=== PATIENT | male | born 1955 | race Hispanic/Latino ===

== ENCOUNTER 2019-10-28 16:53 | Inpatient (IN) | payer OTHER ==
[2019-10-28 17:56] LABS: Absolute Lymphocytes (CBC) 1.2 K/uL (0.7-4.9); Basophils % 0.4 % (0-1.3); Hematocrit 44.6 % (39.6-49.0); Lymphocytes % 11.6 % (15.3-44.8); MPV 8.6 fL (7.6-11.3); RBC Red Blood Cell Count 4.94 M/uL (4.33-5.43)
[2019-10-28 18:26] LABS: Bilirubin Total 0.6 mg/dL (0.2-1.0); Potassium 3.8 mmol/L (3.5-5.1); Protein, Total 7.6 g/dL (6.4-8.2); Thyroid Stimulating Hormone 0.785 uIU/mL (0.360-3.740)
[2019-10-28] MEDS: HYDROCODONE/APAP 5/325 MG TAB PO PRN (18:47)
[2019-10-28] MEDS: PIPER/TAZO/NS 3.375gm 3.375 GM/100 ML BAG IVPB SCH (18:47)
[2019-10-28] MEDS ORDERED: POTASSIUM CL SA 10 MEQ TAB PO ONE (19:00)
[2019-10-28] MEDS ORDERED: INFLUENZA VACCINE (for 3y+) 0.5 ML DOSE IMVAC ONE (21:00)
[2019-10-28] MEDS ORDERED: PREGABALIN PO SCH (21:00)
[2019-10-28] MEDS ORDERED: ONDANSETRON 4 MG/2 ML VIAL IV PRN (21:13)
[2019-10-28] MEDS ORDERED: ENOXAPARIN 40 MG/0.4 ML SQ ONE (21:13)
[2019-10-28] MEDS: carBAMazepine 200 MG TAB PO SCH (22:46)
[2019-10-28] MEDS: MORPHINE 2 MG/ML SYR IV PRN (22:46)
[2019-10-28] MEDS: PREGABALIN 150 MG CAP PO SCH (22:46)
[2019-10-28] MEDS: carvediloL 25 MG TAB PO SCH (22:46)
[2019-10-29] MEDS: PIPER/TAZO/NS 3.375gm 3.375 GM/100 ML BAG IVPB SCH ×3 (02:49→16:21)
[2019-10-29] MEDS: HYDROCODONE/APAP 5/325 MG TAB PO PRN ×2 (02:51→20:04)
--- NOTE | 2019-10-29 05:51 | HP ---
Date of Admission: 10/28/2019 Chief Complaint: Redness and pain in left leg. History Of Present Illness: A 64-year-old pleasant male patient who was doing fine until today all o f a sudden he started to have rapidly worsening redness of left leg with significant pain. Denies an y fever, chills, injury. He says over period of 4 hours, his symptom has gotten significantly worse since it started and when I saw him, he had significant area of redness involving the lower 2/3rd of left leg and all this development has happened in last 4 hours as he says. He has significant pain. After he was evaluated, he was admitted to the hospital as the patient reported that he never had th is much pain with his prior episodes of cellulitis, which he unfortunately gets it on a recurrent bas is. Considering his symptoms, decision was made to admit him to the hospital. Allergies: NO KNOWN ALLERGIES. Medications: List reviewed. Review of Systems: Musculoskeletal: As mentioned above. Dermatology: As mentioned above. All other systems reviewed and negative. Past Medical History: Significant for hypertension, recurrent cellulitis of leg, chronic leg edema, trigeminal neuralgia, chronic back pain. 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 Social History: Negative for smoking or alcohol use. Family History: Not pertinent. Physical Examination: Vital Signs: Temperature 97.3, pulse 60, respiratory rate 16, blood pressure 161/83, oxygen saturati on 96%, height 5 feet 5 inches, weight 299 pounds. General: Awake, alert, oriented, not in distress. HEENT: Head atraumatic, normocephalic. Conjunctivae nonerythematous. Sclerae white. Mouth, no thr ush or edema noted. Ears/Nose, no mass, lesion, discharge noted. Neck: Supple. No JVD, lymph nodes, bruit, thyromegaly noted. Lungs: Bilateral good equal air entry. Clear to auscultation. No rhonchi. No rales. Heart: Normal heart sounds, no murmur or gallop. Abdomen: Soft, bowel sounds normal. No guarding, rigidity, tenderness, mass, hepatosplenomegaly, dis tention, or bruit noted. 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 His left lower extremity shows significant area of redness and tenderness invol ving lower 2/3rd of left leg. No open wound. Bilateral leg edema present. Skin: No rash, ulcer, cellulitis. Lymphatics: No lymph node enlargement in neck, supraclavicular, infraclavicular region. Neuro: No focal neurological deficit. Chest: Unremarkable. External Genitalia: Deferred. Rectal: Deferred. Laboratory Data: White count 10.6, hemoglobin 15.2, platelets 161. Sodium 139, potassium 3.8 chlori de 101, bicarb 32, BUN 14, creatinine 1.18, glucose 148. Liver function tests unremarkable. Troponi n less than 0.05. Lactic acid level 1. TSH 0.781. Impression: 1.Cellulitis, left leg. 2.Hypertension. 3.Trigeminal neuralgia. 4.Chronic back pain. 5.Leg edema. Plan: Admit the patient to hospital for further evaluation and management of this problem. Patient is appropriate for inpatient and is expected to spend 2 midnights in hospital. We will go ahead and continue home medications. DVT prophylaxis will be given per order. Start the patient on IV antibio tics Zosyn. Blood culture was done, we will follow up on results. I will see him tomorrow for followup. Details and plan of treatment disc ussed with the patient. DOMENICA/MODL Voice ID: [id number]
[2019-10-29] MEDS: PREGABALIN 150 MG CAP PO SCH ×2 (08:21→20:04)
[2019-10-29] MEDS: carvediloL 25 MG TAB PO SCH ×2 (08:22→20:04)
[2019-10-29] MEDS: carBAMazepine 200 MG TAB PO SCH ×2 (08:22→20:03)
[2019-10-29] MEDS: DULOXETINE 30 MG CAP PO SCH (08:24)
[2019-10-29] MEDS ORDERED: LOSARTAN/HCTZ 50-12.5 PO SCH (09:00)
[2019-10-29] MEDS ORDERED: HOME MED 1 EA UNK (Duloxetine Hcl [Duloxetine Hcl] 60 MG) PO SCH (09:00)
[2019-10-29] MEDS ORDERED: HOME MED 1 EA UNK (Losartan/Hydrochlorothiazide [Losartan-Hctz 100-25 Mg Tab] 1 EACH) PO SCH (09:00)
[2019-10-29] MEDS: NA CHLORIDE 0.9% 1,000 ML IV SCH ×2 (10:54→20:03)
[2019-10-29] MEDS: ENOXAPARIN 40 MG/0.4 ML SQ SCH (16:21)
[2019-10-29] MEDS: MORPHINE 2 MG/ML SYR IV PRN (22:00)
--- NOTE | 2019-10-29 23:48 | PN ---
Date of Progress Note: 10/29/2019 Subjective: Patient was seen this morning for followup. No new complaints or problems reported by patient. His left leg pain is better this morning. Redness is slightly better compared to yesterday. He did not respond to oral pain medication which was hydrocodone and required IV pain medication which was morphine and that actually has helped him very well. No other new complaints or problems reported overnight. Objective: Vital Signs: Reviewed. HEENT: Unremarkable. Lungs: Clear to auscultation. Heart: Sounds normal. Abdomen: Soft. Bowel sounds normal. No guarding, rigidity, tenderness, or distention. Extremities: Left leg edema is slightly better today. Left leg redness is somewhat better today compared to yesterday. Laboratory Data: Reviewed. Impression: 1. Cellulitis, left leg. 2. Rule out sepsis. 3. Acute kidney injury. 4. Hypertension. Plan: Patient's creatinine has gone up today compared to yesterday and we will go ahead and start him on IVF at 75 mL/hour. Continue current antibiotic, Zosyn. He has started to respond well to antibiotic and will see him tomorrow. Ambulation was encouraged. Continue DVT prophylaxis with Lovenox and continue home medications per order. I will see him tomorrow. Depending on his blood work and his condition, we will decide if he can be discharged to go home either tomorrow or sometime over the weekend. Plan of treatment discussed with him. DOMENICA/MODL Voice ID: [id number] Report ID: [id number] SANDIE
[2019-10-30] MEDS: PIPER/TAZO/NS 3.375gm 3.375 GM/100 ML BAG IVPB SCH ×3 (01:35→17:21)
[2019-10-30 04:50] LABS: Absolute Lymphocytes (CBC) 1.6 K/uL (0.7-4.9); Basophils % 0.5 % (0-1.3); Hematocrit 39.2 % (39.6-49.0); Lymphocytes % 28.2 % (15.3-44.8); MPV 8.8 fL (7.6-11.3); RBC Red Blood Cell Count 4.32 M/uL (4.33-5.43)
[2019-10-30] MEDS: NA CHLORIDE 0.9% 1,000 ML IV SCH ×3 (05:00→15:00)
[2019-10-30 06:25] LABS: Magnesium 2.3 mg/dL (1.8-2.4); Potassium 4.1 mmol/L (3.5-5.1)
[2019-10-30] MEDS: DULOXETINE 30 MG CAP PO SCH (09:27)
[2019-10-30] MEDS: carBAMazepine 200 MG TAB PO SCH ×2 (09:29→21:40)
[2019-10-30] MEDS: carvediloL 25 MG TAB PO SCH ×2 (09:29→21:40)
[2019-10-30] MEDS: HYDROCODONE/APAP 5/325 MG TAB PO PRN ×2 (09:32→13:41)
[2019-10-30] MEDS: PREGABALIN 150 MG CAP PO SCH ×2 (09:36→21:41)
--- NOTE | 2019-10-30 14:10 | PN ---
Date of Progress Note: 10/30/2019 Subjective: Patient was seen this morning for followup, lying in bed, not in distress. Denies any n ausea, vomiting. No diarrhea. His pain from the left anterior leg and posterior leg has improved si gnificantly except the only pain now he has is mid and upper left calf. Redness from left leg has im proved. He does have more leg swelling as noted today than yesterday. Objective: Vital Signs: Reviewed. HEENT: Unremarkable. Lungs: Clear to auscultation. Heart: Sounds normal. Abdomen: Soft. Bowel sounds normal. No guarding, rigidity, tenderness, or distention. Extremities: Bilateral leg edema present. Left leg edema more than right leg edema. Redness from l eft leg is approximately 50% better compared to yesterday. Laboratory Data: White count 5.7, hemoglobin 13.7, platelets 141. Sodium 138, potassium 4.1, chlori de 103, bicarb 33, BUN 16, creatinine 1.36, glucose 262. Impression: 1.Cellulitis, left leg. 2.Acute kidney injury. 3.Hypertension. 4.Hyperglycemia. Plan: We will go ahead and continue IV fluid hydration. Continue current antibiotics Zosyn. We flip l go ahead and get a venous Doppler of the lower extremity to rule out DVT. His systolic blood press ure has been between 100 to 110 most of the time and I will discontinue his losartan/HCTZ and hold carvedilol if systolic blood pressure less than 120. I will see him tomor row for followup. DOMENICA/MODL Voice ID: [id number] Report ID: [id number]
--- NOTE | 2019-10-30 15:29 | RAD REPORT ---
EXAM DESCRIPTION: US - Extrem Venous W Compress Darrell - 10/30/2019 3:23 pm CLINICAL HISTORY: leg pain Bilateral leg edema and swelling. COMPARISON: EXT VENOUS W COMPRESSION DARRELL dated 11/11/2014 TECHNIQUE: Real-time sonographic interrogation of the left and right lower extremity deep venous sys tems was performed. FINDINGS: Normal compressibility, flow augmentation, phasic flow and spontaneous flow is identified in both the left and right lower extremity deep venous systems. IMPRESSION: No sonographic evidence of left or right lower extremity deep venous thrombosis.
[2019-10-30] MEDS: ENOXAPARIN 40 MG/0.4 ML SQ SCH (17:21)
[2019-10-30] MEDS: MORPHINE 2 MG/ML SYR IV PRN (23:16)
[2019-10-31] MEDS: HYDROCODONE/APAP 5/325 MG TAB PO PRN ×2 (00:45→19:14)
[2019-10-31] MEDS: PIPER/TAZO/NS 3.375gm 3.375 GM/100 ML BAG IVPB SCH ×3 (00:46→16:43)
[2019-10-31 06:40] LABS: Absolute Lymphocytes (CBC) 1.5 K/uL (0.7-4.9); Basophils % 0.6 % (0-1.3); Hematocrit 38.8 % (39.6-49.0); Lymphocytes % 32.6 % (15.3-44.8); MPV 8.9 fL (7.6-11.3)
[2019-10-31 07:11] LABS: Magnesium 2.3 mg/dL (1.8-2.4); Potassium 4.1 mmol/L (3.5-5.1)
[2019-10-31] MEDS: carBAMazepine 200 MG TAB PO SCH ×2 (08:14→21:18)
[2019-10-31] MEDS: carvediloL 25 MG TAB PO SCH ×2 (08:14→21:17)
[2019-10-31] MEDS: PREGABALIN 150 MG CAP PO SCH ×2 (08:15→21:00)
[2019-10-31] MEDS: DULOXETINE 30 MG CAP PO SCH (08:15)
[2019-10-31] MEDS: NA CHLORIDE 0.9% 1,000 ML IV SCH ×2 (10:00→16:45)
[2019-10-31] MEDS: DOXYCYCLINE 100 MG CAP PO SCH ×2 (10:24→21:17)
--- NOTE | 2019-10-31 14:32 | PN ---
Date of Progress Note: 10/31/2019 Subjective: Patient was seen this morning for followup. His left leg pain is better. No new compla ints or problems reported. No constipation. No diarrhea. Objective: Vital Signs: Reviewed. HEENT: Unremarkable. Lungs: Clear to auscultation. Heart: Sounds normal. Abdomen: Soft. Bowel sounds normal. No guarding, rigidity, tenderness, or distention. Extremities: Bilateral leg edema present. Left leg edema is little better today than yesterday. Sw elling and redness from left leg are better than yesterday. Laboratory Data: White count 4.6, hemoglobin 13.3, platelets 150. Sodium 141, potassium 4.1, chlori de 104, bicarb 35, BUN 10, creatinine 1.05, glucose 164, magnesium 2.3. Impression: 1.Cellulitis, left leg. 2.Acute kidney injury. 3.Hypertension. Plan: We will go ahead and continue IV fluid, but reduce rate to 50 mL/hour. Continue current IV an tibiotics Zosyn and we will add oral antibiotic, doxycycline. I will see him tomorrow for followup a nd possible discharge to go home tomorrow with doxycycline and Augmentin. Details were discussed wit h the patient. His hemoglobin A1c this morning is 7.7, and we will start him on oral hypoglycemic medication upon discharge for diabetes con mela. DOMENICA/MODL Voice ID: [id number] Report ID: [id number]
[2019-10-31] MEDS: ENOXAPARIN 40 MG/0.4 ML SQ SCH (16:43)
[2019-11-01] MEDS: MORPHINE 2 MG/ML SYR IV PRN (00:13)
[2019-11-01] MEDS: PIPER/TAZO/NS 3.375gm 3.375 GM/100 ML BAG IVPB SCH ×2 (00:13→08:18)
[2019-11-01] MEDS: NA CHLORIDE 0.9% 1,000 ML IV SCH (05:34)
[2019-11-01] MEDS: DULOXETINE 30 MG CAP PO SCH (08:20)
[2019-11-01] MEDS: carvediloL 25 MG TAB PO SCH ×2 (08:20→20:39)
[2019-11-01] MEDS: DOXYCYCLINE 100 MG CAP PO SCH (08:20)
[2019-11-01] MEDS: carBAMazepine 200 MG TAB PO SCH ×2 (08:20→20:39)
[2019-11-01] MEDS: PREGABALIN 150 MG CAP PO SCH ×2 (08:26→20:39)
[2019-11-01] MEDS: LOSARTAN/HCTZ 50-12.5 PO SCH (09:36)
[2019-11-01] MEDS: HYDROCODONE/APAP 5/325 MG TAB PO PRN ×2 (09:40→20:43)
[2019-11-01] MEDS ORDERED: Levofloxacin 750mg IV 750 MG/150 ML BAG IV SCH (10:00)
[2019-11-01] MEDS ORDERED: VANCOMYCIN 2 GM in NA CHLORIDE 0.9% 500 ML IV SCH (11:00)
[2019-11-01] MEDS ORDERED: DIPHENHYDRAMINE 25 MG TAB/CAP PO ONE (12:38)
[2019-11-01] MEDS: VANCOMYCIN 2 GM in NA CHLORIDE 0.9% 500 ML IV SCH (12:49)
--- NOTE | 2019-11-01 15:39 | PN ---
Date of Progress Note: 11/01/2019 Subjective: Patient was seen this morning for followup. He was sitting in chair with his leg elevat ed and he has kept his leg elevated almost all the time. Ambulates in the room well without any diff iculties. No constipation, nausea, vomiting, diarrhea. Objective: Vital Signs: Reviewed. HEENT: Unremarkable. Lungs: Clear to auscultation. Heart: Sounds normal. Abdomen: Soft. Bowel sounds normal. No guarding, rigidity, tenderness, or distention. Extremities: Bilateral leg edema remains unchanged from yesterday, but area of cellulitis from left lower extremity looks worse today than last couple of days. Impression: 1.Cellulitis, left leg. 2.Hypertension. 3.Acute kidney injury, resolved. Plan: The patient's cellulitis has gotten worse. On exam today compared to last couple of days, he was improving with Zosyn alone and we added doxycycline yesterday, but today his leg looks worse than yesterday. His pain is better, but the area of cellulitis looks worse. So, what we will do is disc ontinue Zosyn and doxycycline and start him on vancomycin and Levaquin per order. Details were discu ssed with the patient. We will repeat blood work tomorrow. DOMENICA/MODL Voice ID: [id number] Report ID: [id number]
[2019-11-01] MEDS: ENOXAPARIN 40 MG/0.4 ML SQ SCH (16:35)
[2019-11-01] MEDS: MORPHINE 4 MG/ML SYR IV PRN (22:18)
[2019-11-02] MEDS: MORPHINE 4 MG/ML SYR IV PRN ×2 (02:55→22:19)
[2019-11-02] MEDS: NA CHLORIDE 0.9% 1,000 ML IV SCH ×3 (02:55→22:00)
[2019-11-02] MEDS: VANCOMYCIN 2 GM in NA CHLORIDE 0.9% 500 ML IV SCH ×2 (04:05→23:37)
[2019-11-02] MEDS: HYDROCODONE/APAP 5/325 MG TAB PO PRN ×2 (04:06→09:50)
[2019-11-02 06:03] LABS: Absolute Lymphocytes (CBC) 1.8 K/uL (0.7-4.9); Basophils % 0.7 % (0-1.3); Hematocrit 39.7 % (39.6-49.0); MPV 8.6 fL (7.6-11.3); RBC Red Blood Cell Count 4.38 M/uL (4.33-5.43)
[2019-11-02 06:13] LABS: Magnesium 2.1 mg/dL (1.8-2.4); Potassium 4.1 mmol/L (3.5-5.1)
[2019-11-02] MEDS: levoFLOXacin 500 MG TAB PO SCH (08:03)
[2019-11-02] MEDS: PREGABALIN 150 MG CAP PO SCH ×2 (08:04→21:00)
[2019-11-02] MEDS: DULOXETINE 30 MG CAP PO SCH (08:04)
[2019-11-02] MEDS: carBAMazepine 200 MG TAB PO SCH ×2 (08:04→21:13)
[2019-11-02] MEDS: LOSARTAN/HCTZ 50-12.5 PO SCH (08:04)
[2019-11-02] MEDS: carvediloL 25 MG TAB PO SCH ×2 (08:05→21:14)
[2019-11-02] MEDS: ENOXAPARIN 40 MG/0.4 ML SQ SCH (16:58)
--- NOTE | 2019-11-02 23:43 | PN ---
Date of Progress Note: 11/02/2019 Subjective: Patient was seen this morning for followup. Continues to have pain in his left calf are a unchanged from yesterday. No shortness of breath. No diarrhea. Objective: Vital Signs: Reviewed. HEENT: Unremarkable. Lungs: Clear to auscultation. Heart: Sounds normal. Abdomen: Soft. Bowel sounds normal. No guarding, rigidity, tenderness, distention. Extremities: Leg edema and redness of left leg remains unchanged. Laboratory Data: White count 4.9, hemoglobin 13.7, platelets 170. Sodium 138, potassium 4.1, chlori de 101, bicarb 34, BUN 11, creatinine 1.10, glucose 148, magnesium 2.1. Impression: 1.Cellulitis, left leg. 2.Hypertension. Plan: We will continue current medication, which is vancomycin. Yesterday, patient had problem with IV Levaquin while he was getting Levaquin infusion around the IV site, had some redness and itching and that got resolved once the IV Levaquin was discontinued. He did not have any other symptoms. Th is is considered not necessarily allergic reaction, but it is side effect from IV antibiotic that we see from time to time, and we did order oral Levaquin today and he has tolerated that without any tawanna e effect. Continue IV vancomycin. We will see him tomorrow for followup. Continue current DVT prophylaxis and antihypertensive medication s. DOMENICA/MODL Voice ID: [id number] Report ID: [id number]
[2019-11-03] MEDS: HYDROCODONE/APAP 5/325 MG TAB PO PRN ×3 (03:09→16:25)
[2019-11-03] MEDS: carBAMazepine 200 MG TAB PO SCH ×2 (08:27→20:39)
[2019-11-03] MEDS: DULOXETINE 30 MG CAP PO SCH (08:27)
[2019-11-03] MEDS: LOSARTAN/HCTZ 50-12.5 PO SCH (08:27)
[2019-11-03] MEDS: levoFLOXacin 500 MG TAB PO SCH (08:27)
[2019-11-03] MEDS: PREGABALIN 150 MG CAP PO SCH ×2 (08:28→20:41)
[2019-11-03] MEDS: carvediloL 25 MG TAB PO SCH ×2 (08:29→20:39)
[2019-11-03] MEDS ORDERED: FUROSEMIDE 20 MG/ 2ML VIAL IV ONE (09:51)
[2019-11-03] MEDS: NA CHLORIDE 0.9% 1,000 ML IV SCH (16:19)
[2019-11-03] MEDS: VANCOMYCIN 2 GM in NA CHLORIDE 0.9% 500 ML IV SCH (16:20)
[2019-11-03] MEDS: ENOXAPARIN 40 MG/0.4 ML SQ SCH (16:20)
[2019-11-03 17:10] VITALS: BMI 49.9
--- NOTE | 2019-11-03 21:41 | PN ---
Date of Progress Note: 11/03/2019 Subjective: Patient was seen this morning for followup. No new complaints or problems reported by h im except complaining of leg swelling and foot swelling. Pain from left calf is better. Objective: Vital Signs: Reviewed. HEENT: Unremarkable. Lungs: Clear to auscultation. Heart: Heart sounds normal. Abdomen: Soft, bowel sounds normal. No guarding, rigidity, tenderness, or distention. Extremities: Bilateral leg edema unchanged, but has edema of foot. The redness from left leg is bet ter today than yesterday. Impression: 1.Cellulitis, left leg. 2.Leg edema. 3.Hypertension. Plan: We will continue current antihypertensive medication. Continue current antibiotic. Patient d id tolerate Levaquin by mouth without any side effect and we will continue that along with IV vancomy kacie. We will give 1 dose of IV Lasix today. I will see him tomorrow and we will decide if we can po ssibly discharge him tomorrow, but it appears very likely that possible discharge will happen on sd and not tomorrow, but details were discussed with the patient. DOMENICA/MODL Voice ID: [id number] Report ID: [id number]
[2019-11-03] MEDS: MORPHINE 2 MG/ML SYR IV PRN (23:53)
[2019-11-04] MEDS: HYDROCODONE/APAP 5/325 MG TAB PO PRN ×2 (04:24→15:55)
[2019-11-04] MEDS ORDERED: FUROSEMIDE 20 MG/ 2ML VIAL IV ONE (07:35)
[2019-11-04] MEDS: DULOXETINE 30 MG CAP PO SCH (08:06)
[2019-11-04] MEDS: carBAMazepine 200 MG TAB PO SCH ×2 (08:06→21:57)
[2019-11-04] MEDS: LOSARTAN/HCTZ 50-12.5 PO SCH (08:06)
[2019-11-04] MEDS: levoFLOXacin 500 MG TAB PO SCH (08:06)
[2019-11-04] MEDS: PREGABALIN 150 MG CAP PO SCH ×2 (08:07→21:00)
[2019-11-04] MEDS: carvediloL 25 MG TAB PO SCH ×2 (08:08→21:57)
[2019-11-04 08:18] VITALS: O2SAT 93
[2019-11-04] MEDS: VANCOMYCIN 2 GM in NA CHLORIDE 0.9% 500 ML IV SCH (10:00)
[2019-11-04] MEDS: NA CHLORIDE 0.9% 1,000 ML IV SCH (15:49)
[2019-11-04] MEDS: ENOXAPARIN 40 MG/0.4 ML SQ SCH (16:00)
[2019-11-05] MEDS: MORPHINE 2 MG/ML SYR IV PRN (00:13)
--- NOTE | 2019-11-05 01:34 | PN ---
Date of Progress Note: 11/04/2019 Subjective: The patient was seen this for followup. No new complaints or problems reported by julien nt. Compared to yesterday, leg swelling is better. Objective: Vital Signs: Reviewed. HEENT: Unremarkable. Lungs: Clear to auscultation. Heart: Sounds normal. Abdomen: Soft. Bowel sounds normal. No guarding, rigidity, tenderness, or distention. Extremities: Leg edema present, but better than yesterday. Cellulitis changes of left leg, it is be tter today than yesterday. Impression: 1.Cellulitis on the left leg. 2.Hypertension. 3.Diabetes mellitus with hyperglycemia. Plan: Continue current medications. Continue current antibiotics, which is oral Levaquin and IV van comycin. Patient has tolerated oral Levaquin by mouth without any side effect. Continue IV vancomyc in. We will give 1 dose of IV Lasix today. We will see him tomorrow for followup, possible discharg e to go home either tomorrow or day after tomorrow. DOMENICA/MODL Voice ID: [id number] Report ID: [id number]
[2019-11-05 05:12] VITALS: TEMP 97
[2019-11-05] MEDS: VANCOMYCIN 2 GM in NA CHLORIDE 0.9% 500 ML IV SCH (05:40)
[2019-11-05] MEDS: DULOXETINE 30 MG CAP PO SCH (07:49)
[2019-11-05] MEDS: LOSARTAN/HCTZ 50-12.5 PO SCH (07:49)
[2019-11-05] MEDS: carBAMazepine 200 MG TAB PO SCH (07:49)
[2019-11-05] MEDS: levoFLOXacin 500 MG TAB PO SCH (07:50)
[2019-11-05] MEDS: carvediloL 25 MG TAB PO SCH (07:50)
[2019-11-05] MEDS: PREGABALIN 150 MG CAP PO SCH (07:51)
[2019-11-05] MEDS: NA CHLORIDE 0.9% 1,000 ML IV SCH (07:51)
[2019-11-05 07:52] VITALS: BP 145/69
[2019-11-05] MEDS: HYDROCODONE/APAP 5/325 MG TAB PO PRN (07:59)
[2019-11-05] MEDS ORDERED: INFLUENZA VACCINE (for 3y+) 0.5 ML DOSE IMVAC ONE (09:00)
--- NOTE | 2019-11-06 02:08 | DS ---
Date of Discharge: 11/05/2019 Disposition: Discharged to go home. Physical Examination: HEENT: Unremarkable. Lungs: Clear to auscultation. Heart: Heart sounds normal. Abdomen: Soft, bowel sounds normal. No guarding, rigidity, tenderness, or distention. Extremities: Bilateral leg edema present, better than before. Area of cellulitis from left leg is significantly better than before. Now skin over most of the lower leg instead of pink and warm it is mostly brown color with very minimum warmness, but significantly better than before. Laboratory Data: Upon admission, white count 10.6, hemoglobin 15.2, platelets 161. Last CBC on 11/02/2019, white count 4.9, hemoglobin 13.7, platelets 178. Last chemistry on 11/02/2019, sodium 138, potassium 4.1, chloride 101, bicarb 34 , BUN 11, creatinine 1.1, glucose 148, magnesium 2.1. Hospital Course: A 64-year-old pleasant male patient, admitted to the hospital with cellulitis of left leg. Please see dictated H and P for more information. After patient was evaluated in the office, he was admitted to the hospital and he was started on IV Zosyn. Initially with IV Zosyn, his cellulitis started to show improvement, but subsequently after the first couple of days or so after first 2-3 days of improvement, we did not see any improvement, in fact at some point cellulitis started to get worse, so we discontinued IV Zosyn and before we discontinued IV Zosyn, we added oral doxycycline. His cellulitis got worse, so we stopped both of this antibiotics and started him on IV vancomycin and IV Levaquin. As he was getting first dose of IV Levaquin, he had a local reaction around the IV site with some rash and itching, but no systemic reaction and IV Levaquin was discontinued. He did not have any side effect from vancomycin. Next day on, we started him on oral Levaquin and he did not have any side effect from oral Levaquin, so he continued to receive IV vancomycin and oral Levaquin and that actually has resulted in significant improvement to the level where we are able to now discharge him to go home with oral antibiotics. He did have significant leg swelling, required 2 days of IV Lasix, and he was given DVT prophylaxis using Lovenox and overall condition has improved now. His hemoglobin A1c was 7.7, so on an outpatient basis we will go ahead and start him on some oral hypoglycemic medications. Discharge Diagnoses: 1. Cellulitis, left leg. 2. Type 2 diabetes mellitus with hyperglycemia. 3. Hypertension. 4. Trigeminal neuralgia. 5. Chronic back pain. 6. Leg edema. 7. Acute kidney injury. Discharge Medications And Instructions: 1. Continue prior home medication. 2. Take antibiotic which is Levaquin 500 mg daily for 10 days and Augmentin 875 mg twice a day for 10 days. 3. Follow up at my office next week on Saturday or Saturday. DOMENICA/MODL Voice ID: [id number] Report ID: [id number] SANDIE
--- NOTE | 2019-11-06 03:23 | DS ---
Date of Discharge: 11/05/2019 DOMENICA/MODL Voice ID: [id number] Report ID: [id number]
== END 2019-11-05 09:15 | disposition home or self-care (01) | DRG 603 ==
LOC: 4TH 16:56
PROVIDERS: ADMIT Internal Medicine; ATTEND Internal Medicine
DX: L03.116 Cellulitis of left lower limb (principal); N17.9 Acute kidney failure, unspecified; E11.65 Type 2 diabetes mellitus with hyperglycemia; I10 Essential (primary) hypertension; G50.0 Trigeminal neuralgia; M54.9 Dorsalgia, unspecified
CPT/HCPCS: 36415; 80048; 80053; 80202; 83036; 83605; 83735; 84145; 84443; 85025; 87040; 90471; 93970; J1650; J1940; J2270; J2405; J2543; J7030; J7040; Q2035

== ENCOUNTER 2019-12-24 23:05 | Inpatient (IN) | payer OTHER ==
--- NOTE | 2019-12-24 23:45 | EDPHYS ---
Physician Documentation [facility] Name: Vipul Holden Age: 64 yrs Sex: Male : 1955 Arrival Date: 12/24/2019 Time: 23:05 Bed 14 Private MD: POLLY Physician Alexis Giang HPI: 12/23 23:33 This 64 yrs old Male presents to ER via Wheelchair with complaints of Fever, noa Diarrhea, Chills. 23:33 The patient reports fever, that was measured at 103 degrees Fahrenheit. Onset: The noa symptoms/episode began/occurred just prior to arrival. Modifying factors: there are no obvious modifying factors. Historical: - Allergies: 12/24 00:57 No Known Allergies; ao - Home Meds: 00:57 carvedilol 25 mg Oral tab 1 tab [Active]; Cymbalta 60 mg Oral cpDR 1 cap once daily ao [Active]; Lyrica 450mg Oral 1 cap 2 times per day [Active]; Tegretol 400mg Oral tab 1 tab every 12 hours [Active]; losartan-hydrochlorothiazide 100-25 mg Oral tab 1 tab once daily [Active]; - PMHx: 12/23 23:14 trigeminal neuralgia; ll1 12/24 00:57 Hypertension; ao - PSHx: 12/23 23:14 arm amputation; Knee surgery; ll1 - Immunization history:: Flu vaccine is up to date. - Social history:: Patient uses alcohol, occasionally. Patient/guardian denies using street drugs, tobacco products, Smoking status: unknown. ROS: 23:34 Eyes: Negative for injury, pain, redness, and discharge, ENT: Negative for injury, noa pain, and discharge, Neck: Negative for injury, pain, and swelling, Abdomen/GI: Negative for abdominal pain, nausea, vomiting, diarrhea, and constipation, Back: Negative for injury and pain, : Negative for injury, bleeding, discharge, and swelling, Neuro: Negative for headache, weakness, numbness, tingling, and seizure, Psych: Negative for depression, anxiety, suicide ideation, homicidal ideation, and hallucinations, Allergy/Immunology: Negative for hives, rash, and allergies, Endocrine: Negative for neck swelling, polydipsia, polyuria, polyphagia, and marked weight changes, Hematologic/Lymphatic: Negative for swollen nodes, abnormal bleeding, and unusual bruising. 23:34 Constitutional: Positive for body aches, chills, fever, malaise. 23:34 Cardiovascular: Positive for palpitations. 23:34 Respiratory: Positive for respirations 22. 23:34 Abdomen/GI: Positive for abdominal distension. 23:34 MS/extremity: Positive for pain, swelling, tenderness, of the left leg. Exam: 23:34 Head/Face: Normocephalic, atraumatic. Eyes: Pupils equal round and reactive to light, noa extra-ocular motions intact. Lids and lashes normal. Conjunctiva and sclera are non-icteric and not injected. Cornea within normal limits. Periorbital areas with no swelling, redness, or edema. ENT: Nares patent. No nasal discharge, no septal abnormalities noted. Tympanic membranes are normal and external auditory canals are clear. Oropharynx with no redness, swelling, or masses, exudates, or evidence of obstruction, uvula midline. Mucous membranes moist. Neck: Trachea midline, no thyromegaly or masses palpated, and no cervical lymphadenopathy. Supple, full range of motion without nuchal rigidity, or vertebral point tenderness. No Meningismus. Chest/axilla: Normal chest wall appearance and motion. Nontender with no deformity. No lesions are appreciated. Cardiovascular: Regular rate and rhythm with a normal S1 and S2. No gallops, murmurs, or rubs. Normal PMI, no JVD. No pulse deficits. Respiratory: Lungs have equal breath sounds bilaterally, clear to auscultation and percussion. No rales, rhonchi or wheezes noted. No increased work of breathing, no retractions or nasal flaring. Back: No spinal tenderness. No costovertebral tenderness. Full range of motion. Male : Normal genitalia with no discharge or lesions. MS/ Extremity: Pulses equal, no cyanosis. Neurovascular intact. Full, normal range of motion. Neuro: Awake and alert, GCS 15, oriented to person, place, time, and situation. Cranial nerves II-XII grossly intact. Motor strength 5/5 in all extremities. Sensory grossly intact. Cerebellar exam normal. Normal gait. Psych: Awake, alert, with orientation to person, place and time. Behavior, mood, and affect are within normal limits. 23:34 Cardiovascular: Rate: tachycardic, Rhythm: regular, Heart sounds: normal, murmur, Edema: 1+ edema to level of left midcalf and right midcalf, JVD: is not appreciated. 23:34 Abdomen/GI: Inspection: distension, Bowel sounds: normal, Palpation: nontender, Liver: no appreciated palpable abnormalities, Hernia: not appreciated. 23:34 Musculoskeletal/extremity: ROM: full active range of motion, full passive range of noa motion, Circulation is intact in all extremities. Sensation intact. Compartment Syndrome exam of affected extremity: is normal. DVT Exam: pain, swelling, tenderness, that is mild, of the left leg, of the lateral aspect of left calf, left lateral ankle, medial aspect of left calf, left medial ankle, left mcgraw and anterior aspect of left ankle. Vital Signs: 23:12 BP 102 / 54; Pulse 131; Resp 22; Temp 103.1; Pulse Ox 96% on R/A; Pain 9/10; ll1 12/24 00:15 Weight 136.08 kg; ao 00:53 BP 115 / 60; Pulse 133; Resp 20; Temp 102.2(O); Pulse Ox 98% on R/A; ao 02:00 BP 105 / 62; Pulse 115; Resp 22; Pulse Ox 98% on 2 lpm NC; ao MDM: 12/23 23:11 Patient medically screened. [facility] 23:34 Data reviewed: vital signs, nurses notes, lab test result(s), EKG, radiologic studies, [facility] plain films, ultrasound. 12/23 23:32 Order name: Basic Metabolic Panel [facility] 12/23 23:32 Order name: CBC with Diff [facility] 12/23 23:32 Order name: LFT's; Complete Time: 00:52 [facility] 12/23 23:32 Order name: Magnesium; Complete Time: 00:52 [facility] 12/23 23:32 Order name: NT PRO-BNP; Complete Time: 00:52 [facility] 12/23 23:32 Order name: PT-INR; Complete Time: 00:52 [facility] 12/23 23:32 Order name: Troponin (emerg Dept Use Only); Complete Time: 00:52 [facility] 12/23 23:32 Order name: Amylase, Serum; Complete Time: 00:52 [facility] 12/23 23:32 Order name: Blood Culture Adult (2) [facility] 12/23 23:32 Order name: Ckmb; Complete Time: 00:52 [facility] 12/23 23:32 Order name: CPK; Complete Time: 00:52 [facility] 12/23 23:32 Order name: Lactate; Complete Time: 00:52 [facility] 12/23 23:32 Order name: Lipase; Complete Time: 00:52 [facility] 12/23 23:32 Order name: Procalcitonin; Complete Time: 01:26 [facility] 12/23 23:32 Order name: XRAY Chest (1 view) [facility] 12/23 23:32 Order name: Ptt, Activated; Complete Time: 00:52 [facility] 12/23 23:32 Order name: Urine Microscopic Only [facility] 12/23 23:33 Order name: Basic Metabolic Panel; Complete Time: 00:52 [facility] 12/23 23:33 Order name: CBC with Automated Diff [facility] 12/23 23:33 Order name: Stool Culture [facility] 12/23 23:33 Order name: Fecal Leukocyte Stain [facility] 12/23 23:39 Order name: US Extremity Venous W Compression Darrell [facility] 12/24 01:21 Order name: Manual Differential [facility] 12/24 01:57 Order name: Glucose, Ancillary Testing [facility] 12/23 23:32 Order name: EKG; Complete Time: 23:34 [facility] 12/23 23:32 Order name: Cardiac monitoring; Complete Time: 00:16 [facility] 12/23 23:32 Order name: EKG - Nurse/Tech; Complete Time: 00:25 [facility] 12/23 23:32 Order name: IV Saline Lock; Complete Time: 00:16 [facility] 12/23 23:32 Order name: Labs collected and sent; Complete Time: 00:16 [facility] 12/23 23:32 Order name: O2 Per Protocol; Complete Time: 00:16 [facility] 12/23 23:32 Order name: O2 Sat Monitoring; Complete Time: 00:16 [facility] 12/23 23:32 Order name: Accucheck; Complete Time: 00:16 [facility] 12/23 23:32 Order name: IV Saline Lock - Large Bore; Complete Time: 00:02 [facility] Administered Medications: 23:40 Drug: NS 0.9% (30 ml/kg) 30 ml/kg Route: IV; Rate: bolus; Site: right antecubital; ao 12/24 03:18 Follow up: IV Status: Infusion continued upon admission ao 12/23 23:50 Drug: Tylenol 1000 mg Route: PO; ao 12/24 03:19 Follow up: Response: Temperature is decreased ao 12/23 23:50 Drug: Zosyn 3.375 grams Route: IVPB; Infused Over: 60 mins; Site: right subclavian; ao 12/24 00:00 Follow up: IV Status: Completed infusion; IV Intake: 100ml ao 00:50 Drug: vancoMYCIN 2 grams Route: IVPB; Rate: calculated rate; Site: right antecubital; ao 03:19 Follow up: IV Status: Infusion continued upon admission ao 01:26 Drug: fentaNYL (PF) 50 mcg Route: IVP; Site: right antecubital; ao 03:21 Follow up: Response: No adverse reaction; Pain is decreased ao 01:26 Drug: Zofran (Ondansetron) 4 mg Route: IVP; Site: right antecubital; ao 03:21 Follow up: Response: No adverse reaction ao 01:27 Drug: Pepcid 20 mg Route: IVP; Site: right antecubital; ao 03:21 Follow up: Response: No adverse reaction ao 01:28 Drug: Potassium Effervescent Tablet 25 mEq Route: PO; ao 03:20 Follow up: Response: No adverse reaction ao 01:28 Drug: Aspirin 162 mg Route: PO; ao 03:20 Follow up: Response: No adverse reaction ao 01:28 Drug: Lovenox 100 mg Route: Sub-Q; Site: abdomen; ao 03:20 Follow up: Response: No adverse reaction ao 02:43 Drug: Magnesium Sulfate 2 grams Route: IVPB; Infused Over: 2 hrs; Site: right ao antecubital; 03:20 Follow up: IV Status: Infusion continued upon admission ao Disposition: 12/24/19 23:45 Hospitalization ordered by Brendon Jimenez for Inpatient Admission. Preliminary diagnosis are Cellulitis and acute lymphangitis of other parts of limb, Fever, unspecified, Vomiting, Diarrhea, unspecified, Weakness, Hypokalemia, Hypomagnesemia, Bandemia. - Bed requested for Telemetry/MedSurg (Inpatient). - Status is Inpatient Admission. ao - Condition is Fair. - Problem is new. - Symptoms have improved. Signatures: Dispatcher [employer] EDAlexis Pritchett MD MD cha Garcia, Cindy RN Yonatan Espino RN RN ao Lewis, Lynsay, RN RN ll1 Corrections: (The following items were deleted from the chart) 12/23 23:56 23:45 Hospitalization Ordered by A Tony GREGG for Inpatient Admission. Preliminary cg diagnosis is Cellulitis and acute lymphangitis of other parts of limb; Fever, unspecified; Vomiting; Diarrhea, unspecified; Weakness. Bed requested for Telemetry/MedSurg (Inpatient). Status is Inpatient Admission. Condition is Fair. Problem is new. Symptoms have improved. noa 12/24 00:56 04 23:56 12/24/2019 23:45 Hospitalization Ordered by A Tony GREGG for Inpatient noa Admission. Preliminary diagnosis is Cellulitis and acute lymphangitis of other parts of limb; Fever, unspecified; Vomiting; Diarrhea, unspecified; Weakness. Bed requested for Telemetry/MedSurg (Inpatient). Status is Inpatient Admission. Condition is Fair. Problem is new. Symptoms have improved. cg 12/24 00:57 12/23 23:14 PMHx: Hypertension; ll1 ao 12/24 01:26 00:56 12/24/2019 23:45 Hospitalization Ordered by A Tony GREGG for Inpatient Admission. noa Preliminary diagnosis is Cellulitis and acute lymphangitis of other parts of limb; Fever, unspecified; Vomiting; Diarrhea, unspecified; Weakness; Hypokalemia; Hypomagnesemia. Bed requested for Telemetry/MedSurg (Inpatient). Status is Inpatient Admission. Condition is Fair. Problem is new. Symptoms have improved. noa 02:45 01:26 12/24/2019 23:45 Hospitalization Ordered by A Tony GREGG for Inpatient Admission. ao Preliminary diagnosis is Cellulitis and acute lymphangitis of other parts of limb; Fever, unspecified; Vomiting; Diarrhea, unspecified; Weakness; Hypokalemia; Hypomagnesemia; Bandemia. Bed requested for Telemetry/MedSurg (Inpatient). Status is Inpatient Admission. Condition is Fair. Problem is new. Symptoms have improved. noa
--- NOTE | 2019-12-24 23:45 | ER ---
Nurse's Notes [facility] Name: Vipul Holden Age: 64 yrs Sex: Male : 1955 Arrival Date: 12/24/2019 Time: 23:05 Bed 14 Private MD: Diagnosis: Cellulitis and acute lymphangitis of other parts of limb;Fever, unspecified;Vomiting;Diarrhea, unspecified;Weakness;Hypokalemia;Hypomagnesemia;Bandemia Presentation: 12/23 23:12 Chief complaint: Patient states: N/V/D with fever, SPARROW, chills for 1 day. Denies cough. ll1 No travel. Coronavirus screen: Surgical mask placed on patient. Patient moved to private room, placed in contact and droplet isolation with eye protection until further assessment. Patient denies a cough. Patient denies shortness of breath or difficulty breathing. Patient reports a measured and/or subjective temperature greater than 100.4F. Patient denies travel on a cruise ship or to a country the [facility] currently lists as an affected area. Patient denies contact with known and/or suspected case of COVID-19. Ebola Screen: Patient denies travel to an Ebola-affected area in the 21 days before illness onset. Initial Sepsis Screen: Does the patient meet any 2 criteria? Temp <36.0*C (96.8*F)) or > 38.3*C (100.9*F). HR > 90 bpm. Yes Does the patient have a suspected source of infection? If YES to both, name of provider notified: Alexis Giang MD. Risk Assessment: Do you want to hurt yourself or someone else? Patient reports no desire to harm self or others. 23:12 Method Of Arrival: Wheelchair ll1 23:12 Acuity: SOHA 2 ll1 12/24 00:56 Onset of symptoms is unknown. ao Historical: - Allergies: 00:57 No Known Allergies; ao - Home Meds: 00:57 carvedilol 25 mg Oral tab 1 tab [Active]; Cymbalta 60 mg Oral cpDR 1 cap once daily ao [Active]; Lyrica 450mg Oral 1 cap 2 times per day [Active]; Tegretol 400mg Oral tab 1 tab every 12 hours [Active]; losartan-hydrochlorothiazide 100-25 mg Oral tab 1 tab once daily [Active]; - PMHx: 12/23 23:14 trigeminal neuralgia; ll1 12/24 00:57 Hypertension; ao - PSHx: 12/23 23:14 arm amputation; Knee surgery; ll1 - Immunization history:: Flu vaccine is up to date. - Social history:: Patient uses alcohol, occasionally. Patient/guardian denies using street drugs, tobacco products, Smoking status: unknown. Screenin:15 Abuse screen: Denies threats or abuse. Nutritional screening: No deficits noted. ll1 Tuberculosis screening: No symptoms or risk factors identified. Fall Risk IV access (20 points). Gait- Weak (10 pts.). Total Pisano Fall Scale indicates Low Risk Score (25-44 pts). Fall prevention measures have been instituted. Side Rails Up X 2 Placed close to Nursing Station Frequent Obs/Assesments occuring As available Patient and Family Educated on Fall Prevention Program and strategies. Assessment: 23:00 General: Appears in no apparent distress. uncomfortable, obese, unkempt, Behavior is ao cooperative. Pain: Complains of pain in back Pain currently is 8 out of 10 on a pain scale. Neuro: Level of Consciousness is awake, alert, obeys commands, Oriented to person, place, time, situation, Appropriate for age Moves all extremities. Full function Speech is normal, Facial symmetry appears normal. Cardiovascular: Heart tones S1 S2. Respiratory: Airway is patent Respiratory effort is even, unlabored, Respiratory pattern is regular, symmetrical. GI: Abdomen is round obese. : Reports burning with urination, pain. EENT: No signs and/or symptoms were reported regarding the EENT system. Derm: Skin is diaphoretic, Skin temperature is hot. Musculoskeletal: No signs and/or symptoms reported regarding the musculoskeletal system. 12/24 00:00 Reassessment: Patient appears in no apparent distress at this time. Patient and/or ao family updated on plan of care and expected duration. Pain level reassessed. 00:53 Reassessment: Patient appears in no apparent distress at this time. Patient and/or ao family updated on plan of care and expected duration. Pain level reassessed. Patient to be admitted. Pt agree with POC. 01:25 Reassessment: call for critical lab received, Ms. Grant said pt has 11 bands on jv1 differential. Dr. Giang notified right away at 01:23. 02:00 Reassessment: Patient appears in no apparent distress at this time. Patient and/or ao family updated on plan of care and expected duration. Pain level reassessed. Patient to be admitted. Waiting on all ER order to be completed. Patient room assignment done. 02:44 Reassessment: Report given to primary nurse. Patient to be taking to his room. ao Vital Signs: 12/23 23:12 BP 102 / 54; Pulse 131; Resp 22; Temp 103.1; Pulse Ox 96% on R/A; Pain 9/10; ll1 12/24 00:15 Weight 136.08 kg; ao 00:53 BP 115 / 60; Pulse 133; Resp 20; Temp 102.2(O); Pulse Ox 98% on R/A; ao 02:00 BP 105 / 62; Pulse 115; Resp 22; Pulse Ox 98% on 2 lpm NC; ao ED Course: 12/23 23:05 Patient arrived in ED. cl3 23:10 Alexis Giang MD is Attending Physician. noa 23:14 Triage completed. ll1 23:15 Arm band placed on Patient placed in an exam room, on a stretcher, Patient sepsis alert ll1 called overhead. 23:43 Brendon Jimenez MD is Hospitalizing Provider. noa 12/24 00:00 Yonatan Simon, RN is Primary Nurse. ao 00:56 Patient has correct armband on for positive identification. campus monitor on. Pulse ao ox on. NIBP on. 02:43 No provider procedures requiring assistance completed. Patient admitted, IV remains in ao place. Administered Medications: 12/23 23:40 Drug: NS 0.9% (30 ml/kg) 30 ml/kg Route: IV; Rate: bolus; Site: right antecubital; ao 12/24 03:18 Follow up: IV Status: Infusion continued upon admission ao 12/23 23:50 Drug: Tylenol 1000 mg Route: PO; ao 12/24 03:19 Follow up: Response: Temperature is decreased ao 12/23 23:50 Drug: Zosyn 3.375 grams Route: IVPB; Infused Over: 60 mins; Site: right subclavian; ao 12/24 00:00 Follow up: IV Status: Completed infusion; IV Intake: 100ml ao 00:50 Drug: vancoMYCIN 2 grams Route: IVPB; Rate: calculated rate; Site: right antecubital; ao 03:19 Follow up: IV Status: Infusion continued upon admission ao 01:26 Drug: fentaNYL (PF) 50 mcg Route: IVP; Site: right antecubital; ao 03:21 Follow up: Response: No adverse reaction; Pain is decreased ao 01:26 Drug: Zofran (Ondansetron) 4 mg Route: IVP; Site: right antecubital; ao 03:21 Follow up: Response: No adverse reaction ao 01:27 Drug: Pepcid 20 mg Route: IVP; Site: right antecubital; ao 03:21 Follow up: Response: No adverse reaction ao 01:28 Drug: Potassium Effervescent Tablet 25 mEq Route: PO; ao 03:20 Follow up: Response: No adverse reaction ao 01:28 Drug: Aspirin 162 mg Route: PO; ao 03:20 Follow up: Response: No adverse reaction ao 01:28 Drug: Lovenox 100 mg Route: Sub-Q; Site: abdomen; ao 03:20 Follow up: Response: No adverse reaction ao 02:43 Drug: Magnesium Sulfate 2 grams Route: IVPB; Infused Over: 2 hrs; Site: right ao antecubital; 03:20 Follow up: IV Status: Infusion continued upon admission ao Intake: 00:00 IV: 100ml; Total: 100ml. ao Outcome: 12/23 23:45 Decision to Hospitalize by Provider. [facility] 12/24 02:44 Admitted to Med/surg ao Condition: stable Instructed on the need for admit. 02:45 Patient left the ED. ao Signatures: Alexis Giang MD MD cha Ortiz, Alex RN RN Eva Santamaria RN RN Ankush Alcala cl3 Bassam Dick RN RN ll1 Corrections: (The following items were deleted from the chart) 00:57 12/23 23:14 PMHx: Hypertension; ll1 ao
[2019-12-24] MEDS ORDERED: NA CHLORIDE 0.9% 1,000 ML ONE (23:53)
[2019-12-24] MEDS ORDERED: ACETAMINOPHEN 500 MG TAB ONE (23:54)
[2019-12-24] MEDS ORDERED: VANCOMYCIN 1 GM/VIAL ONE (23:54)
[2019-12-24] MEDS ORDERED: PIPER/TAZO/NS 3.375gm 3.375 GM/100 ML BAG ONE (23:54)
[2019-12-25] MEDS ORDERED: NA CHLORIDE 0.9% 500 ML ONE (00:14)
[2019-12-25 00:23] LABS: Absolute Lymphocytes (CBC) 0.6 K/uL (0.7-4.9); Basophils % 0.3 % (0-1.3); Hematocrit 45.4 % (39.6-49.0); Lymphocytes % 7.3 % (15.3-44.8); MPV 8.3 fL (7.6-11.3); RBC Red Blood Cell Count 5.04 M/uL (4.33-5.43)
[2019-12-25 00:37] LABS: Protime INR 1.04
[2019-12-25 00:44] LABS: ALT/SGPT 32 U/L (12-78); AST/SGOT 20 U/L (15-37); Albumin 3.6 g/dL (3.4-5.0); Alkaline Phosphatase 79 U/L (45-117); Amylase Level 53 U/L (25-115); BUN Blood Urea Nitrogen 20 mg/dL (7-18); Bicarbonate 33 mmol/L (21-32); Bilirubin Direct 0.2 mg/dL (0-0.2); Bilirubin Total 0.6 mg/dL (0.2-1.0); CKMB Creatine Kinase MB < 1.0 ng/mL (0.3-3.6); Creatine Phosphokinase 110 U/L (39-308); Glucose Level 143 mg/dL (74-106); Lipase 104 U/L (73-393); Magnesium 1.6 mg/dL (1.8-2.4); NT PRO-BNP 64 pg/mL (<125); Potassium 3.3 mmol/L (3.5-5.1); Sodium Level 139 mmol/L (136-145); Troponin (Emerg Dept Use Only) 0.09 ng/mL (0.0-0.045)
[2019-12-25] MEDS ORDERED: FENTANYL CITR 100 MCG/2 ML ONE (01:09)
[2019-12-25] MEDS ORDERED: FAMOTIDINE 20 MG/2 ML VIAL IV ONE (01:10)
[2019-12-25] MEDS ORDERED: POTASSIUM 25 MEQ EFFERV TAB ONE (01:10)
[2019-12-25] MEDS ORDERED: ONDANSETRON 4 MG/2 ML VIAL ONE (01:10)
[2019-12-25] MEDS ORDERED: ENOXAPARIN 100 MG/ML SYR SQ ONE (01:10)
[2019-12-25] MEDS ORDERED: ASPIRIN 81 MG CHEWABLE TABLET ONE (01:10)
[2019-12-25] MEDS ORDERED: NA CHLORIDE 0.9% 1,000 ML ONE (01:11)
[2019-12-25] MEDS ORDERED: Magnesium Sulfate 2gm IVPB 2 G/50 ML BAG IV ONE (01:11)
[2019-12-25 01:27] LABS: Platelet Estimate ADEQ
[2019-12-25 01:28] LABS: Blood Morphology Comment NOT SEEN (NOT SEEN)
[2019-12-25] MEDS: PIPER/TAZO/NS 3.375gm 3.375 GM/100 ML BAG IVPB SCH ×2 (02:29→05:02)
[2019-12-25] MEDS ORDERED: VANCOMYCIN/NS 1 gm 1 GM/250 ML BAG IVPB SCH (02:29)
[2019-12-25] MEDS ORDERED: ONDANSETRON 4 MG/2 ML VIAL IV PRN (02:29)
[2019-12-25] MEDS: NA CHLORIDE 0.9% 1,000 ML IV SCH ×3 (02:29→15:34)
[2019-12-25 05:48] LABS: Magnesium 2.2 mg/dL (1.8-2.4); Potassium 3.8 mmol/L (3.5-5.1)
[2019-12-25 06:04] LABS: Absolute Lymphocytes (CBC) 0.6 K/uL (0.7-4.9); Basophils % 0.3 % (0-1.3); Hematocrit 40.7 % (39.6-49.0); Lymphocytes % 6.5 % (15.3-44.8); MPV 8.4 fL (7.6-11.3); RBC Red Blood Cell Count 4.55 M/uL (4.33-5.43)
[2019-12-25 07:57] LABS: Blood Morphology Comment NOT SEEN (NOT SEEN); Platelet Estimate ADEQ; Platelets, Giant F
--- NOTE | 2019-12-25 08:50 | RAD REPORT ---
EXAM DESCRIPTION: US - Extrem Venous W Compress Darrell - 12/25/2019 3:24 am CLINICAL HISTORY: Pain and swelling. COMPARISON: None. TECHNIQUE: High resolution grayscale sonographic evaluation of the right and left lower extremity venous system performed with color flow and duplex. Compression maneuvers utilized. FINDINGS: There is compressibility and flow within the right and left common femoral vein, proximal, mid, and distal superficial femoral vein, and popliteal vein. Augmentation evident within the right and left popliteal, mid femoral, and common femoral vein. There is an enlarged left groin lymph node, 7.0 x 2.4 x 4.4 cm with a large preserved fatty hilum con sistent with a reactive node. IMPRESSION: 1. No evidence of deep venous thrombosis within the right or left lower extremity. 2. Reactive left groin lymphadenopathy. Electronically signed by: Lauren Cole DO 12/25/2019 2:51 AM CDT Due to temporary technical issues with the PACS/Fluency reporting system, reports are being signed by the in house radiologist as a courtesy to ensure prompt reporting. The interpreting radiologist is f ully responsible for the content of the report.
[2019-12-25] MEDS ORDERED: NA CHLORIDE 0.9% 500 ML IV ONE ×2 (09:00→10:59)
[2019-12-25] MEDS ORDERED: POTASSIUM 25 MEQ EFFERV TAB PO SCH (09:00)
--- NOTE | 2019-12-25 09:07 | RAD REPORT ---
EXAM DESCRIPTION: Paresh Single View12/25/2019 12:54 am CLINICAL HISTORY: Shortness of breath COMPARISON: 2015 FINDINGS: The lungs appear clear of acute infiltrate. The heart is normal size IMPRESSION: No acute abnormalities displayed
--- NOTE | 2019-12-25 09:08 | RAD REPORT ---
EXAM DESCRIPTION: Paresh Single View12/25/2019 5:37 am CLINICAL HISTORY: Shortness of breath COMPARISON: December 24, 2019 FINDINGS: Left base has become hazy. The remainder of the ungs appear clear of acute infiltrate. The heart is normal size IMPRESSION: Left base has become hazy probably secondary to overlying soft tissue. Infiltrate can al so have this appearance. PA and lateral chest series recommended
[2019-12-25] MEDS: FAMOTIDINE 20 MG/2 ML VIAL IV SCH ×2 (09:57→20:35)
[2019-12-25] MEDS: HEPARIN 5000 UNIT/ML 1 ML VIAL SQ SCH ×2 (09:57→20:35)
[2019-12-25] MEDS ORDERED: Meropenem 500 MG VIAL IV SCH (10:00)
[2019-12-25] MEDS: PREGABALIN 150 MG CAP PO SCH ×2 (10:03→20:34)
[2019-12-25] MEDS: DULOXETINE 30 MG CAP PO SCH (10:04)
[2019-12-25] MEDS: Meropenem 500 MG in NA CHLORIDE 0.9% 100 ML IV SCH ×2 (10:04→20:34)
[2019-12-25] MEDS: carBAMazepine 200 MG TAB PO SCH ×2 (10:06→20:35)
--- NOTE | 2019-12-25 10:29 | HP ---
Date of Admission: 12/25/2019 Chief Complaint: Fever, chills, redness of left leg, and pain in left leg. History Of Present Illness: This is a 64-year-old very pleasant male patient who has history of recurrent cellulitis of his leg, was in the hospital with left leg cellulitis about 2 months ago. He was doing fine in his normal usual state of health until all of a sudden yesterday evening he started to have fever , chills, redness of left leg associated with pain in left leg. He came into the emergency room, was diagnosed as having cellulitis of left leg and was admitted to the hospital. He was started on IV Zosyn and IV vancomycin. During his last hospital stay, initially he was on IV Zosyn and subsequently doxycycline was added and because of lack of adequate response, those 2 antibiotics were discontinued and he was given IV vancomycin and IV Levaquin. With IV Levaquin, while he was getting infusion, he had some rash and itching around the infusion site, so IV Levaquin was changed to oral Levaquin and he tolerated that very well without any side effect and he was treated then for rest of the hospital course with oral Levaquin and IV vancomycin. He responded well, problem resolved up until yesterday when he came in, he had this problem of recurrent cellulitis of left leg and now requiring hospital admission again. When I saw him, he was sitting at bedside, trying to eat his breakfast and he had a hard time controlling his hand movement and informed me that he had hard time feeding himself. He was answering questions appropriately, but was a little slow to answer, did not have any focal deficit, but obviously he did not look himself. Immediately, I asked the nursing staff to check his vital signs and got him to lie down in the bed. His systolic blood pressure was 85 and IV fluid bolus was ordered. I have advised the patient not to get out of bed and nurse was advised to put fall precautions in place. Allergies: NO KNOWN ALLERGIES. Medications: List reviewed. Review of Systems: OPENER VERIFIER P[employer]ER CUSTOMS: As mentioned above. Musculoskeletal: As mentioned above. Dermatology: As mentioned above. All other systems reviewed and negative. Past Medical History: Significant for hypertension, recurrent cellulitis of leg , chronic leg edema, trigeminal neuralgia, chronic back pain. 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 Family History: Not pertinent. Social History: Negative for smoking, alcohol use. Physical Examination: Vital Signs: Last temperature early this morning was 99.6, pulse 100, respiratory rate 20, blood pressure at that time was 100/50 with oxygen saturation 92. When he first came into emergency room, temperature was 103.1, pulse was 131, respiratory rate 22, blood pressure was 102/54 with oxygen saturation 96%. General: Patient appears a little weaker than his usual self, slow to respond, but answers questions appropriately. HEENT: Head atraumatic, normocephalic. Conjunctivae nonerythematous. Sclerae white. Mouth, no thrush or edema noted. Ears/Nose, no mass, lesion, discharge noted. Neck: Supple. No JVD, lymph nodes, bruit, thyromegaly noted. Lungs: Bilateral good equal air entry. Clear to auscultation. No rhonchi. No rales. Heart: Normal heart sounds, no murmur or gallop. Abdomen: Soft, bowel sounds normal. No guarding, rigidity, tenderness, mass, hepatosplenomegaly, distention, or bruit noted. Extremities: Left upper extremity shows status post amputation, lower extremity shows intense redness of skin involving lower 2/3rd of left leg. No open wound. Skin is warm to touch. Extremity exam shows trace to grade 1 leg edema.. Skin: No rash, ulcer, cellulitis. Lymphatics: No lymph node enlargement in neck, supraclavicular, infraclavicular region. Neuro: No focal neurological deficit. Chest: Unremarkable. External Genitalia: Deferred. Rectal: Deferred. Laboratory Data: Initial white count when he came into ER around midnight was 8.3, hemoglobin 15.1, platelets 151, 11% bands. Repeat white count 9.3, hemoglobin 13.9, platelets 136, 9% bands. Initial sodium 139, potassium 3.3, chloride 101, bicarb 33, BUN 20, creatinine 1.75, glucose 143, magnesium 1.6. Liver function tests unremarkable. Procalcitonin 2.82. Lactic acid level 2.9. Repeat blood work this morning: Sodium 141, potassium 3.8, chloride 105, bicarb 29, BUN 25, creatinine 2.36, glucose 159. Impression: 1. Cellulitis, left leg. 2. Acute kidney injury. 3. Hypertension. 4. Chronic leg edema. 5. Trigeminal neuralgia. 6. Chronic back pain. Plan: Admit the patient to hospital for further evaluation and management of this problem. Patient is appropriate for inpatient admission and is expected to spend two midnights in hospital. We will continue vancomycin. Pharmacy consult is in place for management of vancomycin dosing. Discontinue IV Zosyn, start the patient on meropenem. Nurse was advised to give 500 mL wide-open IV fluid bolus. Recheck blood pressure at end of the bolus and to notify me with the result. His systolic blood pressure was 85 when I saw him this morning with oxygen saturation around 95%. He was not tachycardic and not in any respiratory distress. Med check and fall precautions were advised. Home medications will be continued per order and heparin was ordered for DVT prophylaxis. I will see him tomorrow for followup. We will follow up on blood culture results. DOMENICA/MARCELINA Voice ID: [id number] SANDIE
[2019-12-25] MEDS ORDERED: NA CHLORIDE 0.9% 500 ML IV SCH (11:00)
[2019-12-25] MEDS ORDERED: ASPIRIN EC 81 MG TAB PO ONE (11:32)
--- NOTE | 2019-12-25 11:32 | RAD REPORT ---
EXAM DESCRIPTION: CT - Head Brain Wo Cont - 12/25/2019 11:23 am CLINICAL HISTORY: Alteration of awareness/confusion COMPARISON: None TECHNIQUE: Computed axial tomography of the head was obtained. IV contrast was not requested. All CT scans are performed using dose optimization technique as appropriate and may include automated exposure control or mA/KV adjustment according to patient size. FINDINGS: An intracranial bleed is not seen . The ventricles are normal in caliber. No extra-axial fluid collection is noted. Cerebellar tonsillar ectopia is present. Fluid within the sinuses/ mastoids is not seen. IMPRESSION: No acute intracranial abnormality is seen. If patient's symptoms persist MRI of the bra in would be recommended.
[2019-12-25] MEDS ORDERED: PIPER/TAZO/NS 2.25gm 2.25 GM/50 ML BAG IVPB SCH (12:00)
[2019-12-25 12:13] LABS: Urine Amorphous Sediment 2+ /HPF (NONE SEEN); Urine Bacteria >50 /HPF (NONE SEEN); Urine Culture Reflex Order REFLEXED; Urine RBC NONE SEEN /HPF (NONE SEEN)
--- NOTE | 2019-12-25 14:08 | CON ---
Reason For Consultation: Possible stroke. History Of Present Illness: Mr. Holden is a 64-year-old patient who is admitted with left leg cell ulitis and sepsis on IV antibiotics. He was noted to have difficulty coordinating his hand movement this morning when Dr. Jimenez visited him and had some slurred speech. The patient's blood pressure was found to have a systolic of 85, and he was treated with saline bolus along with having a CT scan of the head stat, which was negative for acute ischemic or hemorrhagic change. The patient's blood pres sure is about 101-102 systolic. He is more responsive, has more coordinated use of the right upper e xtremity. He had no focal changes during the episodes including face, his right arm being weak, or h is toe flex being weak. He has a left [id number] amputation. Past Medical History: Recurrent cellulitis of the leg, edema, trigeminal neuralgia, chronic back rodo n. 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 Allergies: NO KNOWN DRUG ALLERGIES. Family History: Noncontributory. Social History: No alcohol, tobacco, or IV drug use. Review of Systems: The patient does have fevers, chills, swelling, redness and some pain in the left leg. He has no pro blems with swallowing, bladder function. No psychiatric issues or other positives on a 10-point syst ems review. Physical Examination: Vital Signs: Blood pressure ranged from 85 to 105 over 60 to 65, pulse is 83 to 88, respiratory rate 14 to 18, temperature 98, oxygen saturation 97% on 2 L nasal cannula. General: Mr. Holden is resting in bed. He actually was asleep and had to be awakened. Once awake , he follows instructions, although he does appear to be somewhat sleepy. He is extremely obese and has a slightly protuberant abdomen. Extremities: He has a left eeehk-eid-[id number] amputation and marked redness, swelling in the left lower extremity to almost 3/4 away up the left leg that includes some cyanosis changes as well. His right leg appears normal. His right upper extremity appears normal. Lungs: Clear. Abdomen: Soft, but again distended. Neurological: He is sleepy but easily aroused and is oriented to person, place, and situation. He f ollows simple commands without difficulty to move the arms and legs, although pain does limit him mov ing the left leg. His cranial nerve examination revealed no focal deficits, except he has some nysta gmus as the eyes moves back and forth. He has some mild incoordination in the arms. In terms of mot or examination, he is strong in both upper and lower extremities including the left arm stump. He wellington s sensation, stocking-glove loss, reflexes absent and unable to do his gait because of the pain and c ellulitis. Laboratory Studies: White blood cell count 9.3, band neutrophils 11. His procalcitonin is elevated at 2.82 and lactic acid elevated at 3, calcium low at 8.1, magnesium normal at 2.2, creatinine elevat ed at 2.36, glucose ranged from 145 to 197, and urinalysis shows greater than 50 bacteria, 2+ amorpho us sediments. Head CT scan shows no acute ischemic or hemorrhagic change. Extremity doppler study s hows no evidence of deep vein thrombosis in the right or lower extremity. There is reactive left ermias in lymphadenopathy seen. His chest x-ray shows no acute abnormalities. Lungs appear well inflated. There was a repeat chest x-ray done earlier today that shows the left base has become hazy, probably secondary to overlying soft tissue, although infiltrate disappeared and recommend a PA and lateral s eries. Assessment: Mr. Holden is a 64-year-old patient with marked hypotension resulting in vertebrobasil ar insufficiency and causing symptoms of incoordination in his right upper extremity, some slurred sp eech. He actually did have some difficulty with guttural sounds, especially instead of the labial an d lingual sounds. He does move the left stump well and both legs, although limited by pain in the le ft leg from his cellulitis with sepsis. Plan: 1.He may have a brain MRI to definitively rule out the presence of stroke, which appears unlikely at this point. 2.Aspirin 81 mg daily. 3.Lipitor 20 mg daily, once cleared by Speech. Continue Tegretol 400 mg twice daily for trigeminal neuralgia. May continue Lyrica for generalized or neuropathic pain and he is on vancomycin 2 g every 36 hours managed by the pharmacy service and the Lyrica is 450 mg twice a day. In addition, he is o n antibiotics, meropenem 500 mg every 12 hours and has DVT prophylaxis with heparin 5000 units subcut aneously daily. 4.Once the patient is able to get the MRI, will be re-evaluated and it is unlikely he has had a stro ke. JAIMIE Voice ID: [id number] Report ID: [id number]
--- NOTE | 2019-12-25 14:37 | EKG ---
Test Date: 2019-12-25 Test Time: 09:54:31 Nursing Support Worker: CLAY MEASUREMENT RESULTS: Intervals: Rate: 85 MN: 186 QRSD: 104 QT: 372 QTc: 442 Lowell: P: 46 MN: 186 QRS: 40 T: 53 INTERPRETIVE STATEMENTS: Normal sinus rhythm Incomplete right bundle branch block Nonspecific T wave abnormality Abnormal ECG Compared to ECG 12/25/2019 00:20:20 T-wave abnormality now present Sinus tachycardia no longer present Atrial premature complex(es) no longer present Aberrant conduction of supraventricular beat(s) no longer present Electronically Signed On 12-25-19 14:36:39 CDT by Denny Alfaro
--- NOTE | 2019-12-25 14:37 | EKG ---
Test Date: 2019-12-25 Test Time: 00:20:20 Paint Spray Inspector: DEE MEASUREMENT RESULTS: Intervals: Rate: 112 VA: 142 QRSD: 94 QT: 354 QTc: 483 Allison: P: 27 VA: 142 QRS: 57 T: 47 INTERPRETIVE STATEMENTS: Sinus tachycardia with premature atrial complexes with aberrant conduction Possible Left atrial enlargement Incomplete right bundle branch block Borderline ECG Compared to ECG 07/03/2016 05:41:54 Atrial premature complex(es) now present Aberrant conduction of supraventricular beat(s) now present Sinus rhythm no longer present Myocardial infarct finding no longer present Electronically Signed On 12-25-19 14:36:45 CDT by Denny Alfaro
--- NOTE | 2019-12-25 15:00 | RAD REPORT ---
EXAM DESCRIPTION: MRI - Brain Wo Cont - 12/25/2019 2:44 pm CLINICAL HISTORY: new onset weakness, stroke-like symptoms, decreased level of consciousness COMPARISON: MRI BRAIN W WO CONTRAST dated 08/05/2013; Head Brain Wo Cont dated 12/25/2019 TECHNIQUE: Sagittal T1-weighted images were obtained along with axial PD, heavily T2-weighted and T2 -FLAIR images. Axial DWI and ADC mapping sequences were also obtained along with coronal heavily T2-w eighted images. Exam suffers from motion degradation. Multiple sequences had to be repeated. Exam is considered diagn ostic. FINDINGS: No intracranial hemorrhage, mass or acute infarction. There is no edema or shift of midlin e structures. No cortical edema or sulcal effacement. Austin-matter/white matter junction is preserved. Signal voids are seen as a normal finding in the major intracranial vessels. Patient has little if any atrophy or chronic ischemic change. Ventricles are normal. No globe or orbi michelle content abnormality. Right mastoid air cells are clear. Small amount of fluid is evident in the left side mastoid air cell s. Right-side mastoid air cells are under developed. IMPRESSION: No infarction changes are present. No mass, hemorrhage or acute intracranial finding.
[2019-12-25] MEDS: ACETAMINOPHEN 325 MG TABLET PO PRN ×2 (16:14→23:34)
[2019-12-25] MEDS: ATORVASTATIN 20 MG TAB PO SCH (20:34)
[2019-12-26] MEDS: NA CHLORIDE 0.9% 1,000 ML IV SCH ×2 (02:11→18:43)
[2019-12-26] MEDS ORDERED: VANCOMYCIN 2 GM in NA CHLORIDE 0.9% 500 ML IV SCH ×2 (04:00→06:00)
[2019-12-26] MEDS ORDERED: VANCOMYCIN 1 GM/VIAL ONE (04:21)
[2019-12-26] MEDS ORDERED: NA CHLORIDE 0.9% 500 ML ONE (05:09)
[2019-12-26 07:15] LABS: Magnesium 1.9 mg/dL (1.8-2.4)
[2019-12-26 07:50] LABS: Absolute Lymphocytes (CBC) 1.1 K/uL (0.7-4.9); Basophils % 0.4 % (0-1.3); Hematocrit 39.2 % (39.6-49.0); Lymphocytes % 7.5 % (15.3-44.8); MPV 8.6 fL (7.6-11.3); RBC Red Blood Cell Count 4.35 M/uL (4.33-5.43)
[2019-12-26 08:28] LABS: Blood Morphology Comment NOT SEEN (NOT SEEN); Platelet Estimate DECR
[2019-12-26] MEDS: ASPIRIN EC 81 MG TAB PO SCH (08:42)
[2019-12-26] MEDS: carBAMazepine 200 MG TAB PO SCH ×2 (08:43→20:02)
[2019-12-26] MEDS: DULOXETINE 30 MG CAP PO SCH (08:43)
[2019-12-26] MEDS: FAMOTIDINE 20 MG/2 ML VIAL IV SCH ×2 (08:43→20:08)
[2019-12-26] MEDS: PREGABALIN 150 MG CAP PO SCH ×2 (08:43→20:07)
[2019-12-26] MEDS: Meropenem 500 MG in NA CHLORIDE 0.9% 100 ML IV SCH ×2 (08:44→20:02)
[2019-12-26] MEDS: HEPARIN 5000 UNIT/ML 1 ML VIAL SQ SCH ×2 (08:44→20:07)
[2019-12-26] MEDS: MORPHINE 2 MG/ML SYR IV PRN (08:46)
[2019-12-26] MEDS ORDERED: carvediloL 6.25 MG TAB PO SCH (09:00)
--- NOTE | 2019-12-26 11:54 | PN ---
Date of Progress Note: 12/26/2019 Subjective: Patient was seen this morning for followup. No new complaints or problems reported by prince theodore. Lying in bed, not in any distress. Overall feels better than yesterday. He still feels wea k which is like a generalized weakness, but compared to yesterday feels better. Objective: Vital Signs: Reviewed. HEENT: Unremarkable. Lungs: Clear to auscultation. Heart: Sounds normal. Abdomen: Soft. Bowel sounds normal. No guarding, rigidity, tenderness, distention. Extremities: Left leg exam remains unchanged. Intense redness of skin between knee and foot. No op en wound with some mild soft tissue swelling, unchanged from yesterday. Laboratory Data: Today, white count has gone up to 15, hemoglobin 13.2, platelets 98, 18% bands. Hi s sodium 139, potassium 4, chloride 104, bicarb 29, BUN 26, creatinine 1.72, glucose 133, magnesium 1 .9. Impression: 1.Sepsis. 2.Cellulitis, left leg. 3.Acute kidney injury. 4.Hypertension. Plan: Patient's blood pressure has improved, this morning it is 134/70. PICC line is in place. We will reduce IV fluid rate to 50 mL/hour. Physical Therapy was consulted to assist patient with ambul ation and nurse was advised to assist patient to get out of bed to sit in the chair. Continue curren t antibiotics. We will repeat blood work tomorrow and carvedilol was started this morning at the lower dose. DOMENICA/MODL Voice ID: [id number] Report ID: [id number]
[2019-12-26] MEDS: ATORVASTATIN 20 MG TAB PO SCH (20:03)
[2019-12-26] MEDS ORDERED: carvediloL 12.5 MG TAB PO SCH (21:00)
[2019-12-27] MEDS: NA CHLORIDE 0.9% 1,000 ML IV SCH (05:00)
[2019-12-27] MEDS: VANCOMYCIN 2 GM in NA CHLORIDE 0.9% 500 ML IV SCH (05:29)
[2019-12-27 08:01] LABS: Magnesium 2.1 mg/dL (1.8-2.4); Potassium 4.2 mmol/L (3.5-5.1)
[2019-12-27] MEDS ORDERED: HOME MED 1 EA UNK (Losartan/Hydrochlorothiazide [Losartan-Hctz 100-25 Mg Tab] 1 EACH) PO SCH (09:00)
[2019-12-27 09:03] LABS: Absolute Lymphocytes (CBC) 1.1 K/uL (0.7-4.9); Basophils % 0.5 % (0-1.3); Hematocrit 37.4 % (39.6-49.0); Lymphocytes % 5.4 % (15.3-44.8); MPV 9.8 fL (7.6-11.3); RBC Red Blood Cell Count 4.22 M/uL (4.33-5.43)
[2019-12-27] MEDS: FAMOTIDINE 20 MG/2 ML VIAL IV SCH ×2 (09:11→21:05)
[2019-12-27] MEDS: HEPARIN 5000 UNIT/ML 1 ML VIAL SQ SCH ×2 (09:11→21:05)
[2019-12-27] MEDS: ASPIRIN EC 81 MG TAB PO SCH (09:11)
[2019-12-27] MEDS: carBAMazepine 200 MG TAB PO SCH ×2 (09:11→21:05)
[2019-12-27] MEDS: PREGABALIN 150 MG CAP PO SCH ×2 (09:11→21:05)
[2019-12-27] MEDS: DULOXETINE 30 MG CAP PO SCH (09:12)
[2019-12-27] MEDS: levoFLOXacin 500 MG TAB PO SCH (09:37)
[2019-12-27] MEDS: carvediloL 25 MG TAB PO SCH ×2 (09:37→21:04)
[2019-12-27] MEDS ORDERED: FUROSEMIDE 20 MG/ 2ML VIAL IV ONE (10:25)
--- NOTE | 2019-12-27 12:00 | PN ---
Date of Progress Note: 12/27/2019 Subjective: Patient was seen this morning for followup. Denies any specific complaints, except pain in his left leg. Objective: Vital Signs: Reviewed. HEENT: Unremarkable. Lungs: Clear to auscultation. Heart: Sounds normal. Abdomen: Soft. Bowel sounds normal. No guarding, rigidity, tenderness, or distention. Extremities: Left leg redness and edema remains unchanged from yesterday. Laboratory Data: White count 19.7, hemoglobin 12.7, platelets 108. Sodium 139, potassium 4.2, chlor courtney 106, bicarb 28, BUN 21, creatinine 1.16, glucose 144, magnesium 2.1. His procalcitonin level 3.3 2. His blood culture grew Streptococcus; and according to culture and sensitivity results, it is sen sitive to penicillin, Levaquin, and vancomycin. Impression: 1.Sepsis, organism Streptococcus. 2.Acute kidney failure, resolved. 3.Hypertension. 4.Thrombocytopenia, improving. Plan: Patient's platelet count is low, but it is better today than yesterday. We will continue hepa rin for DVT prophylaxis per order. We will continue IV vancomycin. Levaquin was ordered, but I have discontinued Levaquin; and instead of that, we will start him on IV penicillin G 2.5 million units e very 4 hours. Continue IV vancomycin. We will repeat blood work tomorrow, and also 1 dose of IV [place] ix was given because of the patient's significant left leg swelling problem. Patient's blood pressur e reviewed and we will resume his antihypertensive medication as he normally takes at home, which is losartan/hydrochlorothiazide and c arvedilol at 25 mg twice a day dose. DOMENICA/MODL Voice ID: [id number] Report ID: [id number]
[2019-12-27] MEDS ORDERED: PENICILLIN 2.5 MU in NA CHLORIDE 0.9% 100 ML IV SCH (13:00)
[2019-12-27] MEDS: PENICILLIN MU IV SCH ×3 (13:30→21:05)
[2019-12-27] MEDS: NA CHLORIDE IV SCH ×3 (13:30→21:05)
[2019-12-27] MEDS: ATORVASTATIN 20 MG TAB PO SCH (21:05)
[2019-12-28] MEDS: NA CHLORIDE IV SCH ×6 (00:11→22:03)
[2019-12-28] MEDS: PENICILLIN MU IV SCH ×6 (00:11→22:03)
[2019-12-28 05:39] LABS: Absolute Lymphocytes (CBC) 1.2 K/uL (0.7-4.9); Basophils % 0.4 % (0-1.3); Hematocrit 34.9 % (39.6-49.0); Lymphocytes % 8.7 % (15.3-44.8); MPV 9.7 fL (7.6-11.3); RBC Red Blood Cell Count 3.92 M/uL (4.33-5.43)
[2019-12-28] MEDS: VANCOMYCIN 2 GM in NA CHLORIDE 0.9% 500 ML IV SCH (05:45)
[2019-12-28 07:22] LABS: Magnesium 2.3 mg/dL (1.8-2.4); Potassium 4.2 mmol/L (3.5-5.1)
[2019-12-28] MEDS: carBAMazepine 200 MG TAB PO SCH ×2 (09:17→22:01)
[2019-12-28] MEDS: PREGABALIN 150 MG CAP PO SCH ×2 (09:17→22:03)
[2019-12-28] MEDS: levoFLOXacin 500 MG TAB PO SCH (09:18)
[2019-12-28] MEDS: FAMOTIDINE 20 MG/2 ML VIAL IV SCH ×2 (09:18→22:03)
[2019-12-28] MEDS: DULOXETINE 30 MG CAP PO SCH (09:18)
[2019-12-28] MEDS: carvediloL 25 MG TAB PO SCH ×2 (09:18→22:01)
[2019-12-28] MEDS: hydroCHLOROthiazide 25 MG TAB PO SCH (09:18)
[2019-12-28] MEDS: ASPIRIN EC 81 MG TAB PO SCH (09:18)
[2019-12-28] MEDS: HEPARIN 5000 UNIT/ML 1 ML VIAL SQ SCH ×2 (09:19→22:01)
[2019-12-28] MEDS: LOSARTAN POTASSIUM 50 MG TABLET PO SCH (09:19)
--- NOTE | 2019-12-28 20:26 | PN ---
Date of Progress Note: 12/28/2019 Subjective: Patient was seen this morning for followup. He was lying in bed. Overall, he feels bet ter than yesterday as he reported. No new complaints or problems reported. Objective: Vital Signs: Reviewed. HEENT: Unremarkable. Lungs: Clear to auscultation. Heart: Sounds normal. Abdomen: Soft. Bowel sounds normal. No guarding, rigidity, tenderness, or distention. Extremities: Left leg edema present, unchanged and redness of left leg is slightly better today than yesterday. Laboratory Data: White count 13.5, hemoglobin 11.8, platelets 121. Impression: 1.Septicemia, organism streptococcus. 2.Cellulitis, left leg. 3.Acute kidney injury, improved. 4.Hypertension. Plan: We will go ahead and continue penicillin and vancomycin. We will also get echo with Doppler t david to rule out vegetation. Continue antihypertensive medications and I will see him tomorrow for f zandra. DOMENICA/MODL Voice ID: [id number] Report ID: [id number]
[2019-12-28] MEDS: ATORVASTATIN 20 MG TAB PO SCH (22:01)
[2019-12-28] MEDS: MORPHINE 2 MG/ML SYR IV PRN (22:17)
[2019-12-29] MEDS: PENICILLIN MU IV SCH ×6 (00:43→22:01)
[2019-12-29] MEDS: NA CHLORIDE IV SCH ×6 (00:43→22:01)
[2019-12-29] MEDS: VANCOMYCIN 2 GM in NA CHLORIDE 0.9% 500 ML IV SCH (06:00)
[2019-12-29] MEDS: FAMOTIDINE 20 MG/2 ML VIAL IV SCH ×2 (08:30→21:00)
[2019-12-29] MEDS: HEPARIN 5000 UNIT/ML 1 ML VIAL SQ SCH ×2 (08:30→22:00)
[2019-12-29] MEDS: hydroCHLOROthiazide 25 MG TAB PO SCH (08:31)
[2019-12-29] MEDS: carvediloL 25 MG TAB PO SCH ×2 (08:31→21:59)
[2019-12-29] MEDS: levoFLOXacin 500 MG TAB PO SCH (08:32)
[2019-12-29] MEDS: LOSARTAN POTASSIUM 50 MG TABLET PO SCH (08:32)
[2019-12-29] MEDS: carBAMazepine 200 MG TAB PO SCH ×2 (08:32→21:59)
[2019-12-29] MEDS: DULOXETINE 30 MG CAP PO SCH (08:32)
[2019-12-29] MEDS: PREGABALIN 150 MG CAP PO SCH ×2 (08:32→21:59)
[2019-12-29] MEDS: ASPIRIN EC 81 MG TAB PO SCH (08:32)
[2019-12-29] MEDS ORDERED: NA CHLORIDE 0.9% 50 ML ONE (08:40)
[2019-12-29] MEDS: ACETAMINOPHEN 325 MG TABLET PO PRN ×2 (08:58→21:57)
--- NOTE | 2019-12-29 09:10 | ECHO ---
HEIGHT: 5 ft 6 in WEIGHT: 298 lb 0 oz DATE OF STUDY: 12/28/[address]: Adelfo Jimenez MD 2-DIMENSIONAL: YES M.MODE: YES DOPPLER: YES COLOR FLOW: YES TDS: PORTABLE: DEFINITY: BUBBLE STUDY: DIAGNOSIS: SEPSIS, RULE OUT VEGETATION CARDIAC HISTORY: CATHERIZATION: NO SURGERY: NO PROSTHETIC VALVE: NO PACEMAKER: NO MEASUREMENTS (cm) DIASTOLIC (NORMALS) SYSTOLIC (NORMALS) IVSd 1.0 (0.6-1.2) LA Diam 3.8 (1.9-4.0) LVEF 55% LVIDd 5.5 (3.5-5.7) LVIDs 3.9 (2.0-3.5) %FS 29% LVPWd 1.2 (0.6-1.2) Ao Diam 3.3 (2.0-3.7) 2 DIMENSIONAL ASSESSMENT: RIGHT ATRIUM: NORMAL LEFT ATRIUM: NORMAL RIGHT VENTRICLE: NORMAL LEFT VENTRICLE: NORMAL TRICUSPID VALVE: NORMAL MITRAL VALVE: NORMAL PULMONIC VALVE: NORMAL AORTIC VALVE: SCLEROSIS PERICARDIAL EFFUSION: NONE AORTIC ROOT: NORMAL LEFT VENTRICULAR WALL MOTION: NORMAL DOPPLER/COLOR FLOW: NORMAL COMMENTS: AORTIC SCLEROSIS - NO STENOSIS. NORMAL LEFT VENTRICULAR SIZE AND FUNCTION. NO WALL MOTION ABNORMALITY. NO VEGETATION. TECHNOLOGIST: MESERET ALFARO
[2019-12-29 17:29] LABS: Absolute Lymphocytes (CBC) 1.3 K/uL (0.7-4.9); Basophils % 0.6 % (0-1.3); Hematocrit 35.5 % (39.6-49.0); Lymphocytes % 10.6 % (15.3-44.8); MPV 9.8 fL (7.6-11.3); RBC Red Blood Cell Count 3.91 M/uL (4.33-5.43)
[2019-12-29 17:31] LABS: Magnesium 2.3 mg/dL (1.8-2.4); Potassium 4.5 mmol/L (3.5-5.1)
--- NOTE | 2019-12-29 20:03 | PN ---
Date of Progress Note: 12/29/2019 Subjective: Patient was seen this morning for followup. No new complaints or problems reported by prince theodore. He was sitting in chair, feeling much better this morning when I saw him. Objective: Vital Signs: Reviewed. HEENT: Unremarkable. Lungs: Clear to auscultation. Heart: Sounds normal. Abdomen: Soft. Bowel sounds normal. No guarding, rigidity, tenderness, or distention. Extremities: Left leg edema, better today than yesterday. Skin discoloration between knee and foot. It was red so far. Starting today, I see mostly it is brownish in color. Warm to touch. Overall leg is looking much better than before. Impression: 1.Sepsis, organism Streptococcus. 2.Hypertension. Plan: We will continue current medications and antibiotics per order. Repeat blood work tomorrow. This afternoon, nurse contacted and informed me that patient had vague complaints of not feeling good . No other specific complaints. Vital signs were stable. Oxygenation was normal. So, we have orde red some stat blood work. We will follow up on it. DOMENICA/MODL Voice ID: [id number] Report ID: [id number]
[2019-12-29] MEDS: ATORVASTATIN 20 MG TAB PO SCH (22:00)
[2019-12-29 22:20] LABS: Blood Morphology Comment NOT SEEN (NOT SEEN); Platelet Estimate DECR
[2019-12-30] MEDS: NA CHLORIDE IV SCH ×6 (00:34→21:33)
[2019-12-30] MEDS: PENICILLIN MU IV SCH ×6 (00:34→21:33)
[2019-12-30 06:02] LABS: Magnesium 2.3 mg/dL (1.8-2.4); Potassium 4.2 mmol/L (3.5-5.1)
[2019-12-30 06:05] LABS: Absolute Lymphocytes (CBC) 1.7 K/uL (0.7-4.9); Basophils % 0.5 % (0-1.3); Hematocrit 36.7 % (39.6-49.0); Lymphocytes % 25.7 % (15.3-44.8); MPV 9.6 fL (7.6-11.3); RBC Red Blood Cell Count 4.11 M/uL (4.33-5.43)
[2019-12-30] MEDS: VANCOMYCIN 2 GM in NA CHLORIDE 0.9% 500 ML IV SCH (06:19)
[2019-12-30] MEDS: ACETAMINOPHEN 325 MG TABLET PO PRN ×2 (06:24→21:35)
[2019-12-30] MEDS: NA CHLORIDE 0.9% 1,000 ML IV SCH (09:31)
[2019-12-30] MEDS: ASPIRIN EC 81 MG TAB PO SCH (09:33)
[2019-12-30] MEDS: carBAMazepine 200 MG TAB PO SCH ×2 (09:33→21:32)
[2019-12-30] MEDS: ACYCLOVIR 400 MG TABLET PO SCH ×2 (09:33→21:32)
[2019-12-30] MEDS: carvediloL 25 MG TAB PO SCH ×2 (09:33→21:33)
[2019-12-30] MEDS: DULOXETINE 30 MG CAP PO SCH (09:33)
[2019-12-30] MEDS: levoFLOXacin 500 MG TAB PO SCH (09:33)
[2019-12-30] MEDS: LOSARTAN POTASSIUM 50 MG TABLET PO SCH (09:33)
[2019-12-30] MEDS: hydroCHLOROthiazide 25 MG TAB PO SCH (09:34)
[2019-12-30] MEDS: PREGABALIN 150 MG CAP PO SCH ×2 (09:34→21:32)
[2019-12-30] MEDS: HEPARIN 5000 UNIT/ML 1 ML VIAL SQ SCH ×2 (09:35→21:33)
[2019-12-30] MEDS: FAMOTIDINE 20 MG/2 ML VIAL IV SCH ×2 (09:35→21:33)
[2019-12-30] MEDS: ATORVASTATIN 20 MG TAB PO SCH (21:33)
--- NOTE | 2019-12-31 00:18 | PN ---
Date of Progress Note: 12/30/2019 Subjective: Patient was seen twice today, first this morning and later on this evening. This mornin g, when I saw him, he informed me he was not feeling good. He was not feeling as good as yesterday a nd had a little bit slight headache. He has some multiple areas of fever blisters on his lips and fe els really tired. Yesterday, he spent lot of time sitting in the chair with legs in dependent positi on, so today he was noted to have worsening of leg swelling as well as redness of the left leg, was w orsened overnight. No nausea, vomiting. Objective: Vital Signs: Reviewed, remains afebrile. HEENT: Unremarkable. Lips: Multiple fever blisters over upper and lower lips. Lungs: Clear to auscultation. Heart: Sounds normal. Abdomen: Soft. Bowel sounds normal. No guarding, rigidity, tenderness, or di stention. Extremities: Left leg swelling present, worse compared to yesterday. The redness from left lower le g between knee and foot is worse today than yesterday. Laboratory Data: White count 6.7, hemoglobin 12.6, platelets 181. Sodium 145, potassium 4.2, chlori de 102, bicarb 37, BUN 22, creatinine 1.34 glucose 117, procalcitonin 0.76. Impression: 1.Sepsis, organism Streptococcus. 2.Left leg cellulitis. 3.Fever blisters. 4.Hypertension. Plan: We will go ahead and continue current medication. Continue IV vancomycin, IV penicillin. Lev aquin was discontinued. We will go ahead and current antihypertensive medication. IV fluid will be started at 50 mL/hour. Patient was started on acyclovir. This evening when I went back to see him, he was feeling much better compared to this morning. I did give him instruction this morning to spen d about 80% of the time in the bed with his legs up, only about 20% time and on mealtime in the chair , and this evening when I went back to see him, overall, his condition was better. I will see him tomorrow for followup. DOMENICA/MODL Voice ID: [id number] Report ID: [id number]
[2019-12-31] MEDS: PENICILLIN MU IV SCH ×6 (00:40→21:22)
[2019-12-31] MEDS: NA CHLORIDE IV SCH ×6 (00:40→21:22)
[2019-12-31] MEDS: NA CHLORIDE 0.9% 1,000 ML IV SCH ×2 (04:12→16:54)
[2019-12-31] MEDS: VANCOMYCIN 2 GM in NA CHLORIDE 0.9% 500 ML IV SCH (05:22)
[2019-12-31 05:30] LABS: Absolute Lymphocytes (CBC) 1.7 K/uL (0.7-4.9); Basophils % 0.7 % (0-1.3); Hematocrit 40.4 % (39.6-49.0); Lymphocytes % 25.7 % (15.3-44.8); MPV 8.2 fL (7.6-11.3); RBC Red Blood Cell Count 4.45 M/uL (4.33-5.43)
[2019-12-31 05:57] LABS: Magnesium 2.3 mg/dL (1.8-2.4); Potassium 4.1 mmol/L (3.5-5.1)
[2019-12-31] MEDS: HEPARIN 5000 UNIT/ML 1 ML VIAL SQ SCH ×2 (09:11→21:17)
[2019-12-31] MEDS: FAMOTIDINE 20 MG/2 ML VIAL IV SCH ×2 (09:11→21:17)
[2019-12-31] MEDS: DULOXETINE 30 MG CAP PO SCH (09:11)
[2019-12-31] MEDS: carBAMazepine 200 MG TAB PO SCH ×2 (09:12→21:15)
[2019-12-31] MEDS: PREGABALIN 150 MG CAP PO SCH ×2 (09:13→21:15)
[2019-12-31] MEDS: acetaZOLAMIDE 250 MG TAB PO SCH (09:13)
[2019-12-31] MEDS: ASPIRIN EC 81 MG TAB PO SCH (09:13)
[2019-12-31] MEDS: ACYCLOVIR 400 MG TABLET PO SCH ×2 (09:13→21:16)
[2019-12-31] MEDS: hydroCHLOROthiazide 25 MG TAB PO SCH (09:13)
[2019-12-31] MEDS: LOSARTAN POTASSIUM 50 MG TABLET PO SCH (09:14)
[2019-12-31] MEDS: carvediloL 25 MG TAB PO SCH ×2 (09:14→21:16)
[2019-12-31] MEDS: ATORVASTATIN 20 MG TAB PO SCH (21:16)
--- NOTE | 2019-12-31 21:17 | PN ---
Date of Progress Note: 12/31/2019 Subjective: Patient was seen this morning for followup. No new complaints or problems reported by prince theodore. He was feeling much better this morning than even yesterday. Objective: Vital Signs: Reviewed. HEENT: Unremarkable. Lungs: Clear to auscultation. Heart: Sounds normal. Abdomen: Soft. Bowel sounds normal. No guarding, rigidity, tenderness, or distention. Extremities: Left leg edema remains unchanged. Left leg skin, which was significantly red yesterday , it appears a little more or less intense and little brownish in color now compared to yesterday. Laboratory Data: White count 6.5, hemoglobin 13.5, platelets 187. Sodium 144, potassium 4.1, chlori de 101, bicarb 39, BUN 20, creatinine 1.30, glucose 112. Impression: 1.Sepsis, organism streptococcus. 2.Cellulitis, left leg. 3.Hypertension. 4.Leg edema. Plan: We will go ahead and continue current antibiotics. Continue acyclovir for fever blister, whic h appears much better today than yesterday involving his upper and lower lips. He has significant le g edema. We will start him on acetazolamide in view of elevated bicarb level. I will see him tomorrow for followup. Continue current DVT prophylaxis. DOMENICA/MODL Voice ID: [id number] Report ID: [id number]
[2019-12-31] MEDS: ACETAMINOPHEN 325 MG TABLET PO PRN (21:28)
[2020-01-01] MEDS: NA CHLORIDE 0.9% 1,000 ML IV SCH ×2 (01:00→18:22)
[2020-01-01] MEDS: PENICILLIN MU IV SCH ×6 (01:03→20:50)
[2020-01-01] MEDS: NA CHLORIDE IV SCH ×6 (01:03→20:50)
[2020-01-01] MEDS: VANCOMYCIN 2 GM in NA CHLORIDE 0.9% 500 ML IV SCH (07:29)
[2020-01-01] MEDS: carBAMazepine 200 MG TAB PO SCH ×2 (09:31→20:50)
[2020-01-01] MEDS: DULOXETINE 30 MG CAP PO SCH (09:31)
[2020-01-01] MEDS: LOSARTAN POTASSIUM 50 MG TABLET PO SCH (09:31)
[2020-01-01] MEDS: carvediloL 25 MG TAB PO SCH ×2 (09:32→20:51)
[2020-01-01] MEDS: ASPIRIN EC 81 MG TAB PO SCH (09:32)
[2020-01-01] MEDS: PREGABALIN 150 MG CAP PO SCH ×2 (09:32→20:50)
[2020-01-01] MEDS: hydroCHLOROthiazide 25 MG TAB PO SCH (09:32)
[2020-01-01] MEDS: HEPARIN 5000 UNIT/ML 1 ML VIAL SQ SCH ×2 (09:32→20:51)
[2020-01-01] MEDS: acetaZOLAMIDE 250 MG TAB PO SCH (09:36)
[2020-01-01] MEDS: ACYCLOVIR 400 MG TABLET PO SCH ×2 (09:36→20:50)
[2020-01-01] MEDS: FAMOTIDINE 20 MG/2 ML VIAL IV SCH ×2 (09:36→20:51)
--- NOTE | 2020-01-01 11:24 | PN ---
Date of Progress Note: 01/01/2020 Subjective: Patient was seen this morning for followup. No new complaints or problems reported by t he patient. Overall, he is feeling better. He continues to have headache, which is bilateral fronta l headache as he describes. Upon further questioning, he admits that the headache that he has is his chronic headache for long, long time and nothing new about him to have this headache. It is little worse since he has been in hospital. No nausea. No vomiting. Has a good appetite. No constipation , diarrhea. Left leg swelling is better. Left leg redness is better. Objective: Vital Signs: Reviewed. Remains afebrile. HEENT: Unremarkable. Lungs: Clear to auscultation. Heart: Sounds normal. Abdomen: Soft. Bowel sounds normal. No guarding, rigidity, tenderness, or distention. Extremities: Left leg edema present, but less today than yesterday. Redness of left leg is better t david than yesterday. I see some brownish discoloration of the lower leg along with some redness. So , overall that is better. Impression: 1.Sepsis, organism Streptococcus. 2.Left leg cellulitis. 3.Hypertension. 4.Chronic headache. Plan: We will continue current medications. Continue antibiotics. Maintenance IV fluid. Repeat bl ood work tomorrow morning. Continue acetazolamide. Blood pressure was a little elevated on the last vital signs. We will monitor that if necessary. Adjust antihypertensive medication. DOMENICA/MODL Voice ID: [id number] Report ID: [id number]
[2020-01-01] MEDS: ACETAMINOPHEN 325 MG TABLET PO PRN (18:26)
[2020-01-01] MEDS: ATORVASTATIN 20 MG TAB PO SCH (20:51)
[2020-01-02] MEDS: NA CHLORIDE IV SCH ×6 (00:03→20:44)
[2020-01-02] MEDS: PENICILLIN MU IV SCH ×6 (00:03→20:44)
[2020-01-02] MEDS: VANCOMYCIN 2 GM in NA CHLORIDE 0.9% 500 ML IV SCH (05:53)
[2020-01-02 07:21] LABS: Absolute Lymphocytes (CBC) 1.4 K/uL (0.7-4.9); Basophils % 0.8 % (0-1.3); Hematocrit 36.3 % (39.6-49.0); Lymphocytes % 22.1 % (15.3-44.8); MPV 8.1 fL (7.6-11.3); RBC Red Blood Cell Count 4.02 M/uL (4.33-5.43)
[2020-01-02 07:54] LABS: Magnesium 2.1 mg/dL (1.8-2.4); Potassium 3.7 mmol/L (3.5-5.1)
[2020-01-02] MEDS: carBAMazepine 200 MG TAB PO SCH ×2 (09:52→20:41)
[2020-01-02] MEDS: acetaZOLAMIDE 250 MG TAB PO SCH (09:52)
[2020-01-02] MEDS: ACYCLOVIR 400 MG TABLET PO SCH ×2 (09:52→20:41)
[2020-01-02] MEDS: LOSARTAN POTASSIUM 50 MG TABLET PO SCH (09:52)
[2020-01-02] MEDS: hydroCHLOROthiazide 25 MG TAB PO SCH (09:52)
[2020-01-02] MEDS: DULOXETINE 30 MG CAP PO SCH (09:52)
[2020-01-02] MEDS: carvediloL 25 MG TAB PO SCH ×2 (09:52→20:41)
[2020-01-02] MEDS: HEPARIN 5000 UNIT/ML 1 ML VIAL SQ SCH ×2 (09:53→20:43)
[2020-01-02] MEDS: FAMOTIDINE 20 MG/2 ML VIAL IV SCH ×2 (09:53→20:43)
[2020-01-02] MEDS: ASPIRIN EC 81 MG TAB PO SCH (09:54)
[2020-01-02] MEDS: PREGABALIN 150 MG CAP PO SCH ×2 (09:57→20:41)
--- NOTE | 2020-01-02 11:13 | PN ---
Date of Progress Note: 01/02/2020 Subjective: Patient was seen this morning for followup. He was sitting in the chair, feeling better . Leg swelling and redness of left leg are better today than yesterday. Vital signs reviewed. Teo es any other complaints. Last bowel movement was day before yesterday. Objective: HEENT: Unremarkable. Lungs: Clear to auscultation. Heart: Sounds normal. Abdomen: Soft. Bowel sounds normal. No guarding, rigidity, tenderness, or distention. Extremities: Left leg edema and redness is better today than yesterday. Still has significant area of redness with some brownish discoloration, but overall it is better today than yesterday. Laboratory Data: White count 6.5, hemoglobin 12.2, platelets 202. Sodium 143, potassium 3.7, chlori de 110, bicarb 29, BUN 17, creatinine 1.06, glucose 97, magnesium 2.1. Impression: 1.Sepsis, organism Streptococcus. 2.Left leg cellulitis. 3.Hypertension. 4.Leg edema. Plan: We will continue current medications. Continue IV penicillin and vancomycin. Renal function is normal. We will discontinue IV fluid today. Continue acetazolamide 250 mg p.o. daily and DVT pro phylaxis per order. Patient will be kept in the hospital over the weekend. Depending on his condition, we will decide whether he is ready to go home on Saturday or not. DOMENICA/MODL Voice ID: [id number] Report ID: [id number]
[2020-01-02 12:46] VITALS: BMI 46.9
[2020-01-02] MEDS: ATORVASTATIN 20 MG TAB PO SCH (20:41)
[2020-01-03] MEDS: NA CHLORIDE IV SCH ×6 (00:11→21:12)
[2020-01-03] MEDS: PENICILLIN MU IV SCH ×6 (00:11→21:12)
[2020-01-03] MEDS: ACETAMINOPHEN 325 MG TABLET PO PRN (00:23)
[2020-01-03] MEDS: VANCOMYCIN 2 GM in NA CHLORIDE 0.9% 500 ML IV SCH (07:04)
[2020-01-03] MEDS: carvediloL 25 MG TAB PO SCH ×2 (09:00→21:08)
[2020-01-03] MEDS: DULOXETINE 30 MG CAP PO SCH (09:10)
[2020-01-03] MEDS: ASPIRIN EC 81 MG TAB PO SCH (09:11)
[2020-01-03] MEDS: acetaZOLAMIDE 250 MG TAB PO SCH (09:11)
[2020-01-03] MEDS: carBAMazepine 200 MG TAB PO SCH ×2 (09:11→21:08)
[2020-01-03] MEDS: LOSARTAN POTASSIUM 50 MG TABLET PO SCH (09:11)
[2020-01-03] MEDS: PREGABALIN 150 MG CAP PO SCH ×2 (09:12→21:08)
[2020-01-03] MEDS: ACYCLOVIR 400 MG TABLET PO SCH ×2 (09:12→21:08)
[2020-01-03] MEDS: FAMOTIDINE 20 MG/2 ML VIAL IV SCH ×2 (09:12→21:10)
[2020-01-03] MEDS: HEPARIN 5000 UNIT/ML 1 ML VIAL SQ SCH ×2 (09:12→21:11)
[2020-01-03] MEDS: hydroCHLOROthiazide 25 MG TAB PO SCH (09:13)
--- NOTE | 2020-01-03 11:31 | PN ---
Date of Progress Note: 01/03/2020 Subjective: The patient was seen this morning for followup. No new complaints or problems reported by patient. Sitting in chair. Denied any complaints. His leg swelling and redness are better. Objective: Vital signs: Reviewed. No constipation or diarrhea. HEENT: Unremarkable. Lungs: Clear to auscultation. Heart: Sounds normal. Abdomen: Soft. Bowel sounds normal. No guarding, rigidity, tenderness, or distention. Extremities: Left leg edema is better today than last few days and redness from left leg is much bet ter. Most of the skin discoloration is brownish in color between knee and foot and there is very brooke nt pink discoloration with warmness to thigh skin, which has remained unchanged and some posterior le g skin is also warm and that has remained unchanged since yesterday, but overall better than before. Impression: 1.Septicemia, organism Streptococcus. 2.Cellulitis, left leg. 3.Left leg edema. 4.Hypertension. Plan: We will go ahead and continue current antibiotics. Leg elevation was advised. We will repeat blood work tomorrow. Possible discharge to go home either tomorrow or day after tomorrow depending on his condition with oral antibiotics. DOMENICA/MODL Voice ID: [id number] Report ID: [id number]
[2020-01-03] MEDS: ATORVASTATIN 20 MG TAB PO SCH (21:09)
[2020-01-03 21:11] VITALS: O2SAT 93
[2020-01-04] MEDS: NA CHLORIDE IV SCH ×3 (00:37→08:52)
[2020-01-04] MEDS: PENICILLIN MU IV SCH ×3 (00:37→08:52)
[2020-01-04] MEDS: VANCOMYCIN 1.75 GM in NA CHLORIDE 0.9% 500 ML IV SCH ×2 (06:00→06:45)
[2020-01-04 06:32] LABS: Magnesium 2.3 mg/dL (1.8-2.4)
[2020-01-04 06:34] LABS: Absolute Lymphocytes (CBC) 1.6 K/uL (0.7-4.9); Basophils % 0.5 % (0-1.3); Hematocrit 39.7 % (39.6-49.0); Lymphocytes % 22.3 % (15.3-44.8); MPV 8.4 fL (7.6-11.3); RBC Red Blood Cell Count 4.47 M/uL (4.33-5.43)
[2020-01-04] MEDS: LOSARTAN POTASSIUM 50 MG TABLET PO SCH (08:43)
[2020-01-04] MEDS: carvediloL 25 MG TAB PO SCH (08:44)
[2020-01-04] MEDS: DULOXETINE 30 MG CAP PO SCH (08:44)
[2020-01-04] MEDS: carBAMazepine 200 MG TAB PO SCH (08:45)
[2020-01-04] MEDS: ASPIRIN EC 81 MG TAB PO SCH (08:45)
[2020-01-04] MEDS: ACYCLOVIR 400 MG TABLET PO SCH (08:45)
[2020-01-04] MEDS: hydroCHLOROthiazide 25 MG TAB PO SCH (08:45)
[2020-01-04] MEDS: PREGABALIN 150 MG CAP PO SCH (08:46)
[2020-01-04] MEDS: HEPARIN 5000 UNIT/ML 1 ML VIAL SQ SCH (08:46)
[2020-01-04] MEDS: FAMOTIDINE 20 MG/2 ML VIAL IV SCH (08:46)
[2020-01-04 08:53] VITALS: BP 156/63
[2020-01-04 09:57] VITALS: TEMP 97.7
[2020-01-05] MEDS ORDERED: VANCOMYCIN 2 GM in NA CHLORIDE 0.9% 500 ML IV SCH (06:00)
--- NOTE | 2020-01-05 22:42 | DS ---
Date of Discharge: 01/04/2020 Disposition: Discharged to go home. Physical Examination: HEENT: Unremarkable. Lungs: Clear to auscultation. Heart: Sounds normal. Abdomen: Soft. Bowel sounds normal. No guarding, rigidity, tenderness, or distention. Extremities: No leg edema. Laboratory Data: Labs done during this hospitalization: Patient's procalcitonin when he first came in was 2.82. Highest procalcitonin 3.21 and the last procalcitonin today on day of discharge is 0.13 . Last chemistry today, sodium 140, potassium 4, chloride 106, bicarb 27, BUN 20, creatinine 1.46, g lucose 138. On 01/02/2020, creatinine was 1.06. His last CBC today on day of discharge, white count 7.2, hemoglobin 13.4, platelets 219. His lowest platelet count was on 12/29/[address] it was [address] Af ter that it started coming back up and remained normal. His initial CBC had shown 11% bands and crea tinine was 1.75 when he first came in. Final Diagnoses: 1.Sepsis, organism Streptococcus. 2.Cellulitis, left leg. 3.Acute kidney failure. 4.Volume depletion. 5.Thrombocytopenia. 6.Anemia. 7.Hypertension. 8.Chronic back pain. 9.Trigeminal neuralgia. Hospital Course: 64-year-old pleasant male patient, who came into emergency room with complaints of fever, chills, redness of left leg and pain in his left leg. Please see dictated H and P for more in formation. Patient was admitted to hospital. IV fluid was given. IV antibiotics were started. Blo od culture was done. Initially, he was given empiric antibiotic, which was vancomycin and Zosyn. Enrique bsequently, his Zosyn was changed to meropenem. Once his blood culture results came back, we discont inued meropenem and gave him IV penicillin along with IV vancomycin. He was on Levaquin, which was d iscontinued once we started him on penicillin and vancomycin combination therapy. Streptococcus was sensitive to Levaquin, penicillin, and vancomycin. His acute kidney injury problem improved. Volume depletion problem improved. He had lot of pain in his left leg; and with IV fluid and IV antibiotic s over period of time, his condition has improved. Once his blood pressure started coming up, his an tihypertensive medications were restarted. DVT prophylaxis was given using heparin. Overall, once prince theodore's condition improved, we decided to discharge him to go home today with following discharge me dications and instructions. His echocardiogram was performed, which showed normal ejection fraction, no evidence of vegetation. Discharge Medications And Instructions: 1.Continue all prior home medication. 2.Penicillin 500 mg p.o. 4 times a day. 3.Follow up in my office next week. DOMENICA/MARCELINA Voice ID: [id number] Report ID: [id number]
== END 2020-01-04 11:54 | disposition home or self-care (01) | DRG 872 ==
LOC: ER 23:05 → 2ND 23:46
PROVIDERS: ADMIT Internal Medicine; ATTEND Internal Medicine
DX: A40.9 Streptococcal sepsis, unspecified (principal); L03.116 Cellulitis of left lower limb; N17.9 Acute kidney failure, unspecified; E86.9 Volume depletion, unspecified; D69.6 Thrombocytopenia, unspecified; D64.9 Anemia, unspecified; I10 Essential (primary) hypertension; G89.29 Other chronic pain; G50.0 Trigeminal neuralgia; Z89.202 Acquired absence of left upper limb, unspecified level; Z79.899 Other long term (current) drug therapy
CPT/HCPCS: 36415; 70450; 70551; 71045; 80048; 80076; 80202; 81015; 82150; 82550; 82553; 82947; 83605; 83690; 83735; 83880; 84145; 84484; 85025; 85610; 85730; 87040; 87045; 87046; 87077; 87086; 87088; 87186; 87205; 89055; 93005; 93306; 93970; 96372; 97110; 97112; 97116; 97161; 97530; 99285; J1644; J1650; J1940; J2270; J2405; J2543; J3010; J3475; J7030; J7040

== ENCOUNTER 2020-03-15 16:41 | Inpatient (IN) | payer OTHER ==
[2020-03-15] MEDS ORDERED: ONDANSETRON 4 MG/2 ML VIAL ONE (17:34)
[2020-03-15] MEDS ORDERED: NA CHLORIDE 0.9% 0 ML ONE (17:35)
[2020-03-15] MEDS ORDERED: ACETAMINOPHEN 500 MG TAB ONE (17:35)
[2020-03-15 17:48] LABS: Absolute Lymphocytes (CBC) 1.1 K/uL (0.7-4.9); Basophils % 0.2 % (0-1.3); Lymphocytes % 12.6 % (15.3-44.8); RBC Red Blood Cell Count 4.81 M/uL (4.33-5.43)
[2020-03-15 18:11] LABS: Potassium 3.9 mmol/L (3.5-5.1)
[2020-03-15] MEDS ORDERED: NA CHLORIDE 0.9% 500 ML ONE (18:23)
[2020-03-15] MEDS ORDERED: PROMETHAZINE INJ 25 MG/ML AMP ONE (18:23)
[2020-03-15] MEDS ORDERED: VANCOMYCIN/NS 1 gm 1 GM/250 ML BAG IVPB ONE (19:00)
[2020-03-15] MEDS ORDERED: Levofloxacin500mg IV 500 MG/100 ML BAG IV ONE (19:00)
--- NOTE | 2020-03-15 20:49 | RAD REPORT ---
EXAM DESCRIPTION: Paresh Single View03/15/2020 6:08 pm CLINICAL HISTORY: Cough COMPARISON: December 2019 FINDINGS: The lungs appear clear of acute infiltrate. The heart is normal size IMPRESSION: No acute abnormalities displayed
[2020-03-15] MEDS ORDERED: ONDANSETRON 4 MG/2 ML VIAL IV PRN (21:28)
[2020-03-15] MEDS: D5.45NS W/KCL 20MEQ 1,000 ML IV SCH (22:09)
[2020-03-15] MEDS ORDERED: NA CHLORIDE 0.9% 1,000 ML IV ONE (22:36)
[2020-03-15] MEDS ORDERED: ENOXAPARIN 40 MG/0.4 ML SQ ONE (22:39)
--- OUTSIDE RECORDS SUMMARY | 2020-03-15 22:42 | XMS REPORT | Continuity of Care Document ---
:1955 Author Organization [facility] Care Team Providers Name Role Phone [facility] Unavailable Un available Problems Problem Status Onset Classification Date Comments Sourc e Date Reported LEFT TRIGEMINAL Active 03/23/20 [place] G50.0 16 [facility] Discharge 03/03/20 03/06/2016 [place] Diagnosis: 16 [place] Chronic pain Discharge 03/03/20 03/06/2016 [place] Diagnosis: 16 [place] Trigeminal neuralgia LEFT SIDE FACIAL Active 03/03/20 [place] PAIN 16 [place] LEFT TRIGEMINAL Active 09/01/20 [place] NEURALGIA G50.0 15 [facility] TRIGEMINAL NERVE Active 02/19/[address] TRIGEMINAL Active 02/09/20 Condition 03/08/2015 [facility] NEURALGIA 15 Neuro Discharge 01/19/20 01/21/2015 [place] Diagnosis: 15 [place] Trigeminal neuralgia pain FACIAL PAIN Active 01/19/20 [place] 15 [place] Backache Resolved Problem 04/07/2016 [facility] (finding) Medical [place], [place] Hypertensive Active Problem 04/07/2016 [place] as disorder, Medical systemic Center, arterial [place] (disorder) Morbid obesity Active Problem 04/07/2016 [facility] (disorder) Medical [place] Obesity Active Problem 04/07/2016 [facility] (disorder) Medical [place] Obstructive Active Problem 04/07/2016 [facility] sleep apnea Medical syndrome Center, (disorder) [place] Marcel [facility] Pain (finding) Active Problem 04/07/2016 [facility], [place] Trigeminal Resolved Problem 04/07/2016 [facility] neuralgia Medical (disorder) Center, [place] Final: 02/27/[address] [facility] TRIGEMINAL Active [facility] TRIGEMINAL Active [facility] Medications Medication Details Route Status Patient Ordering Order Source Instructions Provider Date Sodium Chloride 0.154 1,000 mL, Inactive 04/04/ [place] MEQ/ML Injectable Rate: 50 2016 Medic al Solution ml/hr, Infuse Center over: 20 hr, Route: IV, Dosing Weight 125 kg, Total Volume: 1,000, Priority: Routine, Start date: 04/04/16 10:33:00 CDT, Duration: 30 day, Stop date: 05/04/16 10:32:00 CDT Acetaminophen Notes: Do not Inactive [place] exceed 4 2016 Medical gm/day. Center (Same as: Tylenol) Acetaminophen 325 MG Notes: (Same Inactive 04/04 [place] / Hydrocodone as: Emblem 2016 Medical Bitartrate 5 MG Oral 325/5) Do Center Tablet not exceed 4gm/day of acetaminophen . Bupivacaine 30 mL, Route: [place]active [place] Hydrochloride 2.5 MISC, Dosing 2016 edical MG/ML / Epinephrine Weight 125, [place] 0.005 MG/ML kg, ONCALL, Injectable Solution Start date: 04/04/16 6:00:00 CDT, Duration: 30 day, Stop date: 05/04/16 5:59:00 CDT Bacitracin 0.5 UNT/MG 1 appl, Inactive [facility] / Polymyxin B 10 Route: TOP, 2016 Med ical UNT/MG Topical ONCALL, Drug Cent er Ointment [Polysporin] form: OINT, Priority: Routine, Start date: 04/04/16 6:00:00 CDT, Duration: 1 doses or times Fentanyl 50 microgram, Inactive [place] Route: IVP, 2016 [facility] Center Dosing Weight 125, kg, Priority: Routine, Start date: 04/04/16 6:00:00 CDT, Duration: 1 doses or times Ondansetron Notes: (Same Inactive [place] as as: Yesica) 2016 Medical [place] MEDICATION WASTE Product Size: 4 mg Product Wasted: ___ mg Promethazine Notes: Do not Inactive [place] give IV push. 2016 Medical (Same as: [place] Phenergan) Fentanyl 25 microgram, Inactive [place] Route: IVP, 2016 Medical Q2H, Dosing Center Weight 125, kg, PRN Pain Score 6-10, Priority: Routine, Start date: 04/04/16 5:56:00 CDT, Duration: 1 doses or times, Stop date: Limited # of times Sodium Chloride 0.154 1,000 mL, Inactive [facility] MEQ/ML Injectable Rate: 50 2016 Medic al Solution ml/hr, Infuse Center over: 20 hr, Route: IV, Dosing Weight 125 kg, Total Volume: 1,000, Priority: Routine, Start date: 04/04/16 5:56:00 CDT, Duration: 30 day, Stop date: 05/04/16 5:55:00 CDT Dexamethasone Notes: Inactive [place] Concentration 2016 Medical : 4mg/ml Center Famotidine Notes: (Same [place] as: Pepcid) 2016 Medical Can be dilute Center in 5-10cc NS IVP: Slow IV push over at least 2 minutes. Dilaudid 2 mg, Route: Inactive [place] IM, ONCE, 2016 [place] Dosing Weight 126.682, kg, Start date: 03/03/16 11:28:00 CDT, Stop date: 03/03/16 11:28:00 CDT Sodium Chloride 0.154 1,000 mL, Inactive [facility] MEQ/ML Injectable Rate: 50 2015 Medic al Solution ml/hr, Infuse Center over: 20 hr, Route: IV, Dosing Weight 129.091 kg, Total Volume: 1,000, Priority: Routine, Start date: 09/28/15 10:53:00, Duration: 30 day, Stop date: 10/28/15 10:52:00 Acetaminophen 325 MG 2 tab, Route: Inactive [place] / Hydrocodone PO, Drug 2016 Medical Bitartrate 5 MG Oral Form: TAB, Center Tablet Dosing Weight 129.091, kg, Q4H, PRN Pain Score 7-10, Start date: 09/28/15 10:53:00, Duration: 30 day, Stop date: 10/28/15 10:52:00 Acetaminophen 325 mg, Inactive [place] Route: PO, 2016 Medical Drug form: Center TAB, Q4H, Dosing Weight 129.091, kg, PRN Pain Score 1-3, Start date: 09/28/15 10:53:00, Duration: 30 day, Stop date: 10/28/15 10:52:00 Fentanyl 50 microgram, Inactive [place] Route: IVP, 2016 Medical ONCALL, Center Dosing Weight 129.091, kg, Priority: Routine, Start date: 09/28/15 7:00:00, Duration: 1 doses or times Bacitracin 0.5 UNT/MG Notes: (Same Inactive [place] / Polymyxin B 10 As: 2016 Medical UNT/MG Topical Polysporin) Cente r Ointment [Polysporin] Bupivacaine Notes: Inactive [place] Hydrochloride 2.5 (bupivacaine- 2016 Medical MG/ML / Epinephrine epi Cent er 0.005 MG/ML 0.25%-1:200,0 Injectable Solution 00 30 ml VL) Not for use in continuous infusion. (Same As: [place] w/Epi) Fentanyl Notes: (Same Inactive [place] as: 2016 [facility] Sublimaze) Center Preservative free. Famotidine Notes: (Same [place] as: Pepcid) [address] [place] [address] Can be dilute Center in 5-10cc NS IVP: Slow IV push over at least 2 minutes. Promethazine Notes: Do not Inactive [place] give IV push. 2016 Medical (Same as: Center Phenergan) Ondansetron Notes: (Same Inactive [place] as as: Zofran) 2016 Medical Center MEDICATION WASTE Product Size: 4 mg Product Wasted: ___ mg Dexamethasone Notes: Inactive [place] as MEDICATION 2016 Medical WASTE Center Product Size: 10 mg Product Wasted: ___ mg Sodium Chloride 0.154 1,000 mL, Inactive [place] MEQ/ML Injectable Rate: 50 2016 Medic al Solution ml/hr, Infuse Center over: 20 hr, Route: IV, Dosing Weight 129.091 kg, Total Volume: 1,000, Priority: Routine, Start date: 09/28/15 6:14:00, Duration: 30 day, Stop date: 10/28/15 6:13:00 Ketorolac 4 days. Inactive [place] Tromethamine 10 MG Give with 2014 Med ical Oral Tablet food. (Same Center as:Toradol) heparin Notes: Inactive [place] porcine [address] [place] [address] heparin [place] Ketorolac 10 mg = 1 Active 02/25[facility] [place] Tromethamine 10 MG tab, PO, Q6H, 2014 Medical Oral Tablet X 5 day, # 20 Center tab, 0 Refill(s) Promethazine 12.5 mg = 1 [facility] Hydro[facility] 12.5 MG tab, PO, Q4H, 2014 Medical Oral Tablet PRN Nausea & Center [Phenergan] Vomiting, # 60 tab, 0 Refill(s) magnesium citrate 17.45 gm = Active [facility] 8.85% oral liquid 300 mL, PO, 2014 Me dical ONCE, PRN For Center severe constipation, # 300 mL, 0 Refill(s) Ondansetron 4 MG Oral 4 mg = 1 tab, Active [facility] Tablet [Zofran] PO, Q8H, PRN 2014 Med ical as needed for Center nausea/vomiti ng, # 30 tab, 0 Refill(s) Docusate Sodium 100 100 mg = 1 Active [facility] [place] MG Oral Capsule cap, PO, BID, 2014 Fl dical [Colace] PRN Center Constipation, # 100 cap, 0 Refill(s) ketOROLAC 30 mg/mL 4 days. Inactive [facility] injectable solution 2014 [facility] Cozaar Notes: (Same No Longer [facility] as: Cozaar) Active 2014 [facility] hydrochlorothiazide Notes: (Same No Longer 02/24 [facility] 25 mg oral tablet as: Active 2014 Medica l Hydrodiuril) Center With food. Hydrochlorothiazide 1 tab, Route: No Longer [facility] 25 MG / Losartan PO, Drug Active 2014 Medica l Potassium 100 MG Oral Form: TAB, [place] Tablet Dosing Weight 124.545, kg, Daily, Start date: 02/24/15 9:00:00, Duration: 30 day, Stop date: 03/25/15 9:00:00 Flexeril Notes: (Same No Longer [facility] As: Flexeril) Active 2014 [facility] Dilaudid Notes: Same No Longer [facility] as: Dilaudid Active [address] [place] [address] Phenergan Notes: Do not No Longer [place] as give IV push. Active 2014 Medical (Same as: Center Phenergan) Lyrica Notes: (Same No Longer [facility] [place] as: Lyrica) Active 2014 Medical Center Docusate Notes: (Same No Longer [place] as: Colace) Active 2014 Medical (Do Not Center Crush) Saline Flush 0.9% Notes: (Same No Longer [place] as: BD Active 2014 Medical Posiflush) Center sennosides, [facility] Notes: (Same No Longer H [place] as: Senokot) Active 2014 Medical Center Oxycontin Notes: Do not No Longer [place] as crush or Active 2014 Medical chew. (Same Center as: OxyContin) Cefazolin Notes: (Same No Longer [place] As: Ancef, Active 2014 [facility] Kefzol) Center Cefazolin FOR IV SET ONLY MEDICATION WASTE Product Size: 1000 mg Product Wasted: ___ mg Dextrose 50% Syringe 6.25 gm, 12.5 No Longer [place] mL, Route: Active 2014 Medical IVP, Drug Center Form: INJ, Dosing Weight 124.545, kg, PRN, PRN Abnormal Lab Result, Start date: 02/23/15 18:00:00, Duration: 30 day, Stop date: 03/25/15 17:59:00 Regular Insulin, 60 units) No Longer H [place] Human 100 UNT/ML Stable for 28 Active 2014 edical Injectable Solution days at room Center temperature Expires in days from _Date Saline Flush 0.9% Notes: (Same No Longer [place] as: BD Active 2014 Medical Posiflush) Center Ondansetron Notes: (Same [place] Long[place] as: Zofran) Active 2014 Medical Center MEDICATION WASTE Product Size: 4 mg Product Wasted: _0__ mg Acetaminophen Notes: Do not No Longer [place] exceed 4 Active 2014 Medical gm/day. Center (Same as: Tylenol) Acetaminophen 325 MG Notes: Do not No Longer [place] / Hydrocodone exceed Active 2014 Medical Bitartrate 10 MG Oral 4gm/day of Center Tablet acetaminophen . (Same as: Emblem 325/10) Morphine Notes: (Same No Longer [place] as:MORPhine Active 2014 Medical Sulfate) [place] Sodium Chloride 0.154 1,000 mL, No Longer [facility] MEQ/ML Injectable Rate: 75 Active 2014 Medic al Solution ml/hr, Infuse Center over: 13.3 hr, Route: IV, Dosing Weight 124.545 kg, Total Volume: 1,000, Start date: 02/23/15 18:00:00, Duration: 30 day, Stop date: 03/25/15 17:59:00 Lyrica Notes: (Same Inactive [place] as: Lyrica) [address] [place] [address] carvedilol Notes: Give No Longer [place] with food. Active 2014 Medical (Same As: Center Coreg) Ondansetron Notes: (Same Inactive [place] as: Zofran) 2015 Medical Center MEDICATION WASTE Product Size: 4 mg Product Wasted: ___ mg Metoprolol Notes: (Same [place]active [place] as: 2015 Medical Lopressor) [place] Push over 2 minutes Hydromorphone Notes: Same [place] as: Dilaudid [address] [place] [address] Meperidine Notes: (Same [place]active [place] as: Demerol) 2015 [facility] "Use Center Precaution in Elderly, Seizure disorders, and Renal impairment&qu ot; Flumazenil Notes: (Same [place]active [place] as: 2014 [facility] Romazicon) [place] Naloxone Notes: (Same Inactive [place] as: Narcan) [address] [place] [address] Labetalol 10 mg, 2 mL, Inactive [place] Route: IVP, 2015 Medical Drug form: Center INJ, Q5Min, Dosing Weight 124.545, kg, PRN Elevated BP, Start date: 02/23/15 16:26:00, Duration: 5 doses or times, Stop date: 02/24/15 0:00:00 ceFAZolin Notes: Same No Longer [place] as: Ancef Active [address] [place] [address] tramadol 50 mg = 1 No Longer [place] hydrochloride 50 MG tab, PO, Q6H, Active 2014 Medical Oral Tablet PRN Pain, # Center 40 tab, 0 Refill(s) Hydrochlorothiazide 1 tab, PO, Active 02/21/ M H [place] 25 MG / Losartan Daily, # 30 2015 Med ical Potassium 100 MG Oral tab, 0 Ce nter Tablet Refill(s) 12 HR Oxycodone 40 mg = 1 Active [place] as Hydrochloride 40 MG tab, PO, 2014 Med ical Extended Release Q12H, 0 Center Tablet [Oxycontin] Refill(s) carvedilol 25 mg oral 25 mg = 1 Active [place] tablet tab, PO, BID, 2014 Medical # 180 tab, 0 Center Refill(s) pregabalin 300 MG 300 mg = 1 Active [facility] Oral Capsule [Lyrica] cap, PO, BID, 2014 Medical # 90 cap, 0 Center Refill(s) OXYCONTIN 40 MG T12A Active [facility] loly 2014 Neuro LYRICA 300 MG CAPS [facility] CARVEDILOL 25 MG TABS Active Fl jayleen 2014 Neuro HYZAAR 100-25 MG TABS Active Fl jayleen 2014 Neuro OXYCONTIN 40 MG T12A Active [facility] loly 2014 Neuro CARVEDILOL 25 MG TABS Active Fl jayleen 2014 Neuro HYZAAR 100-25 MG TABS Active Fl jayleen 2014 Neuro Valium 5 mg, Route: Inactive 01/18[facility] [place] IM, Drug 2014 [place] form: INJ, ONCE, Dosing Weight 120.085, kg, Priority: STAT, Start date: 01/18/15 11:05:00, Stop date: 01/18/15 11:05:00 Dilaudid 2 mg, Route: Inactive [place] IM, ONCE, 2014 [place] Dosing Weight 120.085, kg, Start date: 01/18/15 11:05:00, Stop date: 01/18/15 11:05:00 Allergies, Adverse Reactions, Alerts No Known Medication Allergies Immunizations No Data Provided for This Section Results Order Name Results Value Reference Date Interpretation Comments Marla rce Range CHEM PANEL Creatinine 1.13 0.50 - 07 [facility] Lvl 1.40 /2015 Medical Center CHEM PANEL eGFR 70 07/ Result Comment: The Medical eGFR is Center calculated using the CKD-EPI formula. In most young, healthy individuals the eGFR will be >90 mL/min/1.73m2. The eGFR declines with age. An eGFR of 60-89 may be normal in some populations, particularly the elderly, for whom the CKD-EPI formula has not been extensively validated. Use of the eGFR is not recommended in the following populations:<b r/>
Indivi duals with unstable creatinine concentrations , including patients and those with serious co-morbid conditions.

Patient s with extremes in muscle mass or diet.

The data above are obtained from the National Kidney Disease Education Program (NKDEP) which additionally recommends that when the eGFR is used in patients with extremes of body mass index for purposes of drug dosing, the eGFR should be multiplied by the estimated BMI. CHEM PANEL BUN 23 7 - 04/04 [facility] CHEM PANEL Creatinine 1.15 0.50 - 09/[address] [facility] 1.40 [facility] CHEM PANEL BUN 16 7 - 22 09/28 [facility] CHEM PANEL eGFR 69 09/28 Result Comment: The Medical eGFR is Center calculated using the CKD-EPI formula. In most young, healthy individuals the eGFR will be >90 mL/min/1.73m2. The eGFR declines with age. An eGFR of 60-89 may be normal in some populations, particularly the elderly, for whom the CKD-EPI formula has not been extensively validated. Use of the eGFR is not recommended in the following populations:<b r/>
Indivi duals with unstable creatinine concentrations , including patients and those with serious co-morbid conditions.

Patient s with extremes in muscle mass or diet.

The data above are obtained from the National Kidney Disease Education Program (NKDEP) which additionally recommends that when the eGFR is used in patients with extremes of body mass index for purposes of drug dosing, the eGFR should be multiplied by the estimated BMI. CHEM PANEL Magnesium 2.0 1.8 - 2.4 02/[address] [facility] CHEM PANEL Phosphorus 3.9 2.5 - 4.5 02/24 [facility] CHEM PANEL eGFR 73 02/24 <sup>1</sup>Re MH sult Comment: Medical The eGFR is Center calculated using the CKD-EPI formula. In most young, healthy individuals the eGFR will be >90 mL/min/1.73m2. The eGFR declines with age. An eGFR of 60-89 may be normal in some populations, particularly the elderly, for whom the CKD-EPI formula has not been extensively validated. Use of the eGFR is not recommended in the following populations:&l t;br/>
Ind ividuals with unstable creatinine concentrations , including patients and those with serious co-morbid conditions.

Patient s with extremes in muscle mass or diet.

The data above are obtained from the National Kidney Disease Education Program (NKDEP) which additionally recommends that when the eGFR is used in patients with extremes of body mass index for purposes of drug dosing, the eGFR should be multiplied by the estimated BMI. CHEM PANEL Calcium Lvl 8.5 8.5 - 10.5 02/24 [facility] CHEM PANEL Glucose Lvl 111 70 - 99 02/24 <sup>3</sup>In terpretive Medical Data: Adult Center reference range values reflect the clinical guidelines<br/ >of the [place] [employer]. CHEM PANEL Creatinine 1.1 0.5 - 1.4 02/24 [facility] CHEM PANEL Sodium Lvl 142 135 - 145 02/24 [facility] CHEM PANEL BUN 17 7 - 22 02/24 [facility] CHEM PANEL Chloride Lvl 108 95 - 109 02/24 [facility] CHEM PANEL CO2 27 24 - 32 02/24 [facility] CHEM PANEL Potassium 4.1 3.5 - 5.1 02/24 [facility] CHEM PANEL AGAP 11.1 10.0 - 02/24 20.0 [facility] HEMATOLOGY RBC 4.46 4.70 - 02/24 6.10 [facility] HEMATOLOGY WBC 8.0 3.7 - 10.4 02/24 [facility] HEMATOLOGY Platelet 135 133 - 450 02/24 [facility] HEMATOLOGY Hgb 13.3 14.0 - 02/24 18.0 [facility] HEMATOLOGY MCV 87.5 80.0 - 02/24 [place] 94.0 /2014 [facility] HEMATOLOGY MCHC 34.2 32.0 - 02/24 [place] 36.0 /2014 [facility] HEMATOLOGY MCH 29.9 27.0 - 02/24 [place] 31.0 /2014 [facility] HEMATOLOGY RDW 13.4 11.5 - 02/24 [place] 14.5 /2014 [facility] HEMATOLOGY MPV 8.3 7.4 - 10.4 02/24 [facility] HEMATOLOGY Hct 39.0 42.0 - 02/24 [place] 54.0 /2014 [facility] HEMATOLOGY Eosinophils 0.7 0.0 - 4.0 02/24 a s /2014 [facility] HEMATOLOGY Basophils 0.4 0.0 - 1.0 02/24 [facility] HEMATOLOGY Segs-Bands # 5.8 1.5 - 8.1 02/24 [place] /2014 [facility] HEMATOLOGY Lymphocytes 1.5 1.0 - 5.5 02/24 [place] # /2014 [facility] HEMATOLOGY Monocytes 7.9 2.0 - 12.0 02/24 [facility] HEMATOLOGY Monocytes # 0.6 0.0 - 0.8 02/24 [place] /2014 [facility] HEMATOLOGY Eosinophils 0.1 0.0 - 0.5 02/24 [place] # /2014 [facility] HEMATOLOGY Segs 72.5 45.0 - 02/24 [place] 75.0 /2014 [facility] HEMATOLOGY Lymphocytes 18.5 20.0 - 02/24 [place] 40.0 [facility] PARATHYROID Ca Norm WB 1.09 1.05 - 02/24 [place] PROFILE 1.25 [facility] PARATHYROID Ca Ion WB 1.12 1.05 - 02/24 [place] PROFILE 1. [facility] BLOOD BANK Antibody Negative 02/23 [facility] RESULTS Scrn (02/23/15 12:34 PM) /2014 [facility] BLOOD BANK ABO/Rh B POS 02/23 [place] RESULTS /2014 [facility] ELECTROLYTES AGAP 9.3 10.0 - 02/21 [place] 20.0 [facility] ELECTROLYTES eGFR 73 02/21 <sup>2</sup>Re [place] /2014 sult Comment: Medical The eGFR is Center calculated using the CKD-EPI formula. In most young, healthy individuals the eGFR will be >90 mL/min/1.73m2. The eGFR declines with age. An eGFR of 60-89 may be normal in some populations, particularly the elderly, for whom the CKD-EPI formula has not been extensively validated. Use of the eGFR is not recommended in the following populations:&l t;br/>
Ind ividuals with unstable creatinine concentrations , including patients and those with serious co-morbid conditions.

Patient s with extremes in muscle mass or diet.

The data above are obtained from the National Kidney Disease Education Program (NKDEP) which additionally recommends that when the eGFR is used in patients with extremes of body mass index for purposes of drug dosing, the eGFR should be multiplied by the estimated BMI. ELECTROLYTES Calcium Lvl 9.4 8.5 - 10.5 02/21 [place] [facility] ELECTROLYTES Chloride Lvl 104 95 - 109 02/21 [place] [facility] ELECTROLYTES Creatinine 1.1 0.5 - 1.4 02/21 [facility] as l [facility] ELECTROLYTES Sodium Lvl 142 135 - 145 02/21 [facility] ELECTROLYTES CO2 33 24 - 32 02/21 [facility]2014 [facility] ELECTROLYTES Potassium 4.3 3.5 - 5.1 02/21 [facility] s l [facility] ELECTROLYTES Glucose Lvl 112 70 - 99 02/21 <sup>4</sup>In terpretive Medical Data: Adult Center reference range values reflect the clinical guidelines<br/ >of the [place] [employer]. ELECTROLYTES BUN 15 7 - 22 02/21 [facility] HEMATOLOGY Eosinophils 0.1 0.0 - 0.5 02/21 [facility] # /2014 [facility] HEMATOLOGY Monocytes # 0.6 0.0 - 0.8 02/21 [facility] s /2014 [facility] HEMATOLOGY Lymphocytes 2.0 1.0 - 5.5 02/21 [facility] # /2014 [facility] HEMATOLOGY Segs-Bands # 2.3 1.5 - 8.1 02/21 [facility] HEMATOLOGY Segs 45.4 45.0 - 02/21 [place] 75.0 /2014 [facility] HEMATOLOGY Monocytes 11.5 2.0 - 12.0 02/21 [facility]2014 [facility] HEMATOLOGY Basophils 0.7 0.0 - 1.0 02/21 /2014 [facility] HEMATOLOGY Eosinophils 2.6 0.0 - 4.0 02/21 [place] /2014 [facility] HEMATOLOGY Lymphocytes 39.8 20.0 - 02/21 [place] 40.0 /2014 [facility] HEMATOLOGY MCHC 33.8 32.0 - 02/21 [place] 36.0 /2014 [facility] HEMATOLOGY MCH 29.8 27.0 - 02/21 [place] 31.0 /2014 [facility] HEMATOLOGY RDW 13.5 11.5 - 02/21 14.5 /2014 [facility] HEMATOLOGY MPV 8.5 7.4 - 10.4 02/21 /2014 [facility] HEMATOLOGY Platelet 154 133 - 450 02/21 /2014 [facility] HEMATOLOGY Hgb 14.9 14.0 - 02/21 18.0 /2014 [facility] HEMATOLOGY RBC 5.01 4.70 - 02/21 [place] 6.10 /2014 [facility] HEMATOLOGY WBC 5.1 3.7 - 10.4 02/21 [facility] HEMATOLOGY Hct 44.1 42.0 - 02/21 [place] 54.0 /2014 [facility] HEMATOLOGY MCV 88.1 80.0 - 02/21 [place] 94.0 /2014 [facility] HEMATOLOGY PT 13.2 12.0 - 02/21 14.7 /2014 [facility] HEMATOLOGY PTT 37.1 22.9 - 02/21 <sup>6</sup>In [facility] as 35.8 terpretive Medical Data: Heparin Center Therapeutic Range: 57 - 92 Seconds HEMATOLOGY INR 1.00 0.85 - 02/21 <sup>5</sup>In [facility] as 1.17 terpretive Medical Data: Center RECOMMENDED RANGES FOR PROTIME INR:
2.0-3.0 for most medical and surgical thromboembolic states.
2.5-3.5 for artificial heart valves and recurrent embolism.

INR SHOULD BE USED ONLY FOR PATIENTS ON STABLE ANTICOAGULANT THERAPY. Pathology Reports No Data Provided for This Section Diagnostic Reports Report Value Date Source Brain w contrast MRI EXAM: MRI BRAIN WITH CONTRAS T, trigeminal neuralgia Gamma knife protocol 04/04/2016 [facility] Medical DATE: 04/04/2016 Center INDICATION: 60 years old Mal e patient with history of left-sided trigeminal neuralgia status post microvascular decompression on 02/23/2015 and Gamma knife radiosurgery on 09/28/2015. Pain returned in approximately January 2016.. COMPARISON: Magnetic resonance imaging gamma kni fe protocol dated 09/28/2015 TECHNIQUE: Axial T1 and T2 s equences through the brainstem according to trigeminal neuralgia Gamma knife protocol. IV contrast: 20cc MultiHance FINDINGS: The proximal cisternal segme nt of the left trigeminal nerve is not well seen on postcontrast images suggestive of enhancement. The caval segment of the left trigeminal nerve is grossly unremarkable. T2 susceptibility is seen ju st lateral to the cisternal segment of the left trigeminal nerve, unchanged possibly representing a NVD pledget.. No signal abnormality or hem orrhage is seen within the visualized brain or brainstem parenchyma. Visualized basal cisterns are unremarkable. Normal intracranial vascular flow voids are seen . Bilateral mastoid air cell effusions are present . IMPRESSION: 1. Partial enhancement of th e proximal cisternal segment of the left trigeminal nerve, likely postoperative. 2. Stable postoperative changes of prior neurova scular decompression. Brain w contrast MRI EXAM: MRI BRAIN WITH CONTRAST. 09/28/[address] [facility] DATE: 09/28/2015 INDICATION: Left trigeminal neuralgia, gamma kni fe TECHNIQUE: Axial 3-D T2 and axial 3-D T1 SPGR imaging through portions of the brain were acquired. 20 cc Multihance was administered for postcontrast imaging. COMPARISON: None available FINDINGS: Limited sequences were acquired for treatment planning. There is a relative fullness of the posterior fossa with diminished caliber of the basal cisterns, and a sagging appearance of the brain . Cerebellar tonsils are de scended through the foramen magnum, incompletely imaged. No abnormality identified in Meckel's caves or the cavernous sinuses. No abnormal enhancement is identified. Bilateral mastoid effusions. IMPRESSION: Stealth protocol for treatment planning. Findings suggestive of possible intracranial hyp otension. Consultation Notes No Data Provided for This Section Discharge Summaries No Data Provided for This Section History and Physicals No Data Provided for This Section Vital Signs Vital Sign Value Date Comments Source Respitory Rate 30 04/04/2016 [facility] Systolic (mm Hg) 122 04/04/2016 [facility] Diastolic (mm Hg) 67 04/04/2016 [facility] Respitory Rate 14 04/04/2016 [facility] Systolic (mm Hg) 131 04/04/2016 [facility] Diastolic (mm Hg) 69 04/04/2016 [facility] Systolic (mm Hg) 130 04/04/2016 [facility] d[facility] Center Diastolic (mm Hg) 71 04/04/2016 [facility] Respitory Rate 18 04/04/2016 [facility] BMI Calculated 45.86 04/04/2016 [facility] Weight 125 04/04/2016 [facility] Height 165.1 cm 04/04/2016 [facility] Temperature Oral (F) 98.4 F 03/03/2016 [place] Systolic (mm Hg) 129 03/03/2016 [place] Diastolic (mm Hg) 74 03/03/2016 [place] Respitory Rate 16 03/03/2016 [place] Heart Rate 56 03/03/2016 [place] Weight 126.682 03/03/2016 [place] Temperature Oral (F) 98.0 F 03/03/2016 [place] Respitory Rate 16 03/03/2016 [place] Systolic (mm Hg) 155 03/03/2016 [place] Diastolic (mm Hg) 88 03/03/2016 [place] Heart Rate 47 03/03/2016 [place] Systolic (mm Hg) 136 09/28/2015 [facility] dical Center Diastolic (mm Hg) 68 09/28/2015 [facility] Center Systolic (mm Hg) 110 09/28/2015 [facility] Center Diastolic (mm Hg) 55 09/28/2015 [facility] Systolic (mm Hg) 135 09/28/2015 [facility] Diastolic (mm Hg) 78 09/28/2015 [facility] Respitory Rate 35 09/28/2015 [facility] Respitory Rate 42 09/28/2015 [facility] Height 165.1 cm 09/28/2015 [facility] Weight 129.091 09/28/2015 [facility] BMI Calculated 47.36 09/28/2015 [facility] BMI Calculated 46.86 09/28/2015 [facility] Weight 127.727 09/28/2015 [facility] Height 165.1 cm 09/28/2015 [facility] Weight 275.8 03/08/2015 [facility] Height 65 03/08/2015 [facility] Temperature Oral (F) 97.6 F 03/08/2015 [facility] Heart Rate 56 03/08/2015 [facility] Systolic (mm Hg) 136 03/08/2015 [facility] Diastolic (mm Hg) 78 03/08/2015 [facility] Temperature Oral (F) 98.1 F 02/25/2015 [facility] Center Respitory Rate 18 02/25/2015 [facility] Systolic (mm Hg) 152 02/25/2015 [facility] d[facility] Center Diastolic (mm Hg) 80 02/25/2015 [facility] Heart Rate 53 02/25/2015 [facility] Temperature Oral (F) 98.6 F 02/25/2015 [facility] Systolic (mm Hg) 128 02/25/2015 [facility] d[facility] Center Diastolic (mm Hg) 70 02/25/2015 [facility] Heart Rate 59 02/25/2015 [facility] Heart Rate 62 02/25/2015 [facility] Temperature Oral (F) 98.2 F 02/25/2015 [facility] Systolic (mm Hg) 151 02/25/2015 [facility] d[facility] Center Diastolic (mm Hg) 74 02/25/2015 [facility] Respitory Rate 18 02/25/2015 [facility] Respitory Rate 20 02/25/2015 [facility] Weight 124.545 02/23/2015 [facility] BMI Calculated 48.64 02/23/2015 [facility] Center Height 160.02 cm 02/23/2015 [facility] Weight 275 02/22/2015 [facility] Height 63 02/22/2015 [facility] Temperature Oral (F) 98.5 F 02/22/2015 [facility] Heart Rate 53 02/22/2015 [facility] Systolic (mm Hg) 154 02/22/2015 [facility] Diastolic (mm Hg) 80 02/22/2015 [facility] Height 160.02 cm 02/21/2015 [facility] BMI Calculated 48.62 02/21/2015 [facility] Weight 124.5 02/21/2015 [facility] Weight 275.8 02/08/2015 [facility] Height 65 02/08/2015 [facility] Temperature Oral (F) 98.4 F 02/08/2015 [facility] Heart Rate 55 02/08/2015 [facility] Systolic (mm Hg) 106 02/08/2015 [facility] Diastolic (mm Hg) 64 02/08/2015 [facility] Ne uro BMI Calculated 44.05 01/18/2015 [place] Height 165.1 cm 01/18/2015 [place] Weight 120.085 01/18/2015 [place] Systolic (mm Hg) 193 01/18/2015 [place] Diastolic (mm Hg) 101 01/18/2015 [place] Heart Rate 50 01/18/2015 [place] Respitory Rate 20 01/18/2015 [place] Temperature Oral (F) 97.6 F 01/18/2015 [place] Encounters Location Location Encounter Encounter Reason Attending ADM AL Stat us Source Details Type Number For Provider Date Date Visit [facility] [id number] Jonathan Payne 01/18 01/18 [place] [facility] /2014 [facility] [id number] Everton Jimenez 02/08 02/08 [facility]50 [facility] /2014 [facility] [id number] Everton Jimenez 02/22 02/22 [facility] Visit 5040 MD /2014 Neuro e [facility] Inpatient [id number] Everton Jimenez 02/23 02/24 [facility] /2014 [facility] [id number] Everton Jimenez 03/08 03/08 [facility] Visit 2830 MD /2014 Neuro e [facility] [id number] KEMAR 06/13 [facility] Al n MOLINA Outpatient [id number] [place]ERT[place] JIMENEZ 08/16 Activ e [facility] /2014 [place] Out[facility] [id number] [place] JIMENEZ 08/30 Activ e [facility] /2014 [facility] Bedded [id number] Everton Jimenez 09/28 09/28 [facility] Outpatient /2015 [facility] Outpatient [id number] KEMAR 12/25 Active [facility] Al n LISETH [facility] [id number] Tom 03/03 03/03 [facility] Emergency [facility] /2015 [facility] [place] [facility] Outpatient [id number] EVERTON DARLENE 03/20 Activ e [facility] Bedded [id number] Everton Jimenez 04/04 04/04 [facility] Outpatient /2015 [facility] Outpatient [id number] KEMAR 07/11 Active [facility] Al n ERJI Outpatient [id number] SANDRA DARLENE 08/01 Act scot [facility] Shiv Procedures Procedure Code Date Perfomer Comments Source Craniotomy and [id number] 02/23/2015 [facility] decompression of [facility] brain Center, [place] Amputation of arm [id number] [facility] through humerus [facility] [place] Arthroscopic [id number] [facility] surgical procedure Medica l on knee x 4 Center, [place] Knee arthroplasty [id number] [facility] [place] Lumbar and [id number] [facility] lumbosacral fusion Medica l by anterior Center, technique [place] Lumbar discectomy x [id number] [address], [place] Stereotactic [id number] [facility] radiosurgery [facility] [place] Assessment and Plan No Data Provided for This Section Plan of Care No Data Provided for This Section Social History Social History Date Source Social History TypeResponse 03/20/2016 [facility] ical [place] Alcohol Never Smoking Status Never smoker; Previous treatment: None; Ready to change: No; Concerns about tobacco use in household: No; Exposure to Tobacco Smoke None; Cigarette Smoking Last 365 Days No; Reg Smoking Cessation Counseling No Social History TypeResponse 12/26/2015 [facility] Alcohol Never Smoking Status Never smoker; Previous treatment: None; Ready to change: No; Concerns about tobacco use in household: No; Exposure to Tobacco Smoke None; Cigarette Smoking Last 365 Days No; Reg Smoking Cessation Counseling No Family History No Data Provided for This Section Advance Directives No Data Provided for This Section Functional Status No Data Provided for This Section
--- NOTE | 2020-03-16 01:23 | HP ---
Date of Admission: 03/15/2020 Chief Complaint: Groin pain, fever, chills. History Of Present Illness: This is a 64-year-old pleasant male patient who has history of recurrent cellulitis of leg, called my office today with complaints of left groin pain, fever and chills. We are asked the patient initially to video conferencing, but he was not able to do that and he was subsequently advised to come to the emergency room. His nephew brought him to the ER and after he was brought into emergency room, he was noted to be delirious, confused, hemodynamically stable and he was admitted to the hospital with cellulitis of left lower extremity, rule out sepsis. I saw him in emergency room. His nephew was with him at bedside. The patient is able to recognize me and he is able to answer some of the details. Allergies: NO KNOWN ALLERGIES. Medications: List reviewed. 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 Musculoskeletal: As mentioned above. Dermatology: As mentioned above. Constitutional: As mentioned above. All other systems reviewed and negative. Past Medical History: Significant for trigeminal neuralgia; hypertension; type 2 diabetes mellitus; hyperlipidemia, which is mixed; gastroesophageal reflux disease; chronic kidney disease, stage 3; erectile dysfunction; and lymphedema of legs and recurrent cellulitis of leg. Past Surgical History: Significant for back surgery, knee surgery, amputation of left forearm. Family History: Mother had coronary artery disease, diabetes, hypertension, and kidney problems. Social History: Prior history of smoking not at present time. Use of alcohol: Negative. Physical Examination: Vital Signs: Height 5 feet 9 inches, weight 285 pounds. Temperature 103.1F, pulse 93, blood pressure 136/63, respiratory rate 14, oxygen saturation 92%. General: The patient is lying in bed, not in distress, appears weaker than normal, somewhat confused, answer some of the questions appropriately. Not in any respiratory distress. He was noted to be little bit diaphoretic with sweats over forehead. HEENT: Head atraumatic, normocephalic. Conjunctivae nonerythematous. Sclerae white. Mouth, no thrush or edema noted. Ears/Nose, no mass, lesion, discharge noted. Neck: Supple. No JVD, lymph nodes, bruit, thyromegaly noted. Lungs: Bilateral good equal air entry. Clear to auscultation. No rhonchi. No rales. Heart: Normal heart sounds, no murmur or gallop. Abdomen: Soft, bowel sounds normal. No guarding, rigidity, tenderness, mass, hepatosplenomegaly, distention, or bruit noted. Extremities: Extensive redness of left lower extremity. No open wound. Left upper extremity shows status post partial amputation of left forearm. Skin: No rash, ulcer, cellulitis. Lymphatics: No lymph node enlargement in neck, supraclavicular, infraclavicular region. Neuro: No focal neurological deficit. Chest: Unremarkable. External Genitalia: Deferred. Rectal: Deferred. Laboratory Data: WBC 8.7, hemoglobin 14.6, platelets 173, sodium 139, potassium 3.9, chloride 101, bicarb 32, glucose 141, BUN 17, creatinine 1.49. Impression: 1. Cellulitis, left leg. 2. Rule out sepsis. 3. Lymphedema, legs. 4. Hypertension. 5. Mixed hyperlipidemia. 6. Diverticulosis. 7. Trigeminal neuralgia. 8. Gastroesophageal reflux disease. 9. Type 2 diabetes mellitus. Plan: Admit patient to hospital for further evaluation and management of this problem. Patient is appropriate for inpatient and is expected to spend 2 midnights in hospital. He will be kept in ICU. IV fluid and IV antibiotics will be given. IV antibiotics ordered was Levaquin and vancomycin. Follow up on culture results. Depending on culture results, we will decide about culture specific antibiotics. Repeat blood work tomorrow. DVT prophylaxis will be given per order. Details and plan of treatment discussed with the patient and the patient's family member that is patient nephew at bedside. Patient has history of recurrent cellulitis from time to time, but last one that he had in December of this year and this time probably is the worst episode that I have seen for him. I have advised him to follow up with [facility] in [place] to see if he will benefit from the leg massage per lymphedema, as well as Farro wrap type of therapy on leg. The patient's nephew was advised to call [place] [facility] to schedule appointment in about 3-4 weeks or so. I will see him tomorrow for followup. Patient had COVID-19 test, results pending. DOMENICA/MODL Voice ID: [id number] [facility]
[2020-03-16] MEDS ORDERED: VANCOMYCIN/NS 1 gm 1 GM/250 ML BAG IVPB STA (01:38)
[2020-03-16] MEDS ORDERED: VANCOMYCIN 1 GM/VIAL ONE (02:27)
[2020-03-16] MEDS ORDERED: NA CHLORIDE 0.9% 0 ML ONE (02:28)
[2020-03-16] MEDS ORDERED: NA CHLORIDE 0.9% 250 ML ONE (02:50)
[2020-03-16 05:11] LABS: Absolute Lymphocytes (CBC) 1.6 K/uL (0.7-4.9); Basophils % 0.2 % (0-1.3); Hematocrit 42.2 % (39.6-49.0); Lymphocytes % 9.6 % (15.3-44.8); MPV 8.4 fL (7.6-11.3); RBC Red Blood Cell Count 4.67 M/uL (4.33-5.43)
[2020-03-16 05:22] LABS: Potassium 4.5 mmol/L (3.5-5.1)
[2020-03-16 06:33] LABS: Blood Morphology Comment NOT SEEN (NOT SEEN); Platelet Estimate ADEQ
[2020-03-16] MEDS: ACETAMINOPHEN 500 MG TAB PO PRN ×3 (07:33→21:13)
[2020-03-16] MEDS: D5.45NS W/KCL 20MEQ 1,000 ML IV SCH (07:33)
[2020-03-16] MEDS ORDERED: D50W 25 GM/50 ML SYRINGE/VIAL IV PRN (08:57)
[2020-03-16] MEDS ORDERED: GLUCAGON 1 MG/VIAL IM PRN (08:57)
[2020-03-16] MEDS: NA CHLORIDE 0.9% 1,000 ML IV SCH (09:42)
[2020-03-16] MEDS: DULOXETINE 30 MG CAP PO SCH (09:42)
[2020-03-16] MEDS: carBAMazepine 200 MG TAB PO SCH ×2 (09:59→21:13)
[2020-03-16] MEDS: PREGABALIN 150 MG CAP PO SCH ×2 (10:00→21:12)
[2020-03-16] MEDS: VANCOMYCIN 2 GM in NA CHLORIDE 0.9% 500 ML IV SCH (10:10)
--- NOTE | 2020-03-16 10:22 | ER ---
Nurse's Notes [facility] Name: Vipul Holden Age: 64 yrs Sex: Male : 1955 Arrival Date: 03/15/2020 Time: 16:46 Bed 7 Private MD: Diagnosis: Cellulitis of left lower limb;Lymphangitis;Delirium due to known physiological condition;Sepsis, unspecified organism Presentation: 03/15 16:59 Chief complaint: Patient states: Chills started at 0725-2547. Reports cough just ca1 started today. Denies SOB. Reports abdominal pain, more on the L groin area. Denies urinary symptoms. Reports nausea. Coronavirus screen: Surgical mask placed on patient. Patient moved to private room, placed in contact and droplet isolation with eye protection until further assessment. Patient reports a cough. Patient denies shortness of breath or difficulty breathing. Patient reports a measured and/or subjective temperature greater than 100.4F. Patient denies travel on a cruise ship or to a country the [facility] currently lists as an affected area. Patient denies contact with known and/or suspected case of COVID-19. Ebola Screen: Patient negative for fever greater than or equal to 101.5 degrees Fahrenheit, and additional compatible Ebola Virus Disease symptoms Patient denies exposure to infectious person. Patient denies travel to an Ebola-affected area in the 21 days before illness onset. No symptoms or risks identified at this time. Initial Sepsis Screen: Does the patient meet any 2 criteria? Temp <36.0*C (96.8*F)) or > 38.3*C (100.9*F). HR > 90 bpm. Yes Does the patient have a suspected source of infection? Yes: Productive cough/pneumonia. Risk Assessment: Do you want to hurt yourself or someone else? Patient reports no desire to harm self or others. Onset of symptoms was March 15, 2020. 16:59 Method Of Arrival: Wheelchair ca1 16:59 Acuity: SOHA 2 ca1 Historical: - Allergies: 17:04 No Known Allergies; ca1 - Home Meds: 17:04 carvedilol 25 mg Oral tab 1 tab [Active]; Cymbalta 60 mg Oral cpDR 1 cap once daily ca1 [Active]; losartan-hydrochlorothiazide 100-25 mg Oral tab 1 tab once daily [Active]; Lyrica 450mg Oral 1 cap 2 times per day [Active]; Tegretol 400mg Oral tab 1 tab every 12 hours [Active]; - PMHx: 17:04 Hypertension; trigeminal neuralgia; ca1 - PSHx: 17:04 arm amputation; Knee surgery; ca1 - Immunization history:: Adult Immunizations up to date. - Social history:: Smoking status: Patient denies any tobacco usage or history of. - Family history:: not pertinent. - Hospitalizations: : No recent hospitalization is reported. Screenin:48 Abuse screen: Denies threats or abuse. Denies injuries from another. Nutritional hb screening: No deficits noted. Tuberculosis screening: No symptoms or risk factors identified. Fall Risk None identified. Assessment: 17:44 General: Appears in no apparent distress. uncomfortable, Behavior is calm, cooperative, jl7 appropriate for age. Pain: Complains of pain in all over Quality of pain is described as aching. Neuro: Level of Consciousness is awake, alert, obeys commands, Oriented to person, place, time, situation. Cardiovascular: Patient's skin is warm and dry. Respiratory: Airway is patent Respiratory effort is even, unlabored, Respiratory pattern is regular, symmetrical. GI: Abdomen is non-distended. Derm: Skin is pink, warm \T\ dry. 18:25 Reassessment: Nausea unchanged, ERD notified, VO for 12.5 mg Phenergan IVP and 500 mL jl7 NS bolus. 18:40 Reassessment: Dr. Santo at bedside discussing results and POC. jl7 19:14 Reassessment: Placed pulse ox on left ear, pt's O2 sat 94% without oxygen. Pt restless, jl7 drowsy, oriented x 3, confused. Pt attempting to get out of bed, family member at bedside able to keep pt in the bed at this time. 20:43 Reassessment: Dr. Jimenez came and assessed the patient. mg2 Vital Signs: 16:59 BP 154 / 92; Pulse 122; Resp 20 S; Temp 103.1(O); Pulse Ox 92% on R/A; Weight 129.27 kg ca1 (R); Height 5 ft. 5 in. (165.10 cm) (R); 18:15 Pulse 133; Resp 25; Pulse Ox 88% on R/A; jl7 18:47 Pulse 127; Resp 23 S; Temp 102.7(O); Pulse Ox 92% on 3 lpm NC; jl7 21:07 BP 142 / 92; Pulse 125; Resp 23; Temp 96.9(TE); Pulse Ox 92% on 5 lpm NC; mg2 16:59 Body Mass Index 47.43 (129.27 kg, 165.10 cm) ca1 ED Course: 16:46 Patient arrived in ED. fj1 17:03 Triage completed. ca1 17:04 Arm band placed on right wrist. ca1 17:12 Jamey Goins, GAETANO is Primary Nurse. jl7 17:15 Aquiles Santo MD is Attending Physician. rn 17:32 Inserted saline lock: 20 gauge in right antecubital area, using aseptic technique. hb Blood collected. 17:32 Initial lab(s) drawn, by ED staff, sent to lab. Flu and/or RSV swab sent to lab. Strep jl7 swab sent to lab. COVID-swab sent to lab. 17:48 Patient has correct armband on for positive identification. Bed in low position. Call hb light in reach. Side rails up X 1. 17:50 Pulse ox on. jl7 18:57 Brendon Jimenez MD is Hospitalizing Provider. rn 21:42 No provider procedures requiring assistance completed. Patient admitted, IV remains in mg2 place. Administered Medications: 17:43 Drug: Tylenol 1000 mg Route: PO; jl7 17:44 Drug: Zofran (Ondansetron) 4 mg Route: IVP; Site: right antecubital; jl7 19:50 Drug: LevaQUIN 500 mg Volume: 100 ml; Route: IVPB; Infused Over: 60 mins; Site: right mg2 antecubital; 20:05 Drug: vancoMYCIN 1 grams Route: IVPB; Infused Over: 2 hrs; Site: right forearm; mg2 Outcome: 18:57 Decision to Hospitalize by Provider. rn 21:08 Admitted to ICU accompanied by nurse, accompanied by tech, via stretcher, room 8, with mg2 oxygen, on monitor, with chart, Report called to GAETANO Schreiber 21:08 Condition: stable 21:08 Instructed on the need for admit, Demonstrated understanding of instructions. 21:43 Patient left the ED. mg2 Signatures: Aquiles Santo MD MD rn Baxter, Heather, RN RN Jamey Goins RN RN jl7 Luca Tirado, RN RN mg2 Jayleen Castillo RN RN ca1 Rod Cheatham 1 Corrections: (The following items were deleted from the chart) 21:27 16:59 Initial Sepsis Screen: Does the patient meet any 2 criteria? Temp <36.0*C ca1 (96.8*F)) or > 38.3*C (100.9*F). HR > 90 bpm. ca1 21:42 21:07 BP 142 / 92; Pulse 125bpm; Resp 23bpm; Pulse Ox 92% 5 lpm Nasal Cannula; Temp mg2 102.7F; mg2
--- NOTE | 2020-03-16 10:22 | EDPHYS ---
Physician Documentation [facility] Name: Vipul Holden Age: 64 yrs Sex: Male : 1955 Arrival Date: 03/15/2020 Time: 16:46 Bed 7 Private MD: ED Physician Aquiles Santo HPI: 03/15 18:35 This 64 yrs old Male presents to ER via Wheelchair with complaints of CHILLS rn AND BODY ACHES. 18:35 The patient reports fever, not measured (subjective). Onset: The symptoms/episode rn began/occurred today. Modifying factors: there are no obvious modifying factors. Severity of symptoms: At their worst the symptoms were moderate in the emergency department the symptoms are unchanged. It is unknown whether or not the patient has had similar symptoms in the past. The patient has not recently seen a physician. Reports fever, chills, fatigue, sob, began earlier today. No known sick contacts. No chest pain/abd pain/vomiting/diarrhea. . Historical: - Allergies: 17:04 No Known Allergies; ca1 - Home Meds: 17:04 carvedilol 25 mg Oral tab 1 tab [Active]; Cymbalta 60 mg Oral cpDR 1 cap once daily ca1 [Active]; losartan-hydrochlorothiazide 100-25 mg Oral tab 1 tab once daily [Active]; Lyrica 450mg Oral 1 cap 2 times per day [Active]; Tegretol 400mg Oral tab 1 tab every 12 hours [Active]; - PMHx: 17:04 Hypertension; trigeminal neuralgia; ca1 - PSHx: 17:04 arm amputation; Knee surgery; ca1 - Immunization history:: Adult Immunizations up to date. - Social history:: Smoking status: Patient denies any tobacco usage or history of. - Family history:: not pertinent. - Hospitalizations: : No recent hospitalization is reported. ROS: 18:52 Constitutional: + fever and chills Eyes: Negative for injury, pain, redness, and rn gyn, Cardiovascular: Negative for chest pain, palpitations, and edema, Respiratory: + sob and cough Abdomen/GI: Negative for abdominal pain, diarrhea, and constipation, MS/Extremity: + LLE swelling and redness Skin: + redness LLE Neuro: Negative for headache, weakness, numbness, tingling, and seizure. Exam: 18:52 Constitutional: This is a well developed, well nourished patient who is awake, alert, rn tachypneic Head/Face: Normocephalic, atraumatic. ENT: dry MM, no stridor Cardiovascular: tachycardic, regular Respiratory: + tachypnea with diminished breath sounds bilateral bases Abdomen/GI: soft, non-tender, no masses Skin: Warm, dry, +LLE swelling and warmth, no fluctuance MS/ Extremity: Pulses equal, no cyanosis. + mildly tender left inguinal LAD Neuro: Awake and alert, GCS 15, oriented to person, place, time, and situation. Vital Signs: 16:59 BP 154 / 92; Pulse 122; Resp 20 S; Temp 103.1(O); Pulse Ox 92% on R/A; Weight 129.27 kg ca1 (R); Height 5 ft. 5 in. (165.10 cm) (R); 18:15 Pulse 133; Resp 25; Pulse Ox 88% on R/A; jl7 18:47 Pulse 127; Resp 23 S; Temp 102.7(O); Pulse Ox 92% on 3 lpm NC; jl7 21:07 BP 142 / 92; Pulse 125; Resp 23; Temp 96.9(TE); Pulse Ox 92% on 5 lpm NC; mg2 16:59 Body Mass Index 47.43 (129.27 kg, 165.10 cm) ca1 MDM: 17:16 Patient medically screened. rn 18:52 Differential diagnosis: viral Infection, bacterial infection, cellulitis, sepsis, rn lymphangitis, pneumonia, COVID. Data reviewed: vital signs, nurses notes, lab test result(s), radiologic studies, plain films, and as a result, I will admit patient. Counseling: I had a detailed discussion with the patient and/or guardian regarding: the historical points, exam findings, and any diagnostic results supporting the discharge/admit diagnosis, lab results, radiology results, the need for further work-up and treatment in the hospital. Admission orders: after a detailed discussion of the patient's condition and case, the admit orders are written by me. ED course: Consulted with Dr. Jimenez for admission, pt more delirious with time, abx ordered to treat cellulitis/lymphangitis. Neg flu/strep, COVID sent, CXR without infiltrate. Family states this is identical presentation to last time had leg infection. . 03/15 17:23 Order name: COVID-19 rn 03/15 17:23 Order name: Flu rn 03/15 17:23 Order name: Strep rn 03/15 17:23 Order name: BNP rn 03/15 17:23 Order name: Procalcitonin rn 03/15 17:23 Order name: Lactate rn 03/15 17:23 Order name: CXR XRAY rn 03/15 17:23 Order name: CBC with Diff rn 03/15 17:23 Order name: Basic Metabolic Panel rn 03/15 19:09 Order name: Blood Culture Adult (2) rn 03/15 17:23 Order name: IV Start; Complete Time: 17:44 rn 03/15 17:23 Order name: Droplet/Contact Precautions; Complete Time: 17:24 rn 03/15 17:23 Order name: Labs collected and sent; Complete Time: 17:44 rn 03/15 17:23 Order name: O2 Per Protocol; Complete Time: 17:24 rn 03/15 21:42 Order name: EKG - Nurse/Tech; Complete Time: 21:42 mg2 Administered Medications: 17:43 Drug: Tylenol 1000 mg Route: PO; jl7 17:44 Drug: Zofran (Ondansetron) 4 mg Route: IVP; Site: right antecubital; jl7 19:50 Drug: LevaQUIN 500 mg Volume: 100 ml; Route: IVPB; Infused Over: 60 mins; Site: right mg2 antecubital; 20:05 Drug: vancoMYCIN 1 grams Route: IVPB; Infused Over: 2 hrs; Site: right forearm; mg2 Disposition: 03/15/20 18:57 Hospitalization ordered by Brendon Jimenez for Inpatient Admission. Preliminary diagnosis are Cellulitis of left lower limb, Lymphangitis, Delirium due to known physiological condition, Sepsis, unspecified organism. - Bed requested for Intensive Care Unit. - Status is Inpatient Admission. mg2 - Condition is Fair. - Problem is new. - Symptoms have worsened. Critical care time excluding procedures: 18:52 Critical care time: Bedside Care: 25 minutes, Consultation: 5 minutes. Total time: 30 rn minutes Signatures: Dispatcher [employer] EDMS Aquiles Santo MD MD rn Lasagna, Tonya RN RN tl1 Jamey Goins RN RN jl7 Luca Tirado RN RN mg2 Jayleen Castillo RN RN ca1 Corrections: (The following items were deleted from the chart) 19:57 18:57 Hospitalization Ordered by A Tony GREGG for Inpatient Admission. Preliminary tl1 diagnosis is Cellulitis of left lower limb; Lymphangitis; Delirium due to known physiological condition; Sepsis, unspecified organism. Bed requested for Intensive Care Unit. Status is Inpatient Admission. Condition is Fair. Problem is new. Symptoms have worsened. rn 21:43 19:57 03/15/2020 18:57 Hospitalization Ordered by A Tony GREGG for Inpatient Admission. mg2 Preliminary diagnosis is Cellulitis of left lower limb; Lymphangitis; Delirium due to known physiological condition; Sepsis, unspecified organism. Bed requested for Intensive Care Unit. Status is Inpatient Admission. Condition is Fair. Problem is new. Symptoms have worsened. tl1
[2020-03-16] MEDS: INSULIN -REGULAR HUMAN 50 UNIT/0.5 ML ML SQ SCH ×3 (11:30→20:47)
--- NOTE | 2020-03-16 12:24 | EKG ---
Test Date: 2020-03-15 Test Time: 21:22:33 Ticket Sorter: MEASUREMENT RESULTS: Intervals: Rate: 123 [place]: 140 QRSD: 90 QT: 330 QTc: 472 [place]: P: 53 [place]: 140 QRS: 71 T: 74 INTERPRETIVE STATEMENTS: Sinus tachycardia Nonspecific ST and T wave abnormality Abnormal ECG Compared to ECG 12/25/2019 09:54:31 ST (T wave) deviation now present Sinus rhythm no longer present Incomplete right bundle-branch block no longer present T-wave abnormality no longer present Electronically Signed On 03-16-20 12:22:20 CDT by Denny Alfaro
[2020-03-16] MEDS: Levofloxacin500mg IV 500 MG/100 ML BAG IV SCH (17:05)
[2020-03-16] MEDS: ENOXAPARIN 30 MG/0.3 ML SQ SCH (17:05)
[2020-03-16] MEDS ORDERED: VANCOMYCIN 2 GM in NA CHLORIDE 0.9% 500 ML IV SCH (19:00)
[2020-03-16] MEDS: ATORVASTATIN 20 MG TAB PO SCH (21:13)
--- NOTE | 2020-03-17 00:27 | PN ---
Date of Progress Note: 03/16/2020 Subjective: Patient was seen this morning for followup. No new complaints or problems reported by prince theodore, lying in bed, not in distress. In ICU, his COVID test came back negative, so he does not nee d any isolation. He is feeling much better than yesterday. Awake, alert, no more confusion. Hemody namically, he is stable. Last night, after he arrived to ICU his blood pressure was low, systolic bl ood pressure was around 88 to 90 range. 1 L of IV fluid was given as bolus and that actually has hel ped. His systolic blood pressure has remained around between 100 to 110 overnight. Objective: Vital Signs: Reviewed. HEENT: Unremarkable. Lungs: Clear to auscultation. No rhonchi or rales. Heart: Sounds normal. Abdomen: Soft. Bowel sounds normal. No guarding, rigidity, tenderness, distention. Extremities: Left leg has extensive area of redness between knee and foot. No open wound. Laboratory Data: White count 16.3, hemoglobin 14.1, platelets 145. Sodium 142, potassium 4.5, chlor courtney 106, bicarb 28, BUN 20, creatinine 1.67, glucose 133. Blood culture growing gram-positive cocci in chains and in clusters. Impression: 1.Sepsis. 2.Cellulitis, left leg. 3.Acute kidney injury. 4.Diabetes mellitus. 5.Hypertension. 6.Lymphedema, legs. Plan: Patient is doing better. He is clinically stable. We will transfer him out of ICU to regular room. Continue IV fluid, IV antibiotic, which is Levaquin and vancomycin per order. DVT prophylaxi s will be given using Lovenox per order. I will see him tomorrow for followup. We will repeat blood work tomorrow. Follow up on culture results and then decide about final choice of antibiotics. I d id talk to him about lymphedema therapy and he informed me that [facility] has [facility] and was given FarrowWraps. He has it at home, but he is not using it. I advised him to star t using it once his cellulitis problem completely gets resolved. DOMENICA/MODL Voice ID: [id number] Report ID: [id number]
[2020-03-17] MEDS: NA CHLORIDE 0.9% 1,000 ML IV SCH ×3 (00:48→13:27)
[2020-03-17] MEDS: ACETAMINOPHEN 500 MG TAB PO PRN ×4 (03:28→23:59)
[2020-03-17] MEDS: INSULIN -REGULAR HUMAN 50 UNIT/0.5 ML ML SQ SCH ×4 (07:19→21:00)
[2020-03-17] MEDS: PREGABALIN 150 MG CAP PO SCH ×2 (09:05→21:24)
[2020-03-17] MEDS: DULOXETINE 30 MG CAP PO SCH (09:05)
[2020-03-17] MEDS: carBAMazepine 200 MG TAB PO SCH ×2 (09:06→21:23)
[2020-03-17] MEDS: Levofloxacin500mg IV 500 MG/100 ML BAG IV SCH (17:08)
[2020-03-17] MEDS: ENOXAPARIN 30 MG/0.3 ML SQ SCH (17:09)
[2020-03-17] MEDS: FLUTICASONE 50MCG NASAL SPRAY NAS SCH (17:10)
[2020-03-17] MEDS: ATORVASTATIN 20 MG TAB PO SCH (21:23)
[2020-03-17] MEDS: VANCOMYCIN 2 GM in NA CHLORIDE 0.9% 500 ML IV SCH (22:27)
[2020-03-18] MEDS: NA CHLORIDE 0.9% 1,000 ML IV SCH ×2 (02:48→11:00)
[2020-03-18] MEDS: INSULIN -REGULAR HUMAN 50 UNIT/0.5 ML ML SQ SCH ×4 (07:30→21:00)
[2020-03-18] MEDS: DULOXETINE 30 MG CAP PO SCH (09:23)
[2020-03-18] MEDS: PREGABALIN 150 MG CAP PO SCH ×2 (09:23→20:40)
[2020-03-18] MEDS: carBAMazepine 200 MG TAB PO SCH ×2 (09:24→20:40)
[2020-03-18] MEDS: FLUTICASONE 50MCG NASAL SPRAY NAS SCH (09:24)
[2020-03-18 12:34] LABS: Absolute Lymphocytes (CBC) 1.3 K/uL (0.7-4.9); Basophils % 0.7 % (0-1.3); Hematocrit 39.1 % (39.6-49.0); Lymphocytes % 16.1 % (15.3-44.8); MPV 8.7 fL (7.6-11.3)
[2020-03-18 12:46] LABS: Magnesium 2.1 mg/dL (1.8-2.4); Potassium 3.5 mmol/L (3.5-5.1)
[2020-03-18] MEDS: ACETAMINOPHEN 500 MG TAB PO PRN (13:46)
[2020-03-18] MEDS: GUAIFENESIN/DM 5 ML UCUP PO PRN (14:58)
[2020-03-18] MEDS: ACYCLOVIR 400 MG TABLET PO SCH ×2 (14:58→20:40)
[2020-03-18] MEDS: ENOXAPARIN 40 MG/0.4 ML SQ SCH (16:16)
[2020-03-18] MEDS: Levofloxacin500mg IV 500 MG/100 ML BAG IV SCH (17:37)
--- NOTE | 2020-03-18 18:31 | PN ---
Date of Progress Note: 03/18/2020 Subjective: Patient was seen this morning for followup. He was sitting in chair out of ICU in regul ar room. Denies any shortness of breath or any other complaints except just does not feel good, feel s a little tired, but no other specific complaints. Objective: Vital Signs: Reviewed, remains afebrile. HEENT: Unremarkable. Lungs: Clear to auscultation. No rales. No wheezing. Heart: Sounds normal. Abdomen: Soft. Bowel sounds normal. No guarding, rigidity, tenderness, or distention. Extremities: Right leg trace edema. Left leg, grade 1 to grade 2 pedal edema and leg edema is littl e more today than yesterday. His area of skin between left knee and left foot was intensely red yest erday and day before yesterday, but today the distribution of redness remains unchanged, but it is le ss intense today and some brownish discoloration now. There is no evidence of any blisters on the sk in. Left upper anterior and medial thigh redness remains unchanged from yesterday. Laboratory Data: Creatinine yesterday was 1.1. Today, CBC and chemistry results pending. Blood cul ture result shows streptococcus. Impression: 1.Sepsis, organism streptococcus. 2.Cellulitis, left leg. 3.Hypertension. 4.Acute kidney injury. Plan: The patient's organism that he is growing in blood this time is streptococcus and this is the same organism that he had in blood culture about 2 months ago, which is December of this year when he wa s in the hospital with similar problem of left leg cellulitis and sepsis. I have discussed this with him. I have advised him that he should have an evaluation by Infectious Disease especially on an el ective outpatient basis and he informed me that he will talk to his daughter and his daughter will tr y to schedule appointment with a such specialists in [facility] and obviously he will let me kno w if he needs any assistance. Meanwhile, we will continue current antibiotics. We will keep him in the hospital over the weekend. Leg elevation was advised and we will continue DVT prophylaxis with L ovenox per order. Discontinue IV fluid as there is no need for ongoing IV fluid hydration now. We w ill see him tomorrow for followup. DOMENICA/MODL Voice ID: [id number] Report ID: [id number]
--- NOTE | 2020-03-18 18:55 | PN ---
Date of Progress Note: 03/17/2020 Subjective: Patient was seen for followup in the morning. He was in ICU. No new complaints or prob lems reported by him. Objective: Vital Signs: Reviewed. Hemodynamically, he is stable. Remains afebrile. HEENT: Unremarkable. Lungs: Clear to auscultation. Heart: Sounds normal. Abdomen: Soft. Bowel sounds normal. No guarding, rigidity, tenderness, or distention. Extremities: Left leg edema present. Left upper anterior and medial thigh have redness of skin, whi ch is new compared to yesterday and intense redness between left knee and left foot remains unchanged . No evidence of any blisters. Labs reviewed. Impression: 1.Sepsis. 2.Cellulitis, left leg. 3.Hypertension. 4.Acute kidney injury. Plan: We will continue current antibiotics. Follow up on culture results. Depending on final resul ts on the blood culture, we will decide about choice of antibiotics if it needs to be changed or not. Patient remains in ICU as there were no beds available on the floor. Continue other current medica l management. Continue IV fluid and we will repeat blood work tomorrow. I will see him tomorrow for followup. Continue DVT prophylaxis bryson Treviño. DOMENICA/MODL Voice ID: [id number] Report ID: [id number]
[2020-03-18] MEDS: ATORVASTATIN 20 MG TAB PO SCH (20:40)
[2020-03-18] MEDS: VANCOMYCIN 2 GM in NA CHLORIDE 0.9% 500 ML IV SCH (20:40)
[2020-03-19] MEDS: INSULIN -REGULAR HUMAN 50 UNIT/0.5 ML ML SQ SCH ×4 (07:30→19:55)
[2020-03-19] MEDS: PREGABALIN 150 MG CAP PO SCH ×2 (09:37→19:54)
[2020-03-19] MEDS: carBAMazepine 200 MG TAB PO SCH ×2 (09:37→19:54)
[2020-03-19] MEDS: DULOXETINE 30 MG CAP PO SCH (09:38)
[2020-03-19] MEDS: FLUTICASONE 50MCG NASAL SPRAY NAS SCH (09:38)
[2020-03-19] MEDS: ACYCLOVIR 400 MG TABLET PO SCH ×3 (09:38→19:54)
[2020-03-19] MEDS ORDERED: FUROSEMIDE 20 MG/ 2ML VIAL IV ONE (11:17)
[2020-03-19] MEDS ORDERED: POTASSIUM CL SA 10 MEQ TAB PO ONE (11:18)
--- NOTE | 2020-03-19 12:14 | RAD REPORT ---
EXAM DESCRIPTION: RAD - Chest Pa And Lat (2 Views) - 03/19/2020 12:08 pm CLINICAL HISTORY: cough, dyspnea Chest pain. COMPARISON: Chest Single View dated 03/15/2020; Chest Single View dated 12/25/2019; Chest Single View d ated 12/24/2019; Chest Single View dated 07/03/2016 FINDINGS: Interstitial lung markings are mildly prominent which can be seen in interstitial pneumoni tis/ bronchitis or mild interstitial pulmonary edema. The findings appears similar to slightly more p ronounced relative to comparative study. The heart is mildly enlarged in size. No displaced fractures .
[2020-03-19] MEDS: Levofloxacin500mg IV 500 MG/100 ML BAG IV SCH (17:49)
[2020-03-19] MEDS: ENOXAPARIN 40 MG/0.4 ML SQ SCH (17:50)
[2020-03-19] MEDS: GUAIFENESIN/DM 5 ML UCUP PO PRN (19:53)
[2020-03-19] MEDS: ATORVASTATIN 20 MG TAB PO SCH (19:54)
[2020-03-19] MEDS: ACETAMINOPHEN 500 MG TAB PO PRN (21:06)
[2020-03-19] MEDS: VANCOMYCIN 2 GM in NA CHLORIDE 0.9% 500 ML IV SCH (22:28)
[2020-03-20] MEDS: INSULIN -REGULAR HUMAN 50 UNIT/0.5 ML ML SQ SCH ×4 (07:30→20:24)
[2020-03-20 07:32] LABS: Absolute Lymphocytes (CBC) 1.5 K/uL (0.7-4.9); Basophils % 0.5 % (0-1.3); Hematocrit 37.2 % (39.6-49.0); Lymphocytes % 23.5 % (15.3-44.8); MPV 8.2 fL (7.6-11.3); RBC Red Blood Cell Count 4.19 M/uL (4.33-5.43)
[2020-03-20 07:46] LABS: Magnesium 2.2 mg/dL (1.8-2.4); Potassium 3.7 mmol/L (3.5-5.1)
[2020-03-20] MEDS: DULOXETINE 30 MG CAP PO SCH (09:00)
[2020-03-20] MEDS: carBAMazepine 200 MG TAB PO SCH ×2 (09:00→20:24)
[2020-03-20] MEDS ORDERED: FUROSEMIDE 20 MG/ 2ML VIAL IV SCH (09:00)
[2020-03-20] MEDS: PREGABALIN 150 MG CAP PO SCH ×2 (09:01→20:23)
[2020-03-20] MEDS: ACYCLOVIR 400 MG TABLET PO SCH ×3 (09:01→20:23)
[2020-03-20] MEDS: FLUTICASONE 50MCG NASAL SPRAY NAS SCH (09:02)
[2020-03-20] MEDS: GUAIFENESIN/DM 5 ML UCUP PO PRN ×2 (13:03→20:24)
[2020-03-20] MEDS: VANCOMYCIN 2 GM in NA CHLORIDE 0.9% 500 ML IV SCH (14:43)
[2020-03-20] MEDS: ENOXAPARIN 40 MG/0.4 ML SQ SCH (17:05)
[2020-03-20] MEDS: Levofloxacin500mg IV 500 MG/100 ML BAG IV SCH (17:05)
--- NOTE | 2020-03-20 17:46 | PN ---
Date of Progress Note: 03/20/2020 Subjective: Patient was seen this morning for followup. No new complaints or problems reported by prince theodore. Lying in bed, not in distress. Still has some cough and shortness of breath at night time. Cough is present off and on during daytime, but shortness of breath is mostly when he is lying in th e bed, so he is sleeping with his head elevated. Leg swelling is better. He is diuresing very well with the Lasix. He feels somewhat better compared to yesterday. Objective: Vital Signs: Reviewed. Remains afebrile. HEENT: Unremarkable. Lungs: Clear to auscultation. No rales. No rhonchi. Heart: Sounds normal. Abdomen: Soft. Bowel sounds normal. No guarding, rigidity, tenderness, or distention. Extremities: Leg edema present, but better than before. Skin: Examination of lower extremity shows brownish discoloration of left leg, between knee and foot . Most of the red discoloration that he had has turned into brown discoloration now and skin is mini kate warm to touch, overall significantly better than before. No open wound. No blisters. Laboratory Data: White count 6.3, hemoglobin 12.7, platelets 187. Sodium 139, potassium 3.7, chlori de 102, bicarb 32, BUN 14, creatinine 1.13, glucose 140. Hemoglobin A1c 5.8. Impression: 1.Sepsis, organism streptococcus. 2.Cellulitis, left leg, organism streptococcus. 3.Acute kidney injury, resolved. 4.Congestive heart failure, acute, diastolic. 5.Anemia, unspecified. 6.Hypertension. Plan: Patient is improving well with current antibiotics, which is Levaquin and vancomycin and we wi ll continue that. He is diuresing well with IV Lasix, which we will continue currently. Yesterday's chest x-ray results reviewed with the patient. We will go ahead and continue current Lovenox for DVT prophylaxis and I will see him tomorrow for followup. Details were discussed with patient. DOMENICA/MODL Voice ID: [id number] Report ID: [id number]
[2020-03-20] MEDS: ATORVASTATIN 20 MG TAB PO SCH (20:23)
[2020-03-20] MEDS: ACETAMINOPHEN 500 MG TAB PO PRN (23:52)
[2020-03-21 05:41] VITALS: BMI 42.5
[2020-03-21] MEDS: INSULIN -REGULAR HUMAN 50 UNIT/0.5 ML ML SQ SCH ×4 (07:30→20:29)
[2020-03-21] MEDS: ACYCLOVIR 400 MG TABLET PO SCH ×3 (08:29→20:26)
[2020-03-21] MEDS: GUAIFENESIN/DM 5 ML UCUP PO PRN ×2 (08:29→20:26)
[2020-03-21] MEDS: FUROSEMIDE 20 MG TABLET PO SCH ×2 (08:30→17:02)
[2020-03-21] MEDS: carBAMazepine 200 MG TAB PO SCH ×2 (08:30→20:25)
[2020-03-21] MEDS: DULOXETINE 30 MG CAP PO SCH (08:30)
[2020-03-21] MEDS: POTASSIUM CL SA 10 MEQ TAB PO SCH ×2 (08:30→20:25)
[2020-03-21] MEDS: PREGABALIN 150 MG CAP PO SCH ×2 (08:30→20:25)
[2020-03-21] MEDS: FLUTICASONE 50MCG NASAL SPRAY NAS SCH (08:31)
[2020-03-21] MEDS: VANCOMYCIN 2 GM in NA CHLORIDE 0.9% 500 ML IV SCH (08:34)
[2020-03-21] MEDS: ACETAMINOPHEN 500 MG TAB PO PRN (08:34)
--- NOTE | 2020-03-21 10:57 | RAD REPORT ---
EXAM DESCRIPTION: RAD - Chest Pa And Lat (2 Views) - 03/21/2020 10:46 am CLINICAL HISTORY: CHF Chest pain. COMPARISON: Chest Pa And Lat (2 Views) dated 03/19/2020; Chest Single View dated 03/15/2020; Chest Sin gle View dated 12/25/2019; Chest Single View dated 12/24/2019 FINDINGS: Mild improvement is seen in the bilateral interstitial lung pattern since comparative stud y. The heart is upper limit normal in size. No displaced fractures. IMPRESSION: Mild improvement in lung aeration since comparative study.
[2020-03-21] MEDS ORDERED: IBUPROFEN 400 MG TAB PO ONE (12:11)
[2020-03-21] MEDS ORDERED: AMLODIPINE 5 MG TAB PO ONE (12:11)
[2020-03-21] MEDS: Levofloxacin500mg IV 500 MG/100 ML BAG IV SCH (17:02)
[2020-03-21] MEDS: ENOXAPARIN 40 MG/0.4 ML SQ SCH (17:02)
[2020-03-21] MEDS: ATORVASTATIN 20 MG TAB PO SCH (20:26)
[2020-03-21] MEDS: cloNIDine HCL 0.1 MG TAB PO PRN (21:36)
[2020-03-21] MEDS: IBUPROFEN 400 MG TAB PO PRN (21:37)
[2020-03-22 03:38] LABS: Basophils % 0.7 % (0-1.3); Hematocrit 39.8 % (39.6-49.0); Lymphocytes % 37.2 % (15.3-44.8); MPV 8.1 fL (7.6-11.3); RBC Red Blood Cell Count 4.49 M/uL (4.33-5.43)
[2020-03-22 03:45] LABS: Albumin 3.1 g/dL (3.4-5.0); Bilirubin Total 0.3 mg/dL (0.2-1.0); Magnesium 2.3 mg/dL (1.8-2.4); Potassium 4.2 mmol/L (3.5-5.1)
[2020-03-22] MEDS: GUAIFENESIN/DM 5 ML UCUP PO PRN ×3 (04:02→20:55)
[2020-03-22] MEDS: VANCOMYCIN 2 GM in NA CHLORIDE 0.9% 500 ML IV SCH ×2 (04:09→20:47)
[2020-03-22 04:53] LABS: Blood Morphology Comment NOT SEEN (NOT SEEN); Platelet Estimate ADEQ
--- NOTE | 2020-03-22 06:51 | PN ---
Date of Progress Note: 03/21/2020 Subjective: Patient was seen this morning for followup. He still has shortness of breath when he li es down associated with coughing. When he is sitting or staying upright, he does not have such probl em. Objective: Vital Signs: Reviewed. HEENT: Unremarkable. Lungs: Clear to auscultation. Heart: Sounds normal. Abdomen: Soft. Bowel sounds normal. No guarding, rigidity, tenderness, or distention. Extremities: Leg edema present involving left lower extremity but much better than before. Skin: Skin between knee and left foot is brownish in color. The only area which is warm to touch is in the posterior leg region, overall significantly better. No open wound. No blister. Impression: 1.Sepsis, organism Streptococcus. 2.Cellulitis, left leg, organism Streptococcus. 3.Headache. 4.Acute diastolic congestive heart failure. 5.Hypertension. Plan: We will go ahead and get an echo with Doppler. Repeat chest x-ray. Continue Lasix. Continue current antibiotic. The patient is having a lot of headache problem. He is already on Flonase nasa l spray. We will continue that and Motrin was ordered for him. His blood pressure was also elevated during the course of day today. We will monitor that and appropriate antihypertensive medications ordered. DOMENICA/MODL Voice ID: [id number] Report ID: [id number]
[2020-03-22] MEDS: INSULIN -REGULAR HUMAN 50 UNIT/0.5 ML ML SQ SCH ×4 (07:30→21:00)
[2020-03-22] MEDS: FUROSEMIDE 20 MG TABLET PO SCH ×2 (08:28→17:02)
[2020-03-22] MEDS: PREGABALIN 150 MG CAP PO SCH ×2 (08:28→20:46)
[2020-03-22] MEDS: DULOXETINE 30 MG CAP PO SCH (08:28)
[2020-03-22] MEDS: carBAMazepine 200 MG TAB PO SCH ×2 (08:28→20:46)
[2020-03-22] MEDS: POTASSIUM CL SA 10 MEQ TAB PO SCH ×2 (08:28→20:45)
[2020-03-22] MEDS: FLUTICASONE 50MCG NASAL SPRAY NAS SCH (08:30)
[2020-03-22] MEDS: ACYCLOVIR 400 MG TABLET PO SCH ×3 (08:30→20:46)
--- NOTE | 2020-03-22 08:58 | ECHO ---
HEIGHT: 5 ft 9 in WEIGHT: 288 lb 6.4 oz DATE OF STUDY: 03/21/[address]: Adelfo Jimenez MD 2-DIMENSIONAL: YES M.MODE: YES DOPPLER: YES COLOR FLOW: YES TDS: NO PORTABLE: NO DEFINITY: NO BUBBLE STUDY: NO DIAGNOSIS: CONGESTIVE HEART FAILURE CARDIAC HISTORY: CATHERIZATION: NO SURGERY: NO PROSTHETIC VALVE: NO PACEMAKER: NO MEASUREMENTS (cm) DIASTOLIC (NORMALS) SYSTOLIC (NORMALS) IVSd 1.3 (0.6-1.2) LA Diam 3.7 (1.9-4.0) LVEF 75% LVIDd 5.8 (3.5-5.7) LVIDs 3.2 (2.0-3.5) %FS 45% LVPWd 1.3 (0.6-1.2) Ao Diam 3.2 (2.0-3.7) 2 DIMENSIONAL ASSESSMENT: RIGHT ATRIUM: NORMAL LEFT ATRIUM: NORMAL RIGHT VENTRICLE: NORMAL LEFT VENTRICLE: MILD LVH TRICUSPID VALVE: MILD TR MITRAL VALVE: MILD MR PULMONIC VALVE: NOT SEEN WELL AORTIC VALVE: MILD CALCIFICATION PERICARDIAL EFFUSION: NONE AORTIC ROOT: NORMAL LEFT VENTRICULAR WALL MOTION: NORMAL DOPPLER/COLOR FLOW: NORMAL COMMENTS: NORMAL LEFT VENTRICULAR EJECTION FRACTION 55-60% WITH NORMAL WALL MOTION. MILD TRICUSPID, MITRAL AND AORTIC REGURGITATION. AORTIC VALVE MILDLY CALCIFIED WITH NO AORTIC STENOSIS. TECHNOLOGIST: Ciarra ALFARO
[2020-03-22] MEDS: cloNIDine HCL 0.1 MG TAB PO PRN ×2 (11:23→17:03)
[2020-03-22] MEDS: IBUPROFEN 400 MG TAB PO PRN ×2 (11:23→18:23)
[2020-03-22] MEDS: Levofloxacin500mg IV 500 MG/100 ML BAG IV SCH (17:03)
[2020-03-22] MEDS: ENOXAPARIN 40 MG/0.4 ML SQ SCH (17:03)
[2020-03-22] MEDS: ATORVASTATIN 20 MG TAB PO SCH (20:45)
--- NOTE | 2020-03-23 00:51 | PN ---
Date of Progress Note: 03/22/2020 Subjective: Patient was seen this morning for followup. No new complaints problems reported by luis ent. Lying in bed not in distress. Headache responds well to use of Motrin. Patient reports that l ast night, cough and shortness of breath, he still had some while he was lying down, but it was flora r compared to previous 2-3 nights. Objective: Vital signs: Reviewed. HEENT: Unremarkable. Lungs: Clear to auscultation. No rhonchi or rales. Cardiac: Heart sounds normal. Abdomen: Soft, bowel sounds normal. No guarding, rigidity, tenderness, distention. Extremities: Trace leg edema. Skin between left knee and foot is brown in color. No redness, no wa rmness. Laboratory Data: White count 5.5, hemoglobin 13.5, platelets 249. Sodium 141, potassium 4.2, chlori de 102, bicarb 34, BUN 12, creatinine 1.15. Liver function tests unremarkable. Chest x-ray shows im provement and this was from yesterday. Echocardiogram shows normal ejection fraction. Impression: 1.Sepsis, organism streptococcus. 2.Cellulitis, left leg, organism streptococcus. 3.Headache. 4.Acute congestive heart failure. 5.Hypertension. Plan: We will continue current antibiotics. MRI was ordered, which will be done today. I will see him tomorrow for followup possible discharge to go home tomorrow. Details were discussed. DOMENICA/MODL Voice ID: [id number] Report ID: [id number]
[2020-03-23 04:30] VITALS: O2SAT 92
[2020-03-23] MEDS: INSULIN -REGULAR HUMAN 50 UNIT/0.5 ML ML SQ SCH ×2 (07:30→11:30)
[2020-03-23] MEDS: PREGABALIN 150 MG CAP PO SCH (08:50)
[2020-03-23] MEDS: FUROSEMIDE 20 MG TABLET PO SCH (08:51)
[2020-03-23] MEDS: DULOXETINE 30 MG CAP PO SCH (08:51)
[2020-03-23] MEDS: POTASSIUM CL SA 10 MEQ TAB PO SCH (08:51)
[2020-03-23] MEDS: carBAMazepine 200 MG TAB PO SCH (08:52)
[2020-03-23] MEDS: ACYCLOVIR 400 MG TABLET PO SCH (08:52)
[2020-03-23] MEDS: FLUTICASONE 50MCG NASAL SPRAY NAS SCH (08:52)
[2020-03-23] MEDS: IBUPROFEN 400 MG TAB PO PRN (08:57)
[2020-03-23] MEDS: GUAIFENESIN/DM 5 ML UCUP PO PRN (08:58)
--- NOTE | 2020-03-23 12:52 | RAD REPORT ---
EXAM DESCRIPTION: MRI - C Spine Wo Cont - 03/23/2020 12:38 pm CLINICAL HISTORY: headache, neck pain COMPARISON: MRICERVICAL SPINE W O CONTR dated 07/29/2014 TECHNIQUE: Sagittal T1-weighted, T2-weighted and T2-STIR sequences were obtained as well as T2 medic sequence. FINDINGS: Exam has motion degradation limitations. Patient had coughing episodes that were difficult to control. Cervical bodies are normal in height. There is straightening of the usual cervical lordosis which is probably artifact of positioning within the scanner. No subluxation abnormalities. No suspicious aleksandra ow edema or marrow replacing process. No paraspinal mass. Cerebellar tonsils and mid-line skull base show no suspicious finding. No significant finding at the C1 and C2 levels. 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 This is more pronounced in the upper cervical spine. C2-3 level: No significant findings. C3-4 level: No significant findings. C4-5 level: Very minimal disc bulge is seen in the midline. This does flatten the anterior contour th e cord due to the congenitally small canal. Midline canal diameter is 9-10 minutes. C5-6 level: Minimal disc bulge and endplate spurring changes are present. Anterior cord is minimally flattened. Midline canal is 9 mm. Minimal bony foraminal encroachment from hip per trophy near the or igin of each exit foramen. C6-7 level: Small midline protrusion of disc material is present probably a minimal herniation. This flattens the cord in the midline. Canal diameter in the midline is 9 mm. Mild left foraminal encroach ment present. C7-T1 level: No significant findings. No cord signal abnormality. No cord expansile change. IMPRESSION: C6-7 small 2 mm midline disc herniation flattening the cord. Canal is reduced to 9 mm. No cord signal abnormality. C6-7 mild left foraminal encroachment from disc bulge and bony hypertrophy. Patient has a congenitally small central canal. Minimal disc bulge at C5-6 causes stenosis to 9 mm.
--- NOTE | 2020-03-23 12:56 | RAD REPORT ---
EXAM DESCRIPTION: MRI - Brain Wo Cont - 03/23/2020 12:38 pm CLINICAL HISTORY: headache COMPARISON: Brain Wo Cont dated 12/25/2019Brain Wo Cont dated 12/25/2019; Head Brain Wo Cont dated 020 TECHNIQUE: Sagittal T1-weighted images were obtained along with axial PD, heavily T2-weighted and T2 -FLAIR images. Axial DWI and ADC mapping sequences were also obtained along with coronal heavily T2-w eighted images. FINDINGS: No intracranial hemorrhage, mass or acute infarction. There is no edema or shift of midlin e structures. No extra-axial fluid collections. [place]-matter/white matter junction is preserved. Signa l voids are seen as a normal finding in the major intracranial vessels. Ventricles are normal. No globe or orbital content abnormality seen. No sella or supra sella abnormality. There is no tonsil lar ectopia. Mastoid air cells and paranasal sinuses are clear. No significant change from the prior study. Exam has motion degradation limitations. Exam is still considered diagnostic in quality. IMPRESSION: Negative non-contrast MRI of the Brain for acute or significant finding. No significant change from December 2019
[2020-03-23 13:14] VITALS: BP 159/77
[2020-03-23 13:41] VITALS: TEMP 97.8
--- NOTE | 2020-03-23 23:52 | DS ---
Date of Discharge: 03/23/2020 Disposition: Discharged to go home. Physical Examination: HEENT: Unremarkable. Lungs: Clear to auscultation. Heart: Heart sounds normal. Abdomen: Soft, bowel sounds normal. No rigidity, tenderness, distention. Extremities: Trace leg edema. Skin: Shows brownish discoloration of skin between left knee and left foot. Laboratory Data: Upon admission on 03/15/2020, white count was 8.7, hemoglobin 14.6, platelets 173. Day after admission on 03/16/2020, white count 16.3, hemoglobin 14.1, platelets 145. Last white cou nt yesterday 5.5, hemoglobin 13.5, platelets 240. The last chemistry yesterday, sodium 141, potassiu m 4.2, chloride 102, bicarb 34, BUN 12, creatinine 1.15, glucose 130. Liver function tests unremarka ble. Upon admission, BUN 17, creatinine 1.49, and day after admission BUN 20, creatinine 1.67, and t hen creatinine came down to normal and remained normal. Blood culture grew Streptococcus dysgalactia e. COVID-19 test negative. Influenza A and B negative. During this hospitalization, echocardiogram reveal normal ejection fraction. Discharge Medications: 1.Continue all prior home medications. 2.Levaquin 500 mg p.o. daily for 2 weeks. 3.Furosemide 40 mg 1 tablet by mouth daily. Follow up at my office next week on Saturday. Hospital Course: 64-year-old very pleasant male patient, admitted to the hospital after he came into emergency room with left groin pain, fever, and chills. Please see dictated H and P for more inform ation. After patient was evaluated in the emergency room, he was admitted to the hospital with cellu litis of left lower extremity and concern about possibility of sepsis. Blood culture was done. He w as admitted to the hospital. Empiric IV antibiotic which was Levaquin and vancomycin was started. T he patient's blood culture came back positive for streptococcus and the patient responded very well t o IV antibiotic therapy. We did not have to change antibiotics considering his excellent response. Cellulitis changes from left leg has resolved and he started ambulating well. His pain from left ermias in area has resolved. Cellulitis changes of left upper thigh have resolved. His skin between left k nee and left foot was intensely red, warm to touch when he first came in and that has improved. Ther e was no more warmness of the skin and skin color is now brown. No open wound. His blood culture gr ew Streptococcus; and this is the same organism that we grew in the blood last time when he was in [facility], which was December of this year. Patient has history of headache, which is chronic, but wel l controlled during this hospitalization. His headache problem got out of control and required pain medication including Motrin. We ordered MRI of brain and MRI cervical spine. MRI brain came back un remarkable for any acute intracranial changes. MRI cervical spine showed some evidence of significan t spinal stenosis and degenerative changes. We will discuss this with the patient on outpatient basi s and refer him to neurosurgeon for further evaluation of this problem. Patient also has history of trigeminal neuralgia that problem has remained stable in a long time. He did develop some symptoms i ndicating acute congestive heart failure type of problem with the shortness of breath and coughing wh ile lying in bed. Chest x-ray did confirm that and he was given IV Lasix and that actually has resul nereida in improvement in his symptoms. I have informed the patient that I would like for him to visit I nfectious Disease specialist to see why this patient has recurrent sepsis and recurrent cellulitis wi this particular bacteria and he has asked his daughter who lives in [place] to go ahead and [facility] appointment for him, but if we need help with my office to schedule appointment, we will do so. Final Diagnoses: 1.Sepsis, organism streptococcus. 2.Cellulitis, left leg. 3.Acute kidney injury. 4.Lymphedema, legs. 5.Anemia, unspecified. 6.Hypertension. 7.Mixed hyperlipidemia. 8.Diverticulosis. 9.Trigeminal neuralgia. 10.Gastroesophageal reflux disease. 11.Type 2 diabetes mellitus. 12.Acute congestive heart failure diastolic. DOMENICA/MODL Voice ID: [id number] Report ID: [id number]
== END 2020-03-23 14:14 | disposition home or self-care (01) | DRG 871 ==
LOC: ER 16:41 → ERHOLD 18:45 → 3RD-ICU 21:08 → 2ND 03-18 07:40
PROVIDERS: ADMIT Internal Medicine; ATTEND Internal Medicine
DX: A40.9 Streptococcal sepsis, unspecified (principal); I50.31 Acute diastolic (congestive) heart failure; L03.116 Cellulitis of left lower limb; N17.9 Acute kidney failure, unspecified; I13.0 Hypertensive heart and chronic kidney disease with heart failure and stage 1 through stage 4 chronic kidney disease, or unspecified chronic kidney disease; G50.0 Trigeminal neuralgia; E11.22 Type 2 diabetes mellitus with diabetic chronic kidney disease; N18.3 Chronic kidney disease, stage 3 (moderate); E78.2 Mixed hyperlipidemia; K21.9 Gastro-esophageal reflux disease without esophagitis; I89.0 Lymphedema, not elsewhere classified; K57.90 Diverticulosis of intestine, part unspecified, without perforation or abscess without bleeding; D64.9 Anemia, unspecified; Z20.828 Contact with and (suspected) exposure to other viral communicable diseases
CPT/HCPCS: 36415; 70551; 71045; 71046; 72141; 80048; 80053; 80202; 82565; 82947; 83036; 83605; 83735; 83880; 84145; 85025; 87040; 87070; 87081; 87205; 87804; 93005; 93306; 96374; 96375; 99285; J1650; J1940; J2405; J2550; J3370; J7030; J7040; U0002

== ENCOUNTER 2022-05-12 20:19 | Inpatient (IN) | payer OTHER ==
--- OUTSIDE RECORDS SUMMARY | 2022-05-12 20:22 | XMS REPORT | Continuity of Care Document ---
:1955 Author Organization [facility] t Address [address] [place] [address] Care Team Providers Name Role Phone GIOVANNI MEYER Attending Clinician Unavailable Giovanni Meyer MD Attending Clinician [phone] Pob, [facility] Main Attending Clinician Unavailable Only, Adc Test Attending Clinician Unavailable Doctor Unassigned, [place] Attending Clinician Unavailable GIOVANNI MEYER Admitting Clinician Unavailable Giovanni Meyer MD Admitting Clinician [phone] Payers Payer Name Policy Type Policy Number Effective Date Expiration Date S denae MEDICARE PART A [id number] 1997 \\T\\ B 00:00:00 Problems Condition Condition Condition Status Onset Resolution Last Treating Co mments Source Name Details Category Date Date Treatment Clinician Date Morbid Morbid Disease Active Univers obesity obesity 1-28 [place] of [place] index mass index 00 Me dical of 50 or of 50 or Branch higher higher Allergies, Adverse Reactions, Alerts Allergy Allergy Status Severity Reaction(s) Onset Inactive Treating Comm ents Source Name Type Date Date Clinician NO KNOWN Drug Active Univers ALLERGIE Class ity of S [facility] Social History Social Habit Start Date Stop Date Quantity Comments Source Sex Assigned At Universit y of [facility] Exposure to Not sure [facility] SARS-CoV-2 [facility] [place] [facility] (event) Branch Tobacco use and 2020-10-20 2020-10-20 Never used Universit y of exposure 00:00:00 00:00:00 [facility] Alcohol intake 2020-10-20 2020-10-20 Ex-drinker University 00:00:00 00:00:00 (finding) [facility] History SDOH 2020-10-19 2020-10-19 10 University o f Education 00:00:00 00:00:00 [place] [facility] History SDOH 2020-10-19 2020-10-19 3 University o f Financial 00:00:00 00:00:00 [place] [facility] History SDOH Food 2020-10-19 2020-10-19 2 Univers ity of Worry 00:00:00 00:00:00 [place] [facility] History SDOH Food 2020-10-19 2020-10-19 2 Univers ity of Scarcity 00:00:00 00:00:00 [place] [facility] History SDOH 2020-10-19 2020-10-19 2 [place] o f Transport Med 00:00:00 00:00:00 [place] [facility] History [facility] 2020-10-19 2020-10-19 2 [place] o Transport Non-Med 00:00:00 [facility]00:00 [facility] Smoking Status Start Date Stop Date Source Unknown if ever smoked [facility] Former smoker 2020-10-20 00:00:00 2020-10-20 00:00:00 [facility] Medications Ordered Filled Start Stop Current Ordering Indication Dosage Frequency Signature Comments Components Source Medication Medication Date Date Medication? Clinician (SIG) Name Name pregabalin Yes 450mg Take 450 Un boris 225 mg 1-29 mg by ity of capsule 22:50: mouth 2 [place] [address] (two) Medical times Branch daily. carBAMazepi Yes 400mg Take 400 U nivers ne 1-29 mg by ity of (TEGRETOL) 22:50: mouth 2 [place] 200 [place] 55 (two) Medical tablet times Branch daily. DULoxetine Yes 60mg Take 60 mg U nivers (CYMBALTA) 1-29 by mouth ity o f 60 mg 22:50: daily. [place] capsule 55 Medical Branch metFORMIN Yes 500mg Take 500 Uni vers 500 mg 1-29 mg by ity of tablet 22:50: mouth 2 [place] 55 (two) Medical times Branch daily with meals. carvediloL Yes 6.25mg Take 6.25 Univers (COREG) 1-29 mg by ity of 6.25 mg 22:50: mouth 2 [place] tablet 55 (two) Medical times Branch daily with meals. atorvastati Yes 40mg Take 40 mg Univers n 40 mg 10-21 by mouth ity of tablet 22:50: at [place] 55 bedtime. Medical Branch flu vaccine 2020- No .7mL 0.7 mL, Un boris 65 yrs and 10-21 Intramuscu it y of up(PF) 19:45: 21:38 lar, ONCE, [place] (FLUZONE 00 :00 1 dose, Medical HIGHDOSE Fri Branch QUAD 20-21 10/21/20 at ) syringe 1345, 0.7 mL Routine pneumococca 2020- No .5mL 0.5 mL, Un boris l vac 10-21 Intramuscu ity of polyvalent 19:45: 21:36 lar, ONCE, [place] (PNEUMOVAX- 00 :00 1 dose, Medic al 23) [facility] injection 10/21/20 at 0.5 mL 1345, Routine atorvastati Yes 40mg 40 mg, Univ ers n (LIPITOR) 10-21 Oral, QHS, it y of tablet 40 03:00: [place] dose [place] mg 00 on [facility] 10/20/20 at Branch 2100, Until Discontinu ed, Routine pregabalin Yes 450mg 450 mg, Uni vers (LYRICA) 10-20 Oral, BID, ity o f capsule 450 17:15: First dose [place] mg 00 on [facility] 10/20/20 at Branch 1115, Until Discontinu ed, Routine
membership counselor approving Restricted medication : ONELIA PALUMBO DULoxetine Yes 60mg 60 mg, Unive rs (CYMBALTA) 10-20 Oral, ity of capsule 60 17:15: DAILY, [place] mg 00 First dose Medical on [facility] Branch 10/20/20 at 1115, Until Discontinu ed, Routine carvediloL Yes 6.25mg 6.25 mg, U nivers (COREG) 10-20 Oral, BID ity of tablet 6.25 17:15: MEALS, [place] mg 00 First dose Medical on [facility] Branch 10/20/20 at 1115, Until Discontinu ed, Routine carBAMazepi Yes 400mg 400 mg, Un boris ne 10-20 Oral, BID, ity of (TEGRETOL) 17:15: First dose [place] tablet 400 00 on [facility] mg 10/20/20 at Branch 1115, Until Discontinu ed, Routine docusate Yes 100mg 100 mg, Unive rs (COLACE) 10-20 Oral, ity of capsule 100 02:00: Q12H, [place] mg 00 First dose Medical on Sat Branch 10/19/20 at 1999, Until Discontinu ed, Routine enoxaparin 2020- No 30mg 30 mg, Univ ers (LOVENOX) 10-20 Subcutaneo ity of injection 02:00: 01:59 [place], Q12H, [place] 30 mg 00 :00 56 doses, Medical First dose Branch on Sat10/19/20 at 1999, Last dose on Sat11/16/20 at 0800, Routine rivaroxaban 2020- No 1475 10mg Take 4 Uni vers 2.5 mg 10-2017 tablets by ity of tablet 00:00: 05:59 mouth [place] 00 :00 daily for Medical 19 days. 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 Branch naloxone Yes .4mg 0.4 mg, Univer s (NARCAN) 10-19 Slow IV ity of injection 20:53: Push, [place] 0.4 mg 54 SEE-INSTRU Medical CTIONS, Branch Starting Sat10/19/20 at 1453, Until Discontinu ed, Routine FENTanyl PF 2020- No 25ug 25 mcg, Un boris (SUBLIMAZE 10-19 Slow IV ity o f (PF)) 20:22: 20:49 Push, [place] injection 00 :22 Q5MIN PRN, Medi ajay 25 mcg 4 doses, Branch Starting Sat10/19/20 at 1422, Until Sat10/19/20 at 1449, Routine, Pain (scale 4-6), PACU diphenhydrA Yes 25mg 25 mg, Univ ers MINE 10-19 Oral, ity of (BENADRYL) 18:55: Q4HPRN, [place] tablet 25 10 Starting Medica l mg Wed Branch 10/19/20 at 1255, Until Discontinu ed, Routine, Itching HYDROcodone Yes 1{tbl} 1 tablet, Univers -acetaminop 10-19 Oral, ity of hen (NORCO) 18:54: Q4HPRN, [place] as 10-325 mg 40 Starting Medica l tablet 1 Sat Branch tablet 10/19/20 at 1254, Until Discontinu ed, Routine, Pain (scale 7-10) HYDROcodone Yes 1{tbl} 1 tablet, Univers -acetaminop 10-19 Oral, ity of hen (NORCO 18:54: Q6HPRN, [place] 5) 5-325 mg 37 Starting Medi ajay tablet 1 Sat Branch tablet 10/19/20 at 1254, Until Discontinu ed, Routine, Pain (scale 4-6) gabapentin 2020- No 300mg 300 mg, Un boris (NEURONTIN) 10-19 Oral, ity of capsule 300 15:15: 15:30 ONCE, 1 [place] mg 00 :00 dose, [facility] Medical 10/19/20 at Branch 0915, Routine celecoxib 2020- No 400mg 400 mg, Uni vers (CELEBREX) 10-19 Oral, ity of capsule 400 15:15: 15:29 ONCE, 1 [place] mg 00 :00 dose, [facility] Medical 10/19/20 at Branch 0915, Routine oxyCODONE-a 2020- No 2{tbl} 2 tablet, Univers cetaminophe 10-19 Oral, ity of n 15:15: 15:30 ONCE, 1 [place] (PERCOCET) 00 :00 dose, Sat Medi ajay 5-325 mg 10/19/20 at [facility] h per tablet 0915, 2 tablet Routine Immunizations Ordered Filled Immunization Date Status Comments [facility] e Immunization Name Name Pneumococcal 2020-10-21 Completed [place] o f Polysaccharide, 00:00:00 [facility] PPSV[facility] (PNEUMOVAX) [place] Influenza High Dose 2020-10-21 Completed [facility] 00:00:00 [facility] Vital Signs Vital Name Observation Time Observation Value Comments Source Oxygen saturation in 2020-10-21 17:06:00 96 /min [facility] Arterial blood by [facility] Pulse oximetry Branch Systolic blood 2020-10-21 17:06:00 136 mm[Hg] Univer sity of pressure [facility] Diastolic blood 2020-10-21 17:06:00 69 mm[Hg] Unive rsity of pressure [facility] Heart rate 2020-10-21 17:06:00 94 /min [facility] Body temperature 2020-10-21 17:06:00 36.44 [facility] Respiratory rate 2020-10-21 17:06:00 20 /min [facility] Body weight 2020-10-21 10:01:00 136.487 kg [facility] BMI 2020-10-21 10:01:00 50.07 kg/m2 [facility] Body height 2020-10-19 20:47:00 165.1 cm [facility] Procedures Procedure Date / Time Performing Clinician Source Performed CBC WITH DIFF 2020-10-20 10:08:00 Giovanni Meyer [facility] TOTAL KNEE ARTHROPLASTY 2020-10-19 16:17:00 [facility] 2020-10-18 16:48:00 Giovanni Meyer [facility] COMP. METABOLIC PANEL 2020-10-18 16:39:00 Giovanni Meyer [facility] ([id number]) [facility] CBC WITH DIFF 2020-10-18 16:39:00 Giovanni Meyer [facility] PROTHROMBIN TIME / INR 2020-10-18 16:39:00 Giovanni Meyer [facility] ACTIVATED PARTIAL 2020-10-18 16:39:00 Giovanni Meyer [facility] THRMPLAS [facility] HB ABO GROUPING 2020-10-18 16:39:00 Giovanni Meyer [facility] ASSIGNMENT OF BENEFITS 2020-10-17 17:33:30 Doctor Unassigned, No [facility] DSU PRE-OP 2020-10-05 06:01:00 Doctor [facility]assigned, No [facility] Encounters Start End Encounter Admission Attending Care Care Encounter Source Date/Time Date/Time Type Type Clinicians Facility Department ID 2021-07-22 Outpatient [facility] [id number] Univers 19:21:07 GIOVANNI craig [facility] 2020-10-19 2020-10-21 [facility] [id number] Univers 09:05:00 16:50:00 Encounter Giovanni Parisi [id number] ity [facility] [id number] [facility] [id number] [facility] [address] [place] 2020-10-18 2020-10-18 Outpatient R [facility] [id number] Univers 10:30:00 10:30:00 [id number] [facility] 2020-10-18 2020-10-18 [id number] Univers 10:30:00 10:30:00 GIOVANNI craig [facility] 2020-10-18 2020-10-18 Career Development Manager Ilda, Ralph Lab Main [facility] 1.2.8 [id number] [id number] Univers 10:10:27 10:25:27 Visit Giovanni Meyer 350.1. 13.10 ity [facility] [id number] [facility] [id number] Ak [address] Building 2020-10-17 2020-10-17 [id number] Univers 13:45:00 13:45:00 GIOVANNI craig [facility] 2020-10-17 2020-10-17 Laboratory Only, Adc Test [facility] 1.2.840. [id number] Univers 11:48:41 12:03:41 Only Giovanni Meyer 350.1. 13.10 ity [facility] [id number] [facility] [id number] [facility] [address] [place] 2020-10-17 2020-10-17 Career Development Manager Ilda, Adc Lab Main [place] 1.2.8 40.114 [id number] Univers 11:48:19 12:03:19 Visit Giovanni Meyer 350.1. 13.10 ity of [place] 4.2.7.2.686 [place] Professio [id number] Ak dical nal 353 [facility] 2020-10-17 2020-10-17 Orders Doctor ERINN [id number] Univers 00:00:00 00:00:00 Only Unassigned, KRISTIE 350.1.13.10 ity of [place] [facility] 4.2.7.2.686 [place] [phone] [address] Results Test Description Test Time Test Comments Results Result Comments Source CBC with Differential 2020-10-20 10:56:00 Test Item Value Reference Range Interpretation Comme nts WBC (test code = 6690-2) See_Comment [A utomated message] The system which [employer] nerated this result transmit nereida reference range: 4.20 - 1 0.70 10*3/?L. The reference r césar was not used to interpr et this result as normal/abnor mal. RBC (test code = 789-8) See_Comment L [Au tomated message] The system which [employer] nerated this result transmit nereida reference range: 4.26 - 5 .52 10*6/?L. The reference r césar was not used to interpr et this result as normal/abnor mal. HGB (test code = 718-7) 13.1 g/dL 12.2-16.4 HCT (test code = 4544-3) 37.5 % 38.4-49.3 L MCV (test code = 787-2) 89.3 fL 81.7-95.6 MCH (test code = 785-6) 31.2 pg 26.1-32.7 MCHC (test code = 786-4) 34.9 g/dL 31.2-35 RDW-SD (test code = 68511-4) 43.2 fL 38.5-51.6 RDW-CV (test code = 788-0) 13.3 % 12.1-15.4 PLT (test code = 777-3) See_Comment L [Au tomated message] The system which ge nerated this result transmit nereida reference range: 150 - 32 8 10*3/?L. The reference range was not used to interpret th is result as normal/abnormal . MPV (test code = 41668-1) 10.5 fL 9.8-13 NRBC/100 WBC (test code = See_Comment [ Automated message] The 5054294151) system which ge nerated this result transmit nereida reference range: 0.0 - 10 .0 /100 WBCs. The reference r césar was not used to interpr et this result as normal/abnor mal. NRBC x10^3 (test code = <0.01 See_Comment [Au tomated message] The 8090061002) system which ge nerated this result transmit nereida reference range: 10*3/?L. The reference range was not u sed to interpret this result as normal/abnormal . GRAN MAT (NEUT) % (test code 66.0 % = 770-8) IMM GRAN % (test code = 0.30 % 8096144477) LYMPH % (test code = 736-9) 20.5 % MONO % (test code = 5905-5) 11.4 % EOS % (test code = 713-8) 1.6 % BASO % (test code = 706-2) 0.2 % GRAN MAT x10^3(ANC) (test 4.19 10*3/uL 1.99-6.95 code = 6868595853) IMM GRAN x10^3 (test code = <0.03 0-0.06 2133805181) LYMPH x10^3 (test code = 1.30 10*3/uL 1.09-3.23 731-0) MONO x10^3 (test code = 0.72 10*3/uL 0.36-1.02 742-7) EOS x10^3 (test code = 0.10 10*3/uL 0.06-0.53 711-2) BASO x10^3 (test code = <0.03 0.01-0.09 704-7) Lab Interpretation (test Abnormal code = 83745-5) [id number] 17:51:00 Test Item Value Reference Range Interpretation Comments NA (test code = 136 mmol/L 135-145 6147567443) K (test code = 4.5 mmol/L 3.5-5 1665787558) CL (test code = 97 mmol/L 98-108 L 3289627553) CO2 TOTAL (test code = 32 mmol/L 23-31 H 3518200453) AGAP (test code = 2-16 3787200994) BUN (test code = 21 mg/dL 7-23 3934720042) GLUCOSE (test code = 115 mg/dL 70-110 H 8211176750) CREATININE (test code = 1.15 mg/dL 0.6-1.25 1212778541) TOTAL BILI (test code = 0.6 mg/dL 0.1-1.9 5343079800) CALCIUM (test code = 9.0 mg/dL 8.6-10.6 2628655498) T PROTEIN (test code = 7.3 g/dL 6.3-8.2 5326799307) ALBUMIN (test code = 4.4 g/dL 3.5-5 8769806250) ALK PHOS (test code = 76 U/L 34-122 1446327684) ALTv (test code = 25 U/L 5-50 1742-6) AST(SGOT) (test code = 24 U/L 13-40 7906729903) eGFR Calculation mL/min/1.73m2 (Non-) (test code = 2698124789) eGFR Calculation mL/min/1.73m2 () (test code = 4254993416) NAOMIE (test code = NAOMIE) Association of Glomerular Filtration Rate (GFR) and Staging of Kidney Disease* + --+ --+ ------+| GFR (mL/min/1.73 m2) ?| With Kidney Damage ?| ?Without Kidney Damage+ --------+ --------+ +| ?>90 ?| ?Stage one ?| ? Normal ?+ ---+ ---+ -------+| ?60-89 ?| ?Stage two ?| ? Decreased GFR ? + --+ --+ ------+| ?30-59 ?| ?Stage three ?| ? Stage three ? + --+ --+ ------+| ?15-29 ?| ?Stage four ? | ? Stage four ?+ ---+ ---+ -------+| ?<15 (or dialysis) ? ?| ?Stage five ? | ? Stage five ?+ ---+ ---+ -------+ *Each stage assumes the associated GFR level has been in effect for at least three months. ?Stages 1 to 5, with or without kidney disease, indicate chronic kidney disease. Notes: Determination of stages one and two (with eGFR >59mL/min/1.73 m2) requires estimation of kidney damage for at least three months as defined by structural or functional abnormalities of the kidney, manifested by either:Pathological abnormalities or Markers of kidney damage (including abnormalities in the composition of the blood or urine or abnormalities in imaging tests). Lab Interpretation Abnormal (test code = 06054-6) [facility] - ONCE [id number] 17:41:29 Test Item Value Reference Range Interpretation Comments ABO & RH (test code B Positive Performe d at [facility] = 20) [facility] [place] [address] Free: [phone] A No. [id number] IAT (test code = Negative Performed a t [facility] 1185) [facility] [place] [address] Free: [phone] A No. [id number] [facility]2021-01-26 17:15:00 Test Item Value Reference Range Interpretation Comments APPEARANCE (test code = Clear Clear 9523616065) COLOR (test code = Yellow Yellow 3032890226) PH (test code = 4.8-8.0 6710952587) SP GRAVITY (test code = 1.003-1.030 0003196145) GLU U QUAL (test code = Normal Normal 1979017282) BLOOD (test code = Negative Negative 0424565848) KETONES (test code = Negative Negative 5832810990) PROTEIN (test code = Negative Negative 2887-8) UROBILIN (test code = Normal Normal 9649266841) BILIRUBIN (test code = Negative Negative 3533595582) NITRITE (test code = Negative Negative 8019172011) LEUK KAVYA (test code = Negative Negative 2405683848) RBC/HPF (test code = <1 See_Comment [Autom ated message] 1933469353) The system [employer] h generated this result transmitted ref erence range: 0 - 3 HP F. The reference range was not used to int erpret this result as normal/abnormal . WBC/HPF (test code = See_Comment [Autom ated message] 3358624832) The system [employer] h generated this result transmitted ref erence range: 0 - 5 HP F. The reference range was not used to int erpret this result as normal/abnormal . BACTERIA (test code = Negative Negative 2081458056) Lab Interpretation (test Normal code = 27684-3) [facility] THRMPLAS [id number] 16:58:00 Test Item Value Reference Range Interpretation Comments APTT Patient (test See_Comment [Automat ed code = 3173-2) message] The system which generated this result transmitted reference range : 23 - 38 Seconds . The reference range was not used to interpr et this result as normal/abnormal . NAOMIE (test code = NAOMIE) The [facility] patient population mean normal value for aPTT is 30 seconds. Lab Interpretation Normal (test code = 00031-5) [place] [facility] DallasPROTHROMBIN TIME / [id number] 16:56:00 Test Item Value Reference Range Interpretation Comments PROTIME PATIENT (test See_Comment [Auto mated message] code = 5964-2) The system [facility] generated this result transmitted ref erence range: 12.0 - 1 4.7 Seconds. The re ference range was not u sed to interpret this result as normal/abnor mal. INR (test code = 6301-6) Nor mal INR <1.1; Warfarin Therap eutic range 2.0 to 3. 0 or 2.5 to 3.5, dep ending upon the indica tions. Lab Interpretation (test Normal code = 51077-0) [facility] Dallas[facility] WITH [id number] 16:50:00 Test Item Value Reference Range Interpretation Comments WBC (test code = See_Comment [Automated 6690-2) message] The sy stem which generated this result transmitted reference range : 4.20 - 10.70 10*3/?L. The reference range was not used to interpret this result as normal/abnormal . RBC (test code = See_Comment [Automated 789-8) message] The sy stem which generated this result transmitted reference range : 4.26 - 5.52 10*6/?L. The reference range was not used to interpret this result as normal/abnormal . HGB (test code = 14.5 g/dL 12.2-16.4 718-7) HCT (test code = 42.5 % 38.4-49.3 4544-3) MCV (test code = 88.0 fL 81.7-95.6 787-2) MCH (test code = 30.0 pg 26.1-32.7 785-6) MCHC (test code = 34.1 g/dL 31.2-35 786-4) RDW-SD (test code = 41.3 fL 38.5-51.6 03986-3) RDW-CV (test code = 12.7 % 12.1-15.4 788-0) PLT (test code = See_Comment [Automated 777-3) message] The sy stem which generated this result transmitted reference range : 150 - 328 10*3/ ?L. The reference r césar was not used to interpret this result as normal/abnormal . MPV (test code = 9.7 fL 9.8-13 L 25015-6) NRBC/100 WBC (test See_Comment [Automat ed code = 3559714394) message] The system which generated this result transmitted reference range : 0.0 - 10.0 /100 WBCs. The refer ence range was not u sed to interpret th is result as normal/abnormal . NRBC x10^3 (test code <0.01 See_Comment [Auto mated = 8835064465) message] The s ystem which generated this result transmitted reference range : 10*3/?L. The reference range was not used to interpret this result as normal/abnormal . GRAN MAT (NEUT) % 55.1 % (test code = 770-8) IMM GRAN % (test code 0.30 % = 3205525320) LYMPH % (test code = 31.9 % 736-9) MONO % (test code = 8.8 % 5905-5) EOS % (test code = 3.1 % 713-8) BASO % (test code = 0.8 % 706-2) GRAN MAT x10^3(ANC) 3.37 10*3/uL 1.99-6.95 (test code = 0734015284) IMM GRAN x10^3 (test <0.03 0-0.06 code = 2047697505) LYMPH x10^3 (test code 1.95 10*3/uL 1.09-3.23 = 731-0) MONO x10^3 (test code 0.54 10*3/uL 0.36-1.02 = 742-7) EOS x10^3 (test code = 0.19 10*3/uL 0.06-0.53 711-2) BASO x10^3 (test code 0.05 10*3/uL 0.01-0.09 = 704-7) Lab Interpretation Abnormal (test code = 26673-1) [facility]) 2020-03-15 22:45:00 Test Item Value Reference Range Interpretation Comments SARS-COV2/RT-PCR (test Not Detected Not Detected, Negative code = 3163244) SARS-COV-[address] [facility] (test code = 7095382) Negative results do not preclude SARS-CoV-2 infection and should not be used as the sole basis for patient management decisions. Negative results must be combined with clinical observations, patient history, and epidemiological information. A false negative result may occur if a specimen is improperly collected, transported or handled.The limit of detection for this assay is 250 copies/mL.This SARS CoV-2 test is a rapid, real-time RT-PCR test intended for the qualitative detection of nucleic acid from SARS-CoV-2 in a nasopharyngeal swab specimen collected from individuals suspected of COVID-19 by their healthcare provider.This test has not been Food and Drug Administration (FDA) cleared or approved and has been authorized by FDA under an Emergency Use Authorization (EUA). This EUA will be effective until the declaration that circumstances exist justifying the authorization of the emergency use of in vitro diagnostic tests for detection and/or diagnosis of COVID-19 is terminated under Section 564(b)(2) of the Act or the EUA is revoked under Section 564(g) of the Act.Fact Sheet for Healthcare Pro viders:https://www.[employer]/Documents/Xpert%20Xpress%20SARS%20CoV-2/Fact%20Sh eets/3023802%20HQAA-SGV-3%20HEALTHCARE%20PROVIDERS%20FACT%20SHEET.pdfFact Sheet for Healthcare Patients:https://www.[employer]/Documents/Xpert%20Xpress%20SARS%20CoV-2/Fact%20Sheets/3023801%20SARS-COV -2%20PATIENT%20FACT%20SHEET.pdfPerforming Laboratory:[facility] [place] [address]"
--- NOTE | 2022-05-12 20:47 | EDPHYS ---
Physician Documentation [facility] Name: Vipul Holden Age: 66 yrs Sex: Male : 1955 Arrival Date: 05/12/2022 Time: 20:21 Bed 6 Private MD: ED Physician Jama Valero HPI: 05/12 20:34 This 66 yrs old Male presents to ER via Unassigned with complaints of Groin kdr Pain - cellulitis. 20:34 Patient states that he started having some pain and redness in his left lower extremity kdr yesterday. Since then the edema and pain and swelling has spread from his lower extremity on the left up into his groin. Also has some mild erythema on the right lower extremity as well. He is held low-grade fever some general malaise and otherwise just not feeling right. He otherwise has no other focal complaints. Onset: The symptoms/episode began/occurred yesterday. Severity of symptoms: At their worst the symptoms were mild moderate just prior to arrival, in the emergency department the symptoms are unchanged. The patient has not experienced similar symptoms in the past. The patient has not recently seen a physician. Historical: - Allergies: 20:51 No Known Allergies; kl - Home Meds: 20:51 carvedilol 25 mg Oral tab 1 tab [Active]; Cymbalta 60 mg Oral cpDR 1 cap once daily kl [Active]; losartan-hydrochlorothiazide 100-25 mg Oral tab 1 tab once daily [Active]; metformin 500 mg Oral tab 1 tab 2 times per day [Active]; - PMHx: 20:51 Hypertension; trigeminal neuralgia; Diabetes mellitus; Hypercholesterolemia; kl - PSHx: 20:51 traumatic amputation left upper extremity; kl - Immunization history:: Adult Immunizations up to date. - Social history:: Smoking status: Patient denies any tobacco usage or history of. ROS: 20:34 Constitutional: Negative for weight loss, Eyes: Negative for injury, pain, redness, and kdr discharge, Neck: Negative for injury, pain, and swelling, Cardiovascular: Negative for chest pain, palpitations, and edema, Respiratory: Negative for shortness of breath, cough, wheezing, and pleuritic chest pain, Abdomen/GI: Negative for abdominal pain, nausea, vomiting, diarrhea, and constipation. 20:34 Back: Negative for injury and pain, : Negative for injury, bleeding, discharge, and swelling, MS/Extremity: Negative for injury and deformity, Neuro: Negative for headache, weakness, numbness, tingling, and seizure activity. Psych: Negative for depression, anxiety, suicide ideation, homicidal ideation, and hallucinations, Allergy/Immunology: Negative for hives, rash, and allergies, Endocrine: Negative for neck swelling, polydipsia, polyuria, polyphagia, and marked weight changes, Hematologic/Lymphatic: Negative for swollen nodes, abnormal bleeding, and unusual bruising. 20:34 Constitutional: Positive for body aches, chills, fatigue, fever, malaise. 20:34 Skin: Positive for erythema, of the right leg and left leg. Exam: 20:34 Head/Face: Normocephalic, atraumatic. Eyes: Pupils equal round and reactive to light, kdr extra-ocular motions intact. Lids and lashes normal. Conjunctiva and sclera are non-icteric and not injected. Cornea within normal limits. Periorbital areas with no swelling, redness, or edema. Neck: Trachea midline, no thyromegaly or masses palpated, and no cervical lymphadenopathy. Supple, full range of motion without nuchal rigidity, or vertebral point tenderness. No Meningismus. Chest/axilla: Normal chest wall appearance and motion. Nontender with no deformity. No lesions are appreciated. Cardiovascular: Regular rate and rhythm with a normal S1 and S2. No gallops, murmurs, or rubs. Normal PMI, no JVD. No pulse deficits. Respiratory: Lungs have equal breath sounds bilaterally, clear to auscultation and percussion. No rales, rhonchi or wheezes noted. No increased work of breathing, no retractions or nasal flaring. Abdomen/GI: Soft, non-tender, with normal bowel sounds. No distension or tympany. No guarding or rebound. No evidence of tenderness throughout. Back: No spinal tenderness. No costovertebral tenderness. Full range of motion. Neuro: Awake and alert, GCS 15, oriented to person, place, time, and situation. Cranial nerves II-XII grossly intact. Motor strength 5/5 in all extremities. Sensory grossly intact. Cerebellar exam normal. Normal gait. Psych: Awake, alert, with orientation to person, place and time. Behavior, mood, and affect are within normal limits. 20:34 Constitutional: The patient appears alert, awake, well developed, well hydrated, febrile, obese. 23:06 ECG was reviewed by the Attending Physician. kdr Vital Signs: 20:25 BP 137 / 68; Pulse 110; Resp 20; Temp 101.6; Pulse Ox 92% on R/A; Pain 7/10; kl 21:47 BP 114 / 51; Pulse 99; Resp 18; Pulse Ox 90% on R/A; kl 22:46 BP 100 / 62; Pulse 95; Resp 21; Pulse Ox 95% 2 lpm ; Pain 3/10; kl 22:53 Temp 98.9(O); kl MDM: 20:47 Patient medically screened. kdr 20:47 Data reviewed: vital signs, nurses notes, lab test result(s), radiologic studies. kdr Counseling: I had a detailed discussion with the patient and/or guardian regarding: the historical points, exam findings, and any diagnostic results supporting the discharge/admit diagnosis, lab results. 05/12 20:41 Order name: Blood Culture Adult (2) 05/12 20:41 Order name: CBC with Diff; Complete Time: 21:40 05/12 20:41 Order name: CMP; Complete Time: 21:40 05/12 20:41 Order name: Lactate; Complete Time: 21:40 05/12 20:41 Order name: Protime (+inr); Complete Time: 21:40 05/12 20:41 Order name: Ptt, Activated; Complete Time: 21:40 05/12 21:16 Order name: COVID-19 SARS RT PCR (Document "Date of Onset" if Symptomatic) jb4 05/12 22:19 Order name: Basic Metabolic Panel EDMA 05/12 22:19 Order name: Basic Metabolic Panel EDMA 05/12 22:19 Order name: CBC with Automated Diff EDMS 05/12 22:19 Order name: CBC with Automated Diff EDMS 05/12 22:50 Order name: US Extremity Venous W Compression Darrell kdr 05/12 20:41 Order name: Cardiac monitoring; Complete Time: 21:14 05/12 20:41 Order name: EKG - Nurse/Tech; Complete Time: 21:14 05/12 20:41 Order name: IV Saline Lock - Large Bore; Complete Time: 21:14 05/12 20:41 Order name: Labs collected and sent; Complete Time: : 05/12 20:41 Order name: O2 Per Protocol; Complete Time: 05/12 20:41 Order name: O2 Sat Monitoring; Complete Time: 05/12 22:19 Order name: 60g Consistent Carbohydrate (ADA 1800/2000) EDMS EC:06 Rate is 107 beats/min. Rhythm is regular, Sinus tachycardia with No ectopy, Right kdr bundle branch block. QRS [place] is Normal. MT interval is normal. QRS interval is normal. QT interval is normal. Clinical impression: NSR w/ Non-specific ST/T Changes and Sinus tachycardia. Administered Medications: 21:32 Drug: vancoMYCIN 1.5 grams Route: IVPB; Rate: calculated rate; Site: right hand; 21:40 Drug: morphine 4 mg Route: IVP; Infused Over: 4 mins; Site: right antecubital; 21:46 Drug: Zofran (Ondansetron) 4 mg Route: IVP; Site: right antecubital; kl 21:46 Drug: Tylenol 1000 mg Route: PO; Disposition Summary: 05/12/22 20:47 Hospitalization Ordered Hospitalization Status: Inpatient Admission kdr Provider: Brendon Jimenez Location: Telemetry/MedSurg (observation) kdr Condition: Fair kdr Problem: new kdr Symptoms: have improved kdr Bed/Room Type: Standard kdr Room Assignment: 210(05/12/22 23:03) cg Diagnosis - Cellulitis of left lower limb kdr - Cellulitis of right lower limb kdr Forms: - Medication Reconciliation Form kdr - SBAR form kdr Signatures: Dispatcher [employer] EDMS Colleen Dick RN RN kl Rittger, Kevin, MD MD kdr Stephanie Lui RN RN cg Corrections: (The following items were deleted from the chart) 20:41 Accucheck ordered. jb4 23:03 20:47 kdr cg
[2022-05-12 21:04] LABS: Absolute Lymphocytes (CBC) 0.7 K/uL (0.7-4.9); Hematocrit 42.9 % (39.6-49.0); Lymphocytes % 5.7 % (15.3-44.8); MCV 87.5 fL (80-100); MPV 8.1 fL (7.6-11.3); RBC Red Blood Cell Count 4.91 M/uL (4.33-5.43)
[2022-05-12 21:07] LABS: Protime INR 1.21
[2022-05-12 21:17] LABS: Albumin 3.7 g/dL (3.4-5.0); Bilirubin Total 0.5 mg/dL (0.2-1.0); Potassium 3.8 mmol/L (3.5-5.1); Protein, Total 7.5 g/dL (6.4-8.2)
[2022-05-12] MEDS ORDERED: VANCOMYCIN 1 GM/VIAL ONE (21:29)
[2022-05-12] MEDS ORDERED: VANCOMYCIN 500 MG/VIAL ONE (21:29)
[2022-05-12] MEDS ORDERED: NA CHLORIDE 0.9% 500 ML ONE (21:29)
[2022-05-12] MEDS ORDERED: ACETAMINOPHEN 500 MG TAB ONE (21:44)
[2022-05-12] MEDS ORDERED: ONDANSETRON 4 MG/2 ML VIAL ONE (21:45)
[2022-05-12] MEDS ORDERED: MORPHINE 4 MG/ML SYR ONE (21:45)
--- NOTE | 2022-05-12 23:48 | ER ---
Nurse's Notes [facility] Name: Vipul Holden Age: 66 yrs Sex: Male : 1955 Arrival Date: 05/12/2022 Time: 20:21 Bed 6 Private MD: Diagnosis: Cellulitis of left lower limb;Cellulitis of right lower limb Presentation: 05/12 20:25 Chief complaint: Patient states: left lower extremity pain swelling reports redness kl extends to groin area. Coronavirus screen: Vaccine status:. Initial Sepsis Screen: Does the patient meet any 2 criteria? Temp <36.0*C (96.8*F)) or > 38.3*C (100.9*F). HR > 90 bpm. Yes Does the patient have a suspected source of infection? Yes: Other: redness warmth to left lower extremity. Risk Assessment: Do you want to hurt yourself or someone else? Patient reports no desire to harm self or others. Onset of symptoms was May 11, 2022. 20:25 Method Of Arrival: Wheelchair kl 20:25 Acuity: SOHA 3 kl 23:12 Ebola Screen: Patient negative for fever greater than or equal to 101.5 degrees kl Fahrenheit, and additional compatible Ebola Virus Disease symptoms Patient denies exposure to infectious person. Historical: - Allergies: 20:51 No Known Allergies; kl - Home Meds: 20:51 carvedilol 25 mg Oral tab 1 tab [Active]; Cymbalta 60 mg Oral cpDR 1 cap once daily kl [Active]; losartan-hydrochlorothiazide 100-25 mg Oral tab 1 tab once daily [Active]; metformin 500 mg Oral tab 1 tab 2 times per day [Active]; - PMHx: 20:51 Hypertension; trigeminal neuralgia; Diabetes mellitus; Hypercholesterolemia; kl - PSHx: 20:51 traumatic amputation left upper extremity; kl - Immunization history:: Adult Immunizations up to date. - Social history:: Smoking status: Patient denies any tobacco usage or history of. Screenin:57 Abuse screen: Denies threats or abuse. Nutritional screening: No deficits noted. kl Tuberculosis screening: No symptoms or risk factors identified. Fall Risk No fall in past 12 months (0 pts). Secondary diagnosis (15 points) impaired mobility, IV access (20 points). Ambulatory Aid- None/Bed Rest/Nurse Assist (0 pts). Gait- Impaired (20 pts.). Mental Status- Oriented to own ability (0 pts). Total Pisano Fall Scale indicates High Risk Score (45 or more points). Fall prevention measures have been instituted. Side Rails Up X 2 Placed Close to Nursing Station Frequent Obs/Assessments Occuring. Assessment: 20:54 General: Appears uncomfortable, obese, well nourished, Behavior is calm, cooperative. kl Pain: Complains of pain in pelvis and left leg Pain currently is 7 out of 10 on a pain scale. Aggravated by weight bearing. Neuro: No deficits noted. Walker Agitation-Sedation Scale (RASS): 0 - Alert and Calm. Cardiovascular: Capillary refill < 3 seconds Rhythm is sinus tachycardia. Respiratory: No deficits noted. Reports Airway is patent Trachea midline Respiratory effort is even, unlabored, Respiratory pattern is regular. GI: No deficits noted. No signs and/or symptoms were reported involving the gastrointestinal system. : No deficits noted. No signs and/or symptoms were reported regarding the genitourinary system. EENT: No deficits noted. No signs and/or symptoms were reported regarding the EENT system. Derm: Skin is red, Skin temperature is hot to left lower extremity. Musculoskeletal: Swelling present in left leg. 22:51 Reassessment: Patient appears in no apparent distress at this time. Patient and/or kl family updated on plan of care and expected duration. Pain level reassessed. Patient is alert, oriented x 3, equal unlabored respirations, skin warm/dry/pink. Vital Signs: 20:25 BP 137 / 68; Pulse 110; Resp 20; Temp 101.6; Pulse Ox 92% on R/A; Pain 7/10; kl 21:47 BP 114 / 51; Pulse 99; Resp 18; Pulse Ox 90% on R/A; kl 22:46 BP 100 / 62; Pulse 95; Resp 21; Pulse Ox 95% 2 lpm ; Pain 3/10; kl 22:53 Temp 98.9(O); kl ED Course: 20:21 Patient arrived in ED. as 20:22 Jama Valero MD is Attending Physician. kdr 20:35 Inserted saline lock: 20 gauge in right antecubital area, using aseptic technique. kl 20:46 Brendon Jimenez MD is Hospitalizing Provider. kdr 20:51 Triage completed. kl 20:55 Inserted saline lock: 20 gauge in right wrist, using aseptic technique. Blood collected.jb4 20:55 Initial lab(s) drawn, by me, sent to lab. Second set of blood cultures drawn by me. jb4 21:14 Blood Culture Adult (2) Sent. jb4 21:14 CMP Sent. jb4 21:14 Lactate Sent. jb4 23:12 No provider procedures requiring assistance completed. kl 23:12 Patient admitted, IV remains in place. kl 23:12 Arm band placed on right wrist. kl 23:13 Patient has correct armband on for positive identification. kl Administered Medications: 21:32 Drug: vancoMYCIN 1.5 grams Route: IVPB; Rate: calculated rate; Site: right hand; kl 21:40 Drug: morphine 4 mg Route: IVP; Infused Over: 4 mins; Site: right antecubital; kl 21:46 Drug: Zofran (Ondansetron) 4 mg Route: IVP; Site: right antecubital; kl 21:46 Drug: Tylenol 1000 mg Route: PO; Medication: 23:13 VIS not applicable for this client. Outcome: 20:47 Decision to Hospitalize by Provider. kdr 23:12 Admitted to Med/surg via wheelchair, room 210, with chart. kl 23:12 Condition: improved 23:12 Instructed on the need for admit, Demonstrated understanding of instructions. 23:47 Patient left the ED. jb4 Signatures: Colleen iDck, RN RN Jama Lebron MD MD kdr Martinez, Amelia as Bryson, James, RN RN jb4
[2022-05-13] MEDS: PIPER TAZO 3.375 GM in NA CHLORIDE 0.9% 100 ML IV SCH ×3 (00:56→16:38)
[2022-05-13] MEDS: MORPHINE 4 MG/ML SYR IV PRN ×3 (00:57→10:50)
[2022-05-13 04:25] LABS: Absolute Lymphocytes (CBC) 1.2 K/uL (0.7-4.9); Hematocrit 42.2 % (39.6-49.0); Lymphocytes % 10.3 % (15.3-44.8); MCV 86.9 fL (80-100); MPV 8.2 fL (7.6-11.3); RBC Red Blood Cell Count 4.85 M/uL (4.33-5.43)
[2022-05-13] MEDS ORDERED: ENOXAPARIN 40 MG/0.4 ML SQ ONE (09:55)
[2022-05-13] MEDS ORDERED: GLUCAGON 1 MG/VIAL IM PRN (09:57)
[2022-05-13] MEDS ORDERED: D50W 25 GM/50 ML SYRINGE IV PRN (09:57)
[2022-05-13] MEDS: PREGABALIN 150 MG CAP PO SCH ×2 (10:43→20:43)
[2022-05-13] MEDS: carBAMazepine 200 MG TAB PO SCH ×2 (10:43→20:43)
[2022-05-13] MEDS: INSULIN -REGULAR HUMAN 50 UNIT/0.5 ML ML SQ SCH ×3 (11:30→21:00)
[2022-05-13] MEDS: carvediloL 3.125 MG TAB PO SCH (20:43)
[2022-05-13] MEDS ORDERED: carvediloL 3.125 MG TAB PO SCH (21:00)
[2022-05-13] MEDS ORDERED: METFORMIN HCL 500 MG TAB PO SCH (21:00)
[2022-05-13] MEDS ORDERED: carBAMazepine 200 MG TAB PO SCH (21:00)
[2022-05-14] MEDS: PIPER TAZO 3.375 GM in NA CHLORIDE 0.9% 100 ML IV SCH ×3 (00:07→17:00)
[2022-05-14] MEDS ORDERED: NA CHLORIDE 0.9% 1,000 ML IV SCH (05:00)
[2022-05-14 05:54] LABS: Absolute Lymphocytes (CBC) 1.2 K/uL (0.7-4.9); Hematocrit 38.8 % (39.6-49.0); Lymphocytes % 20.6 % (15.3-44.8); MCV 85.7 fL (80-100); MPV 7.7 fL (7.6-11.3); RBC Red Blood Cell Count 4.53 M/uL (4.33-5.43)
[2022-05-14 06:16] VITALS: BMI 46.2
[2022-05-14 06:19] LABS: Potassium 3.9 mmol/L (3.5-5.1)
[2022-05-14] MEDS: ACETAMINOPHEN 500 MG TAB PO PRN ×2 (07:09→12:10)
[2022-05-14] MEDS: INSULIN -REGULAR HUMAN 50 UNIT/0.5 ML ML SQ SCH ×4 (07:30→20:47)
--- NOTE | 2022-05-14 08:11 | EKG ---
Test Date: 2022-05-12 Test Time: 20:32:40 Manager Study: MEASUREMENT RESULTS: Intervals: Rate: 107 MA: 154 QRSD: 102 QT: 306 QTc: 408 [place]: P: 43 MA: 154 QRS: 49 T: 54 INTERPRETIVE STATEMENTS: Sinus tachycardia Possible Left atrial enlargement Incomplete right bundle branch block Borderline ECG Compared to ECG 05/12/2022 20:32:14 No significant changes Electronically Signed On 05-14-22 08:06:42 CDT by Denny Alfaro
--- NOTE | 2022-05-14 08:11 | EKG ---
Test Date: 2022-05-12 Test Time: 20:32:14 Victims Advocate Clerk/Specialist: MEASUREMENT RESULTS: Intervals: Rate: 107 MN: 158 QRSD: 98 QT: 302 QTc: 403 [place]: P: 43 MN: 158 QRS: 65 T: 48 INTERPRETIVE STATEMENTS: Sinus tachycardia Possible Left atrial enlargement Incomplete right bundle branch block Borderline ECG Compared to ECG 09/29/2020 12:52:39 Sinus bradycardia no longer present Electronically Signed On 05-14-22 08:06:43 CDT by Denny Alfaro
[2022-05-14] MEDS ORDERED: LOSARTAN PO SCH ×2 (09:00)
[2022-05-14] MEDS ORDERED: HYDROCHLOROTHIAZIDE PO SCH ×2 (09:00)
[2022-05-14] MEDS: carBAMazepine 200 MG TAB PO SCH ×2 (09:29→20:22)
[2022-05-14] MEDS: FUROSEMIDE 20 MG TABLET PO SCH (09:30)
[2022-05-14] MEDS: LOSARTAN POTASSIUM 50 MG TABLET PO SCH ×2 (09:30→20:22)
[2022-05-14] MEDS: carvediloL 3.125 MG TAB PO SCH ×2 (09:30→20:31)
[2022-05-14] MEDS: PREGABALIN 150 MG CAP PO SCH ×2 (09:30→20:22)
[2022-05-14] MEDS: ENOXAPARIN 40 MG/0.4 ML SQ SCH (09:31)
[2022-05-14] MEDS: METFORMIN HCL 500 MG TAB PO SCH ×2 (09:31→17:00)
[2022-05-14] MEDS ORDERED: D10W 125 ML IV PRN (10:42)
--- NOTE | 2022-05-14 11:17 | RAD REPORT ---
EXAM DESCRIPTION: US - Extrem Venous W Compress Darrell - 05/14/2022 5:27 am CLINICAL HISTORY: 66 years, Male, Pain COMPARISON: Bilateral lower extremity venous Doppler dated 12/25/2019. FINDINGS: Grayscale imaging as well as spectral and color Doppler interrogation of the deep venous s ystem of bilateral lower extremity was performed with visualization from the common femoral veins to the popliteal veins and posterior tibial vein. There is normal compressibility, augmentation and flow with no visualized thrombus. No focal fluid collection is identified. Prominent left inguinal lymph node, unchanged from prior exam IMPRESSION: No bilateral lower extremity DVT. Electronically signed by: Rg Arenas DO 05/12/2022 11:54 PM CDT Due to temporary technical issues with the PACS/Fluency reporting system, reports are being signed by the in house radiologists without review as a courtesy to insure prompt reporting. The interpreting radiologist is fully responsible for the content of the report.
--- NOTE | 2022-05-14 13:39 | HP ---
Date of Admission: 05/12/2022 Chief Complaint: Fever, chills and redness and pain in left leg. History Of Present Illness: This is a 66-year-old very pleasant male patient, who has history of rec urrent cellulitis of lower extremities, came into emergency room with complaints of fever, chills, re dness and pain of left lower extremity that started yesterday. The patient had a little bit confusio n with this also and confusion problem has cleared up today as he reports. Vital signs reviewed. Th e patient came into emergency room and after he was evaluated, he was admitted to the hospital with t his problem of left leg cellulitis. Allergies: NO KNOWN ALLERGIES. Medications: Atorvastatin 20 mg daily in the evening, Tegretol 200 mg 2 times a day, Lyrica 300 mg 2 times a day, vitamin B12 500 mcg daily, metformin 500 mg 2 times a day, carvedilol 6.25 mg 2 times a day, losartan/HCTZ 100/25 one tablet daily. Review of Systems: Constitutional: As mentioned above. Dermatology: As mentioned above. SKEINS YARN EXAMINER: As mentioned above. All other systems reviewed and negative. Past Medical History: Significant for trigeminal neuralgia, type 2 diabetes mellitus, hypertension, mixed hyperlipidemia, gastroesophageal reflux disease, diverticulosis, erectile dysfunction, and senior pastor aylin kidney disease stage 3A, lymphedema of both legs. Past Surgical History: Back surgery, knee surgery, amputation of left forearm done years ago. Family History: Father , details unknown. Mother , had coronary artery disease, diabetes, h ypertension, kidney disease. Brother had [place]. Social History: Prior history of smoking, not at present time. Use of alcohol negative. Physical Examination: Vital Signs: Maximum temperature 101.6 degrees Fahrenheit, this was around 2:48 a.m. today. Last te mperature morning 98.6, pulse 78, respiratory rate 18, blood pressure 120/54, oxygen saturation 95%. Height 5 feet 5 inches, weight 279 pounds. General: Awake, alert, oriented, not in distress. HEENT: Head atraumatic, normocephalic. Conjunctivae nonerythematous. Sclerae white. Mouth, no thr ush or edema noted. Ears/Nose, no mass, lesion, discharge noted. Neck: Supple. No JVD, lymph nodes, bruit, thyromegaly noted. Lungs: Bilateral good equal air entry. Clear to auscultation. No rhonchi. No rales. Heart: Normal heart sounds, no murmur or gallop. Abdomen: Soft, bowel sounds normal. No guarding, rigidity, tenderness, mass, hepatosplenomegaly, dis tention, or bruit noted. Extremities: The patient has lymphedema involving both lower extremities, but left leg has redness a nd warmness of skin from the knee all the way down to his foot. There is no open wound. The patient has trace edema of right lower extremity, grade 1 edema of left lower extremity. Left upper extremi ty shows amputation of left upper extremity at the arm level. Skin: No rash, ulcer, cellulitis. Lymphatics: No lymph node enlargement in neck, supraclavicular, infraclavicular region. Neuro: No focal neurological deficit. Chest: Unremarkable. External Genitalia: Deferred. Rectal: Deferred. Laboratory Data: Yesterday; white count 12.4, hemoglobin 14.6, platelets 154. Today; white count 12 , hemoglobin 14.4, platelets 150. Yesterday; sodium 135, potassium 3.8, chloride 99, bicarb 28, BUN 21, creatinine 1.72, glucose 145. Liver function tests unremarkable. This morning; sodium 135, pota ssium 4, chloride 99, bicarb 30, BUN 16, creatinine 1.65, glucose 131. Impression: 1.Cellulitis, left lower extremity. 2.Toxic encephalopathy. 3.Rule out sepsis. 4.Chronic kidney disease. 5.Mixed hyperlipidemia. 6.Type 2 diabetes mellitus. 7.Trigeminal neuralgia. Plan: We will go ahead and admit the patient to hospital for further evaluation and management of th is problem. The patient is appropriate for inpatient and is [facility]. We will go ahead and continue home medications per order. DVT prophylaxis will be given using Lo venox per order. Empiric antibiotic, Zosyn was started, we will continue that. Follow up on culture results. The patient's confusion problem has resolved today. I will see him tomorrow for followup. Possible discharge to go home day after tomorrow depending on his condition. DOMENICA/MODL Voice ID: [id number]
[2022-05-14] MEDS ORDERED: AMLODIPINE 5 MG TAB PO ONE (20:30)
--- NOTE | 2022-05-14 21:34 | PN ---
Date of Progress Note: 05/14/2022 Subjective: Patient was seen this morning for followup. No new complaints or problems reported by prince theodore. Lying in bed, not in any distress. Complaining of left leg swelling, but otherwise no other complaints reported. Objective: Vital Signs: Reviewed. He remains afebrile. HEENT: Unremarkable. Lungs: Clear to auscultation. Heart: Sounds normal. Abdomen: Soft. Bowel sounds normal. No guarding, rigidity, tenderness, or distention. Extremities: Bilateral leg edema. Left leg edema is more than right leg edema. No significant payne ge from yesterday. Laboratory Data: White count 5.9, hemoglobin 13.7, platelets 153. Sodium 137, potassium 3.9, chlori de 101, bicarb 29, BUN 9, creatinine 1.28, glucose 156. Impression: 1.Cellulitis, left leg. 2.Hypertension. 3.Chronic kidney disease, stage 3. 4.Hyperlipidemia. Plan: We will go ahead and continue current medications. Continue current antibiotic which is Zosyn . Continue current antihypertensive medication and DVT prophylaxis with Lovenox. We will start him on furosemide 20 mg daily. I will see him tomorrow morning for followup. Patient's left leg redness is better today compared to yesterday. Possible discharge to go home either tomorrow or day after tomorrow depending on his condition. DOMENICA/MODL Voice ID: [id number] Report ID: [id number]
[2022-05-15] MEDS: PIPER TAZO 3.375 GM in NA CHLORIDE 0.9% 100 ML IV SCH ×2 (01:08→08:13)
[2022-05-15] MEDS: ACETAMINOPHEN 500 MG TAB PO PRN (01:12)
[2022-05-15] MEDS: INSULIN -REGULAR HUMAN 50 UNIT/0.5 ML ML SQ SCH (07:30)
[2022-05-15] MEDS: METFORMIN HCL 500 MG TAB PO SCH (08:09)
[2022-05-15] MEDS: carBAMazepine 200 MG TAB PO SCH (08:09)
[2022-05-15] MEDS: LOSARTAN POTASSIUM 50 MG TABLET PO SCH (08:09)
[2022-05-15] MEDS: PREGABALIN 150 MG CAP PO SCH (08:12)
[2022-05-15] MEDS: FUROSEMIDE 20 MG TABLET PO SCH (08:12)
[2022-05-15] MEDS: carvediloL 3.125 MG TAB PO SCH (08:12)
[2022-05-15 08:13] VITALS: BP 131/50
[2022-05-15] MEDS: ENOXAPARIN 40 MG/0.4 ML SQ SCH (08:13)
[2022-05-15 08:24] VITALS: TEMP 96.6
[2022-05-15 09:47] VITALS: O2SAT 100
--- NOTE | 2022-05-16 08:03 | DS ---
Date of Discharge: 05/15/2022 Disposition: Discharged to go home. Physical Examination: HEENT: Unremarkable. Lungs: Clear to auscultation. Heart: Sounds normal. Abdomen: Soft. Bowel sounds normal. No guarding, rigidity, tenderness, distention. Extremity: Bilateral leg edema present, better than yesterday and redness from left lower extremity has improved. It is more faint, pink and brownish discoloration and there is no warmness to touch. No open wound. Laboratory Data: Upon admission; white count 12.4, hemoglobin 14.6, platelets 154. Last CBC yesterd ay; white count 5.9, hemoglobin 13.7, platelets 152. Initial chemistry; sodium 135, potassium 3.8, c hloride 99, bicarb 28, BUN 21, creatinine 1.72, glucose 145. Last chemistry from yesterday; sodium 1 37, potassium 3.9, chloride 101, bicarb 29, BUN 19, creatinine 1.28, glucose 150. Venous Doppler of both lower extremity was negative for DVT. Hospital Course: This is a 66-year-old pleasant male patient, admitted to the hospital with fever, c hills, and redness of left leg and pain in left leg. Please see dictated H and P for more informatio n. The patient had some confusion when he first came in, which resolved and after treatment provided to him for the cellulitis. He was started on IV Zosyn and overall his condition has improved. He s tarted ambulating well. DVT prophylaxis was given using Lovenox and once his condition has improved, today he was discharged to go home in stable condition. Final Diagnoses: 1.Cellulitis, left leg. 2.Toxic encephalopathy, resolved. 3.Chronic kidney disease, stage 3A. 4.Hypertension. 5.Type 2 diabetes mellitus. 6.Hyperlipidemia. 7.Trigeminal neuralgia. Discharge Medications And Instructions: 1.Continue all prior home medications. 2.Augmentin 875 mg 2 times a day for 10 days. Prescription was sent to the pharmacy and the patient was instructed to take it for 7 days and keep remaining 3 days supply on hold for future use. 3.Follow up at my office next week on Saturday or Saturday. I have given instruction to the patient th at in view of his history of recurrent cellulitis of leg, we will skip some supply of oral antibiotic on hand. In the moment he starts to have any redness of leg, he should start his antibiotic and try to come and see me as soon as possible so we can evaluate him. DOMENICA/MARCELINA Voice ID: [id number] Report ID: [id number]
== END 2022-05-15 10:45 | disposition home or self-care (01) | DRG 602 ==
LOC: ER 20:19 → ERHOLD 22:58 → 2ND 23:16
PROVIDERS: ADMIT Internal Medicine; ATTEND Internal Medicine
DX: L03.116 Cellulitis of left lower limb (principal); G92.9 Unspecified toxic encephalopathy; I12.9 Hypertensive chronic kidney disease with stage 1 through stage 4 chronic kidney disease, or unspecified chronic kidney disease; E11.22 Type 2 diabetes mellitus with diabetic chronic kidney disease; N18.31 Chronic kidney disease, stage 3a; E78.2 Mixed hyperlipidemia; K21.9 Gastro-esophageal reflux disease without esophagitis; K57.90 Diverticulosis of intestine, part unspecified, without perforation or abscess without bleeding; N52.9 Male erectile dysfunction, unspecified; G50.0 Trigeminal neuralgia; Z20.822 Contact with and (suspected) exposure to COVID-19
CPT/HCPCS: 36415; 80048; 80053; 82947; 83605; 85025; 85610; 85730; 87040; 93005; 93970; 99285; J1650; J2405; J2543; J3370; J7030; J7040; U0003

== ENCOUNTER 2022-10-24 13:04 | Emergency (ER) | payer OTHER ==
--- OUTSIDE RECORDS SUMMARY | 2022-10-24 13:13 | XMS REPORT | Continuity of Care Document ---
:1955 Author Organization [facility] t Address [address] [place] [address] Care Team Providers Name Role Phone Tyrese Morataya Attending Clinician Unavailable GIOVANNI MEYER Attending Clinician Unavailable Medhat Attending Clinician Unavailable Jeff Villarreal Attending Clinician Unavailable Giovanni Meyer MD Attending Clinician [phone] Pob, [facility] Main Attending Clinician Unavailable Only, Adc Test Attending Clinician Unavailable Doctor Unassigned, [place] Attending Clinician Unavailable Everton Jimenez Attending Clinician Jonathan Payne Attending Clinician Tyrese Morataya Admitting Clinician Unavailable Jeff Villarreal Admitting Clinician Unavailable GIOVANNI MEYER Admitting Clinician Unavailable Medhat Admitting Clinician Unavailable Giovanni Meyer MD Admitting Clinician [phone] Everton Jimenez Admitting Clinician Payers Payer Name Policy Type Policy Number Effective Date Expiration Date S christopher MEDICARE PART A [id number] 1997 \\T\\ B 00:00:00 [place] B-[place]: [id number] 1997 Swivel 00:00:00 Problems Condition Condition Condition Status Onset Resolution Last Treating Co mments Source Name Details Category Date Date Treatment Clinician Date Obesity Obesity Problem Active Jaqueline 1-25 Orthope 00:00: dic 00 Sports [facility] Keloid Keloid Problem Active Jaqueline scar Scar 1-25 Orthope 00:00: dic 00 Sports Medicin e Loosening Loosening Problem Active 2021-09 Aza johan of knee of Knee 219 Orthope joint Joint 00:00: dic prosthesis Prosthesis 00 Sp orts Medicin e Pain due Pain Due Problem Active 2021-09 Azale a to to 209 Orthope internal Internal 00:00: dic prosthetic Prosthetic 00 Sp orts device Device Medicin e Pain of Pain of Problem Active 2021-09 Jaqueline left knee Left Knee 2 Orth ope joint Joint 00:00: dic 00 Sports Medicin e Morbid Morbid Disease Active Univers obesity obesity 1- [place] of [place] mass index mass index 00 Me dical of 50 or of 50 or Branch higher higher LEFT LEFT Diagnosis Active 2016-04-04 Mem oria TRIGEMINAL TRIGEMINAL 7-01 05:10:00 l G50.0 G50.0 00:00: Shiv Active 00 03/23/2016 [facility] LEFT SIDE LEFT SIDE Diagnosis Active 2016-03-03 Memoria FACIAL FACIAL 6-11 11:54:00 l PAIN PAIN 00:00: Shiv Active 00 03/03/2016 Joseph LEFT LEFT Diagnosis Active 2014-092015-09-28 Mem oria TRIGEMINAL TRIGEMINAL 2-10 04:48:00 l NEURALGIA NEURALGIA 00:00: Justus bond G50.0 G50.0 00 Active 09/01/2015 [facility] TRIGEMINAL TRIGEMINA Diagnosis Active 2015-03-01 Memoria NERVE L NERVE 5- 07:18:00 l Active 00:00: Shiv 02/18/2015 00 [facility] FACIAL FACIAL Diagnosis Active 2015-01-18 M emoria PAIN PAIN 01-18 11:40:00 l Active 00:00: Shiv 01/18/2015 00 Joseph Arthroplas Arthroplas Problem Active 2010-0 A zalea ty of knee ty of Knee 05-24 Or thope 00:00: dic 00 Sports Medicin e Knee pain Knee Pain Problem Active Aza johan 05-24 Orthope 00:00: dic 00 Sports Medicin e Arthritis Arthritis Problem Active Aza johan 7- Orthope 00:00: dic 00 Sports Medicin e Iliotibial Iliotibial Problem Active A zalea band Band 7-28 Orthope friction Friction 00:00: dic syndrome Syndrome 00 Sports Medicin e Prosthetic Prosthetic Problem Active A zalea joint Joint 4-13 Orthope infection Infection 00:00: dic 00 Sports Medicin e Localized Localized Problem Active Aza johan edema Edema 2-05 Orthope 00:00: dic 00 Sports Medicin e Pruritus Pruritus Problem Active Azale a of skin of Skin 2-05 Orthope 00:00: dic 00 Sports Medicin e Final: Final: Problem 2015-02-27 [place] 02/27/2015 02:02:22 l [facility] Trigeminal Problem Resolve 2016-04-07 Memoria neuralgia Trigeminal d 01:14:13 l (disorder) neuralgia Her ramirez (disorder) Resolved Problem 04/07/2016 [facility] Joseph Backache Backache Problem Resolve 2016-04-07 Memoria (finding) (finding) d 01:14:13 l Resolved Shiv Problem 04/07/2016 [facility] Joseph Hypertensi Hypertens Problem Active 2016-04-07 Memoria ve scot 01:14:13 l disorder, disorder, Herm ronda systemic systemic arterial arterial (disorder) (disorder) Active Problem 04/07/2016 [facility] Joseph Obstructiv Obstructi Problem Active 2016-04-07 Memoria e sleep ve sleep 01:14:13 l apnea apnea [place] syndrome syndrome (disorder) (disorder) Active Problem 04/07/2016 [facility] Joseph Pain Pain Problem Active 2016-04-07 Memor ia (finding) (finding) 01:14:13 l Active [place] Problem 04/07/2016 [facility] Joseph TRIGEMINAL TRIGEMINA Diagnosis Active 2015-09-28 Memoria NEURALGIA L 04:48:00 l NEURALGIA Shiv Active [facility] TRIGEMINAL Diagnosis Active 2015-01-212015-022015-03-01 Memoria NEURALGIA TRIGEMINAL 4-28 04:42:07 07:18:00 l NEURALGIA 05:00: Shiv Active 00 [facility] History of Past Illness Condition Condition Condition Status Onset Resolution Last Treating Co mments Source Name Details Category Date Date Treatment Clinician Date Discharge Discharge Problem 2016-03-06 2016-03-06 Memoria Diagnosis: Diagnosis: 6- 03:29:58 03:29:58 l Chronic Chronic 05:00: [place] pain pain 00 03/03/2016 6 [facility] Joseph Discharge Discharge Problem 2016-03-06 2016-03-06 Memoria Diagnosis: Diagnosis: 03-03 03:29:58 03:29:58 l Trigeminal Trigeminal 05:00: He rmann neuralgia neuralgia 00 03/03/2016 03/06/2016 [facility] Allergies, Adverse Reactions, Alerts Allergy Allergy Status Severity Reaction(s) Onset Inactive Treating Comm ents Source Name Type Date Date Clinician No Known DA Active U [facility] Allergie 1-17 [facility] 00:00: [address] NO KNOWN Drug Active Univers ALLERGIE Class ity of S [facility] Social History Social Habit Start Date Stop Date Quantity Comments Source Sex Assigned At Universit y of [facility] Exposure to Not sure [place] of SARS-CoV-2 [facility] (event) Branch Tobacco use and 2020-10-20 2020-10-20 Never used Universit y of exposure 00:00:00 00:00:00 [facility] Alcohol intake 2020-10-20 2020-10-20 Ex-drinker University 00:00:00 00:00:00 (finding) [place] [facility] 2020-10-19 2020-10-19 10 University o f Education 00:00:00 00:00:00 [place] [facility] History SDIN 2020-10-19 2020-10-19 3 University o f Financial 00:00:00 00:00:00 [place] [facility] History SDIN Food 2020-10-19 2020-10-19 2 Univers ity of Worry 00:00:00 00:00:00 [facility] Branch History SDIN Food 2020-10-19 2020-10-19 2 Univers ity of Scarcity 00:00:00 00:00:00 [place] [facility] History SDOH 2020-10-19 2020-10-19 2 University o f Transport Med 00:00:00 00:00:00 [place] [facility] History SDOH 2020-10-19 2020-10-19 2 University o f Transport Non-Med 00:00:00 00:00:00 [place] [facility] Social History 2016-03-20 2016-03-20 [facility] nirmal 22:13:01 22:13:01 Smoking Status Start Date Stop Date Source Former Smoker Jaqueline farias Sports Medicine Unknown if ever smoked [facility] [place] [facility] Medications Ordered Filled Start Stop Current Ordering Indication Dosage Frequency Signature Comments Components Source Medication Medication Date Date Medication? Clinician (SIG) Name Name pregabalin Yes 450mg Take 450 Un boris 225 mg 1-29 mg by ity of capsule 22:50: mouth 2 [place] [address] (two) Medical times Branch daily. carBAMazepi Yes 400mg Take 400 U nivers ne 1-29 mg by ity of (TEGRETOL) 22:50: mouth 2 [place] 200 [place] 55 (two) Medical tablet times Branch daily. DULoxetine Yes 60mg Take 60 mg U nivers (CYMBALTA) 1-29 by mouth ity o f 60 mg 22:50: daily. [place] capsule Medical Branch metFORMIN 0 Yes 500mg Take 500 Uni vers 500 mg 1-29 mg by ity of tablet 22:50: mouth 2 [place] [address] (two) Medical times Branch daily with meals. carvediloL Yes 6.25mg Take 6.25 Univers (COREG) 1-29 mg by ity of 6.25 mg 22:50: mouth 2 [place] tablet 55 (two) Medical times Branch daily with meals. atorvastati Yes 40mg Take 40 mg Univers n 40 mg 1-29 by mouth ity of tablet 22:50: at [place] [address] bedtime. Medical Branch flu vaccine 2020- 2021- No .7mL 0.7 mL, Un boris 65 yrs and 10-21 Intramuscu it y of up(PF) 19:45: 21:38 lar, ONCE, [place] (FLUZONE 00 :00 1 dose, Medical HIGHDOSE Fri Branch QUAD 20-10/21/20 at ) syringe 1345, 0.7 mL Routine pneumococca 2020- No .5mL 0.5 mL, Un boris l vac 10-21 Intramuscu ity of polyvalent 19:45: 21:36 lar, ONCE, [place] (PNEUMOVAX- 00 :00 1 dose, Medic al 23) [facility] injection 10/21/20 at 0.5 mL 1345, Routine atorvastati Yes 40mg 40 mg, Univ ers n (LIPITOR) 10-21 Oral, QHS, it y of tablet 40 03:00: [place] 00 on [facility] 10/20/20 at Branch 2100, Until Discontinu ed, Routine pregabalin Yes 450mg 450 mg, Uni vers (LYRICA) 10-20 Oral, BID, ity o f capsule 450 17:15: First dose [place] mg 00 on [facility] 10/20/20 at Branch 1115, Until Discontinu ed, Routine
geography faculty member approving Restricted medication : ONELIA PALUMBO DULoxetine Yes 60mg 60 mg, Unive rs (CYMBALTA) 10-20 Oral, ity of capsule 60 17:15: DAILY, [place] mg 00 First dose Medical on [facility] 10/20/20 at 1115, Until Discontinu ed, Routine carvediloL Yes 6.25mg 6.25 mg, U nivers (COREG) 10-20 Oral, BID ity of tablet 6.25 17:15: MEALS, [place] mg 00 First dose Medical on [facility] 10/20/20 at 1115, Until Discontinu ed, Routine carBAMazepi 0 Yes 400mg 400 mg, Un boris ne 10-20 Oral, BID, ity of (TEGRETOL) 17:15: First dose [place] tablet 400 00 on [facility] mg 10/20/20 at Branch 1115, Until Discontinu ed, Routine docusate 0 Yes 100mg 100 mg, Unive rs (COLACE) 10-20 Oral, ity of capsule 100 02:00: Q12H, [place] mg 00 First dose Medical on [facility] Branch 10/19/20 at 2000, Until Discontinu ed, Routine enoxaparin No 30mg 30 mg, Univ ers (LOVENOX) 10-20 Subcutaneo ity of injection 02:00: 01:59 [place], Q12H, [place] 30 mg 00 :00 56 doses, Medical First dose Branch on Sat10/19/20 at 2000, Last dose on Sat11/16/20 at 0800, Routine rivaroxaban 2020- No 1475 10mg Take 4 Uni vers 2.5 mg 10-2017 tablets by ity of tablet 00:00: 05:59 mouth [place] 00 :00 daily for Medical 19 days. Branch Indication s: deep vein thrombosis prevention morpHINE 30 2020- Unive rs mg/30 mL 10-19 ity of (fixed 21:00: 16:15 [place] dose) ANIMAL SURGEON 00 :08 Medical injection Branch naloxone Yes .4mg 0.4 mg, Univer s (NARCAN) 10-19 Slow IV ity of injection 20:53: Push, [place] 0.4 mg 54 SEE-INSTRU Medical CTIONS, Branch Starting Sat10/19/20 at 1453, Until Discontinu ed, Routine FENTanyl PF 25ug 25 mcg, Un boris (SUBLIMAZE 10-19 [...] mg 40 Starting Medica l tablet 1 Wed Branch tablet 10/19/20 at 1254, Until Discontinu ed, Routine, Pain (scale 7-10) HYDROcodone Yes 1{tbl} 1 tablet, Univers -acetaminop 10-19 Oral, ity of hen (NORCO 18:54: Q6HPRN, [place] 5) 5-325 mg 37 Starting Medi ajay tablet 1 Sat Branch tablet 10/19/20 at 1254, Until Discontinu ed, Routine, Pain (scale 4-6) gabapentin No 300mg 300 mg, Un boris (NEURONTIN) 10-19 Oral, ity of capsule 300 15:15: 15:30 ONCE, 1 [place] mg 00 :00 dose, Sat Medical 10/19/20 at Branch 0915, Routine celecoxib No 400mg 400 mg, Uni vers (CELEBREX) 10-19 Oral, ity of capsule 400 15:15: 15:29 ONCE, 1 [place] mg 00 :00 dose, Sat Medical 10/19/20 at Branch 0915, Routine oxyCODONE-a No 2{tbl} 2 tablet, Univers cetaminophe 10-19 Oral, ity of n 15:15: 15:30 ONCE, 1 [place] (PERCOCET) 00 :00 dose, Sat Medi ajay 5-325 mg 10/19/20 at Bran h per tablet 0915, 2 tablet Routine Sodium No 1,000 mL, Memori a Chloride 04-04 Rate: 50 l 0.154 15:33: ml/hr, Shiv MEQ/ML 00 Infuse Injectable over: 20 Solution hr, Route: IV, Dosing Weight 125 kg, Total Volume: 1,000, Priority: Routine, Start date: 04/04/16 10:33:00 CDT, Duration: 30 day, Stop date: 05/04/16 10:32:00 CDT Acetaminoph No Notes: Do M emoria en 04-04 not exceed l 15:33: 4 gm/day. [place] 00 (Same as: Tylenol) Acetaminoph No Notes: Blake [place] en 325 MG / 04-04 (Same as: l Hydrocodone 15:33: [place] Ayleen nn Bitartrate 00 325/5) Do 5 MG Oral not exceed Tablet 4gm/day of acetaminop hen. Sodium 2015-0 No 1,000 mL, Memori a Chloride 7-13 Rate: 50 l 0.154 15:33: ml/hr, Shiv MEQ/ML 00 Infuse Injectable over: 20 Solution hr, Route: IV, Dosing Weight 125 kg, Total Volume: 1,000, Priority: Routine, Start date: 04/04/16 10:33:00 CDT, Duration: 30 day, Stop date: 05/04/16 10:32:00 CDT Acetaminoph No Notes: Do M emoria en 7- not exceed l 15:33: 4 gm/day. Shiv 00 (Same as: Tylenol) Acetaminoph No Notes: Blake [place] en 325 MG / 13 (Same as: l Hydrocodone 15:33: [place] Ayleen nn Bitartrate 00 325/5) Do 5 MG Oral not exceed Tablet 4gm/day of acetaminop hen. Sodium No 1,000 mL, Memori a Chloride 7-13 Rate: 50 l 0.154 15:33: ml/hr, [place] MEQ/ML 00 Infuse Injectable over: 20 Solution hr, Route: IV, Dosing Weight 125 kg, Total Volume: 1,000, Priority: Routine, Start date: 04/04/16 10:33:00 CDT, Duration: 30 day, Stop date: 05/04/16 10:32:00 CDT Acetaminoph No Notes: Do M emoria en 04-04 not exceed l 15:33: 4 gm/day. Shiv 00 (Same as: Tylenol) Acetaminoph No Notes: Blake d[place] en 325 MG / 713 (Same as: l Hydrocodone 15:33: [place] Ayleen nn Bitartrate 00 325/5) Do 5 MG Oral not exceed Tablet 4gm/day of acetaminop hen. Sodium 0 No 1,000 mL, Memori a Chloride 7-13 Rate: 50 l 0.154 15:33: ml/hr, Shiv MEQ/ML 00 Infuse Injectable over: 20 Solution hr, Route: IV, Dosing Weight 125 kg, Total Volume: 1,000, Priority: Routine, Start date: 04/04/16 10:33:00 CDT, Duration: 30 day, Stop date: 05/04/16 10:32:00 CDT Acetaminoph No Notes: Do M emoria en 04-04 not exceed l 15:33: 4 gm/day. Shiv 00 (Same as: Tylenol) Acetaminoph No Notes: Blake d[place] en 325 MG / 04-04 (Same as: l Hydrocodone 15:33: [place] Ayleen nn Bitartrate 00 325/5) Do 5 MG Oral not exceed Tablet 4gm/day of acetaminop hen. Bupivacaine No 30 mL, Blake [place] Hydrochlori 7-13 Route: l de 2.5 11:00: MISC, [place] MG/ML / 00 Dosing Epinephrine Weight 0.005 MG/ML 125, kg, Injectable ONCALL, Solution Start date: 04/04/16 6:00:00 CDT, Duration: 30 day, Stop date: 05/04/16 5:59:00 CDT Bacitracin No 1 appl, Blake [place] 0.5 UNT/MG 7-13 Route: l / Polymyxin 11:00: TOP, Al n B 10 UNT/MG 00 ONCALL, Topical Drug form: Ointment OINT, [Polysporin Priority: ] Routine, Start date: 04/04/16 6:00:00 CDT, Duration: 1 doses or times Fentanyl No 50 Memoria 7-13 microgram, l 11:00: Route: [place] 00 IVP, ONCALL, Dosing Weight 125, kg, Priority: Routine, Start date: 04/04/16 6:00:00 CDT, Duration: 1 doses or times Bupivacaine 0 No 30 mL, Blake [place] Hydrochlori -13 Route: l de 2.5 11:00: MISC, Shiv MG/ML / 00 Dosing Epinephrine Weight 0.005 MG/ML 125, kg, Injectable ONCALL, Solution Start date: 04/04/16 6:00:00 CDT, Duration: 30 day, Stop date: 05/04/16 5:59:00 CDT Bacitracin 0 No 1 appl, Blake [place] 0.5 UNT/MG 7-13 Route: l / Polymyxin 11:00: TOP, Al n B 10 UNT/MG 00 ONCALL, Topical Drug form: Ointment OINT, [Polysporin Priority: ] Routine, Start date: 04/04/16 6:00:00 CDT, Duration: 1 doses or times Fentanyl 2016-0 No 50 Memoria 7-13 microgram, l 11:00: Route: [place] 00 IVP, ONCALL, Dosing Weight 125, kg, Priority: Routine, Start date: 04/04/16 6:00:00 CDT, Duration: 1 doses or times Bupivacaine 2015-0 No 30 mL, Blake [place] Hydrochlori 7-13 Route: l de 2.5 11:00: MISC, Shiv MG/ML / 00 Dosing Epinephrine Weight 0.005 MG/ML 125, kg, Injectable ONCALL, Solution Start date: 04/04/16 6:00:00 CDT, Duration: 30 day, Stop date: 05/04/16 5:59:00 CDT Bacitracin 2015-0 No 1 appl, Blake [place] 0.5 UNT/MG 7-13 Route: l / Polymyxin 11:00: TOPAl B 10 UNT/MG 00 ONCALL, Topical Drug form: Ointment OINT, [Polysporin Priority: ] Routine, Start date: 04/04/16 6:00:00 CDT, Duration: 1 doses or times Fentanyl 2015-0 No 50 Memoria 7-13 microgram, l 11:00: Route: Shiv 00 IVP, ONCALL, Dosing Weight 125, kg, Priority: Routine, Start date: 04/04/16 6:00:00 CDT, Duration: 1 doses or times Bupivacaine 2016-0 No 30 mL, Blake [place] Hydrochlori 7-13 Route: l de 2.5 11:00: MISC, Shiv MG/ML / 00 Dosing Epinephrine Weight 0.005 MG/ML 125, kg, Injectable ONCALL, Solution Start date: 04/04/16 6:00:00 CDT, Duration: 30 day, Stop date: 05/04/16 5:59:00 CDT Bacitracin 2016-0 No 1 appl, Blake [place] 0.5 UNT/MG 7-13 Route: l / Polymyxin 11:00: TOPJustusan n B 10 UNT/MG 00 ONCALL, Topical Drug form: Ointment OINT, [Polysporin Priority: ] Routine, Start date: 04/04/16 6:00:00 CDT, Duration: 1 doses or times Fentanyl No 50 Memoria 7-13 microgram, l 11:00: Route: [place] 00 IVP, ONCALL, Dosing Weight 125, kg, Priority: Routine, Start date: 04/04/16 6:00:00 CDT, Duration: 1 doses or times Ondansetron No Notes: Blake [place] 7-13 (Same as: l 10:56: Zofran) Shiv 00 MEDICATION WASTE Product Size: 4 mg Product Wasted: ___ mg Promethazin No Notes: Do M emoria e 13 not give l 10:56: IV push. Shiv 00 (Same as: Phenergan) Fentanyl No 25 Memoria 7-13 microgram, l 10:56: Route: [place] 00 IVP, Q2H, Dosing Weight 125, kg, PRN Pain Score 6-10, Priority: Routine, Start date: 04/04/16 5:56:00 CDT, Duration: 1 doses or times, Stop date: Limited # of times Sodium No 1,000 mL, Memori a Chloride 04-04 Rate: 50 l 0.154 10:56: ml/hr, [place] MEQ/ML 00 Infuse Injectable over: 20 Solution hr, Route: IV, Dosing Weight 125 kg, Total Volume: 1,000, Priority: Routine, Start date: 04/04/16 5:56:00 CDT, Duration: 30 day, Stop date: 05/04/16 5:55:00 CDT Dexamethaso No Notes: Blake d[place] ne 7-13 Concentrat l 10:56: ion: [place] 00 4mg/ml Famotidine No Notes: Memor ia 7-13 (Same as: l 10:56: Pepcid) Can be dilute in 5-10cc NS IVP: Slow IV push over at least 2 minutes. Ondansetron No Notes: Blake [place] 7-13 (Same as: l 10:56: Zofran) [place] 00 MEDICATION WASTE Product Size: 4 mg Product Wasted: ___ mg Promethazin 2016-0 No Notes: Do Marah emoria e 04-04 not give l 10:56: IV push. Shiv 00 (Same as: Phenergan) Fentanyl 2015-0 No 25 Memoria 7-13 microgram, l 10:56: Route: Shiv 00 IVP, Q2H, Dosing Weight 125, kg, PRN Pain Score 6-10, Priority: Routine, Start date: 04/04/16 5:56:00 CDT, Duration: 1 doses or times, Stop date: Limited # of times Ondansetron No Notes: Blake [place] 7-13 (Same as: l 10:56: Zofran) MEDICATION WASTE Product Size: 4 mg Product Wasted: ___ mg Promethazin No Notes: Do Marah emoria e 04-04 not give l 10:56: IV push. (Same as: Phenergan) Fentanyl No 25 Memoria 7-13 microgram, l 10:56: Route: [place] 00 IVP, Q2H, Dosing Weight 125, kg, PRN Pain Score 6-10, Priority: Routine, Start date: 04/04/16 5:56:00 CDT, Duration: 1 doses or times, Stop date: Limited # of times Sodium 2016-0 No 1,000 mL, Memori a Chloride 7-13 Rate: 50 l 0.154 10:56: ml/hr, [place] MEQ/ML 00 Infuse Injectable over: 20 Solution hr, Route: IV, Dosing Weight 125 kg, Total Volume: 1,000, Priority: Routine, Start date: 04/04/16 5:56:00 CDT, Duration: 30 day, Stop date: 05/04/16 5:55:00 CDT Sodium 2016-0 No 1,000 mL, Memori a Chloride 7-13 Rate: 50 l 0.154 10:56: ml/hr, [place] MEQ/ML 00 Infuse Injectable over: 20 Solution hr, Route: IV, Dosing Weight 125 kg, Total Volume: 1,000, Priority: Routine, Start date: 04/04/16 5:56:00 CDT, Duration: 30 day, Stop date: 05/04/16 5:55:00 CDT Dexamethaso No Notes: Blake d[place] ne 7-13 Concentrat l 10:56: ion: [place] 00 4mg/ml Famotidine No Notes: Memor ia 7-13 (Same as: l 10:56: Pepcid) Shiv 00 Can be dilute in 5-10cc NS IVP: Slow IV push over at least 2 minutes. Dexamethaso No Notes: Blake d[place] ne 7-13 Concentrat l 10:56: ion: [place] 00 4mg/ml Famotidine No Notes: Memor ia 7-13 (Same as: l 10:56: Pepcid) Shiv 00 Can be dilute in 5-10cc NS IVP: Slow IV push over at least 2 minutes. Ondansetron No Notes: [place] 7-13 (Same as: l 10:56: Zofran) Shiv 00 MEDICATION WASTE Product Size: 4 mg Product Wasted: ___ mg Promethazin No Notes: Do M emoria e - not give l 10:56: IV push. Shiv 00 (Same as: Phenergan) Fentanyl No 25 Memoria 7-13 microgram, l 10:56: Route: Shiv 00 IVP, Q2H, Dosing Weight 125, kg, PRN Pain Score 6-10, Priority: Routine, Start date: 04/04/16 5:56:00 CDT, Duration: 1 doses or times, Stop date: Limited # of times Sodium 2015- No 1,000 mL, Memori a Chloride 7-13 Rate: 50 l 0.154 10:56: ml/hr, Shiv MEQ/ML 00 Infuse Injectable over: 20 Solution hr, Route: IV, Dosing Weight 125 kg, Total Volume: 1,000, Priority: Routine, Start date: 04/04/16 5:56:00 CDT, Duration: 30 day, Stop date: 05/04/16 5:55:00 CDT Dexamethaso No Notes: Blake [place] ne 7-13 Concentrat l 10:56: ion: Shiv 00 4mg/ml Famotidine No Notes: Memor ia 7-13 (Same as: l 10:56: Pepcid) [place] 00 Can be dilute in 5-10cc NS IVP: Slow IV push over at least 2 minutes. Dilaudid 2016-0 No 2 mg, Memoria 6-11 Route: IM, l 16:28: ONCE, [place] Dosing Weight 126.682, kg, Start date: 03/03/16 11:28:00 CDT, Stop date: 03/03/16 11:28:00 CDT Dilaudid 2016-0 No 2 mg, Memoria 6- Route: IM, l 16:28: ONCE, [place] Dosing Weight 126.682, kg, Start date: 03/03/16 11:28:00 CDT, Stop date: 03/03/16 11:28:00 CDT Dilaudid 2016-0 No 2 mg, Memoria 6- Route: IM, l 16:28: ONCE, [place] Dosing Weight 126.682, kg, Start date: 03/03/16 11:28:00 CDT, Stop date: 03/03/16 11:28:00 CDT Dilaudid 2016-0 No 2 mg, Memoria 6 Route: IM, l 16:28: ONCE, Shiv Dosing Weight 126.682, kg, Start date: 03/03/16 11:28:00 CDT, Stop date: 03/03/16 11:28:00 CDT Sodium 2016-0 No 1,000 mL, Memori a Chloride 09-28 Rate: 50 l 0.154 16:53: ml/hr, [place] MEQ/ML 00 Infuse Injectable over: 20 Solution hr, Route: IV, Dosing Weight 129.091 kg, Total Volume: 1,000, Priority: Routine, Start date: 09/28/15 10:53:00, Duration: 30 day, Stop date: 10/28/15 10:52:00 Acetaminoph 2016-0 No 2 tab, Blake [place] en 325 MG / 09-28 Route: PO, l Hydrocodone 16:53: Drug Form: [place] Bitartrate 00 TAB, 5 MG Oral Dosing Tablet Weight 129.091, kg, Q4H, PRN Pain Score 7-10, Start date: 09/28/15 10:53:00, Duration: 30 day, Stop date: 10/28/15 10:52:00 Acetaminoph 2016-0 No 325 mg, Mem oria en 09-28 Route: PO, l 16:53: Drug form: Shiv 00 TAB, Q4H, Dosing Weight 129.091, kg, PRN Pain Score 1-3, Start date: 09/28/15 10:53:00, Duration: 30 day, Stop date: 10/28/15 10:52:00 Sodium 2016-0 No 1,000 mL, Memori a Chloride 09-28 Rate: 50 l 0.154 16:53: ml/hr, Shiv MEQ/ML 00 Infuse Injectable over: 20 Solution hr, Route: IV, Dosing Weight 129.091 kg, Total Volume: 1,000, Priority: Routine, Start date: 09/28/15 10:53:00, Duration: 30 day, Stop date: 10/28/15 10:52:00 Acetaminoph 2016-0 No 2 tab, Blake [place] en 325 MG / 09-28 Route: PO, l Hydrocodone 16:53: Drug Form: Shiv Bitartrate 00 TAB, 5 MG Oral Dosing Tablet Weight 129.091, kg, Q4H, PRN Pain Score 7-10, Start date: 09/28/15 10:53:00, Duration: 30 day, Stop date: 10/28/15 10:52:00 Acetaminoph 2016-0 No 325 mg, Mem oria en 09-28 Route: PO, l 16:53: Drug form: Shiv 00 TAB, Q4H, Dosing Weight 129.091, kg, PRN Pain Score 1-3, Start date: 09/28/15 10:53:00, Duration: 30 day, Stop date: 10/28/15 10:52:00 Sodium 2016-0 No 1,000 mL, Memori a Chloride 09-28 Rate: 50 l 0.154 16:53: ml/hr, Shiv MEQ/ML 00 Infuse Injectable over: 20 Solution hr, Route: IV, Dosing Weight 129.091 kg, Total Volume: 1,000, Priority: Routine, Start date: 09/28/15 10:53:00, Duration: 30 day, Stop date: 10/28/15 10:52:00 Acetaminoph 2016-0 No 2 tab, [place] en 325 MG / 09-28 Route: PO, l Hydrocodone 16:53: Drug Form: [place] Bitartrate 00 TAB, 5 MG Oral Dosing Tablet Weight 129.091, kg, Q4H, PRN Pain Score 7-10, Start date: 09/28/15 10:53:00, Duration: 30 day, Stop date: 10/28/15 10:52:00 Acetaminoph 2016-0 No 325 mg, Mem oria en 09-28 Route: PO, l 16:53: Drug form: Shiv 00 TAB, Q4H, Dosing Weight 129.091, kg, PRN Pain Score 1-3, Start date: 09/28/15 10:53:00, Duration: 30 day, Stop date: 10/28/15 10:52:00 Sodium 2016-0 No 1,000 mL, Memori a Chloride 09-28 Rate: 50 l 0.154 16:53: ml/hr, [place] MEQ/ML 00 Infuse Injectable over: 20 Solution hr, Route: IV, Dosing Weight 129.091 kg, Total Volume: 1,000, Priority: Routine, Start date: 09/28/15 10:53:00, Duration: 30 day, Stop date: 10/28/15 10:52:00 Acetaminoph 2016-0 No 2 tab, [place] en 325 MG / 06 Route: PO, l Hydrocodone 16:53: Drug Form: [place] Bitartrate 00 TAB, 5 MG Oral Dosing Tablet Weight 129.091, kg, Q4H, PRN Pain Score 7-10, Start date: 09/28/15 10:53:00, Duration: 30 day, Stop date: 10/28/15 10:52:00 Acetaminoph 2016-0 No 325 mg, Mem oria en 09-28 Route: PO, l 16:53: Drug form: Shiv 00 TAB, Q4H, Dosing Weight 129.091, kg, PRN Pain Score 1-3, Start date: 09/28/15 10:53:00, Duration: 30 day, Stop date: 10/28/15 10:52:00 Fentanyl 2016-0 No 50 Memoria 1-06 microgram, l 13:00: Route: [place] 00 IVP, ONCALL, Dosing Weight 129.091, kg, Priority: Routine, Start date: 09/28/15 7:00:00, Duration: 1 doses or times Bacitracin No Notes: Memor ia 0.5 UNT/MG 1-06 (Same As: l / Polymyxin 13:00: Polysporin [place] B 10 UNT/MG 00 ) Topical Ointment [Polysporin ] Bupivacaine No Notes: [place] Hydrochlori 1-06 (bupivacai l de 2.5 13:00: ne-epi [place] MG/ML / 00 0.25%-1:20 Epinephrine 0,000 30 0.005 MG/ML ml VL) Not Injectable for use in Solution continuous infusion. (Same As: Marcaine w/Epi) Fentanyl No 50 Memoria 1-06 microgram, l 13:00: Route: Shiv 00 IVP, ONCALL, Dosing Weight 129.091, kg, Priority: Routine, Start date: 09/28/15 7:00:00, Duration: 1 doses or times Bacitracin No Notes: Memor ia 0.5 UNT/MG 1-06 (Same As: l / Polymyxin 13:00: Polysporin Shiv B 10 UNT/MG 00 ) Topical Ointment [Polysporin ] Bupivacaine No Notes: [place] Hydrochlori 1-06 (bupivacai l de 2.5 13:00: ne-epi Shiv MG/ML / 00 0.25%-1:20 Epinephrine 0,000 30 0.005 MG/ML ml VL) Not Injectable for use in Solution continuous infusion. (Same As: Marcaine w/Epi) Fentanyl 0 No 50 Memoria 1-06 microgram, l 13:00: Route: Shiv 00 IVP, ONCALL, Dosing Weight 129.091, kg, Priority: Routine, Start date: 09/28/15 7:00:00, Duration: 1 doses or times Bacitracin No Notes: Memor ia 0.5 UNT/MG 1-06 (Same As: l / Polymyxin 13:00: Polysporin Shiv B 10 UNT/MG 00 ) Topical Ointment [Polysporin ] Bupivacaine No Notes: [place] Hydrochlori 1-06 (bupivacai l de 2.5 13:00: ne-epi [place] MG/ML / 00 0.25%-1:20 Epinephrine 0,000 30 0.005 MG/ML ml VL) Not Injectable for use in Solution continuous infusion. (Same As: Marcaine w/Epi) Fentanyl No 50 Memoria 1-06 microgram, l 13:00: Route: [place] 00 IVP, ONCALL, Dosing Weight 129.091, kg, Priority: Routine, Start date: 09/28/15 7:00:00, Duration: 1 doses or times Bacitracin No Notes: Memor ia 0.5 UNT/MG 09-28 (Same As: l / Polymyxin 13:00: Polysporin [place] B 10 UNT/MG 00 ) Topical Ointment [Polysporin ] Bupivacaine No Notes: [place] Hydrochlori 09-28 (bupivacai l de 2.5 13:00: ne-epi Shiv MG/ML / 00 0.25%-1:20 Epinephrine 0,000 30 0.005 MG/ML ml VL) Not Injectable for use in Solution continuous infusion. (Same As: Marcaine w/Epi) Fentanyl No Notes: Memoria -06 (Same as: l 12:14: Sublimaze) Shiv 00 Preservati ve free. Famotidine No Notes: Memor ia 09-28 (Same as: l 12:14: Pepcid) [place] 00 Can be dilute in 5-10cc NS IVP: Slow IV push over at least 2 minutes. Promethazin No Notes: Do M emoria e 09-28 not give l 12:14: IV push. Shiv 00 (Same as: Phenergan) Ondansetron No Notes: [place] 09-28 (Same as: l 12:14: Zofran) Shiv 00 MEDICATION WASTE Product Size: 4 mg Product Wasted: ___ mg Dexamethaso No Notes: Memoria ne 09-28 MEDICATION l 12:14: WASTE Shiv 00 Product Size: 10 mg Product Wasted: ___ mg Sodium No 1,000 mL, Memori a Chloride 06 Rate: 50 l 0.154 12:14: ml/hr, [place] MEQ/ML 00 Infuse Injectable over: 20 Solution hr, Route: IV, Dosing Weight 129.091 kg, Total Volume: 1,000, Priority: Routine, Start date: 09/28/15 6:14:00, Duration: 30 day, Stop date: 10/28/15 6:13:00 Fentanyl No Notes: Memoria - (Same as: l 12:14: Sublimaze) Shiv 00 Preservati ve free. Famotidine No Notes: Memor ia 09-28 (Same as: l 12:14: Pepcid) Shiv 00 Can be dilute in 5-10cc NS IVP: Slow IV push over at least 2 minutes. Promethazin No Notes: Do M emoria e 09-28 not give l 12:14: IV push. Shiv 00 (Same as: Phenergan) Ondansetron No Notes: [place] 09-28 (Same as: l 12:14: Zofran) Shiv 00 MEDICATION WASTE Product Size: 4 mg Product Wasted: ___ mg Dexamethaso No Notes: Memoria ne 09-28 MEDICATION l 12:14: WASTE [place] 00 Product Size: 10 mg Product Wasted: ___ mg Sodium No 1,000 mL, Memori a Chloride 09-28 Rate: 50 l 0.154 12:14: ml/hr, [place] MEQ/ML 00 Infuse Injectable over: 20 Solution hr, Route: IV, Dosing Weight 129.091 kg, Total Volume: 1,000, Priority: Routine, Start date: 09/28/15 6:14:00, Duration: 30 day, Stop date: 10/28/15 6:13:00 Fentanyl No Notes: Memoria 09-28 (Same as: l 12:14: Sublimaze) Shiv 00 Preservati ve free. Famotidine No Notes: Memor ia -06 (Same as: l 12:14: Pepcid) [place] 00 Can be dilute in 5-10cc NS IVP: Slow IV push over at least 2 minutes. Promethazin No Notes: Do M emoria e 09-28 not give l 12:14: IV push. [place] 00 (Same as: Phenergan) Ondansetron No Notes: [place] -06 (Same as: l 12:14: Zofran) [place] 00 MEDICATION WASTE Product Size: 4 mg Product Wasted: ___ mg Dexamethaso No Notes: Memoria ne 09-28 MEDICATION l 12:14: WASTE [place] 00 Product Size: 10 mg Product Wasted: ___ mg Sodium No 1,000 mL, Memori a Chloride 09-28 Rate: 50 l 0.154 12:14: ml/hr, [place] MEQ/ML 00 Infuse Injectable over: 20 Solution hr, Route: IV, Dosing Weight 129.091 kg, Total Volume: 1,000, Priority: Routine, Start date: 09/28/15 6:14:00, Duration: 30 day, Stop date: 10/28/15 6:13:00 Fentanyl No Notes: Memoria 09-28 (Same as: l 12:14: Sublimaze) Shiv 00 Preservati ve free. Famotidine No Notes: Memor ia 09-28 (Same as: l 12:14: Pepcid) [place] 00 Can be dilute in 5-10cc NS IVP: Slow IV push over at least 2 minutes. Promethazin No Notes: Do M emoria e 09-28 not give l 12:14: IV push. Shiv 00 (Same as: Phenergan) Ondansetron No Notes: [place] - (Same as: l 12:14: Zofran) [place] 00 MEDICATION WASTE Product Size: 4 mg Product Wasted: ___ mg Dexamethaso No Notes: Memoria ne 09-28 MEDICATION l 12:14: WASTE [place] 00 Product Size: 10 mg Product Wasted: ___ mg Sodium No 1,000 mL, Memori a Chloride 09-28 Rate: 50 l 0.154 12:14: ml/hr, Shiv MEQ/ML 00 Infuse Injectable over: 20 Solution hr, Route: IV, Dosing Weight 129.091 kg, Total Volume: 1,000, Priority: Routine, Start date: 09/28/15 6:14:00, Duration: 30 day, Stop date: 10/28/15 6:13:00 Ketorolac No 4 days. [place] Tromethamin 6-05 Give with l e 10 MG 05:00: food. Shiv Oral Tablet 00 (Same as:Toradol ) heparin No Notes: Memoria 6-05 porcine l 05:00: heparin [place] Ketorolac No 4 days. [place] Tromethamin 6-05 Give with l e 10 MG 05:00: food. Shiv Oral Tablet 00 (Same as:Toradol ) heparin No Notes: Memoria 6-05 porcine l 05:00: heparin Shiv Ketorolac No 4 days. [place] Tromethamin 6-05 Give with l e 10 MG 05:00: food. [place] Oral Tablet 00 (Same as:Toradol ) heparin No Notes: Memoria 6-05 porcine l 05:00: heparin Shiv Ketorolac No 4 days. [place] Tromethamin 6-05 Give with l e 10 MG 05:00: food. Shiv Oral Tablet 00 (Same as:Toradol ) heparin No Notes: [facility]oria 6-05 porcine l 05:00: heparin [place] Ketorolac Yes 10 mg = 1 Mem oria Tromethamin 6-05 tab, PO, l e 10 MG 01:09: Q6H, X 5 Al n Oral Tablet 00 day, # 20 tab, 0 Refill(s) Promethazin Yes 12.5 mg = M emoria e 6-05 1 tab, PO, l Hydrochlori 01:09: Q4H, PRN [place] de 12.5 MG 00 Nausea & Oral Tablet Vomiting, [Phenergan] # 60 tab, 0 Refill(s) magnesium Yes 17.45 gm = Me moria citrate 6-05 300 mL, l 8.85% oral 01:09: PO, ONCE, [facility] liquid 00 PRN For severe constipati on, # 300 mL, 0 Refill(s) Ondansetron Yes 4 mg = 1 Me moria 4 MG Oral 6-05 tab, PO, l Tablet 01:09: Q8H, PRN [place] [Zofran] 00 as needed for nausea/vom iting, # 30 tab, 0 Refill(s) Docusate Yes 100 mg = 1 Mem oria Sodium 100 6-05 cap, PO, l MG Oral 01:09: BID, PRN Al n Capsule 00 Constipati [Colace] on, # 100 cap, 0 Refill(s) Ketorolac Yes 10 mg = 1 Mem oria Tromethamin 6-05 tab, PO, l e 10 MG 01:09: Q6H, X 5 Al n Oral Tablet 00 day, # 20 tab, 0 Refill(s) Promethazin Yes 12.5 mg = M emoria e 6-05 1 tab, PO, l Hydrochlori 01:09: Q4H, PRN [place] de 12.5 MG 00 Nausea & Oral Tablet Vomiting, [Phenergan] # 60 tab, 0 Refill(s) magnesium Yes 17.45 gm = Me moria citrate 6-05 300 mL, l 8.85% oral 01:09: PO, ONCE, [place] liquid 00 PRN For severe constipati on, # 300 mL, 0 Refill(s) Ondansetron Yes 4 mg = 1 Me moria 4 MG Oral 6-05 tab, PO, l Tablet 01:09: Q8H, PRN Shiv [Zofran] 00 as needed for nausea/vom iting, # 30 tab, 0 Refill(s) Docusate Yes 100 mg = 1 Mem oria Sodium 100 6-05 cap, PO, l MG Oral 01:09: BID, PRN Al n Capsule 00 Constipati [Colace] on, # 100 cap, 0 Refill(s) Ketorolac Yes 10 mg = 1 Mem oria Tromethamin 6-05 tab, PO, l e 10 MG 01:09: Q6H, X 5 Al n Oral Tablet 00 day, # 20 tab, 0 Refill(s) Promethazin Yes 12.5 mg = M emoria e 6-05 1 tab, PO, l Hydrochlori 01:09: Q4H, PRN [place] de 12.5 MG 00 Nausea & Oral Tablet Vomiting, [Phenergan] # 60 tab, 0 Refill(s) magnesium Yes 17.45 gm = Me moria citrate 6-05 300 mL, l 8.85% oral 01:09: PO, ONCE, [place] liquid 00 PRN For severe constipati on, # 300 mL, 0 Refill(s) Ondansetron Yes 4 mg = 1 Me moria 4 MG Oral 6-05 tab, PO, l Tablet 01:09: Q8H, PRN Shiv [Zofran] 00 as needed for nausea/vom iting, # 30 tab, 0 Refill(s) Docusate Yes 100 mg = 1 Mem oria Sodium 100 6-05 cap, PO, l MG Oral 01:09: BID, PRN Al n Capsule 00 Constipati [Colace] on, # 100 cap, 0 Refill(s) Ketorolac Yes 10 mg = 1 Mem oria Tromethamin 6-05 tab, PO, l e 10 MG 01:09: Q6H, X 5 Al n Oral Tablet 00 day, # 20 tab, 0 Refill(s) Promethazin Yes 12.5 mg = M emoria e 6-05 1 tab, PO, l Hydrochlori 01:09: Q4H, PRN [place] de 12.5 MG 00 Nausea & Oral Tablet Vomiting, [Phenergan] # 60 tab, 0 Refill(s) magnesium Yes 17.45 gm = Me moria citrate 6-05 300 mL, l 8.85% oral 01:09: PO, ONCE, [place] liquid 00 PRN For severe constipati on, # 300 mL, 0 Refill(s) Ondansetron Yes 4 mg = 1 Me moria 4 MG Oral 6-05 tab, PO, l Tablet 01:09: Q8H, PRN Shiv [Zofran] 00 as needed for nausea/vom iting, # 30 tab, 0 Refill(s) Docusate Yes 100 mg = 1 Mem oria Sodium 100 6-05 cap, PO, l MG Oral 01:09: BID, PRN Al n Capsule 00 Constipati [Colace] on, # 100 cap, 0 Refill(s) ketOROLAC 2015-0 No 4 days. [place] 30 mg/mL 6-05 l injectable 01:07: Shiv solution 00 ketOROLAC 0 No 4 days. [place] 30 mg/mL 6-05 l injectable 01:07: Shiv solution 00 ketOROLAC 0 No 4 days. [place] 30 mg/mL 6-05 l injectable 01:07: Shiv solution 00 ketOROLAC 0 No 4 days. [place] 30 mg/mL 6-05 l injectable 01:07: Shiv solution 00 Cozaar No Notes: Memoria 6-04 (Same as: l 14:00: Cozaar) Shiv hydrochloro No Notes: [place] thiazide 25 6-04 (Same as: l mg oral 14:00: Hydrodiuri [place] tablet 00 l) With food. Hydrochloro No 1 tab, [place] thiazide 25 6-04 Route: PO, l MG / 14:00: Drug Form: Shiv Losartan 00 TAB, Potassium Dosing 100 MG Oral Weight Tablet 124.545, kg, Daily, Start date: 02/24/15 9:00:00, Duration: 30 day, Stop date: 03/25/15 9:00:00 Cozaar No Notes: Memoria 6-04 (Same as: l 14:00: Cozaar) [place] hydrochloro No Notes: [place] thiazide 25 6-04 (Same as: l mg oral 14:00: Hydrodiuri [place] tablet 00 l) With food. Hydrochloro No 1 tab, [place] thiazide 25 6-04 Route: PO, l MG / 14:00: Drug Form: [place] Losartan 00 TAB, Potassium Dosing 100 MG Oral Weight Tablet 124.545, kg, Daily, Start date: 02/24/15 9:00:00, Duration: 30 day, Stop date: 03/25/15 9:00:00 Cozaar No Notes: Memoria 6-04 (Same as: l 14:00: Cozaar) Shiv hydrochloro No Notes: [place] thiazide 25 6-04 (Same as: l mg oral 14:00: Hydrodiuri [place] tablet 00 l) With food. Hydrochloro No 1 tab, [place] thiazide 25 6-04 Route: PO, l MG / 14:00: Drug Form: [place] Losartan 00 TAB, Potassium Dosing 100 MG Oral Weight Tablet 124.545, kg, Daily, Start date: 02/24/15 9:00:00, Duration: 30 day, Stop date: 03/25/15 9:00:00 Cozaar No Notes: Memoria 6-04 (Same as: l 14:00: Cozaar) [place] 00 hydrochloro No Notes: [place] thiazide 25 6-04 (Same as: l mg oral 14:00: Hydrodiuri [place] tablet 00 l) With food. Hydrochloro No 1 tab, [place] thiazide 25 6-04 Route: PO, l MG / 14:00: Drug Form: [place] Losartan 00 TAB, Potassium Dosing 100 MG Oral Weight Tablet 124.545, kg, Daily, Start date: 02/24/15 9:00:00, Duration: 30 day, Stop date: 03/25/15 9:00:00 Flexeril No Notes: Memoria 6-04 (Same As: l 13:00: Flexeril) [place] Flexeril No Notes: Memoria 6-04 (Same As: l 13:00: Flexeril) [place] Flexeril No Notes: Memoria 6-04 (Same As: l 13:00: Flexeril) [place] Flexeril No Notes: Memoria 6-04 (Same As: l 13:00: Flexeril) Shiv Dilaudid No Notes: Memoria 6-04 Same as: l 11:25: Dilaudid Shiv 00 Dilaudid No Notes: [facility]oria 6-04 Same as: l 11:25: Dilaudid [place] 00 Dilaudid No Notes: Memoria 6-04 Same as: l 11:25: Dilaudid Shiv 00 Dilaudid No Notes: Memoria 6-04 Same as: l 11:25: Dilaudid [place] Phenergan No Notes: Do Mem oria 6-04 not give l 07:21: IV push. Shiv 00 (Same as: Phenergan) Phenergan No Notes: Do Mem oria 6-04 not give l 07:21: IV push. Shiv 00 (Same as: Phenergan) Phenergan No Notes: Do Mem oria 6-04 not give l 07:21: IV push. Shiv 00 (Same as: Phenergan) Phenergan No Notes: Do Mem oria 6-04 not give l 07:21: IV push. Shiv 00 (Same as: Phenergan) Lyrica No Notes: Memoria 6-04 (Same as: l 03:17: Lyrica) [place] Lyrica No Notes: Memoria 6-04 (Same as: l 03:17: Lyrica) [place] Lyrica No Notes: [facility]oria 6-04 (Same as: l 03:17: Lyrica) [place] Lyrica No Notes: Memoria 6-04 (Same as: l 03:17: Lyrica) Shiv Docusate No Notes: [facility]oria 6-04 (Same as: l 02:00: Colace) Shiv (Do Not Crush) Saline No Notes: Memoria Flush 0.9% 6-04 (Same as: l 02:00: BD Shiv 00 Posiflush) sennosides, No Notes: [place] HALFWAY 6-04 (Same as: l 02:00: Senokot) Shiv 00 Oxycontin No Notes: Do Mem oria 6-04 not crush l 02:00: or chew. Shiv 00 (Same as: OxyContin) Docusate No Notes: Memoria 6-04 (Same as: l 02:00: Colace) Shiv (Do Not Crush) Saline No Notes: [facility] Flush 0.9% 6-04 (Same as: l 02:00: BD [place] 00 Posiflush) sennosides, No Notes: [place] HALFWAY 6-04 (Same as: l 02:00: Senokot) [place] Oxycontin No Notes: Do Mem oria 6-04 not crush l 02:00: or chew. [place] 00 (Same as: OxyContin) Docusate No Notes: Memoria 6-04 (Same as: l 02:00: Colace) Shiv 00 (Do Not Crush) Saline No Notes: [facility] Flush 0.9% 6-04 (Same as: l 02:00: BD [place] 00 Posiflush) sennosides, No Notes: [place] HALFWAY 6-04 (Same as: l 02:00: Senokot) [place] Oxycontin No Notes: Do Mem oria 6-04 not crush l 02:00: or chew. Shiv 00 (Same as: OxyContin) Docusate No Notes: Memoria 6-04 (Same as: l 02:00: Colace) [place] (Do Not Crush) Saline No Notes: Mem[facility] Flush 0.9% 6-04 (Same as: l 02:00: BD [place] 00 Posiflush) sennosides, No Notes: [place] HALFWAY 6-04 (Same as: l 02:00: Senokot) Shiv Oxycontin No Notes: Do Mem oria 6-04 not crush l 02:00: or chew. [place] 00 (Same as: OxyContin) Cefazolin No Notes: Memori a 02-23 (Same As: l 23:00: Ancef [place] 00 Kefzol) Cefazolin FOR IV SET ONLY MEDICATION WASTE Product Size: 1000 mg Product Wasted: ___ mg Dextrose No 6.25 gm, Memor ia 50% Syringe 02-23 12.5 mL, l 23:00: Route: Shiv 00 IVP, Drug Form: INJ, Dosing Weight 124.545, kg, PRN, PRN Abnormal Lab Result, Start date: 02/23/15 18:00:00, Duration: 30 day, Stop date: 03/25/15 17:59:00 Regular No 60 units) [place] Insulin, 02-23 Stable for l Human 100 23:00: 28 days at [facility] UNT/ML 00 room Injectable temperatur Solution e Expires in days from ____Date Saline No Notes: Memoria Flush 0.9% 02-23 (Same as: l 23:00: BD Shiv 00 Posiflush) Ondansetron No Notes: [place] 02-23 (Same as: l 23:00: Zofran) Shiv 00 MEDICATION WASTE Product Size: 4 mg Product Wasted: _0__ mg Acetaminoph No Notes: Do M emoria en 02-23 not exceed l 23:00: 4 gm/day. [place] 00 (Same as: Tylenol) Acetaminoph No Notes: Do M emoria en 325 MG / 02-23 not exceed l Hydrocodone 23:00: 4gm/day of [place] Bitartrate 00 acetaminop 10 MG Oral hen. (Same Tablet as: [place] 325/10) Morphine No Notes: Memoria 02-23 (Same l 23:00: as:MORPhin Shiv 00 e Sulfate) Sodium No 1,000 mL, Memori a Chloride 02-23 Rate: 75 l 0.154 23:00: ml/hr, [place] MEQ/ML 00 Infuse Injectable over: 13.3 Solution hr, Route: IV, Dosing Weight 124.545 kg, Total Volume: 1,000, Start date: 02/23/15 18:00:00, Duration: 30 day, Stop date: 03/25/15 17:59:00 Cefazolin No Notes: Memori a 02-23 (Same As: l 23:00: Ancef, Shiv 00 Kefzol) Cefazolin FOR IV SET ONLY MEDICATION WASTE Product Size: 1000 mg Product Wasted: ___ mg Dextrose No 6.25 gm, Memor ia 50% Syringe 02-23 12.5 mL, l 23:00: Route: Shiv 00 IVP, Drug Form: INJ, Dosing Weight 124.545, kg, PRN, PRN Abnormal Lab Result, Start date: 02/23/15 18:00:00, Duration: 30 day, Stop date: 03/25/15 17:59:00 Regular No 60 units) [place] Insulin, 02-23 Stable for l Human 100 23:00: 28 days at [facility] UNT/ML 00 room Injectable temperatur Solution e Expires in days from ____Date Saline No Notes: [facility] Flush 0.9% 02-23 (Same as: l 23:00: BD Shiv Posiflush) Ondansetron No Notes: [place] 02-23 (Same as: l 23:00: Zofran) Shiv 00 MEDICATION WASTE Product Size: 4 mg Product Wasted: _0__ mg Acetaminoph No Notes: Do M emoria en 02-23 not exceed l 23:00: 4 gm/day. [place] 00 (Same as: Tylenol) Acetaminoph No Notes: Do M emoria en 325 MG / 02-23 not exceed l Hydrocodone 23:00: 4gm/day of Shiv Bitartrate 00 acetaminop 10 MG Oral hen. (Same Tablet as: [place] 325/10) Morphine No Notes: Memoria 02-23 (Same l 23:00: as:MORPhin Shiv 00 e Sulfate) Sodium No 1,000 mL, Memori a Chloride 02-23 Rate: 75 l 0.154 23:00: ml/hr, Shiv MEQ/ML 00 Infuse Injectable over: 13.3 Solution hr, Route: IV, Dosing Weight 124.545 kg, Total Volume: 1,000, Start date: 02/23/15 18:00:00, Duration: 30 day, Stop date: 03/25/15 17:59:00 Cefazolin No Notes: Memori a 02-23 (Same As: l 23:00: Ancef, [place] Kefzol) Cefazolin FOR IV SET ONLY MEDICATION WASTE Product Size: 1000 mg Product Wasted: ___ mg Dextrose No 6.25 gm, Memor ia 50% Syringe 02-23 12.5 mL, l 23:00: Route: Shiv 00 IVP, Drug Form: INJ, Dosing Weight 124.545, kg, PRN, PRN Abnormal Lab Result, Start date: 02/23/15 18:00:00, Duration: 30 day, Stop date: 03/25/15 17:59:00 Regular No 60 units) [place] Insulin, 02-23 Stable for l Human 100 23:00: 28 days at [facility] UNT/ML 00 room Injectable temperatur Solution e Expires in days from ____Date Saline No Notes: [facility] Flush 0.9% 02-23 (Same as: l 23:00: BD Shiv Posiflush) Ondansetron No Notes: [place] 02-23 (Same as: l 23:00: Zofran) Shiv MEDICATION WASTE Product Size: 4 mg Product Wasted: _0__ mg Acetaminoph No Notes: Do M emoria en 02-23 not exceed l 23:00: 4 gm/day. [place] 00 (Same as: Tylenol) Acetaminoph No Notes: Do M emoria en 325 MG / 02-23 not exceed l Hydrocodone 23:00: 4gm/day of [place] Bitartrate 00 acetaminop 10 MG Oral hen. (Same Tablet as: [place] 325/10) Morphine No Notes: Memoria 02-23 (Same l 23:00: as:MORPhin [place] 00 e Sulfate) Sodium No 1,000 mL, Memori a Chloride 02-23 Rate: 75 l 0.154 23:00: ml/hr, [place] MEQ/ML 00 Infuse Injectable over: 13.3 Solution hr, Route: IV, Dosing Weight 124.545 kg, Total Volume: 1,000, Start date: 02/23/15 18:00:00, Duration: 30 day, Stop date: 03/25/15 17:59:00 Cefazolin No Notes: Memori a 02-23 (Same As: l 23:00: Ancef, Shiv 00 Kefzol) Cefazolin FOR IV SET ONLY MEDICATION WASTE Product Size: 1000 mg Product Wasted: ___ mg Dextrose No 6.25 gm, Memor ia 50% Syringe 02-23 12.5 mL, l 23:00: Route: [place] 00 IVP, Drug Form: INJ, Dosing Weight 124.545, kg, PRN, PRN Abnormal Lab Result, Start date: 02/23/15 18:00:00, Duration: 30 day, Stop date: 03/25/15 17:59:00 Regular No 60 units) [place] Insulin, 02-23 Stable for l Human 100 23:00: 28 days at [facility] UNT/ML 00 room Injectable temperatur Solution e Expires in days from ____Date Saline No Notes: [facility] Flush 0.9% 02-23 (Same as: l 23:00: BD Shiv 00 Posiflush) Ondansetron No Notes: [place] 02-23 (Same as: l 23:00: Zofran) [place] 00 MEDICATION WASTE Product Size: 4 mg Product Wasted: _0__ mg Acetaminoph No Notes: Do M emoria en 02-23 not exceed l 23:00: 4 gm/day. Shiv 00 (Same as: Tylenol) Acetaminoph No Notes: Do M emoria en 325 MG / 02-23 not exceed l Hydrocodone 23:00: 4gm/day of [place] Bitartrate 00 acetaminop 10 MG Oral hen. (Same Tablet as: [place] 325/10) Morphine No Notes: Memoria 02-23 (Same l 23:00: as:MORPhin Shiv 00 e Sulfate) Sodium No 1,000 mL, Memori a Chloride 02-23 Rate: 75 l 0.154 23:00: ml/hr, Shiv MEQ/ML 00 Infuse Injectable over: 13.3 Solution hr, Route: IV, Dosing Weight 124.545 kg, Total Volume: 1,000, Start date: 02/23/15 18:00:00, Duration: 30 day, Stop date: 03/25/15 17:59:00 Lyrica No Notes: Memoria 6-03 (Same as: l 22:00: Lyrica) carvedilol No Notes: Memor ia 6-03 Give with l 22:00: food. [place] 00 (Same As: Coreg) Lyrica No Notes: [facility]oria 6-03 (Same as: l 22:00: Lyrica) carvedilol No Notes: Memor ia 6-03 Give with l 22:00: food. Shiv 00 (Same As: Coreg) Lyrica No Notes: [facility]oria 6-03 (Same as: l 22:00: Lyrica) carvedilol No Notes: Memor ia 6-03 Give with l 22:00: food. Shiv 00 (Same As: Coreg) Lyrica No Notes: [facility]oria 6-03 (Same as: l 22:00: Lyrica) carvedilol No Notes: Memor ia 6-03 Give with l 22:00: food. [place] 00 (Same As: Coreg) Ondansetron No Notes: [place] 6-03 (Same as: l 21:26: Zofran) MEDICATION WASTE Product Size: 4 mg Product Wasted: ___ mg Metoprolol No Notes: Memor ia 6-03 (Same as: l 21:26: Lopressor) Push over 2 minutes Hydromorpho No Notes: [place] ne 6-03 Same as: l 21:26: Dilaudid Meperidine No Notes: Memor ia 6-03 (Same as: l 21:26: Demerol) "Use Precaution in Elderly, Seizure disorders, and Renal impairment " Flumazenil No Notes: Memor ia 6-03 (Same as: l 21:26: Romazicon) Naloxone No Notes: Memoria 6-03 (Same as: l 21:26: Narcan) Labetalol No 10 mg, 2 [place] 6-03 mL, Route: l 21:26: IVP, Drug form: INJ, Q5Min, Dosing Weight 124.545, kg, PRN Elevated BP, Start date: 02/23/15 16:26:00, Duration: 5 doses or times, Stop date: 02/24/15 0:00:00 Ondansetron No Notes: Blake dallas 6-03 (Same as: l 21:26: Zofran) MEDICATION WASTE Product Size: 4 mg Product Wasted: ___ mg Metoprolol No Notes: [facility] 6-03 (Same as: l 21:26: Lopressor) Push over 2 minutes Hydromorpho No Notes: Blake dallas ne 6 Same as: l 21:26: Dilaudid Meperidine No Notes: [facility] 6-03 (Same as: l 21:26: Demerol) "Use Precaution in Elderly, Seizure disorders, and Renal impairment " Flumazenil No Notes: [facility] 6-03 (Same as: l 21:26: Romazicon) Naloxone No Notes: [facility] 6-03 (Same as: l 21:26: Narcan) Labetalol No 10 mg, 2 Blake d[place] 6-03 mL, Route: l 21:26: IVP, Drug form: INJ, Q5Min, Dosing Weight 124.545, kg, PRN Elevated BP, Start date: 02/23/15 16:26:00, Duration: 5 doses or times, Stop date: 02/24/15 0:00:00 Ondansetron No Notes: Blake dallas 6-03 (Same as: l 21:26: Zofran) MEDICATION WASTE Product Size: 4 mg Product Wasted: ___ mg Metoprolol No Notes: [facility] 6-03 (Same as: l 21:26: Lopressor) Shiv 00 Push over 2 minutes Hydromorpho No Notes: Blake dallas ne 6-03 Same as: l 21:26: Dilaudid Meperidine No Notes: [facility] 6-03 (Same as: l 21:26: Demerol) "Use Precaution in Elderly, Seizure disorders, and Renal impairment " Flumazenil No Notes: [facility] 6- (Same as: l 21:26: Romazicon) Naloxone No Notes: [facility] 6 (Same as: l 21:26: Narcan) Labetalol No 10 mg, 2 Blake dallas 6-03 mL, Route: l 21:26: IVP, Drug form: INJ, Q5Min, Dosing Weight 124.545, kg, PRN Elevated BP, Start date: 02/23/15 16:26:00, Duration: 5 doses or times, Stop date: 02/24/15 0:00:00 Ondansetron No Notes: Blake dallas 6- (Same as: l 21:26: Zofran) MEDICATION WASTE Product Size: 4 mg Product Wasted: ___ mg Metoprolol No Notes: [facility] - (Same as: l 21:26: Lopressor) Push over 2 minutes Hydromorpho No Notes: Blake dallas ne 02-23 Same as: l 21:26: Dilaudid Meperidine No Notes: [facility] 6- (Same as: l 21:26: Demerol) "Use Precaution in Elderly, Seizure disorders, and Renal impairment " Flumazenil No Notes: [facility] 6- (Same as: l 21:26: Romazicon) Naloxone No Notes: [facility] 603 (Same as: l 21:26: Narcan) Labetalol No 10 mg, 2 Blake [place] 6-03 mL, Route: l 21:26: IVP, Drug form: INJ, Q5Min, Dosing Weight 124.545, kg, PRN Elevated BP, Start date: 02/23/15 16:26:00, Duration: 5 doses or times, Stop date: 02/24/15 0:00:00 [email or web address] No Notes: Memori a 6-03 Same as: l 11:03: Ancef [place] 00 [email or web address] No Notes: Memori a 02-23 Same as: l 11:03: Ancef [place] 00 ceFAZolin No Notes: Memori a 02-23 Same as: l 11:03: Ancef [place] 00 ceFAZolin No Notes: Memori a 02-23 Same as: l 11:03: Ancef [place] tramadol No 50 mg = 1 Blake [place] hydrochlori 6-01 tab, PO, l de 50 MG 14:05: Q6H, PRN Ayleen nn Oral Tablet 00 Pain, # 40 tab, 0 Refill(s) Hydrochloro Yes 1 tab, PO, Memoria thiazide 25 6-01 Daily, # l MG / 14:05: 30 tab, 0 [place] Losartan 00 Refill(s) Potassium 100 MG Oral Tablet 12 HR Yes 40 mg = 1 Memoria Oxycodone 6-01 tab, PO, l Hydrochlori 14:05: Q12H, 0 Her ramirez de 40 MG 00 Refill(s) Extended Release Tablet [Oxycontin] tramadol No 50 mg = 1 [place] hydrochlori 6-01 tab, PO, l de 50 MG 14:05: Q6H, PRN Ayleen nn Oral Tablet 00 Pain, # 40 tab, 0 Refill(s) Hydrochloro Yes 1 tab, PO, Memoria thiazide 25 6-01 Daily, # l MG / 14:05: 30 tab, 0 Shiv Losartan 00 Refill(s) Potassium 100 MG Oral Tablet 12 HR Yes 40 mg = 1 Memoria Oxycodone 6-01 tab, PO, l Hydrochlori 14:05: Q12H, 0 Her ramirez de 40 MG 00 Refill(s) Extended Release Tablet [Oxycontin] tramadol No 50 mg = 1 Blake [place] hydrochlori 6-01 tab, PO, l de 50 MG 14:05: Q6H, PRN Ayleen nn Oral Tablet 00 Pain, # 40 tab, 0 Refill(s) Hydrochloro Yes 1 tab, PO, Memoria thiazide 25 6-01 Daily, # l MG / 14:05: 30 tab, 0 Shiv Losartan 00 Refill(s) Potassium 100 MG Oral Tablet 12 HR Yes 40 mg = 1 Memoria Oxycodone 6-01 tab, PO, l Hydrochlori 14:05: Q12H, 0 Her ramirez de 40 MG 00 Refill(s) Extended Release Tablet [Oxycontin] tramadol No 50 mg = 1 [place] hydrochlori 6-01 tab, PO, l de 50 MG 14:05: Q6H, PRN Ayleen nn Oral Tablet 00 Pain, # 40 tab, 0 Refill(s) Hydrochloro Yes 1 tab, PO, Memoria thiazide 25 6- Daily, # l MG / 14:05: 30 tab, 0 Shiv Losartan 00 Refill(s) Potassium 100 MG Oral Tablet 12 HR Yes 40 mg = 1 Memoria Oxycodone 6-01 tab, PO, l Hydrochlori 14:05: Q12H, 0 Her ramirez de 40 MG 00 Refill(s) Extended Release Tablet [Oxycontin] carvedilol Yes 25 mg = 1 Me moria 25 mg oral 6-01 tab, PO, l tablet 14:04: BID, # 180 Ayleen nn 00 tab, 0 Refill(s) pregabalin Yes 300 mg = 1 M emoria 300 MG Oral 6-01 cap, PO, l Capsule 14:04: BID, # 90 Ayleen nn [Lyrica] 00 cap, 0 Refill(s) carvedilol Yes 25 mg = 1 Me moria 25 mg oral 6-01 tab, PO, l tablet 14:04: BID, # 180 Ayleen nn 00 tab, 0 Refill(s) pregabalin Yes 300 mg = 1 M emoria 300 MG Oral 6-01 cap, PO, l Capsule 14:04: BID, # 90 Ayleen nn [Lyrica] 00 cap, 0 Refill(s) carvedilol Yes 25 mg = 1 Me moria 25 mg oral 6-01 tab, PO, l tablet 14:04: BID, # 180 Ayleen nn 00 tab, 0 Refill(s) pregabalin Yes 300 mg = 1 M emoria 300 MG Oral 6-01 cap, PO, l Capsule 14:04: BID, # 90 Ayleen nn [Lyrica] 00 cap, 0 Refill(s) carvedilol 2014-0 Yes 25 mg = 1 Me moria 25 mg oral 6-01 tab, PO, l tablet 14:04: BID, # 180 Ayleen nn 00 tab, 0 Refill(s) pregabalin 2014-0 Yes 300 mg = 1 M emoria 300 MG Oral 6-01 cap, PO, l Capsule 14:04: BID, # 90 Ayleen nn [Lyrica] 00 cap, 0 Refill(s) Dilaudid 2014-0 No 2 mg, Memoria 01-18 Route: IM, l 16:05: ONCE, Dosing Weight 120.085, kg, Start date: 01/18/15 11:05:00, Stop date: 01/18/15 11:05:00 Valium 2015-0 No 5 mg, Memoria 01-18 Route: IM, l 16:05: Drug form: [place] INJ, ONCE, Dosing Weight 120.085, kg, Priority: STAT, Start date: 01/18/15 11:05:00, Stop date: 01/18/15 11:05:00 Dilaudid 2014-0 No 2 mg, Memoria 01-18 Route: IM, l 16:05: ONCE, Dosing Weight 120.085, kg, Start date: 01/18/15 11:05:00, Stop date: 01/18/15 11:05:00 Valium 2014-0 No 5 mg, Memoria 01-18 Route: IM, l 16:05: Drug form: Shiv INJ, ONCE, Dosing Weight 120.085, kg, Priority: STAT, Start date: 01/18/15 11:05:00, Stop date: 01/18/15 11:05:00 Dilaudid 2014-0 No 2 mg, Memoria 01-18 Route: IM, l 16:05: ONCE, Dosing Weight 120.085, kg, Start date: 01/18/15 11:05:00, Stop date: 01/18/15 11:05:00 Valium 2015-0 No 5 mg, Memoria 01-18 Route: IM, l 16:05: Drug form: Shiv INJ, ONCE, Dosing Weight 120.085, kg, Priority: STAT, Start date: 01/18/15 11:05:00, Stop date: 01/18/15 11:05:00 Valium 2015-0 No 5 mg, Memoria 01-18 Route: IM, l 16:05: Drug form: [place] 00 INJ, ONCE, Dosing Weight 120.085, kg, Priority: STAT, Start date: 01/18/15 11:05:00, Stop date: 01/18/15 11:05:00 Dilaudid 2015-0 No 2 mg, Memoria 01-18 Route: IM, l 16:05: ONCE, Shiv Dosing Weight 120.085, kg, Start date: 01/18/15 11:05:00, Stop date: 01/18/15 11:05:00 Mobic 15 mg Mobic 15 mg No Mobic 15 Jaqueline tablet 1 po tablet 1 po 7-28 mg tablet [facility] q day q day 00:00: 1 po q day dic [facility] Mobic 15 mg Mobic 15 mg No Mobic 15 Jaqueline tablet 1 po tablet 1 po 7-28 mg tablet [facility] q day q day 00:00: 1 po q day dic 00 Sports [facility] Mobic 15 mg Mobic 15 mg No Mobic 15 Jaqueline tablet 1 po tablet 1 po 7-28 mg tablet [facility] q day q day 00:00: 1 po q day dic 00 Sports [facility] e Bactrim DS Bactrim DS 2007- No Bactrim DS Jaqueline 800 mg-160 800 mg-160 2-23 800 mg-160 [facility] mg tablet 1 mg tablet 1 00:00: mg tablet dic po BID po BID 00 1 po BID Sports Medicin e Prescriptio Prescriptio No Prescripti Jaqueline n - Prior n - Prior on - Prior [facility] Authorizati Authorizati Authorizat dic on Request on Request ion Spo rts Request Medicin e sulfamethox sulfamethox No sulfametho Jaqueline azole 800 azole 800 xazole 800 [facility] mg-trimetho mg-trimetho mg-trimeth dic prim 160 mg prim 160 mg oprim 160 Sports tablet 1 po tablet 1 po mg tablet Medicin BID BID 1 po BID e acyclovir acyclovir No acyclovir Jaqueline 800 mg 800 mg 800 mg [facility] tablet tablet tablet dic Sports Medic[facility] e amoxicillin amoxicillin No amoxicilli Jaqueline [phone] n 875 [facility] mg-potassiu mg-potassiu mg-potassi dic m m um Sports clavulanate clavulanate clavulanat Medicin 125 mg 125 mg e 125 mg e tablet tablet tablet atorvastati atorvastati No atorvastat Jaqueline n 20 mg n 20 mg in 20 mg Ortho pe tablet TAKE tablet TAKE tablet dic 1 TABLET BY 1 TABLET BY TAKE 1 Sports MOUTH DAILY MOUTH DAILY TABLET BY Medicin IN EVENING IN EVENING MOUTH e WITH MEAL WITH MEAL DAILY IN EVENING WITH MEAL azithromyci azithromyci No azithromyc Jaqueline n 250 mg n 250 mg in 250 mg Or thope tablet TAKE tablet TAKE tablet dic 2 TABLETS 2 TABLETS TAKE 2 Spo rts BY MOUTH ON BY MOUTH ON TABLETS BY Medicin DAY 1 THEN DAY 1 THEN MOUTH ON e 1 TABLET 1 TABLET DAY 1 THEN DAILY FOR 4 DAILY FOR 4 1 TABLET DAYS DAYS DAILY FOR 4 DAYS carbamazepi carbamazepi No carbamazep Jaqueline ne 200 mg ne 200 mg ine 200 mg [facility] tablet tablet tablet dic Sports Medicin e carvedilol carvedilol No carvedilol Jaqueline 6.25 mg 6.25 mg 6.25 mg Orth[facility] e tablet TAKE tablet TAKE tablet dic 1 TABLET BY 1 TABLET BY TAKE 1 Sports MOUTH TWO MOUTH TWO TABLET BY Medicin TIMES A DAY TIMES A DAY MOUTH TWO e TIMES A DAY duloxetine duloxetine No duloxetine Jaqueline 30 mg 30 mg 30 mg [facility] capsule,del capsule,del capsule,de dic ayed ayed layed Sports release release release Medici n TAKE 1 TAKE 1 TAKE 1 e CAPSULE BY CAPSULE BY CAPSULE BY MOUTH DAILY MOUTH DAILY MOUTH DAILY duloxetine duloxetine No duloxetine Jaqueline 60 mg 60 mg 60 mg [facility] capsule,del capsule,del capsule,de dic ayed ayed layed Sports release release release Medici n e hydrochloro hydrochloro No hydrochlor Jaqueline thiazide 25 thiazide 25 othiazide [facility] mg tablet mg tablet 25 mg dic TAKE 1 TAKE 1 tablet Sports TABLET BY TABLET BY TAKE 1 Med icin MOUTH DAILY MOUTH DAILY TABLET BY e WITH WITH MOUTH LOSARTAN LOSARTAN DAILY WITH LOSARTAN levofloxaci levofloxaci No levofloxac Jaqueline n 500 mg n 500 mg in 500 mg Or thope tablet tablet tablet dic Sports Medicin e losartan losartan No losartan Aza johan 100 mg 100 mg 100 mg [facility] tablet TAKE tablet TAKE tablet dic 1 TABLET BY 1 TABLET BY TAKE 1 Sports MOUTH DAILY MOUTH DAILY TABLET BY Medicin WITH WITH MOUTH e HYDROCHLORO HYDROCHLORO DAILY WITH THIAZIDE THIAZIDE HYDROCHLOR OTHIAZIDE losartan losartan No losartan Aza johan 100 100 100 [facility] mg-hydrochl mg-hydrochl mg-hydroch dic orothiazide orothiazide lorothiazi Sports 25 mg 25 mg de 25 mg Medicin tablet TAKE tablet TAKE tablet e 1 TABLET BY 1 TABLET BY TAKE 1 MOUTH DAILY MOUTH DAILY TABLET BY MOUTH DAILY metformin metformin No metformin Jaqueline 500 mg 500 mg 500 mg [facility] tablet TAKE tablet TAKE tablet dic 1 TABLET BY 1 TABLET BY TAKE 1 Sports MOUTH TWO MOUTH TWO TABLET BY Medicin TIMES A DAY TIMES A DAY MOUTH TWO e (WITH (WITH TIMES A BREAKFAST BREAKFAST DAY (WITH AND SUPPER) AND SUPPER) BREAKFAST AND SUPPER) prednisone prednisone No prednisone Jaqueline 10 mg 10 mg 10 mg [facility] tablet TAKE tablet TAKE tablet dic 3 TABLET 3 TABLET TAKE 3 Sport s DAILY FOR 3 DAILY FOR 3 TABLET Medicin DAYS, THEN DAYS, THEN DAILY FOR e 2 TABLET 2 TABLET 3 DAYS, DAILY FOR 3 DAILY FOR 3 THEN 2 DAYS, THEN DAYS, THEN TABLET 1 TABLET 1 TABLET DAILY FOR DAILY FOR 3 DAILY FOR 3 3 DAYS, DAYS DAYS THEN 1 TABLET DAILY FOR 3 DAYS pregabalin pregabalin No pregabalin Jaqueline 225 mg 225 mg 225 mg [facility] capsule capsule capsule dic Sports Medic[facility] e pregabalin pregabalin No pregabalin Jaqueline 300 mg 300 mg 300 mg [facility] capsule capsule capsule dic [facility] acyclovir acyclovir No acyclovir Jaqueline 800 mg 800 mg 800 mg [facility] tablet tablet tablet dic Sports Medicin e amoxicillin amoxicillin No amoxicilli Jaqueline [phone] n 875 [facility] mg-potassiu mg-potassiu mg-potassi dic m m um Sports clavulanate clavulanate clavulanat Medicin 125 mg 125 mg e 125 mg e tablet tablet tablet atorvastati atorvastati No atorvastat Jaqueline n 20 mg n 20 mg in 20 mg Ortho pe tablet TAKE tablet TAKE tablet dic 1 TABLET BY 1 TABLET BY TAKE 1 Sports MOUTH DAILY MOUTH DAILY TABLET BY Medicin IN EVENING IN EVENING MOUTH e WITH MEAL WITH MEAL DAILY IN EVENING WITH MEAL azithromyci azithromyci No azithromyc Jaqueline n 250 mg n 250 mg in 250 mg Or thope tablet TAKE tablet TAKE tablet dic 2 TABLETS 2 TABLETS TAKE 2 Spo rts BY MOUTH ON BY MOUTH ON TABLETS BY Medicin DAY 1 THEN DAY 1 THEN MOUTH ON e 1 TABLET 1 TABLET DAY 1 THEN DAILY FOR 4 DAILY FOR 4 1 TABLET DAYS DAYS DAILY FOR 4 DAYS carbamazepi carbamazepi No carbamazep Jaqueline ne 200 mg ne 200 mg ine 200 mg [facility] tablet tablet tablet dic Sports Medicin e carvedilol carvedilol No carvedilol Jaqueline 6.25 mg 6.25 mg 6.25 mg [facility] e tablet TAKE tablet TAKE tablet dic 1 TABLET BY 1 TABLET BY TAKE 1 Sports MOUTH TWO MOUTH TWO TABLET BY Medicin TIMES A DAY TIMES A DAY MOUTH TWO e TIMES A DAY duloxetine duloxetine No duloxetine Jaqueline 30 mg 30 mg 30 mg [facility] capsule,del capsule,del capsule,de dic ayed ayed layed Sports release release release Medici n TAKE 1 TAKE 1 TAKE 1 e CAPSULE BY CAPSULE BY CAPSULE BY MOUTH DAILY MOUTH DAILY MOUTH DAILY duloxetine duloxetine No duloxetine Jaqueline 60 mg 60 mg 60 mg [facility] capsule,del capsule,del capsule,de dic ayed ayed layed Sports release release release Medici n e hydrochloro hydrochloro No hydrochlor Jaqueline thiazide 25 thiazide 25 othiazide [facility] mg tablet mg tablet 25 mg dic TAKE 1 TAKE 1 tablet Sports TABLET BY TABLET BY TAKE 1 Med icin MOUTH DAILY MOUTH DAILY TABLET BY e WITH WITH MOUTH LOSARTAN LOSARTAN DAILY WITH LOSARTAN levofloxaci levofloxaci No levofloxac Jaqueline n 500 mg n 500 mg in 500 mg Or thope tablet tablet tablet dic Sports Medicin e losartan losartan No losartan Aza johan 100 mg 100 mg 100 mg [facility] tablet TAKE tablet TAKE tablet dic 1 TABLET BY 1 TABLET BY TAKE 1 Sports MOUTH DAILY MOUTH DAILY TABLET BY Medicin WITH WITH MOUTH e HYDROCHLORO HYDROCHLORO DAILY WITH THIAZIDE THIAZIDE HYDROCHLOR OTHIAZIDE losartan losartan No losartan Aza johan 100 100 100 [facility] mg-hydrochl mg-hydrochl mg-hydroch dic orothiazide orothiazide lorothiazi Sports 25 mg 25 mg de 25 mg Medicin tablet TAKE tablet TAKE tablet e 1 TABLET BY 1 TABLET BY TAKE 1 MOUTH DAILY MOUTH DAILY TABLET BY MOUTH DAILY metformin metformin No metformin Jaqueline 500 mg 500 mg 500 mg [facility] tablet TAKE tablet TAKE tablet dic 1 TABLET BY 1 TABLET BY TAKE 1 Sports MOUTH TWO MOUTH TWO TABLET BY Medicin TIMES A DAY TIMES A DAY MOUTH TWO e (WITH (WITH TIMES A BREAKFAST BREAKFAST DAY (WITH AND SUPPER) AND SUPPER) BREAKFAST AND SUPPER) prednisone prednisone No prednisone Jaqueline 10 mg 10 mg 10 mg [facility] tablet TAKE tablet TAKE tablet dic 3 TABLET 3 TABLET TAKE 3 Sport s DAILY FOR 3 DAILY FOR 3 TABLET Medicin DAYS, THEN DAYS, THEN DAILY FOR e 2 TABLET 2 TABLET 3 DAYS, DAILY FOR 3 DAILY FOR 3 THEN 2 DAYS, THEN DAYS, THEN TABLET 1 TABLET 1 TABLET DAILY FOR DAILY FOR 3 DAILY FOR 3 3 DAYS, DAYS DAYS THEN 1 TABLET DAILY FOR 3 DAYS pregabalin pregabalin No pregabalin Jaqueline 225 mg 225 mg 225 mg [facility] capsule capsule capsule dic Sports Medicin e pregabalin pregabalin No pregabalin Jaqueline 300 mg 300 mg 300 mg [facility] capsule capsule capsule dic [facility] Medic[facility] e sulfamethox sulfamethox No sulfametho Jaqueline azole 800 azole 800 xazole 800 [facility] mg-trimetho mg-trimetho mg-trimeth dic prim 160 mg prim 160 mg oprim 160 Sports tablet 1 po tablet 1 po mg tablet Medicin BID BID 1 po BID e acyclovir acyclovir No acyclovir Jaqueline 800 mg 800 mg 800 mg [facility] tablet tablet tablet dic Sports Medicin e amoxicillin amoxicillin No amoxicilli Jaqueline [phone] n 875 [facility] mg-potassiu mg-potassiu mg-potassi dic m m um Sports clavulanate clavulanate clavulanat Medicin 125 mg 125 mg e 125 mg e tablet tablet tablet atorvastati atorvastati No atorvastat Jaqueline n 20 mg n 20 mg in 20 mg Orth[facility] pe tablet TAKE tablet TAKE tablet dic 1 TABLET BY 1 TABLET BY TAKE 1 Sports MOUTH DAILY MOUTH DAILY TABLET BY Medicin IN EVENING IN EVENING MOUTH e WITH MEAL WITH MEAL DAILY IN EVENING WITH MEAL azithromyci azithromyci No azithromyc Jaqueline n 250 mg n 250 mg in 250 mg Or thope tablet TAKE tablet TAKE tablet dic 2 TABLETS 2 TABLETS TAKE 2 Spo rts BY MOUTH ON BY MOUTH ON TABLETS BY Medicin DAY 1 THEN DAY 1 THEN MOUTH ON e 1 TABLET 1 TABLET DAY 1 THEN DAILY FOR 4 DAILY FOR 4 1 TABLET DAYS DAYS DAILY FOR 4 DAYS carbamazepi carbamazepi No carbamazep Jaqueline ne 200 mg ne 200 mg ine 200 mg [facility] tablet tablet tablet dic Sports Medicin e carvedilol carvedilol No carvedilol Jaqueline 6.25 mg 6.25 mg 6.25 mg Orth[facility] e tablet TAKE tablet TAKE tablet dic 1 TABLET BY 1 TABLET BY TAKE 1 Sports MOUTH TWO MOUTH TWO TABLET BY Medicin TIMES A DAY TIMES A DAY MOUTH TWO e TIMES A DAY duloxetine duloxetine No duloxetine Jaqueline 30 mg 30 mg 30 mg [facility] capsule,del capsule,del capsule,de dic ayed ayed layed Sports release release release Medici n TAKE 1 TAKE 1 TAKE 1 e CAPSULE BY CAPSULE BY CAPSULE BY MOUTH DAILY MOUTH DAILY MOUTH DAILY duloxetine duloxetine No duloxetine Jaqueline 60 mg 60 mg 60 mg [facility] capsule,del capsule,del capsule,de dic ayed ayed layed Sports release release release Medici n e hydrochloro hydrochloro No hydrochlor Jaqueline thiazide 25 thiazide 25 othiazide [facility] mg tablet mg tablet 25 mg dic TAKE 1 TAKE 1 tablet Sports TABLET BY TABLET BY TAKE 1 Med icin MOUTH DAILY MOUTH DAILY TABLET BY e WITH WITH MOUTH LOSARTAN LOSARTAN DAILY WITH LOSARTAN levofloxaci levofloxaci No levofloxac Jaqueline n 500 mg n 500 mg in 500 mg Or thope tablet tablet tablet dic Sports Medicin e losartan losartan No losartan Aza johan 100 mg 100 mg 100 mg [facility] tablet TAKE tablet TAKE tablet dic 1 TABLET BY 1 TABLET BY TAKE 1 Sports MOUTH DAILY MOUTH DAILY TABLET BY Medicin WITH WITH MOUTH e HYDROCHLORO HYDROCHLORO DAILY WITH THIAZIDE THIAZIDE HYDROCHLOR OTHIAZIDE losartan losartan No losartan Aza johan 100 100 100 [facility] mg-hydrochl mg-hydrochl mg-hydroch dic orothiazide orothiazide lorothiazi Sports 25 mg 25 mg de 25 mg Medicin tablet TAKE tablet TAKE tablet e 1 TABLET BY 1 TABLET BY TAKE 1 MOUTH DAILY MOUTH DAILY TABLET BY MOUTH DAILY metformin metformin No metformin Jaqueline 500 mg 500 mg 500 mg [facility] tablet TAKE tablet TAKE tablet dic 1 TABLET BY 1 TABLET BY TAKE 1 Sports MOUTH TWO MOUTH TWO TABLET BY Medicin TIMES A DAY TIMES A DAY MOUTH TWO e (WITH (WITH TIMES A BREAKFAST BREAKFAST DAY (WITH AND SUPPER) AND SUPPER) BREAKFAST AND SUPPER) polyethylen polyethylen No polyethyle Jaqueline e glycol e glycol ne glycol Or thope 3350 17 3350 17 3350 17 dic gram oral gram oral gram oral Sports powder powder powder Medicin packet Take packet Take packet e by oral by oral Take by route for route for oral route 28 days. 28 days. for 28 days. prednisone prednisone No prednisone Jaqueline 10 mg 10 mg 10 mg [facility] tablet TAKE tablet TAKE tablet dic 3 TABLET 3 TABLET TAKE 3 Sport s DAILY FOR 3 DAILY FOR 3 TABLET Medicin DAYS, THEN DAYS, THEN DAILY FOR e 2 TABLET 2 TABLET 3 DAYS, DAILY FOR 3 DAILY FOR 3 THEN 2 DAYS, THEN DAYS, THEN TABLET 1 TABLET 1 TABLET DAILY FOR DAILY FOR 3 DAILY FOR 3 3 DAYS, DAYS DAYS THEN 1 TABLET DAILY FOR 3 DAYS pregabalin pregabalin No pregabalin Jaqueline 225 mg 225 mg 225 mg [facility] capsule capsule capsule dic Sports Medicin e pregabalin pregabalin No pregabalin Jaqueline 300 mg 300 mg 300 mg [facility] capsule capsule capsule dic Sports Medicin e Immunizations Ordered Filled Immunization Date Status Comments [facility] e Immunization Name Name Pneumococcal 2020-10-21 Completed [place] o f Polysaccharide, 00:00:00 [facility] [id number] ([id number]) Branch Influenza High Dose 2020-10-21 [facility] Vital Signs Vital Name Observation Time Observation Value Comments Source Height 2022-09-10 00:00:00 65 [in_i] [facility] BMI (Body Mass 2022-09-10 00:00:00 45.3 kg/m2 Jaqueline [facility] Index) Sports Medicine Body Weight 2022-09-10 00:00:00 272 [lb_av] [facility] Height 2022-08-31 00:00:00 65 [in_i] [facility] BMI (Body Mass 2022-08-31 00:00:00 45.3 kg/m2 Jaqueline [facility] Index) Sports Medicine Body Weight 2022-08-31 00:00:00 272 [lb_av] [facility] Systolic blood 2020-10-21 17:06:00 136 mm[Hg] Univer sity of pressure [facility] Diastolic blood 2020-10-21 17:06:00 69 mm[Hg] Unive rsity of pressure [facility] Heart rate 2020-10-21 17:06:00 94 /min [facility] Body temperature 2020-10-21 17:06:00 36.44 [facility] 2020-10-21 17:06:00 20 /min [facility] Oxygen saturation in 2020-10-21 17:06:00 96 /min [facility] Arterial blood by [facility] Pulse oximetry Branch Body weight 2020-10-21 10:01:00 136.487 kg [facility] BMI 2020-10-21 10:01:00 50.07 kg/m2 [facility] Body height 2020-10-19 20:47:00 165.1 cm [facility] Respitory Rate 2016-04-04 14:45:00 Memori al Shiv Systolic (mm Hg) 2016-04-04 14:45:00 Blake rial [place] Diastolic (mm Hg) 2016-04-04 14:45:00 Mem orial Shiv Respitory Rate 2016-04-04 14:30:00 Memori al Shiv Systolic (mm Hg) 2016-04-04 14:30:00 Blake rial Shiv Diastolic (mm Hg) 2016-04-04 14:30:00 Mem orial [place] Systolic (mm Hg) 2016-04-04 14:15:00 Blake rial [place] Diastolic (mm Hg) 2016-04-04 14:15:00 Mem orial [place] Respitory Rate 2016-04-04 14:15:00 Memori al Shiv BMI Calculated 2016-04-04 10:41:00 Memori al Shiv Weight 2016-04-04 10:41:00 [facility] [place] Height 2016-04-04 10:41:00 [facility] (F) 2016-03-03 16:55:00 98.4 F [facility] [place] Systolic (mm Hg) 2016-03-03 16:55:00 Blake rial [place] Diastolic (mm Hg) 2016-03-03 16:55:00 Mem orial Shiv Respitory Rate 2016-03-03 16:55:00 Memori al Shiv Heart Rate 2016-03-03 16:55:00 [facility] Shiv Weight 2016-03-03 16:13:00 [facility] Temperature Oral (F) 2016-03-03 16:13:00 98.0 F [facility] Respitory Rate 2016-03-03 16:13:00 Memori al Shiv Systolic (mm Hg) 2016-03-03 16:13:00 Blake rial Shiv Diastolic (mm Hg) 2016-03-03 16:13:00 Mem orial Shiv Heart Rate 2016-03-03 16:13:00 [facility] Shiv Systolic (mm Hg) 2015-09-28 16:30:00 Blake rial Shiv Diastolic (mm Hg) 2015-09-28 16:30:00 Mem orial [place] Systolic (mm Hg) 2015-09-28 16:15:00 Blake rial Shiv Diastolic (mm Hg) 2015-09-28 16:15:00 Mem orial [place] Systolic (mm Hg) 2015-09-28 16:00:00 Blake rial [place] Diastolic (mm Hg) 2015-09-28 16:00:00 Mem orial Shiv Respitory Rate 2015-09-28 14:30:00 Memori al Shiv Respitory Rate 2015-09-28 12:00:00 Memori al Shiv Height 2015-09-28 11:54:00 165.1 cm [facility] [place] Weight 2015-09-28 11:54:00 [facility] BMI Calculated 2015-09-28 11:54:00 Memori al Shiv BMI Calculated 2015-09-28 01:54:00 Memori al [place] Weight 2015-09-28 01:54:00 [facility] [place] Height 2015-09-28 01:54:00 165.1 cm [facility] Temperature Oral (F) 2015-02-25 12:34:00 98.1 F [facility] [place] Respitory Rate 2015-02-25 12:34:00 Memori al [place] Systolic (mm Hg) 2015-02-25 12:34:00 Blake rial Shiv Diastolic (mm Hg) 2015-02-25 12:34:00 Mem orial Shiv Heart Rate 2015-02-25 12:34:00 [facility] [place] Temperature Oral (F) 2015-02-25 08:10:00 98.6 F [facility] [place] Systolic (mm Hg) 2015-02-25 08:10:00 Blake rial [place] Diastolic (mm Hg) 2015-02-25 08:10:00 Mem orial Shiv Heart Rate 2015-02-25 08:10:00 [facility] [place] Heart Rate 2015-02-25 05:10:00 [facility] Shiv Temperature Oral (F) 2015-02-25 05:10:00 98.2 F [facility] Systolic (mm Hg) 2015-02-25 05:10:00 Blake rial Shiv Diastolic (mm Hg) 2015-02-25 05:10:00 Mem orial Shiv Respitory Rate 2015-02-25 05:10:00 Memori al [place] Respitory Rate 2015-02-25 00:00:00 Memori al [place] Weight 2015-02-23 17:07:00 [facility] [place] BMI Calculated 2015-02-23 17:07:00 Memori al [place] Height 2015-02-23 17:07:00 160.02 cm [facility] [place] Height 2015-02-21 20:22:00 160.02 cm [facility] Shiv BMI Calculated 2015-02-21 20:22:00 Memori al Shiv Weight 2015-02-21 20:22:00 [facility] BMI Calculated 2015-01-18 15:50:00 Memori al Shiv Height 2015-01-18 15:50:00 165.1 cm [facility] [place] Weight 2015-01-18 15:50:00 [facility] Shiv Systolic (mm Hg) 2015-01-18 15:50:00 Blake rial [place] Diastolic (mm Hg) 2015-01-18 15:50:00 Mem orial [place] Heart Rate 2015-01-18 15:50:00 [facility] Shiv Respitory Rate 2015-01-18 15:50:00 Memori al [place] Temperature Oral (F) 2015-01-18 15:50:00 97.6 F [facility] [place] Procedures Procedure Date / Time Performing Clinician Source Performed Revision of Left Total 2022-10-16 00:00:00 Santa lizarraga [facility] [id number] 2022-10-16 00:00:00 [facility] [id number] 2022-10-16 00:00:00 GOYRO [facility] XR, knee, 3 view 2022-08-31 00:00:00 [facility] NM, bone scan, 3-phase 2022-08-31 00:00:00 Santa lizarraga [facility] Colonoscopy 2021-12-07 00:00:00 Ja[facility] CBC WITH DIFF 2020-10-20 10:08:00 Giovanni Meyer [facility] TOTAL KNEE ARTHROPLASTY 2020-10-19 16:17:00 [facility]-10-18 16:48:00 Giovanni Meyer [facility] COMP. METABOLIC PANEL 2020-10-18 16:39:00 Giovanni Meyer [facility] ([id number]) [facility] CBC WITH DIFF 2020-10-18 16:39:00 Giovanni Meyer [facility] PROTHROMBIN TIME / INR 2020-10-18 16:39:00 Giovanni Meyer [facility] ACTIVATED PARTIAL 2020-10-18 16:39:00 Giovanni Meyer [facility] THRMPLAS [facility] HB ABO GROUPING 2020-10-18 16:39:00 Giovanni Meyer [facility] ASSIGNMENT OF BENEFITS 2020-10-17 17:33:30 Doctor Unassigned, No [facility] DSU PRE-OP 2020-10-05 06:01:00 Doctor Unassigned, No [facility] Craniotomy and 2015-02-23 05:00:00 Dawood ramirez decompression of brain Revise/replace Knee 2010-11-22 00:00:00 Jaqueline [place] rthopedic Joint Sports Medicine 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 Knee [facility] Lumbar [facility]acral [facility] fusion by anterior technique Arthroscopic surgical [facility] nirmal procedure on knee x 4 Lumbar discectomy x 8 [facility] radiosurgery Plan of Care Planned Activity Planned Date Details Comments Source Diagnostic Test 2022-08-31 ESR (erythrocyte Jaqueline O rthopedic Pending 00:00:00 sedimentation rate), Sports Medicine blood [code = ESR (erythrocyte sedimentation rate), blood] Diagnostic Test 2022-08-31 C-reactive protein, Azale a Orthopedic Pending 00:00:00 quantitative [code = Sports Medicine C-reactive protein, quantitative] Future Appointment 2022-10-29 Dilia Ham Orthopedic 11:00:00 [facility] , [place], [facility] [place] [address] Instructions Jaqueline Orthoped ic Sports Medicine Encounters Start End Encounter Admission Attending Care Care Encounter Source Date/Time Date/Time Type Type Clinicians Facility Department ID 2022-10-16 Inpatient EL Rafia, HCATO SURG [id number] [facility] 18:30:00 Tyrese 34 [facility] 2022-10-09 Inpatient EL Rafia, HCATO SURG [id number] [facility] 09:00:00 Tyrese 88 [facility] 2021-07-22 [facility] [id number] [facility] 19:21:07 GIOVANNI craig [facility] 2022-10-16 2022-10-17 Inpatient EL Rafia, HCATO SURG [id number] [facility] 10:32:00 14:54:00 Tyrese 34 [facility] 2022-10-16 2022-10-16 Tyrese N [facility]OSM [place] - [place]o [id number] Jaqueline 00:00:00 00:00:00 Kelsie Morataya MD: [id number] FOG_Surgery dic [facility], [place] [address] , Ph. [phone] 2022-10-11 2022-10-11 Outpatient FOG_Goytia_ AOSM AOSM 560 [id number] Jaqueline 00:00:00 00:00:00 Shaylee [id number] Orth[facility] pe [facility] 2022-10-11 2022-10-11 Outpatient FOG_Goytia_ AOSM AOSM 560 [id number] Jaqueline 00:00:00 00:00:00 Shaylee [id number] [facility] 2022-10-09 2022-10-09 Outpatient Rafia, HCACL LABO [id number] [facility] 16:16:00 16:16:00 Tyrese 74 [facility] 2022-10-09 2022-10-09 Outpatient KEISHA Anderson YousifAY [id number] [facility] 08:00:00 16:00:00 Tyrese 23 [facility] 2022-09-21 2022-09-21 Outpatient FOG_Goytia_ AOSM AOSM 560 [id number] Jaqueline 00:00:00 00:00:00 Shaylee [id number] [facility] pe [facility] 2022-09-10 2022-09-10 Outpatient FOG_Goytia_ AOSM AOSM 560 [id number] Jaqueline 00:00:00 00:00:00 Shaylee [id number] [facility] 2022-09-10 2022-09-10 Tyrese N [place] [id number] Jaqueline 00:00:00 00:00:00 Kelsie Morataya MD: [id number] FOG_Ofc dic [facility] [place] [facility] [place] [address] , Ph. [phone] 2022-09-03 2022-09-03 Outpatient POWER Villarreal LABO [id number] [facility] 16:03:00 16:03:00 Jeff 87 [facility] 2022-09-03 2022-09-03 Outpatient KEISHA Davis RADI [id number] [facility] 09:20:00 09:20:00 Jeff 17 [facility] 2022-08-31 2022-08-31 Outpatient FOG_Goytia_ AOSM AOSM 560 [id number] Jaqueline 00:00:00 00:00:00 Shaylee [id number] Orth[facility] pe [facility] 2022-08-31 2022-08-31 Jeff [place] - [place] [id number] Jaqueline 00:00:00 00:00:00 Kelsie Villarreal MD: [id number] FOG_Ofc dic [facility] [place] [facility] [place] [address] , Ph. [phone] 2022-08-29 2022-08-29 Outpatient FOG_Goytia_ AOSM AOSM 560 [id number] Jaqueline 00:00:00 00:00:00 Shaylee [id number] Ortho pe dic [facility] e 2022-08-28 2022-08-28 Outpatient FOG_Goytia_ AOSM AOSM 560 [id number] Jaqueline 00:00:00 00:00:00 Shaylee [id number] Ortho pe dic Sports Medicin e 2020-10-19 2020-10-21 [facility] [id number] Univers 09:05:00 16:50:00 Encounter Giovanni Parisi 350.1.13.10 ity [facility] [id number] [facility] [phone] [place] [id number] [place] 2020-10-18 2020-10-18 [id number] Univers 10:30:00 10:30:00 GIOVANNI craig [facility] 2020-10-18 2020-10-18 Shooter Helper Ralph [facility] Main RUST 1.2.8 40.114 [id number] Univers 10:10:27 10:25:27 Visit Giovanni Meyer Aj Parisi 350.1. 13.10 [facility].2.7.2.686 [facility] [phone] Ms dical [address] 2020-10-17 2020-10-17 [id number] Univers 13:45:00 13:45:00 GIOVANNI craig [facility] 2020-10-17 2020-10-17 Laboratory Only, Ralph Test RUST 1.2.840. 114 [id number] Univers 11:48:41 12:03:41 Only Giovanni Meyer Aj Ailin 350.1. 13.10 ity [facility] [id number] [facility] [phone] [facility] [address] [place] 2020-10-17 2020-10-17 Shooter Helper Ralph Gons[facility] Main RUST 1.2.8 40.114 [id number] Univers 11:48:19 12:03:19 Visit Giovanni Meyer 350.1. 13.10 it[place].686 [place] [phone] [place] dical [facility] 353 [facility] 2020-10-17 2020-10-17 Orders Doctor ERINN 1.2.840.114 [id number] Univers 00:00:00 00:00:00 Only Unassigned, KRISTIE 350.1.13.10 ity of [facility] 4.2.7.2.686 Russell as [phone] [place] [address] [place] 2016-08-01 2016-08-01 Outpatient MHIE MHIE [id number] Memoria 11:00:00 11:00:00 08 [facility] 2016-08-01 2016-08-01 Outpatient MHIE MHIE [id number] Memoria 11:00:00 11:00:00 08 [facility] 2016-07-11 2016-07-11 Outpatient MHIE MHIE [id number] Memoria 10:30:00 10:30:00 07 [facility] 2016-07-11 2016-07-11 Outpatient MHIE MHIE [id number] Memoria 10:30:00 10:30:00 07 [facility] 2016-04-04 2016-04-04 Bedded [facility]avo [facility] [id number] Memoria 09:59:00 15:30:00 Outpatient r [place] 02 [facility] 2016-04-04 2016-04-04 Bedded nullFlavo [facility] [id number] Memoria 09:59:00 15:30:00 Outpatient r Shiv 02 [facility] 2016-04-04 2016-04-04 Outpatient Everton Jimenez [facility] [id number] 04:59:00 10:30:00 2016-03-20 2016-03-20 Outpatient MHIE MHIE [id number] Memoria 16:00:00 16:00:00 05 [facility] 2016-03-20 2016-03-20 Outpatient MHIE MHIE [id number] Memoria 16:00:00 16:00:00 05 cindy [place] 2016-03-03 2016-03-03 EC nullFlavo [facility] [id number] Memoria 15:53:00 16:56:00 Emergency r [place] 01 l [place] Joseph Ayleen nn 2016-03-03 2016-03-03 EC nullFlavo [facility] [id number] Memoria 15:53:00 16:56:00 Emergency r Shiv 01 l [facility] Joseph Ayleen nn 2016-03-03 2016-03-03 Outpatient Jonathan Payne [facility] [id number] 10:53:00 11:56:00 Avril 2015-12-26 2015-12-26 Outpatient MHIE MHIE [id number] Memoria 10:00:00 10:00:[facility] 2015-12[facility] 2015-12-26 Outpatient MHIE MHIE [id number] Memoria 10:00:00 10:00:00 03 [facility] 2015-09-28 2015-09-28 Bedded nullFlavo [facility] [id number] Memoria 10:43:00 17:30:00 Outpatient r [place] 00 [facility] 2015-09-28 2015-09-28 Bedded nullFlavo [facility] [id number] Memoria 10:43:00 17:30:00 Outpatient r Shiv 00 [facility] 2015-09-28 2015-09-28 Outpatient Everton Jimenez [facility] [id number] 04:43:00 11:30:00 00 2015-08-30 2015-08-30 Outpatient MHIE MHIE [id number] Memoria 15:00:00 15:00:00 02 l Shiv 2015-08-30 2015-08-30 Outpatient MHIE MHIE [id number] Memoria 15:00:00 15:00:00 02 cindy Chaney 2015-08-16 2015-08-16 Outpatient MHIE MHIE [id number] Memoria 11:00:00 11:00:00 01 cindy Chaney 2015-08-16 2015-08-16 Outpatient MHIE MHIE [id number] Memoria 11:00:00 11:00:00 01 cindy Chaney 2015-06-13 2015-06-13 Outpatient MHIE MHIE [id number] Memoria 10:00:00 10:00:00 00 cindy Chaney 2015-06-13 2015-06-13 Outpatient MHIE MHIE [id number] Memoria 10:00:00 10:00:00 00 [facility] 2015-02-23 2015-02-24 Inpatient [facility] [id number] Memoria 15:39:00 14:45:00 r [place] 01 [facility] 2015-02-23 2015-02-24 Inpatient [facility] [id number] Memoria 15:39:00 14:45:00 r [place] 01 [facility] 2015-02-23 2015-02-24 Outpatient Everton Jimenez 2.16.840. 2.16.840. 1. [id number] 10:39:00 09:45:00 [id number] 3.615.0.1 5.0.749 01 2788-04-28 2015-01-18 [facility] [id number] Memoria 15:45:00 16:55:00 Emergency r Shiv 00 l Center Joseph Ayleen 2015-01-18 2015-01-18 [facility] [id number] Memoria 15:45:00 16:55:00 Emergency r [place] 00 l Center Joseph Ayleen 2015-01-18 2015-01-18 Outpatient Jonathan Payne 2.16.840. 2.16.840. 1. [id number] 10:45:00 11:55:00 Avril [id number] 3.615.0.1 5.0.101 01 Results Test Description Test Time Test Comments Results Result Comments Source BASIC METABOLIC PANEL 2022-10-17 06:34:00 Test Item Value Reference Range Interpretation Comme nts SODIUM (test code = NA) 135 mmol/L 136-145 L POTASSIUM (test code = K) 5.0 mmol/L 3.5-5.1 N CHLORIDE (test code = CL) 97.0 mmol/L 98-107 L CARBON DIOXIDE (test code = 34.8 mmol/L 21-32 H CO2) GLUCOSE (test code = GLU) 139 mg/dL 70-110 H BLOOD UREA NITROGEN (test 16 mg/dL 7-18 N code = BUN) GLOMERULAR FILTRATION RATE 69.8 >60 T he Glomerular Filtration Rate (test code = GFR) is a calcu lated parameterbased on serum Creati nine, patient age and sex. GFR va luesless than 60 mL/min/1.73 squ are meters are indicative ofCh ronic Kidney Disease. Values less than 15 mL/min/1.73squa re meters indicate Kidney failure. The calculation for GFR is based on the CKD-EPI (20 21) calculation. This formulais race indifferent and is the james mmended formula for GFRby the [facility] Foundation for Adults.The GFR will not calcul ate if the sex is unknown or if t hepatient's age is <18 years. CREATININE (test code = 1.15 mg/dL 0.55-1.30 N CREAT) CALCIUM (test code = CA) 7.9 mg/dL 8.2-10.1 L HGB [id number] 06:10:00 Test Item Value Reference Range Interpretation Comments HEMOGLOBIN (test code = HGB) 12.0 g/dL 12-16 N HEMATOCRIT (test code = HCT) 33.8 % 37-47 L SPECIMEN COMMENT: POD #1Hemoglobin and Hematocrit panel - [id number] 04:40:00 Test Item Value Reference Range Interpretation Comments hemoglobin (test code = hemoglobin) 12.0 g/dL 12-16 hematocrit (test code = hematocrit) 33.8 % 37-47 L performing lab: (test code = performing lab:) [facility] [id number] 12:37:00 Test Item Value Reference Range Interpretation Comments GLUBED (test code = GLUBED) 119 mg/dL 60-125 N [id number] 12:26:00 Test Item Value Reference Range Interpretation Comments glubed (test code = glubed) 119 mg/dL 60-125 performing lab: (test code = performing lab:) [facility] (HA1C)2022-10-09 21:28:00 Test Item Value Reference Range Interpretation Comments GLYCOSYLATED 6.2 % 4.8-5.9 H Any condition t hat shortens HEMOGLOBIN (HA1C) erythocyte survival or (test code = GLYHGB) decreas esmean erythrocyte age (e.g., james very from acute blood los s,hemolytic anemai) will fa lsely lower HGBA1c resultsr egardless of the method used . HGBA1c results frompat ients with HbSS, HbCC and HbSc must be interpreted wit hcaution given the patho logical processes, incl uding anemia,increase d red cell turnover, trans fusion requirements, t hatadversely impact HGBA1c a s a marker of long-term glycemiccontrol . Alternative for ms of testing such as fructosaminesho uld be considered for these patients.Any co ndition that shortens erytho cyte survival or dec reasesmean erythrocyte age (e.g., recovery from a cute blood loss,hemolytic anemia) will falsely lower H GBA1c resultsregardle ss of the method used. HG BA1c results from patientswi th HbSS, HbCC, and HbSc must be interpreted wit h cautiongiven th e pathological pr ocesses, including anemi a,increased red cell turnov er, transfusion req uirements, thatadversely i mpact HGBA1c as a marker of long-term glycemiccontrol . Alternative for ms of testing such as fructosaminesho uld be considered for these patients.DONE A T: [facility] [address], [place], [place] [address] GLYCOSYLATED HEMOGLOBIN (HA1C)2022-10-09 21:27:00 Test Item Value Reference Range Interpretation Comments GLYCOSYLATED 6.2 % 4.8-5.9 H Any condition t hat shortens HEMOGLOBIN (HA1C) erythocyte survival or (test code = GLYHGB) decreas esmean erythrocyte age (e.g., james very from acute blood los s,hemolytic anemia) will fa lsely lower HGBA1c resultsr egardless of the method used . HGBA1c results from vitaly cheney HbSS, HbCC, and HbSc must be interpreted with cautiongiven th e pathological pr ocesses, including anemi a,increased red cell turnov er, transfusion req uirements, thatadversely i mpact HGBA1c as a marker of long-term glycemiccontrol . Alternative for ms of testing such as fructosaminesho uld be considered for these patients. COMPREHENSIVE METABOLIC [id number] 14:40:00 Test Item Value Reference Range Interpretation Comments SODIUM (test code = 139 mmol/L 136-145 N NA) POTASSIUM (test 4.1 mmol/L 3.5-5.1 N code = K) CHLORIDE (test code 101.0 mmol/L 98-107 N = CL) CARBON DIOXIDE 32.1 mmol/L 21-32 H (test code = CO2) GLUCOSE (test code 106 mg/dL 70-110 N = GLU) BLOOD UREA NITROGEN 17 mg/dL 7-18 N (test code = BUN) GLOMERULAR 72.5 >60 The Glomerular FILTRATION RATE Filtration R ate is a (test code = GFR) calculated parameterbased on serum Creatinin e, patient age and sex. GFR valuesless than 60 mL/min/1.73 squ are meters are jacqueline cative ofChronic Kidne y Disease. Values less than 15 mL/min/1.73squa re meters indicate Kidney failure. The calculation for GFR is based on the CK D-EPI (2020) calculat ion. This formulais race indifferent and is the recommended for merry for GFRby the N ational Kidney Foundati on for Adults.The GFR will not calculate i f the sex is unknown or if thepatient's ag e is <18 years. CREATININE (test 1.12 mg/dL 0.55-1.30 N code = CREAT) TOTAL PROTEIN (test 7.3 g/dL 6.4-8.2 N code = PROT) ALBUMIN (test code 4.0 g/dL 3.4-5.0 N = ALB) GLOBULIN (test code 3.3 g/dL 2.2-4.2 N = GLOB) ALBUMIN/GLOBULIN 1.2 0.7-2.0 N RATIO (test code = A/G) CALCIUM (test code 8.9 mg/dL 8.2-10.1 N = CA) BILIRUBIN TOTAL 0.40 mg/dL 0.2-1.00 N (test code = BILT) SGOT/AST (test code 23.0 U/L 15-37 N = AST) SGPT/ALT (test code 33.0 U/L 12-78 N = ALT) ALKALINE 65 U/L 46-116 N PHOSPHATASE TOTAL (test code = ALKP) PROTHROMBIN [id number] 13:50:00 Test Item Value Reference Range Interpretation Comments PROTHROMBIN TIME 11.1 secs 9.7-12.5 N Please note new normal PATIENT (test code = range. PTP) INTERNATIONAL NORMAL 1.00 <2.0 RECOMME NDED THERAPEUTIC RATIO (test code = RANGE FOR ORAL INR) ANTICOAGULANTTR EATMENT: CONDITION INRPr ophylaxis of venous throm bosis in 2.0 - 3.0 high- risk medical or surg ical patientsTreatme nt of venous thrombos is 2.0 - 3.0Prevention o f embolism 2.0 - 3.0Prevention o f recurrent embol ism, or 3.0 - 4.5 patie nts with mechanical pros thetic intravascular v calvillo IS PATIENT ON ANTICOAGULANTS ? NHas Lab been notified if Patient is on Heparin Drip? NOTHROMBOPLASTIN TIME [id number] 13:50:00 Test Item Value Reference Range Interpretation Comments PTT ACTIVATED (test 33.9 secs 26.6-34.6 N Please n ote new code = APTT) normal range. IS PATIENT ON ANTICOAGULANTS ? NHas Lab been notified if Patient is on Heparin Drip? NOCBC W/AUTO [id number] 13:49:00 Test Item Value Reference Range Interpretation Comments WHITE BLOOD CELL (test code = WBC) 5.4 K/mm3 5.7-10.5 L RED BLOOD CELL (test code = RBC) 5.11 M/mm3 4.2-5.4 N HEMOGLOBIN (test code = HGB) 15.3 g/dL 12-16 N HEMATOCRIT (test code = HCT) 42.9 % 37-47 N MEAN CELL VOLUME (test code = MCV) 84 fL 80-98 N MEAN CELL HGB (test code = MCH) 29.9 pg 27-34 N MEAN CELL HGB CONCENTRATION (test 35.7 g/dL 30.8-34.1 H code = MCHC) RED CELL DISTRIBUTION WIDTH (test 13.2 % 11-16 N code = RDW) PLT (test code = PLT) 187 K/mm3 130-400 N MEAN PLATELET VOLUME (test code = 9.8 fL 8.9-12.1 N MPV) NEUTROPHIL % (test code = NT%) 54.1 % 45-70 N LYMPHOCYTE % (test code = LY%) 34.2 % 20-40 N MONOCYTE % (test code = MO%) 8.2 % 3-10 N EOSINOPHIL % (test code = EO%) 2.6 % 1-5 N BASOPHIL % (test code = BA%) 0.7 % 0.0-1.1 N NEUTROPHIL # (test code = NT#) 2.89 K/mm3 2.00-7.50 N LYMPHOCYTE # (test code = LY#) 1.83 K/mm3 1.50-4.00 N MONOCYTE # (test code = MO#) 0.44 K/mm3 0.2-0.8 N EOSINOPHIL # (test code = EO#) 0.14 K/mm3 0.04-0.4 N BASOPHIL # (test code = BA#) 0.04 K/mm3 0.02-0.10 N MANUAL DIFF REQUIRED (test code = NO MANUAL DIFF MDIFF) NUCLEATED RED BLOOD CELL (test 0 % 0-0 N code = NRBC) CBC W Auto Differential panel - [id number] 12:10:00 Test Item Value Reference Range Interpretation Comments white blood cell (test code = 5.4 K/mm3 5.7-10.5 L white blood cell) red blood cell (test code = red 5.11 M/mm3 4.2-5.4 blood cell) hemoglobin (test code = 15.3 g/dL 12-16 hemoglobin) hematocrit (test code = 42.9 % 37-47 hematocrit) mean cell volume (test code = mean 84 fL 80-98 cell volume) mean cell HGB (test code = mean 29.9 pg 27-34 cell HGB) mean cell HGB concentration (test 35.7 g/dL 30.8-34.1 H code = mean cell HGB concentration) red cell distribution width (test 13.2 % 11-16 code = red cell distribution width) plt (test code = plt) 187 K/mm3 130-400 mean platelet volume (test code = 9.8 fL 8.9-12.1 mean platelet volume) neutrophil % (test code = 54.1 % 45-70 neutrophil %) lymphocyte % (test code = 34.2 % 20-40 lymphocyte %) monocyte % (test code = monocyte 8.2 % 3-10 %) eosinophil % (test code = 2.6 % 1-5 eosinophil %) basophil % (test code = basophil 0.7 % 0.0-1.1 %) neutrophil # (test code = 2.89 K/mm3 2.00-7.50 neutrophil #) lymphocyte # (test code = 1.83 K/mm3 1.50-4.00 lymphocyte #) monocyte # (test code = monocyte 0.44 K/mm3 0.2-0.8 #) eosinophil # (test code = 0.14 K/mm3 0.04-0.4 eosinophil #) basophil # (test code = basophil 0.04 K/mm3 0.02-0.10 #) manual diff required (test code = no manual diff manual diff required) nucleated red blood cell (test 0 % 0-0 code = nucleated red blood cell) performing lab: (test code = performing lab:) [facility] Medicine[facility]throm[facility] time (PT)2022-10-09 12:10:00 Test Item Value Reference Range Interpretation Comments prothrombin time patient (test code 11.1 secs 9.7-12.5 = prothrombin time patient) international normal ratio (test 1.00 <2.0 code = international normal ratio) performing lab: (test code = performing lab:) [facility] Medicinethromboplastin time [id number] 12:10:00 Test Item Value Reference Range Interpretation Comments PTT activated (test code = PTT 33.9 secs 26.6-34.6 activated) performing lab: (test code = performing lab:) [facility] MedicineComprehensive metabolic 2000 panel - Serum or [id number] 12:10:00 Test Item Value Reference Range Interpretation Comments sodium (test code = sodium) 139 mmol/L 136-145 potassium (test code = 4.1 mmol/L 3.5-5.1 potassium) chloride (test code = chloride) 101.0 mmol/L 98-107 carbon dioxide (test code = 32.1 mmol/L 21-32 H carbon dioxide) glucose (test code = glucose) 106 mg/dL 70-110 blood urea nitrogen (test code = 17 mg/dL 7-18 blood urea nitrogen) glomerular filtration rate (test 72.5 >60 code = glomerular filtration rate) creatinine (test code = 1.12 mg/dL 0.55-1.30 creatinine) total protein (test code = total 7.3 g/dL 6.4-8.2 protein) albumin (test code = albumin) 4.0 g/dL 3.4-5.0 globulin (test code = globulin) 3.3 g/dL 2.2-4.2 albumin/globulin ratio (test 1.2 0.7-2.0 code = albumin/globulin ratio) calcium (test code = calcium) 8.9 mg/dL 8.2-10.1 bilirubin total (test code = 0.40 mg/dL 0.2-1.00 bilirubin total) SGOT/AST (test code = SGOT/AST) 23.0 U/L 15-37 SGPT/ALT (test code = SGPT/ALT) 33.0 U/L 12-78 alkaline phosphatase total (test 65 U/L 46-116 code = alkaline phosphatase total) performing lab: (test code = performing lab:) [facility] Medicineglycosylated hemoglobin (ha1c)2022-10-09 12:10:00 Test Item Value Reference Range Interpretation Comments Hemoglobin A1c/Hemoglobin.total in 6.2 % 4.8-5.9 H Blood (test code = 4548-4) performing lab: (test code = performing lab:) [facility] MedicineMethicillin resistant Staphylococcus aureus [Presence] in Specimen by Organism specific [id number] 12:10:00 Test Item Value Reference Range Interpretation Comments MRSA surveillance screen (test code see below = MRSA surveillance screen) performing lab: (test code = performing lab:) [facility] Medicinemssa PCR surveillance [id number] 12:10:00 Test Item Value Reference Range Interpretation Comments mssa PCR surveillance screen (test see below code = mssa PCR surveillance screen) performing lab: (test code = performing lab:) [facility]- XR FLUORO [id number] 13:56:00 [facility] ALIDA [facility] : 1955 Sex: M Patient Name: ALIDA GOMEZ Unit No: [id number] EXAMS: CPT CODE: [id number] XR FLUORO NDL 39219 Fluoroscopically guided left knee aspiration FINDINGS: After informed consent was obtained a 22-gauge needle is inserted into the left knee under fluoroscopic guidance using sterile technique. 7 cc thin red fluid was aspirated. This is sent to the lab for analysis. The patient tolerated the procedure well. 22 seconds of fluoroscopy time was used on this exam. IMPRESSION: Fluoroscopically guided left knee aspiration. at 1356 Reported and crystal d by: Aashish Hein M.D. CC: Jeff Villarreal MD Technologist: RT. Lico(R) [facility] NAME: ALIDA GOMEZ [address] [place] [address] PHYS: BHAVNA Johnson Jeff Villarreal Marah : 1955 AGE: 66 SEX: M [place] [id number] LOC: Y.RAD PHONE #: [phone] EXAM DATE: 09/03/2022 STATUS: DEP CLI FAX #: [phone] RAD #: [id number] D/C DT PAGE 1 Signed Report Patient Name: ALIDA GOMEZ Unit No: [id number] EXAMS: CPT CODE: [id number] XR FLUORO NDL 23061 (Continued) Transcribed D/ (1356) t.SDR.[facility] NAME: ALIDA GOMEZ [address] [place] [address] PHYS: BHAVNA Johnson Jeff Villarreal : 1955 AGE: 66 SEX: M [place] [id number] LOC: Y.RAD PHONE #: [phone] EXAM DATE: 09/03/2022 STATUS: DEP CLI FAX #: [phone] RAD #: [id number] D/C DT PAGE [id number] 13:07:00 Test Item Value Reference Range Interpretation Comments SYNOVIAL FLD HEMOLYZED LT. YELLOW COLOR (test code = COLSY) SYNOVIAL FLD HAZY CLEAR APPEARANCE (test code = APPSY) SYNOVIAL FLD 1 mL VOLUME (test code = VOLSY) SYNOVIAL FLD WBC 1064.000 /MM3 0-200 H (test code = WBCSY) SYNOVIAL FLD RBC 15812.000 /mm3 0-2 H NOTE: An automated (test code = method is now b eing RBCSY) used to determinesynovi al fluid WBC and RBC cou nts. The differential wi llstill be performed ma nually. SYNOVIAL FLD POLY 10 % 0-25 N (test code = POLYSY) SYNOVIAL FLD 83 % 0-78 H LYMPHOCYTE (test code = LYMPHSY) SYNOVIAL FLD 1 % 0-71 N MONOCYTE (test code = MONOSY) SYNOVIAL FLD 6 % LINING CELLS (test code = LINSY) Cell count and Differential panel - Synovial [id number] 10:31:00 Test Item Value Reference Range Interpretation Comments synovial fld color (test code hemolyzed lt. yellow = synovial fld color) synovial fld appearance (test hazy clear code = synovial fld appearance) synovial fld volume (test code 1 mL = synovial fld volume) synovial fld WBC (test code = 1064.000 /mm3 0-200 H synovial fld WBC) synovial fld RBC (test code = 67223.000 /mm3 0-2 H synovial fld RBC) synovial fld poly (test code = 10 % 0-25 synovial fld poly) synovial fld lymphocyte (test 83 % 0-78 H code = synovial fld lymphocyte) synovial fld monocyte (test 1 % 0-71 code = synovial fld monocyte) synovial fld lining cells 6 % (test code = synovial fld lining cells) performing lab: (test code = performing lab:) [facility]Microsc[facility] observation [Identifier] in Specimen by Gram [id number] 10:31:00 Test Item Value Reference Range Interpretation Comments gram stain (test code = gram stain) see below performing lab: (test code = performing lab:) [facility] MedicineAFB [id number] 10:31:00 Test Item Value Reference Range Interpretation Comments AFB smear (test code = AFB smear) see below performing lab: (test code = performing lab:) [facility] MedicineErythrocyte sedimentation rate by Westergren fjhdpu7530-01-27 00:00:00 Test Item Value Reference Range Interpretation Comments Erythrocyte sedimentation 2 mm/h See_Comment [ Automated message] rate by Johnnieergren method Th e system which (test code = 4537-7) generat ed this result transmitted ref erence range: < or = 2 0. The reference range was not used to int erpret this result as normal/abnormal . [facility]-reactive protein, [id number] 00:00:00 Test Item Value Reference Range Interpretation Comments C reactive protein [Mass/volume] in 1.5 mg/L <8.0 Serum or Plasma (test code = 1987-) [facility] with [id number] 10:56:00 Test Item Value Reference Range Interpretation Comments WBC (test code = See_Comment [Automated 8890-2) message] The sy stem which generated this result transmitted reference range : 4.20 - 10.70 10*3/?L. The reference range was not used to interpret this result as normal/abnormal . RBC (test code = See_Comment L [Automated 789-8) message] The sy stem which generated this result transmitted reference range : 4.26 - 5.52 10*6/?L. The reference range was not used to interpret this result as normal/abnormal . HGB (test code = 13.1 g/dL 12.2-16.4 718-7) HCT (test code = 37.5 % 38.4-49.3 L 4544-3) MCV (test code = 89.3 fL 81.7-95.6 787-2) MCH (test code = 31.2 pg 26.1-32.7 785-6) MCHC (test code = 34.9 g/dL 31.2-35 786-4) RDW-SD (test code = 43.2 fL 38.5-51.6 67575-0) RDW-CV (test code = 13.3 % 12.1-15.4 788-0) PLT (test code = See_Comment L [Automated 777-3) message] The sy stem which generated this result transmitted reference range : 150 - 328 10*3/ ?L. The reference r césar was not used to interpret this result as normal/abnormal . MPV (test code = 10.5 fL 9.8-13 58431-3) NRBC/100 WBC (test See_Comment [Automat ed code = 0757983946) message] The system which generated this result transmitted reference range : 0.0 - 10.0 /100 WBCs. The refer ence range was not u sed to interpret th is result as normal/abnormal . NRBC x10^3 (test code <0.01 See_Comment [Auto mated = 1941568563) message] The s ystem which generated this result transmitted reference range : 10*3/?L. The reference range was not used to interpret this result as normal/abnormal . GRAN MAT (NEUT) % 66.0 % (test code = 770-8) IMM GRAN % (test code 0.30 % = 3458970927) LYMPH % (test code = 20.5 % 736-9) MONO % (test code = 11.4 % 5905-5) EOS % (test code = 1.6 % 713-8) BASO % (test code = 0.2 % 706-2) GRAN MAT x10^3(ANC) 4.19 10*3/uL 1.99-6.95 (test code = 0280180033) IMM GRAN x10^3 (test <0.03 0-0.06 code = 4605443075) LYMPH x10^3 (test code 1.30 10*3/uL 1.09-3.23 = 731-0) MONO x10^3 (test code 0.72 10*3/uL 0.36-1.02 = 742-7) EOS x10^3 (test code = 0.10 10*3/uL 0.06-0.53 711-2) BASO x10^3 (test code <0.03 0.01-0.09 = 704-7) Lab Interpretation Abnormal (test code = 22837-9) [facility]. METABOLIC PANEL (29571)2020-10-18 17:51:00 Test Item Value Reference Range Interpretation Comments NA (test code = 136 mmol/L 135-145 7156309389) K (test code = 4.5 mmol/L 3.5-5 5578645172) CL (test code = 97 mmol/L 98-108 L 8643115268) CO2 TOTAL (test code = 32 mmol/L 23-31 H 0600566115) AGAP (test code = 2-16 4311550372) BUN (test code = 21 mg/dL 7-23 7648503061) GLUCOSE (test code = 115 mg/dL 70-110 H 7889218886) CREATININE (test code = 1.15 mg/dL 0.6-1.25 8392471724) TOTAL BILI (test code = 0.6 mg/dL 0.1-1.2 8126106826) CALCIUM (test code = 9.0 mg/dL 8.6-10.6 6397817901) T PROTEIN (test code = 7.3 g/dL 6.3-8.2 7429197879) ALBUMIN (test code = 4.4 g/dL 3.5-5 4995505701) ALK PHOS (test code = 76 U/L 34-122 0292820395) ALTv (test code = 25 U/L 5-50 1742-6) AST(SGOT) (test code = 24 U/L 13-40 2206860632) eGFR Calculation mL/min/1.73m2 (Non-) (test code = 4653414013) eGFR Calculation mL/min/1.73m2 () (test code = 2317955264) NAOMIE (test code = NAOMIE) Association of [...] tests). Lab Interpretation Abnormal (test code = 53558-7) [facility] CenterType [facility] - ONCE Pksiebx7314-50-55 17:41:29 Test Item Value Reference Range Interpretation Comments ABO & RH (test code B Positive Performe d at RUST = 20) Laboratory Serv [facility] [place] [address] Free: [phone] A No. [id number] IAT (test code = Negative Performed a t RUST 1185) Laboratory Serv [facility] [place] [address] Free: [phone] A No. [id number] [facility] CenterURINALYSIS2021-01-26 17:15:00 Test Item Value Reference Range Interpretation Comments APPEARANCE (test code = Clear Clear 2803534689) COLOR (test code = Yellow Yellow 6998122555) PH (test code = 4.8-8.0 5598492162) SP GRAVITY (test code = 1.003-1.030 2815522206) GLU U QUAL (test code = Normal Normal 3419231798) BLOOD (test code = Negative Negative 2904016667) KETONES (test code = Negative Negative 3976932116) PROTEIN (test code = Negative Negative 2887-8) UROBILIN (test code = Normal Normal 1027120096) BILIRUBIN (test code = Negative Negative 0865241323) NITRITE (test code = Negative Negative 8455532750) LEUK KAVYA (test code = Negative Negative 8805120110) RBC/HPF (test code = <1 See_Comment [Autom ated message] 9464418904) The system [email or web address] generated this result transmitted ref erence range: 0 - 3 HP F. The reference range was not used to int erpret this result as normal/abnormal . WBC/HPF (test code = See_Comment [Autom ated message] 1863935295) The system whic h generated this result transmitted ref erence range: 0 - 5 HP F. The reference range was not used to int erpret this result as normal/abnormal . BACTERIA (test code = Negative Negative 8574836244) Lab Interpretation (test Normal code = 55455-6) [facility] CenterACTIVATED PARTIAL THRMPLAS [id number] 16:58:00 Test Item Value Reference Range Interpretation Comments APTT Patient (test See_Comment [Automat ed code = 3173-2) message] The system which generated this result transmitted reference range : 23 - 38 Seconds . The reference range was not used to interpr et this result as normal/abnormal . NAOMIE (test code = NAOMIE) The [facility] patient population mean normal value for aPTT is 30 seconds. Lab Interpretation Normal (test code = 90806-4) [facility] CenterPROTHROMBIN TIME / [id number] 16:56:00 Test Item Value Reference Range Interpretation Comments PROTIME PATIENT (test See_Comment [Auto mated message] code = 5964-2) The system ich generated this result transmitted ref erence range: 12.0 - 1 4.7 Seconds. The re ference range was not u sed to interpret this result as normal/abnor mal. INR (test code = 6301-6) Nor mal INR <1.1; Warfarin Therap eutic range 2.0 to 3. 0 or 2.5 to 3.5, dep ending upon the indica tions. Lab Interpretation (test Normal code = 26511-3) [facility] CenterCBC WITH [id number] 16:50:00 Test Item Value Reference Range Interpretation Comments WBC (test code = See_Comment [Automated 3790-2) message] The sy stem which generated this result transmitted reference range : 4.20 - 10.70 10*3/?L. The reference range was not used to interpret this result as normal/abnormal . RBC (test code = See_Comment [Automated 849-8) message] The sy stem which generated this [...] RDW-SD (test code = 41.3 fL 38.5-51.6 49793-8) RDW-CV (test code = 12.7 % 12.1-15.4 788-0) PLT (test code = See_Comment [Automated 777-3) message] The sy stem which generated this result transmitted reference range : 150 - 328 10*3/ ?L. The reference r césar was not used to interpret this result as normal/abnormal . MPV (test code = 9.7 fL 9.8-13 L 53525-7) NRBC/100 WBC (test See_Comment [Automat ed code = 4368918256) message] The system which generated this result transmitted reference range : 0.0 - 10.0 /100 WBCs. The refer ence range was not u sed to interpret th is result as normal/abnormal . NRBC x10^3 (test code <0.01 See_Comment [Auto mated = 3666931498) message] The s ystem which generated this result transmitted reference range : 10*3/?L. The reference range was not used to interpret this result as normal/abnormal . GRAN MAT (NEUT) % 55.1 % (test code = 770-8) IMM GRAN % (test code 0.30 % = 4308769241) LYMPH % (test code = 31.9 % 736-9) MONO % (test code = 8.8 % 5905-5) EOS % (test code = 3.1 % 713-8) BASO % (test code = 0.8 % 706-2) GRAN MAT x10^3(ANC) 3.37 10*3/uL 1.99-6.95 (test code = 5530272045) IMM GRAN x10^3 (test <0.03 0-0.06 code = 7005146005) LYMPH x10^3 (test code 1.95 10*3/uL 1.09-3.23 = 731-0) MONO x10^3 (test code 0.54 10*3/uL 0.36-1.02 = 742-7) EOS x10^3 (test code = 0.19 10*3/uL 0.06-0.53 711-2) BASO x10^3 (test code 0.05 10*3/uL 0.01-0.09 = 704-7) Lab Interpretation Abnormal (test code = 26931-5) [facility]2016-07-13 10:35:00 Test Item Value Reference Range Interpretation Comments Creatinine Lvl (test code = Creatinine 1.13 0.50-1.40 Lvl) [facility]2016-07-13 10:35:00 Test Item Value Reference Range Interpretation Comments eGFR (test code = eGFR) [address] [place] [address]2016-07-13 10:35:00 Test Item Value Reference Range Interpretation Comments BUN (test code = BUN) 04-13 [facility]2016-07-13 10:35:00 Test Item Value Reference Range Interpretation Comments Creatinine Lvl (test code = Creatinine 1.13 0.50-1.40 Lvl) [facility]2016-07-13 10:35:00 Test Item Value Reference Range Interpretation Comments eGFR (test code = eGFR) [address] [place] [address]2016-07-13 10:35:00 Test Item Value Reference Range Interpretation Comments BUN (test code = BUN) 04-13 [facility]2016-07-13 10:35:00 Test Item Value Reference Range Interpretation Comments Creatinine Lvl (test code = Creatinine 1.13 0.50-1.40 Lvl) [facility]2016-07-13 10:35:00 Test Item Value Reference Range Interpretation Comments eGFR (test code = eGFR) [address] [place] [address]2016-07-13 10:35:00 Test Item Value Reference Range Interpretation Comments BUN (test code = BUN) 04-13 [facility]2016-07-13 10:35:00 Test Item Value Reference Range Interpretation Comments Creatinine Lvl (test code = Creatinine 1.13 0.50-1.40 Lvl) [facility]2016-07-13 10:35:00 Test Item Value Reference Range Interpretation Comments eGFR (test code = eGFR) 70 [facility]2016-07-13 10:35:00 Test Item Value Reference Range Interpretation Comments BUN (test code = BUN) 23 04-13 [facility]2016-01-06 11:55:00 Test Item Value Reference Range Interpretation Comments Creatinine Lvl (test code = Creatinine 1.15 0.50-1.40 Lvl) [facility]2016-01-06 11:55:00 Test Item Value Reference Range Interpretation Comments BUN (test code = BUN) 16 04-13 [facility]2016-01-06 11:55:00 Test Item Value Reference Range Interpretation Comments eGFR (test code = eGFR) 69 [facility]2016-01-06 11:55:00 Test Item Value Reference Range Interpretation Comments Creatinine Lvl (test code = Creatinine 1.15 0.50-1.40 Lvl) [facility]2016-01-06 11:55:00 Test Item Value Reference Range Interpretation Comments BUN (test code = BUN) 16 04-13 [facility]2016-01-06 11:55:00 Test Item Value Reference Range Interpretation Comments eGFR (test code = eGFR) 69 [facility]2016-01-06 11:55:00 Test Item Value Reference Range Interpretation Comments Creatinine Lvl (test code = Creatinine 1.15 0.50-1.40 Lvl) [facility]2016-01-06 11:55:00 Test Item Value Reference Range Interpretation Comments BUN (test code = BUN) 16 04-13 [facility]2016-01-06 11:55:00 Test Item Value Reference Range Interpretation Comments eGFR (test code = eGFR) 69 [facility]2016-01-06 11:55:00 Test Item Value Reference Range Interpretation Comments Creatinine Lvl (test code = Creatinine 1.15 0.50-1.40 Lvl) [facility]2016-01-06 11:55:00 Test Item Value Reference Range Interpretation Comments BUN (test code = BUN) 16 04-13 [facility]2016-01-06 11:55:00 Test Item Value Reference Range Interpretation Comments eGFR (test code = eGFR) 69 [facility]2015-06-04 05:15:00 Test Item Value Reference Range Interpretation Comments Magnesium Lvl (test code = Magnesium 2.0 1.8-2.4 Lvl) [facility]2015-06-04 05:15:00 Test Item Value Reference Range Interpretation Comments Phosphorus (test code = Phosphorus) 3.9 2.5-4.5 [facility]2015-06-04 05:15:00 Test Item Value Reference Range Interpretation Comments eGFR (test code = eGFR) 73 [facility]2015-06-04 05:15:00 Test Item Value Reference Range Interpretation Comments Calcium Lvl (test code = Calcium Lvl) 8.5 8.5-10.5 [facility]2015-06-04 05:15:00 Test Item Value Reference Range Interpretation Comments Glucose Lvl (test code = Glucose Lvl) 111 70-99 [facility]2015-06-04 05:15:00 Test Item Value Reference Range Interpretation Comments Creatinine Lvl (test code = Creatinine 1.1 0.5-1.4 Lvl) [facility]2015-06-04 05:15:00 Test Item Value Reference Range Interpretation Comments Sodium Lvl (test code = Sodium Lvl) 142 135-145 [facility]2015-06-04 05:15:00 Test Item Value Reference Range Interpretation Comments BUN (test code = BUN) 17 7-22 [facility]2015-06-04 05:15:00 Test Item Value Reference Range Interpretation Comments Chloride Lvl (test code = Chloride Lvl) 108 95-109 [facility]2015-06-04 05:15:00 Test Item Value Reference Range Interpretation Comments CO2 (test code = CO2) 27 24-32 [facility]2015-06-04 05:15:00 Test Item Value Reference Range Interpretation Comments Potassium Lvl (test code = Potassium 4.1 3.5-5.1 Lvl) [facility]2015-06-04 05:15:00 Test Item Value Reference Range Interpretation Comments AGAP (test code = AGAP) 11.1 10.0-20.0 [facility] HospitalIfpgqeaOWNPNWDTCN2528-00-53 05:15:00 Test Item Value Reference Range Interpretation Comments RBC (test code = RBC) 4.46 4.70-6.10 [facility]DzeuwcvECYHHSQWOM0027-34-65 05:15:00 Test Item Value Reference Range Interpretation Comments WBC (test code = WBC) 8.0 3.7-10.4 [facility] HospitalZjoasdvODOPPOEIWP9692-44-02 05:15:00 Test Item Value Reference Range Interpretation Comments Platelet (test code = Platelet) 135 133-450 [facility] HospitalUajwyvkQELYKOHOMT1952-69-99 05:15:00 Test Item Value Reference Range Interpretation Comments Hgb (test code = Hgb) 13.3 14.0-18.0 [facility] HospitalMixbxpqDNYZJOZFAZ3934-23-97 05:15:00 Test Item Value Reference Range Interpretation Comments MCV (test code = MCV) 87.5 80.0-94.0 [facility] HospitalSqiehokRVKFSTHLGN1399-80-44 05:15:00 Test Item Value Reference Range Interpretation Comments MCHC (test code = MCHC) 34.2 32.0-36.0 [facility] HospitalStcuemyALUGPHXGUT6066-48-33 05:15:00 Test Item Value Reference Range Interpretation Comments MCH (test code = MCH) 29.9 pg 27.0-31.0 [facility] HospitalBarxbdwQMUUEDQMQE1389-79-46 05:15:00 Test Item Value Reference Range Interpretation Comments RDW (test code = RDW) 13.4 11.5-14.5 [facility] HospitalKyinkskSTMINQCAZX9690-91-40 05:15:00 Test Item Value Reference Range Interpretation Comments MPV (test code = MPV) 8.3 7.4-10.4 [facility] HospitalXaakllqIUQMTLBPHN1902-38-66 05:15:00 Test Item Value Reference Range Interpretation Comments Hct (test code = Hct) 39.0 42.0-54.0 [facility] HospitalBsocdoaORJGEJMBMT4306-99-72 05:15:00 Test Item Value Reference Range Interpretation Comments Eosinophils (test code = 0.7 See_Comment [A utomated message] The Eosinophils) system which ge nerated this result tra nsmitted reference range : <=4.0. The reference r césar was not used to int erpret this result as normal/abnormal . [facility] HospitalPtmfamiCBFZIGFFGS6056-55-74 05:15:00 Test Item Value Reference Range Interpretation Comments Basophils (test code = 0.4 See_Comment [Aut omated message] The Basophils) system which ge nerated this result tra nsmitted reference range : <=1.0. The reference r césar was not used to int erpret this result as normal/abnormal . [facility] HospitalYxknnuqXPXUZLUWCW9427-49-85 05:15:00 Test Item Value Reference Range Interpretation Comments Segs-Bands # (test code = Segs-Bands #) 5.8 1.5-8.1 [facility] HospitalXgnsyysWQLFXXFZYY0367-34-38 05:15:00 Test Item Value Reference Range Interpretation Comments Lymphocytes # (test code = Lymphocytes 1.5 1.0-5.5 #) [facility] HospitalHhfgpozUJOSZZNLVM3981-14-54 05:15:00 Test Item Value Reference Range Interpretation Comments Monocytes (test code = Monocytes) 7.9 2.0-12.0 [facility] HospitalRcabauoGUMBGDHWNN4594-44-62 05:15:00 Test Item Value Reference Range Interpretation Comments Monocytes # (test code 0.6 See_Comment [Aut omated message] The = Monocytes #) system which generated this result tra nsmitted reference range : <=0.8. The reference r césar was not used to int erpret this result as normal/abnormal . [facility] HospitalShwohhbJPKSJASMBA6252-75-75 05:15:00 Test Item Value Reference Range Interpretation Comments Eosinophils # (test code 0.1 See_Comment [A utomated message] The = Eosinophils #) system whic h generated this result tra nsmitted reference range : <=0.5. The reference r césar was not used to int erpret this result as normal/abnormal . [facility] HospitalZqasqveUZDQKNLPBF0229-10-68 05:15:00 Test Item Value Reference Range Interpretation Comments Segs (test code = Segs) 72.5 45.0-75.0 [facility] HospitalWkfrgabWWAWRSTCML7014-75-42 05:15:00 Test Item Value Reference Range Interpretation Comments Lymphocytes (test code = Lymphocytes) 18.5 20.0-40.0 [facility]2015-06-04 05:15:00 Test Item Value Reference Range Interpretation Comments Ca Norm WB (test code = Ca Norm WB) 1.09 1.05-1.25 [facility]2015-06-04 05:15:00 Test Item Value Reference Range Interpretation Comments Ca Ion WB (test code = Ca Ion WB) 1.12 1.05-1.25 [facility]2015-06-04 05:15:00 Test Item Value Reference Range Interpretation Comments Magnesium Lvl (test code = Magnesium 2.0 1.8-2.4 Lvl) [facility]2015-06-04 05:15:00 Test Item Value Reference Range Interpretation Comments Phosphorus (test code = Phosphorus) 3.9 2.5-4.5 [facility]2015-06-04 05:15:00 Test Item Value Reference Range Interpretation Comments eGFR (test code = eGFR) 73 [facility]2015-06-04 05:15:00 Test Item Value Reference Range Interpretation Comments Calcium Lvl (test code = Calcium Lvl) 8.5 8.5-10.5 [facility]2015-06-04 05:15:00 Test Item Value Reference Range Interpretation Comments Glucose Lvl (test code = Glucose Lvl) 111 70-99 [facility]2015-06-04 05:15:00 Test Item Value Reference Range Interpretation Comments Creatinine Lvl (test code = Creatinine 1.1 0.5-1.4 Lvl) [facility]2015-06-04 05:15:00 Test Item Value Reference Range Interpretation Comments Sodium Lvl (test code = Sodium Lvl) 142 135-145 [facility]2015-06-04 05:15:00 Test Item Value Reference Range Interpretation Comments BUN (test code = BUN) 17 7-22 [facility]2015-06-04 05:15:00 Test Item Value Reference Range Interpretation Comments Chloride Lvl (test code = Chloride Lvl) 108 95-109 [facility]2015-06-04 05:15:00 Test Item Value Reference Range Interpretation Comments CO2 (test code = CO2) 27 24-32 [facility]2015-06-04 05:15:00 Test Item Value Reference Range Interpretation Comments Potassium Lvl (test code = Potassium 4.1 3.5-5.1 Lvl) [facility]2015-06-04 05:15:00 Test Item Value Reference Range Interpretation Comments AGAP (test code = AGAP) 11.1 10.0-20.0 [facility] HospitalIyftjjjTDYVDXASVK1283-00-17 05:15:00 Test Item Value Reference Range Interpretation Comments RBC (test code = RBC) 4.46 4.70-6.10 [facility] HospitalVhatsyaZBUQNGWYJT2499-40-16 05:15:00 Test Item Value Reference Range Interpretation Comments WBC (test code = WBC) 8.0 3.7-10.4 [facility] HospitalZnuksmrXXQRZGCTGY9872-09-41 05:15:00 Test Item Value Reference Range Interpretation Comments Platelet (test code = Platelet) 135 133-450 [facility] HospitalNyuxkhdNMQBTIRZZA4010-17-56 05:15:00 Test Item Value Reference Range Interpretation Comments Hgb (test code = Hgb) 13.3 14.0-18.0 [facility] HospitalRcchbdtIQUCPZXIMK9769-95-25 05:15:00 Test Item Value Reference Range Interpretation Comments MCV (test code = MCV) 87.5 80.0-94.0 [facility] HospitalSfxamoaYJIOERTBUM4675-27-96 05:15:00 Test Item Value Reference Range Interpretation Comments MCHC (test code = MCHC) 34.2 32.0-36.0 [facility] HospitalIktlwkeKGHISRIUYX1657-27-53 05:15:00 Test Item Value Reference Range Interpretation Comments MCH (test code = MCH) 29.9 pg 27.0-31.0 [facility] HospitalXqycmwvFSTKJOFPMS4012-04-25 05:15:00 Test Item Value Reference Range Interpretation Comments RDW (test code = RDW) 13.4 11.5-14.5 [facility] HospitalTsflsxfWYDGYPPUKC1144-11-56 05:15:00 Test Item Value Reference Range Interpretation Comments MPV (test code = MPV) 8.3 7.4-10.4 [facility] HospitalDgrteecQYFLWCUSXD4842-53-57 05:15:00 Test Item Value Reference Range Interpretation Comments Hct (test code = Hct) 39.0 42.0-54.0 [facility] HospitalCueghqnHCCNXYEFEO2904-58-45 05:15:00 Test Item Value Reference Range Interpretation Comments Eosinophils (test code = 0.7 See_Comment [A utomated message] The Eosinophils) system which ge nerated this result tra nsmitted reference range : <=4.0. The reference r césar was not used to int erpret this result as normal/abnormal . [facility] HospitalBoguyqySNBTOJUSZP6219-63-17 05:15:00 Test Item Value Reference Range Interpretation Comments Basophils (test code = 0.4 See_Comment [Aut omated message] The Basophils) system which ge nerated this result tra nsmitted reference range : <=1.0. The reference r césar was not used to int erpret this result as normal/abnormal . [facility] HospitalBqzbhrvSFRMLPZDKE2188-29-56 05:15:00 Test Item Value Reference Range Interpretation Comments Segs-Bands # (test code = Segs-Bands #) 5.8 1.5-8.1 [facility] HospitalLkiezjdMGOEAVQOOQ8444-00-85 05:15:00 Test Item Value Reference Range Interpretation Comments Lymphocytes # (test code = Lymphocytes 1.5 1.0-5.5 #) [facility] [facility]XKE3425-94-33 05:15:00 Test Item Value Reference Range Interpretation Comments Monocytes (test code = Monocytes) 7.9 2.0-12.0 [facility]ozjjjpGSSRQSRKGF8203-75-30 05:15:00 Test Item Value Reference Range Interpretation Comments Monocytes # (test code 0.6 See_Comment [Aut omated message] The = Monocytes #) system which generated this result tra nsmitted reference range : <=0.8. The reference r césar was not used to int erpret this result as normal/abnormal . [facility] HospitalHeequemJTAWRHEDDP2462-74-76 05:15:00 Test Item Value Reference Range Interpretation Comments Eosinophils # (test code 0.1 See_Comment [A utomated message] The = Eosinophils #) system whic h generated this result tra nsmitted reference range : <=0.5. The reference r césar was not used to int erpret this result as normal/abnormal . [facility] HospitalCuvywnlTQZASYVLYS3683-98-09 05:15:00 Test Item Value Reference Range Interpretation Comments Segs (test code = Segs) 72.5 45.0-75.0 [facility] HospitalNevflkxWJXCIGLICT0952-36-46 05:15:00 Test Item Value Reference Range Interpretation Comments Lymphocytes (test code = Lymphocytes) 18.5 20.0-40.0 [facility]2015-06-04 05:15:00 Test Item Value Reference Range Interpretation Comments Ca Norm WB (test code = Ca Norm WB) 1.09 1.05-1.25 [facility]2015-06-04 05:15:00 Test Item Value Reference Range Interpretation Comments Ca Ion WB (test code = Ca Ion WB) 1.12 1.05-1.25 [facility]2015-06-04 05:15:00 Test Item Value Reference Range Interpretation Comments Magnesium Lvl (test code = Magnesium 2.0 1.8-2.4 Lvl) [facility]2015-06-04 05:15:00 Test Item Value Reference Range Interpretation Comments Phosphorus (test code = Phosphorus) 3.9 2.5-4.5 [facility]2015-06-04 05:15:00 Test Item Value Reference Range Interpretation Comments eGFR (test code = eGFR) 73 [facility]2015-06-04 05:15:00 Test Item Value Reference Range Interpretation Comments Calcium Lvl (test code = Calcium Lvl) 8.5 8.5-10.5 [facility]2015-06-04 05:15:00 Test Item Value Reference Range Interpretation Comments Glucose Lvl (test code = Glucose Lvl) 111 70-99 [facility]2015-06-04 05:15:00 Test Item Value Reference Range Interpretation Comments Creatinine Lvl (test code = Creatinine 1.1 0.5-1.4 Lvl) [facility]2015-06-04 05:15:00 Test Item Value Reference Range Interpretation Comments Sodium Lvl (test code = Sodium Lvl) 142 135-145 [facility]2015-06-04 05:15:00 Test Item Value Reference Range Interpretation Comments BUN (test code = BUN) 17 7-22 [facility]2015-06-04 05:15:00 Test Item Value Reference Range Interpretation Comments Chloride Lvl (test code = Chloride Lvl) 108 95-109 [facility]2015-06-04 05:15:00 Test Item Value Reference Range Interpretation Comments CO2 (test code = CO2) 27 24-32 [facility]2015-06-04 05:15:00 Test Item Value Reference Range Interpretation Comments Potassium Lvl (test code = Potassium 4.1 3.5-5.1 Lvl) [facility]2015-06-04 05:15:00 Test Item Value Reference Range Interpretation Comments AGAP (test code = AGAP) 11.1 10.0-20.0 [facility] HospitalIrvduzkZOIJOXLKLM6225-57-41 05:15:00 Test Item Value Reference Range Interpretation Comments RBC (test code = RBC) 4.46 4.70-6.10 [facility] HospitalIwcopmhWYBUTTQDSG7019-42-31 05:15:00 Test Item Value Reference Range Interpretation Comments WBC (test code = WBC) 8.0 3.7-10.4 [facility] HospitalIqwsuoxUJEEKFGRNL0280-15-23 05:15:00 Test Item Value Reference Range Interpretation Comments Platelet (test code = Platelet) 135 133-450 [facility] HospitalPepfxsvEPFPXRJZVK4963-03-30 05:15:00 Test Item Value Reference Range Interpretation Comments Hgb (test code = Hgb) 13.3 14.0-18.0 [facility] HospitalCraoeqiIHZQHUUHFR9486-55-56 05:15:00 Test Item Value Reference Range Interpretation Comments MCV (test code = MCV) 87.5 80.0-94.0 [facility] HospitalBakpyncXFYLIQLMIN0258-73-72 05:15:00 Test Item Value Reference Range Interpretation Comments MCHC (test code = MCHC) 34.2 32.0-36.0 [facility] HospitalZzblxqfUDTNTDSYFR5769-66-97 05:15:00 Test Item Value Reference Range Interpretation Comments MCH (test code = MCH) 29.9 pg 27.0-31.0 [facility] HospitalGzwbbfvXMICHMBWWT8990-97-20 05:15:00 Test Item Value Reference Range Interpretation Comments RDW (test code = RDW) 13.4 11.5-14.5 [facility] HospitalKohiukzJXUAIRXCLS8851-97-21 05:15:00 Test Item Value Reference Range Interpretation Comments MPV (test code = MPV) 8.3 7.4-10.4 [facility] HospitalBguejdlREEQOEAWPO1912-25-61 05:15:00 Test Item Value Reference Range Interpretation Comments Hct (test code = Hct) 39.0 42.0-54.0 [facility] HospitalEtevvcvZQKDJMPGQL7098-91-43 05:15:00 Test Item Value Reference Range Interpretation Comments Eosinophils (test code = 0.7 See_Comment [A utomated message] The Eosinophils) system which ge nerated this result tra nsmitted reference range : <=4.0. The reference r césar was not used to int erpret this result as normal/abnormal . [facility] HospitalLlakwtoTMCSZHWHTV0861-72-65 05:15:00 Test Item Value Reference Range Interpretation Comments Basophils (test code = 0.4 See_Comment [Aut omated message] The Basophils) system which ge nerated this result tra nsmitted reference range : <=1.0. The reference r césar was not used to int erpret this result as normal/abnormal . [facility] HospitalLtlakevJQXPATTDSN9194-00-66 05:15:00 Test Item Value Reference Range Interpretation Comments Segs-Bands # (test code = Segs-Bands #) 5.8 1.5-8.1 [facility] HospitalGpbgfnsZKKJQEROKL9992-89-43 05:15:00 Test Item Value Reference Range Interpretation Comments Lymphocytes # (test code = Lymphocytes 1.5 1.0-5.5 #) [facility] HospitalHjcyqllHNHZGLSMTZ9288-90-96 05:15:00 Test Item Value Reference Range Interpretation Comments Monocytes (test code = Monocytes) 7.9 2.0-12.0 [facility] HospitalFvyjcpdZVJWMOENUN0153-67-77 05:15:00 Test Item Value Reference Range Interpretation Comments Monocytes # (test code 0.6 See_Comment [Aut omated message] The = Monocytes #) system which generated this result tra nsmitted reference range : <=0.8. The reference r césar was not used to int erpret this result as normal/abnormal . [facility] HospitalSzqoyyeLCESHEGXNP6702-35-07 05:15:00 Test Item Value Reference Range Interpretation Comments Eosinophils # (test code 0.1 See_Comment [A utomated message] The = Eosinophils #) system whic h generated this result tra nsmitted reference range : <=0.5. The reference r césar was not used to int erpret this result as normal/abnormal . [facility] HospitalWoakioeCVBJAFIMOI2754-44-67 05:15:00 Test Item Value Reference Range Interpretation Comments Segs (test code = Segs) 72.5 45.0-75.0 [facility] HospitalBhcplnoYJWFMQTUEP7168-31-04 05:15:00 Test Item Value Reference Range Interpretation Comments Lymphocytes (test code = Lymphocytes) 18.5 20.0-40.0 [facility]2015-06-04 05:15:00 Test Item Value Reference Range Interpretation Comments Ca Norm WB (test code = Ca Norm WB) 1.09 1.05-1.25 [facility]2015-06-04 05:15:00 Test Item Value Reference Range Interpretation Comments Ca Ion WB (test code = Ca Ion WB) 1.12 1.05-1.25 [facility]2015-06-04 05:15:00 Test Item Value Reference Range Interpretation Comments Magnesium Lvl (test code = Magnesium 2.0 1.8-2.4 Lvl) [facility]2015-06-04 05:15:00 Test Item Value Reference Range Interpretation Comments Phosphorus (test code = Phosphorus) 3.9 2.5-4.5 [facility]2015-06-04 05:15:00 Test Item Value Reference Range Interpretation Comments eGFR (test code = eGFR) 73 [facility]2015-06-04 05:15:00 Test Item Value Reference Range Interpretation Comments Calcium Lvl (test code = Calcium Lvl) 8.5 8.5-10.5 [facility]2015-06-04 05:15:00 Test Item Value Reference Range Interpretation Comments Glucose Lvl (test code = Glucose Lvl) 111 70-99 [facility]2015-06-04 05:15:00 Test Item Value Reference Range Interpretation Comments Creatinine Lvl (test code = Creatinine 1.1 0.5-1.4 Lvl) [facility]2015-06-04 05:15:00 Test Item Value Reference Range Interpretation Comments Sodium Lvl (test code = Sodium Lvl) 142 135-145 [facility]2015-06-04 05:15:00 Test Item Value Reference Range Interpretation Comments BUN (test code = BUN) 17 7-22 [facility]2015-06-04 05:15:00 Test Item Value Reference Range Interpretation Comments Chloride Lvl (test code = Chloride Lvl) 108 95-109 [facility]2015-06-04 05:15:00 Test Item Value Reference Range Interpretation Comments CO2 (test code = CO2) 27 24-32 [facility]2015-06-04 05:15:00 Test Item Value Reference Range Interpretation Comments Potassium Lvl (test code = Potassium 4.1 3.5-5.1 Lvl) [facility]2015-06-04 05:15:00 Test Item Value Reference Range Interpretation Comments AGAP (test code = AGAP) 11.1 10.0-20.0 [facility] HospitalZhkyayvUXLEIGKCOM1765-77-60 05:15:00 Test Item Value Reference Range Interpretation Comments RBC (test code = RBC) 4.46 4.70-6.10 [facility] HospitalMmedwhyECDHXYBTAU5956-10-65 05:15:00 Test Item Value Reference Range Interpretation Comments WBC (test code = WBC) 8.0 3.7-10.4 [facility] HospitalDaonxoaUDYJEAXMHH2971-83-20 05:15:00 Test Item Value Reference Range Interpretation Comments Platelet (test code = Platelet) 135 133-450 [facility] HospitalEiqspevDTTPIEFAWF4943-79-27 05:15:00 Test Item Value Reference Range Interpretation Comments Hgb (test code = Hgb) 13.3 14.0-18.0 [facility] HospitalYbibbauWQZKHSWJVZ3786-05-40 05:15:00 Test Item Value Reference Range Interpretation Comments MCV (test code = MCV) 87.5 80.0-94.0 [facility] HospitalHnhoforPCTYXSHYFF5804-99-02 05:15:00 Test Item Value Reference Range Interpretation Comments MCHC (test code = MCHC) 34.2 32.0-36.0 [facility] HospitalDvethxnROOCPSKWSP1466-86-11 05:15:00 Test Item Value Reference Range Interpretation Comments MCH (test code = MCH) 29.9 pg 27.0-31.0 [facility] HospitalBznppvfXHFHCWYFNK9945-37-31 05:15:00 Test Item Value Reference Range Interpretation Comments RDW (test code = RDW) 13.4 11.5-14.5 [facility] HospitalRywpqdsCNGIUNVJLQ5954-38-68 05:15:00 Test Item Value Reference Range Interpretation Comments MPV (test code = MPV) 8.3 7.4-10.4 [facility] HospitalQqznjtbVTCRLGXXBZ6339-49-79 05:15:00 Test Item Value Reference Range Interpretation Comments Hct (test code = Hct) 39.0 42.0-54.0 [facility] HospitalMqimfneSDOFBXFSEI2613-24-07 05:15:00 Test Item Value Reference Range Interpretation Comments Eosinophils (test code = 0.7 See_Comment [A utomated message] The Eosinophils) system which ge nerated this result tra nsmitted reference range : <=4.0. The reference r césar was not used to int erpret this result as normal/abnormal . [facility] HospitalBqnyhdbTBIEWMUROG3537-31-71 05:15:00 Test Item Value Reference Range Interpretation Comments Basophils (test code = 0.4 See_Comment [Aut omated message] The Basophils) system which ge nerated this result tra nsmitted reference range : <=1.0. The reference r césar was not used to int erpret this result as normal/abnormal . [facility] HospitalQxcoickNBFTNQIOJK1210-79-68 05:15:00 Test Item Value Reference Range Interpretation Comments Segs-Bands # (test code = Segs-Bands #) 5.8 1.5-8.1 [facility] HospitalBocmucePMOOKMBSNF3271-96-71 05:15:00 Test Item Value Reference Range Interpretation Comments Lymphocytes # (test code = Lymphocytes 1.5 1.0-5.5 #) [facility] HospitalEhhnspiVLGVXONBOI7137-25-02 05:15:00 Test Item Value Reference Range Interpretation Comments Monocytes (test code = Monocytes) 7.9 2.0-12.0 [facility] HospitalNvehhqqGEVBNJMXAW4666-84-02 05:15:00 Test Item Value Reference Range Interpretation Comments Monocytes # (test code 0.6 See_Comment [Aut omated message] The = Monocytes #) system which generated this result tra nsmitted reference range : <=0.8. The reference r césar was not used to int erpret this result as normal/abnormal . [facility] HospitalJxsfsbfGZZABEIAEG2771-86-43 05:15:00 Test Item Value Reference Range Interpretation Comments Eosinophils # (test code 0.1 See_Comment [A utomated message] The = Eosinophils #) system whic h generated this result tra nsmitted reference range : <=0.5. The reference r césar was not used to int erpret this result as normal/abnormal . [facility] HospitalUcrioxxORVUUKDFQO1067-03-42 05:15:00 Test Item Value Reference Range Interpretation Comments Segs (test code = Segs) 72.5 45.0-75.0 [facility] HospitalEkkvecuWHDUFUXWAD4139-60-94 05:15:00 Test Item Value Reference Range Interpretation Comments Lymphocytes (test code = Lymphocytes) 18.5 20.0-40.0 [facility]2015-06-04 05:15:00 Test Item Value Reference Range Interpretation Comments Ca Norm WB (test code = Ca Norm WB) 1.09 1.05-1.25 [facility]2015-06-04 05:15:00 Test Item Value Reference Range Interpretation Comments Ca Ion WB (test code = Ca Ion WB) 1.12 1.05-1.25 [facility] [id number] 17:34:00 Test Item Value Reference Range Interpretation Comments Antibody Scrn (test Negative (02/23/15 12:34 code = Antibody Scrn) PM) [facility] [employer] [facility] [employer] [facility] [facility] [id number] 17:34:00 Test Item Value Reference Range Interpretation Comments ABO/Rh (test code = ABO/Rh) B POS [facility] [employer] [id number] 17:34:00 Test Item Value Reference Range Interpretation Comments Antibody Scrn (test Negative (02/23/15 12:34 code = Antibody Scrn) PM) [facility] [employer] [facility] [employer] [id number] 17:34:00 Test Item Value Reference Range Interpretation Comments ABO/Rh (test code = ABO/Rh) B POS [facility] [employer] [facility] hospitalS[facility] [employer] [facility] [id number] 17:34:00 Test Item Value Reference Range Interpretation Comments Antibody Scrn (test Negative (02/23/15 12:34 code = Antibody Scrn) PM) [facility] [employer] [facility] [employer] [id number] 17:34:00 Test Item Value Reference Range Interpretation Comments ABO/Rh (test code = ABO/Rh) B POS [facility] [employer] [facility] [employer] [id number] 17:34:00 Test Item Value Reference Range Interpretation Comments Antibody Scrn (test Negative (02/23/15 12:34 code = Antibody Scrn) PM) [facility] ISDSDHK1520-12-49 17:34:00 Test Item Value Reference Range Interpretation Comments ABO/Rh (test code = ABO/Rh) B POS [facility]BqrvxdfUIMENKZRCUOM4760-13-10 16:56:00 Test Item Value Reference Range Interpretation Comments AGAP (test code = AGAP) 9.3 10.0-20.0 [facility]UhqhjnwCUMIIECGPIZD2217-62-35 16:56:00 Test Item Value Reference Range Interpretation Comments eGFR (test code = eGFR) 73 [facility]rgayJQRQGQIZKTRR2216-80-18 16:56:00 Test Item Value Reference Range Interpretation Comments Calcium Lvl (test code = Calcium Lvl) 9.4 8.5-10.5 [facility]SijyjchJIEDULLZSSAW1551-64-99 16:56:00 Test Item Value Reference Range Interpretation Comments Chloride Lvl (test code = Chloride Lvl) 104 95-109 [facility] HospitalCbjqmnhHPWHLVTIWCBG1562-26-95 16:56:00 Test Item Value Reference Range Interpretation Comments Creatinine Lvl (test code = Creatinine 1.1 0.5-1.4 Lvl) [facility] HospitalMotgdcrQGRMLACHKRLG4881-89-26 16:56:00 Test Item Value Reference Range Interpretation Comments Sodium Lvl (test code = Sodium Lvl) 142 135-145 [facility] HospitalDhiffboNLAIMBQUVCQU0320-94-75 16:56:00 Test Item Value Reference Range Interpretation Comments CO2 (test code = CO2) 33 24-32 [facility] HospitalUmvlenkPSECZEIAOWNO5601-36-48 16:56:00 Test Item Value Reference Range Interpretation Comments Potassium Lvl (test code = Potassium 4.3 3.5-5.1 Lvl) [facility] HospitalDhrdmvwDSUCYUUSBGAN9065-43-59 16:56:00 Test Item Value Reference Range Interpretation Comments Glucose Lvl (test code = Glucose Lvl) 112 70-99 [facility] HospitalFhntwcrQIGLVDPQTREL3513-62-52 16:56:00 Test Item Value Reference Range Interpretation Comments BUN (test code = BUN) 15 7-22 [facility] HospitalOnxavhyTTBHRJZGFL0100-25-92 16:56:00 Test Item Value Reference Range Interpretation Comments Eosinophils # (test code 0.1 See_Comment [A utomated message] The = Eosinophils #) system whic h generated this result tra nsmitted reference range : <=0.5. The reference r césar was not used to int erpret this result as normal/abnormal . [facility] HospitalLpfpivnGNACVKCZPI4140-85-17 16:56:00 Test Item Value Reference Range Interpretation Comments Monocytes # (test code 0.6 See_Comment [Aut omated message] The = Monocytes #) system which generated this result tra nsmitted reference range : <=0.8. The reference r césar was not used to int erpret this result as normal/abnormal . [facility] HospitalMtvytjmPYTBCOWYEE8659-51-87 16:56:00 Test Item Value Reference Range Interpretation Comments Lymphocytes # (test code = Lymphocytes 2.0 1.0-5.5 #) [facility] HospitalVvjwjypHAIBOHRTNG6955-04-46 16:56:00 Test Item Value Reference Range Interpretation Comments Segs-Bands # (test code = Segs-Bands #) 2.3 1.5-8.1 [facility] HospitalAnivsbzVRQOOOTQJB8229-89-80 16:56:00 Test Item Value Reference Range Interpretation Comments Segs (test code = Segs) 45.4 45.0-75.0 [facility] HospitalXceefbfCTXGAXCBAQ0578-34-64 16:56:00 Test Item Value Reference Range Interpretation Comments Monocytes (test code = Monocytes) 11.5 2.0-12.0 [facility] HospitalKprsjesTVITXMWUGC1748-94-08 16:56:00 Test Item Value Reference Range Interpretation Comments Basophils (test code = 0.7 See_Comment [Aut omated message] The Basophils) system which ge nerated this result tra nsmitted reference range : <=1.0. The reference r césar was not used to int erpret this result as normal/abnormal . [facility] HospitalNcxywemJOLHMSICPJ7130-56-63 16:56:00 Test Item Value Reference Range Interpretation Comments Eosinophils (test code = 2.6 See_Comment [A utomated message] The Eosinophils) system which ge nerated this result tra nsmitted reference range : <=4.0. The reference r césar was not used to int erpret this result as normal/abnormal . [facility] HospitalHeermqlVXDLLJBEIC6710-90-94 16:56:00 Test Item Value Reference Range Interpretation Comments Lymphocytes (test code = Lymphocytes) 39.8 20.0-40.0 [facility] HospitalCyjtziaCTCPZUOAGM2469-14-48 16:56:00 Test Item Value Reference Range Interpretation Comments MCHC (test code = MCHC) 33.8 32.0-36.0 [facility] HospitalDpykijyJOMZJSCIRV0440-78-89 16:56:00 Test Item Value Reference Range Interpretation Comments MCH (test code = MCH) 29.8 pg 27.0-31.0 [facility] HospitalWpxbkiuQQGCYWBIWI1142-89-55 16:56:00 Test Item Value Reference Range Interpretation Comments RDW (test code = RDW) 13.5 11.5-14.5 [facility] HospitalKtjncgzHFOPYJWZMS9148-46-44 16:56:00 Test Item Value Reference Range Interpretation Comments MPV (test code = MPV) 8.5 7.4-10.4 [facility] HospitalZmsrplsVKQFRACIIY1689-65-93 16:56:00 Test Item Value Reference Range Interpretation Comments Platelet (test code = Platelet) 154 133-450 [facility] HospitalYxvohbrYMCWKNHRKP7469-12-60 16:56:00 Test Item Value Reference Range Interpretation Comments Hgb (test code = Hgb) 14.9 14.0-18.0 [facility] HospitalAowgkibIQXOJOJQFD0856-48-19 16:56:00 Test Item Value Reference Range Interpretation Comments RBC (test code = RBC) 5.01 4.70-6.10 [facility] HospitalGvozbiqQEOZTYBUJG9052-31-87 16:56:00 Test Item Value Reference Range Interpretation Comments WBC (test code = WBC) 5.1 3.7-10.4 [facility] HospitalIvcuqhnKEZWUBDUNG3239-23-63 16:56:00 Test Item Value Reference Range Interpretation Comments Hct (test code = Hct) 44.1 42.0-54.0 [facility] HospitalTmhfavpCHUWGXOSVM6103-09-15 16:56:00 Test Item Value Reference Range Interpretation Comments MCV (test code = MCV) 88.1 80.0-94.0 [facility] HospitalWweygkgOGXPWCANFO9963-37-69 16:56:00 Test Item Value Reference Range Interpretation Comments PT (test code = PT) 13.2 s 12.0-14.7 [facility] HospitalDnefswbMIWWVFFZQI8799-51-84 16:56:00 Test Item Value Reference Range Interpretation Comments PTT (test code = PTT) 37.1 s 22.9-35.8 [facility] HospitalKnpomxdGJNPLGGNMH5047-08-15 16:56:00 Test Item Value Reference Range Interpretation Comments INR (test code = INR) 1.00 0.85-1.17 [facility] HospitalUtpfhlgHGXUCNPXQHZU8612-77-37 16:56:00 Test Item Value Reference Range Interpretation Comments AGAP (test code = AGAP) 9.3 10.0-20.0 [facility] HospitalBazsnzbIJCOJVGHSUMQ1209-15-16 16:56:00 Test Item Value Reference Range Interpretation Comments eGFR (test code = eGFR) 73 [facility] HospitalEdhvakxPOISTUEXDFQI8874-45-86 16:56:00 Test Item Value Reference Range Interpretation Comments Calcium Lvl (test code = Calcium Lvl) 9.4 8.5-10.5 [facility] HospitalHyltbwmGGDCJIIZDICC6661-47-97 16:56:00 Test Item Value Reference Range Interpretation Comments Chloride Lvl (test code = Chloride Lvl) 104 95-109 [facility] HospitalPhagksnLHRQHQSSQMNA3506-98-16 16:56:00 Test Item Value Reference Range Interpretation Comments Creatinine Lvl (test code = Creatinine 1.1 0.5-1.4 Lvl) [facility] HospitalEjjzqodKJEMHEEFGGXL1346-20-32 16:56:00 Test Item Value Reference Range Interpretation Comments Sodium Lvl (test code = Sodium Lvl) 142 135-145 [facility] HospitalFrtbqdhGBVRBAQRHUVM0133-08-00 16:56:00 Test Item Value Reference Range Interpretation Comments CO2 (test code = CO2) 33 24-32 [facility] HospitalAgysmrmSKOPWBNMIIHM5912-53-18 16:56:00 Test Item Value Reference Range Interpretation Comments Potassium Lvl (test code = Potassium 4.3 3.5-5.1 Lvl) [facility] HospitalVszodilYFRLTGKILFZQ9712-95-12 16:56:00 Test Item Value Reference Range Interpretation Comments Glucose Lvl (test code = Glucose Lvl) 112 70-99 [facility] HospitalNepghtnQSOFVYWISWMY4590-07-51 16:56:00 Test Item Value Reference Range Interpretation Comments BUN (test code = BUN) 15 7-22 [facility] HospitalKxmatxfIKXZYLJTIR1315-77-41 16:56:00 Test Item Value Reference Range Interpretation Comments Eosinophils # (test code 0.1 See_Comment [A utomated message] The = Eosinophils #) system whic h generated this result tra nsmitted reference range : <=0.5. The reference r césra was not used to int erpret this result as normal/abnormal . [facility] HospitalDisqlglDPHLSMNQJP4990-21-25 16:56:00 Test Item Value Reference Range Interpretation Comments Monocytes # (test code 0.6 See_Comment [Aut omated message] The = Monocytes #) system which generated this result tra nsmitted reference range : <=0.8. The reference r césar was not used to int erpret this result as normal/abnormal . [facility] HospitalSevbxdpBZAFFMESMA0578-02-72 16:56:00 Test Item Value Reference Range Interpretation Comments Lymphocytes # (test code = Lymphocytes 2.0 1.0-5.5 #) [facility]WpltvldMWYDQPTDVO2535-81-20 16:56:00 Test Item Value Reference Range Interpretation Comments Segs-Bands # (test code = Segs-Bands #) 2.3 1.5-8.1 [facility]JhpxvslAJCVTCSRTQ6266-74-69 16:56:00 Test Item Value Reference Range Interpretation Comments Segs (test code = Segs) 45.4 45.0-75.0 [facility] HospitalYxrjuocNAGBRZIASU5328-42-21 16:56:00 Test Item Value Reference Range Interpretation Comments Monocytes (test code = Monocytes) 11.5 2.0-12.0 [facility]BwfvstbWFRWWPMCVW1175-73-73 16:56:00 Test Item Value Reference Range Interpretation Comments Basophils (test code = 0.7 See_Comment [Aut omated message] The Basophils) system which ge nerated this result tra nsmitted reference range : <=1.0. The reference r césar was not used to int erpret this result as normal/abnormal . [facility]UnwwtohXVJJPTCITF2127-69-47 16:56:00 Test Item Value Reference Range Interpretation Comments Eosinophils (test code = 2.6 See_Comment [A utomated message] The Eosinophils) system which ge nerated this result tra nsmitted reference range : <=4.0. The reference r césar was not used to int erpret this result as normal/abnormal . [facility] HospitalXkbrfluJLHLAMDMQG7028-16-82 16:56:00 Test Item Value Reference Range Interpretation Comments Lymphocytes (test code = Lymphocytes) 39.8 20.0-40.0 [facility]XxskaleXMQFLCQWCD5464-37-11 16:56:00 Test Item Value Reference Range Interpretation Comments MCHC (test code = MCHC) 33.8 32.0-36.0 [facility] HospitalGgoetbwWCXMJGDZIL6047-04-11 16:56:00 Test Item Value Reference Range Interpretation Comments MCH (test code = MCH) 29.8 pg 27.0-31.0 [facility]VmormgzTZICMNKQGJ5318-61-46 16:56:00 Test Item Value Reference Range Interpretation Comments RDW (test code = RDW) 13.5 11.5-14.5 [facility]KfytloqMFWLCXJOKV1783-44-25 16:56:00 Test Item Value Reference Range Interpretation Comments MPV (test code = MPV) 8.5 7.4-10.4 [facility] HospitalSsaqwatDRZNLMXCHO0982-72-08 16:56:00 Test Item Value Reference Range Interpretation Comments Platelet (test code = Platelet) 154 133-450 [facility]JryujmfOAEJJHKPFK8453-37-80 16:56:00 Test Item Value Reference Range Interpretation Comments Hgb (test code = Hgb) 14.9 14.0-18.0 [facility] HospitalSwmdgfvLNREQGHAOK4539-11-40 16:56:00 Test Item Value Reference Range Interpretation Comments RBC (test code = RBC) 5.01 4.70-6.10 [facility]WpzihkdACDPTSBYFY6889-52-72 16:56:00 Test Item Value Reference Range Interpretation Comments WBC (test code = WBC) 5.1 3.7-10.4 [facility] HospitalSzytwelXDCEMNVEZW4661-99-93 16:56:00 Test Item Value Reference Range Interpretation Comments Hct (test code = Hct) 44.1 42.0-54.0 [facility] HospitalRffhktbDHUKKHNTON3535-47-83 16:56:00 Test Item Value Reference Range Interpretation Comments MCV (test code = MCV) 88.1 80.0-94.0 [facility] HospitalHrytbztYMZSBTCDSQ4745-29-52 16:56:00 Test Item Value Reference Range Interpretation Comments PT (test code = PT) 13.2 s 12.0-14.7 [facility] HospitalLmrlbjxMDHXMXPXXR6035-51-32 16:56:00 Test Item Value Reference Range Interpretation Comments PTT (test code = PTT) 37.1 s 22.9-35.8 [facility] HospitalTwjeqpgPEOMLUESQP8100-64-23 16:56:00 Test Item Value Reference Range Interpretation Comments INR (test code = INR) 1.00 0.85-1.17 [facility]ApgsmrvCPPTCMVQTXIR3471-77-85 16:56:00 Test Item Value Reference Range Interpretation Comments AGAP (test code = AGAP) 9.3 10.0-20.0 [facility] HospitalKxjisqbFEOZLEMRZEQT7908-74-57 16:56:00 Test Item Value Reference Range Interpretation Comments eGFR (test code = eGFR) 73 [facility] HospitalQtdqceaYDVRKMGDWISR4800-23-94 16:56:00 Test Item Value Reference Range Interpretation Comments Calcium Lvl (test code = Calcium Lvl) 9.4 8.5-10.5 [facility] HospitalJeazkpqPUSSTRFRCIAJ5875-44-97 16:56:00 Test Item Value Reference Range Interpretation Comments Chloride Lvl (test code = Chloride Lvl) 104 95-109 [facility] HospitalGgylcrkZAIJAWVHDPKR1732-61-39 16:56:00 Test Item Value Reference Range Interpretation Comments Creatinine Lvl (test code = Creatinine 1.1 0.5-1.4 Lvl) [facility] HospitalHnudaluHFYKGABYTAOW0712-05-26 16:56:00 Test Item Value Reference Range Interpretation Comments Sodium Lvl (test code = Sodium Lvl) 142 135-145 [facility] HospitalTarftdaENJCBPQMCPRQ8953-28-25 16:56:00 Test Item Value Reference Range Interpretation Comments CO2 (test code = CO2) 33 24-32 [facility] HospitalDjmabotUNZSYTRDWGFJ7637-18-12 16:56:00 Test Item Value Reference Range Interpretation Comments Potassium Lvl (test code = Potassium 4.3 3.5-5.1 Lvl) [facility] HospitalUugljroEOAJAOFMROCG3935-00-60 16:56:00 Test Item Value Reference Range Interpretation Comments Glucose Lvl (test code = Glucose Lvl) 112 70-99 [facility] HospitalWfqkmixBCDDNZMJFBXQ4676-44-70 16:56:00 Test Item Value Reference Range Interpretation Comments BUN (test code = BUN) 15 7-22 [facility] HospitalHdhudhsJOITEQRUFJ9409-87-51 16:56:00 Test Item Value Reference Range Interpretation Comments Eosinophils # (test code 0.1 See_Comment [A utomated message] The = Eosinophils #) system whic h generated this result tra nsmitted reference range : <=0.5. The reference r césar was not used to int erpret this result as normal/abnormal . [facility] HospitalBtgjdrgXOKHCNAVQY8762-09-32 16:56:00 Test Item Value Reference Range Interpretation Comments Monocytes # (test code 0.6 See_Comment [Aut omated message] The = Monocytes #) system which generated this result tra nsmitted reference range : <=0.8. The reference r césar was not used to int erpret this result as normal/abnormal . [facility]OftqdaxBNKYSRCWSF3147-77-97 16:56:00 Test Item Value Reference Range Interpretation Comments Lymphocytes # (test code = Lymphocytes 2.0 1.0-5.5 #) [facility] HospitalVhnunmsAXNHOTKJRB7409-46-03 16:56:00 Test Item Value Reference Range Interpretation Comments Segs-Bands # (test code = Segs-Bands #) 2.3 1.5-8.1 [facility] HospitalDmkovxpEIQXYWLQWF4992-33-62 16:56:00 Test Item Value Reference Range Interpretation Comments Segs (test code = Segs) 45.4 45.0-75.0 [facility] HospitalDudkgdbNHBEEVURPA7191-82-17 16:56:00 Test Item Value Reference Range Interpretation Comments Monocytes (test code = Monocytes) 11.5 2.0-12.0 [facility] HospitalZacqvysEARCCLNTJD7342-59-89 16:56:00 Test Item Value Reference Range Interpretation Comments Basophils (test code = 0.7 See_Comment [Aut omated message] The Basophils) system which ge nerated this result tra nsmitted reference range : <=1.0. The reference r césar was not used to int erpret this result as normal/abnormal . [facility] HospitalDbmqyorBNMKCVDWKE8417-71-73 16:56:00 Test Item Value Reference Range Interpretation Comments Eosinophils (test code = 2.6 See_Comment [A utomated message] The Eosinophils) system which ge nerated this result tra nsmitted reference range : <=4.0. The reference r césar was not used to int erpret this result as normal/abnormal . [facility] HospitalYtqhocrPCITVOQUBZ2116-06-79 16:56:00 Test Item Value Reference Range Interpretation Comments Lymphocytes (test code = Lymphocytes) 39.8 20.0-40.0 [facility] HospitalHfnevvzZQKIHGMGGD4625-84-95 16:56:00 Test Item Value Reference Range Interpretation Comments MCHC (test code = MCHC) 33.8 32.0-36.0 [facility] HospitalEolkmqvEIVKCXCRLY5403-83-06 16:56:00 Test Item Value Reference Range Interpretation Comments MCH (test code = MCH) 29.8 pg 27.0-31.0 [facility] HospitalMrotcoyCZXVQKRAJR9335-27-89 16:56:00 Test Item Value Reference Range Interpretation Comments RDW (test code = RDW) 13.5 11.5-14.5 [facility] HospitalDxxdtgtHEQHAMIANB2837-60-68 16:56:00 Test Item Value Reference Range Interpretation Comments MPV (test code = MPV) 8.5 7.4-10.4 [facility] HospitalSojtsakDRJTPQSVMS6248-57-50 16:56:00 Test Item Value Reference Range Interpretation Comments Platelet (test code = Platelet) 154 133-450 [facility] HospitalNzqthnuKOZDSBQYRC5495-12-79 16:56:00 Test Item Value Reference Range Interpretation Comments Hgb (test code = Hgb) 14.9 14.0-18.0 [facility] HospitalRquyianKJPPKPFBCJ4278-30-10 16:56:00 Test Item Value Reference Range Interpretation Comments RBC (test code = RBC) 5.01 4.70-6.10 [facility] HospitalAvvsdivTUCXOEATZG3436-76-13 16:56:00 Test Item Value Reference Range Interpretation Comments WBC (test code = WBC) 5.1 3.7-10.4 [facility] HospitalDrutdthPPGMGPDFUV7052-43-65 16:56:00 Test Item Value Reference Range Interpretation Comments Hct (test code = Hct) 44.1 42.0-54.0 [facility] HospitalShqwlvuNWLCTUWKWU2752-41-00 16:56:00 Test Item Value Reference Range Interpretation Comments MCV (test code = MCV) 88.1 80.0-94.0 [facility] HospitalOiyqyboGMEYXIAEFR0574-78-82 16:56:00 Test Item Value Reference Range Interpretation Comments PT (test code = PT) 13.2 s 12.0-14.7 [facility] HospitalOeozcucSHHDXHTNYK3344-78-19 16:56:00 Test Item Value Reference Range Interpretation Comments PTT (test code = PTT) 37.1 s 22.9-35.8 [facility] HospitalMcbgnjiJKREXUCVEO4721-34-80 16:56:00 Test Item Value Reference Range Interpretation Comments INR (test code = INR) 1.00 0.85-1.17 [facility]XnqamtqUNSUDNGTXBZY3701-81-65 16:56:00 Test Item Value Reference Range Interpretation Comments AGAP (test code = AGAP) 9.3 10.0-20.0 [facility] HospitalNpwrwtrTXVHQQSFQEDZ3496-74-82 16:56:00 Test Item Value Reference Range Interpretation Comments eGFR (test code = eGFR) 73 [facility] HospitalQwjmcfjTNCSKVHULYLC9485-08-73 16:56:00 Test Item Value Reference Range Interpretation Comments Calcium Lvl (test code = Calcium Lvl) 9.4 8.5-10.5 [facility] HospitalDqhfdixGDVEKAZUWOAZ2269-39-10 16:56:00 Test Item Value Reference Range Interpretation Comments Chloride Lvl (test code = Chloride Lvl) 104 95-109 [facility] HospitalXrslcisFTOBNZOUDCFG7246-01-39 16:56:00 Test Item Value Reference Range Interpretation Comments Creatinine Lvl (test code = Creatinine 1.1 0.5-1.4 Lvl) [facility] HospitalWyilzlcPAIZJVEXROFS9014-72-24 16:56:00 Test Item Value Reference Range Interpretation Comments Sodium Lvl (test code = Sodium Lvl) 142 135-145 [facility] HospitalPczfvjlGLQZVZLPRVMW1932-38-40 16:56:00 Test Item Value Reference Range Interpretation Comments CO2 (test code = CO2) 33 24-32 [facility] HospitalLhxnkobTPKWXVBSVKXE3959-20-22 16:56:00 Test Item Value Reference Range Interpretation Comments Potassium Lvl (test code = Potassium 4.3 3.5-5.1 Lvl) [facility] HospitalCihrzugFKNQDYXWIXYP7066-44-61 16:56:00 Test Item Value Reference Range Interpretation Comments Glucose Lvl (test code = Glucose Lvl) 112 70-99 [facility] HospitalFbapvenLBNNWDMVTWVX0839-47-78 16:56:00 Test Item Value Reference Range Interpretation Comments BUN (test code = BUN) 15 7-22 [facility] HospitalPnwayuyHIIXVTNBTB8586-05-30 16:56:00 Test Item Value Reference Range Interpretation Comments Eosinophils # (test code 0.1 See_Comment [A utomated message] The = Eosinophils #) system whic h generated this result tra nsmitted reference range : <=0.5. The reference r césar was not used to int erpret this result as normal/abnormal . [facility] HospitalFzdwgbnYYUGMCUEUL6973-80-31 16:56:00 Test Item Value Reference Range Interpretation Comments Monocytes # (test code 0.6 See_Comment [Aut omated message] The = Monocytes #) system which generated this result tra nsmitted reference range : <=0.8. The reference r césar was not used to int erpret this result as normal/abnormal . [facility] HospitalZeatqkqOIDDPTKUUV7522-03-00 16:56:00 Test Item Value Reference Range Interpretation Comments Lymphocytes # (test code = Lymphocytes 2.0 1.0-5.5 #) [facility] HospitalHjejjlxDKUOFEDFNE6062-66-69 16:56:00 Test Item Value Reference Range Interpretation Comments Segs-Bands # (test code = Segs-Bands #) 2.3 1.5-8.1 [facility] HospitalOsfiglmWAPSPNBWKM9465-31-01 16:56:00 Test Item Value Reference Range Interpretation Comments Segs (test code = Segs) 45.4 45.0-75.0 [facility] HospitalAojeittMTUKXYAKWJ2745-12-97 16:56:00 Test Item Value Reference Range Interpretation Comments Monocytes (test code = Monocytes) 11.5 2.0-12.0 [facility] HospitalNhbvbrnAHVXBKDPMZ8179-52-60 16:56:00 Test Item Value Reference Range Interpretation Comments Basophils (test code = 0.7 See_Comment [Aut omated message] The Basophils) system which ge nerated this result tra nsmitted reference range : <=1.0. The reference r césar was not used to int erpret this result as normal/abnormal . [facility] HospitalAosuovbMGMOEBGNWL7975-53-71 16:56:00 Test Item Value Reference Range Interpretation Comments Eosinophils (test code = 2.6 See_Comment [A utomated message] The Eosinophils) system which ge nerated this result tra nsmitted reference range : <=4.0. The reference r césar was not used to int erpret this result as normal/abnormal . [facility]OdxmttdDGBQBENNPX0693-32-64 16:56:00 Test Item Value Reference Range Interpretation Comments Lymphocytes (test code = Lymphocytes) 39.8 20.0-40.0 [facility] HospitalUpqsobfGKRECQGQRU9878-45-76 16:56:00 Test Item Value Reference Range Interpretation Comments MCHC (test code = MCHC) 33.8 32.0-36.0 [facility] HospitalRbnnxbkWADDXGFXGD5369-14-27 16:56:00 Test Item Value Reference Range Interpretation Comments MCH (test code = MCH) 29.8 pg 27.0-31.0 [facility] HospitalUmoryaePSBRZROREC0419-42-64 16:56:00 Test Item Value Reference Range Interpretation Comments RDW (test code = RDW) 13.5 11.5-14.5 [facility] HospitalCsrjhzuRLPNNTCAHI9112-33-18 16:56:00 Test Item Value Reference Range Interpretation Comments MPV (test code = MPV) 8.5 7.4-10.4 [facility] HospitalSbdgfblXEZDNRDELL5806-67-88 16:56:00 Test Item Value Reference Range Interpretation Comments Platelet (test code = Platelet) 154 133-450 [facility] HospitalLmqdsxmOAMPWNORCE5395-70-03 16:56:00 Test Item Value Reference Range Interpretation Comments Hgb (test code = Hgb) 14.9 14.0-18.0 [facility] HospitalRddiuqwFYXACHCNCR7106-73-89 16:56:00 Test Item Value Reference Range Interpretation Comments RBC (test code = RBC) 5.01 4.70-6.10 [facility] HospitalHqrqynjLHHIOCJTRA0290-43-40 16:56:00 Test Item Value Reference Range Interpretation Comments WBC (test code = WBC) 5.1 3.7-10.4 [facility] HospitalEjmqdlvLZOWQRTQTV7422-11-03 16:56:00 Test Item Value Reference Range Interpretation Comments Hct (test code = Hct) 44.1 42.0-54.0 [facility] HospitalGpoqolrCAGIXMIDAY7255-14-38 16:56:00 Test Item Value Reference Range Interpretation Comments MCV (test code = MCV) 88.1 80.0-94.0 [facility] HospitalQguntlsVBTIFWEMNF8379-22-96 16:56:00 Test Item Value Reference Range Interpretation Comments PT (test code = PT) 13.2 s 12.0-14.7 [facility] HospitalLcqwlurRDDXKNIGTI1677-09-59 16:56:00 Test Item Value Reference Range Interpretation Comments PTT (test code = PTT) 37.1 s 22.9-35.8 [facility] HospitalBdwoaawBOQUCEVQYI7731-64-44 16:56:00 Test Item Value Reference Range Interpretation Comments INR (test code = INR) 1.00 0.85-1.17 [facility]
[2022-10-24] MEDS ORDERED: ONDANSETRON 4 MG (ODT) TAB ONE (13:42)
[2022-10-24] MEDS ORDERED: MORPHINE 4 MG/ML SYR ONE ×2 (13:42→14:45)
--- NOTE | 2022-10-24 15:00 | RAD REPORT ---
EXAM DESCRIPTION: USExtremity Venous Uni Ltd10/24/2022 2:14 pm CLINICAL HISTORY: left leg pain COMPARISON: April 2022 FINDINGS: Left common femoral, superficial femoral, greater saphenous, popliteal and posterior tibi al veins are compressible and demonstrate augmentation. Doppler demonstrates good flow. Grayscale, color and spectral analysis performed on all vessels IMPRESSION: No evidence of deep venous thrombosis involving the left lower extremity.
--- NOTE | 2022-10-24 15:23 | EDPHYS ---
Physician Documentation [facility] Name: Vipul Holden Age: 67 yrs Sex: Male : 1955 Arrival Date: 10/24/2022 Time: 13:05 Bed 4 Private MD: ED Physician Jama Valero HPI: 10/24 13:24 This 67 yrs old Male presents to ER via Ambulatory with complaints of Leg Pain.pm1 13:24 The patient presents with pain, that is acute. The complaints affect the left calf. pm1 Context: The problem was sustained at home, resulted from not elevating his leg last night. Patient reports that he could not tolerate having his leg up while sleeping so he took the foam wedge that elevated his leg above his heart and was able to sleep well, but woke up in pain, can ambulate using a cane. Onset: The symptoms/episode began/occurred this morning. Modifying factors: The symptoms are alleviated by nothing. the symptoms are aggravated by touching the calf area with the hematoma. Associated signs and symptoms: Pertinent negatives Chest pain, shortness of breath. Treatment prior to arrival includes: prescription medications, Pain medications from surgery. Severity of symptoms: in the emergency department the symptoms have improved. The patient has been recently seen by a physician: Patient with surgery from Dr. Morataya about 1 week ago. Patient with left calf pain onset this morning after sleeping with his leg in a nonelevated position. Patient contacted Dr. Morataya office and sent them a picture of his leg and was instructed to report to the ER for ultrasound to rule out DVT. Patient has scheduled appointment with Dr. Morataya on Saturday. 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 - Social history:: Smoking status: Patient denies any tobacco usage or history of. ROS: 13:24 Constitutional: Negative for fever, chills, and weight loss, Cardiovascular: Negative pm1 for chest pain, palpitations, and edema, Respiratory: Negative for shortness of breath, cough, wheezing, and pleuritic chest pain. 13:24 Skin: Negative for injury, rash, and discoloration, Neuro: Negative for headache, weakness, numbness, tingling, and seizure. 13:24 MS/extremity: Positive for pain, of the left calf, Negative for decreased range of motion, deformity. 13:24 All other systems are negative. Exam: 13:24 Constitutional: This is a well developed, well nourished patient who is awake, alert, pm1 and in no acute distress. Head/Face: Normocephalic, atraumatic. 13:24 Skin: Warm, dry with normal turgor. Normal color with no rashes, no lesions, and no evidence of cellulitis. 13:24 Cardiovascular: Exam negative for acute changes, Rate: normal, Rhythm: regular, Pulses: no pulse deficits are appreciated. 13:24 Respiratory: Exam negative for acute changes, respiratory distress, shortness of breath. 13:24 Musculoskeletal/extremity: Calves: are tender, with superficial hematoma present. 13:24 Skin: cellulitis, is not appreciated, Hematoma present to left calf. 13:24 Neuro: Exam negative for acute changes, Orientation: is normal, Mentation: is normal, Motor: is normal, moves all fours. Vital Signs: 13:08 BP 113 / 64; Pulse 100; Resp 18; Temp 98.1(O); Pulse Ox 96% on R/A; Weight 125.19 kg; ll1 Height 5 ft. 5 in. (165.10 cm); Pain 10/10; 14:00 BP 114 / 53; Pulse 73; Resp 18; Pulse Ox 95% on R/A; eh3 15:00 BP 108 / 47; Pulse 77; Resp 18; Pulse Ox 96% on R/A; eh3 13:08 Body Mass Index 45.93 (125.19 kg, 165.10 cm) ll1 MDM: 13:15 Patient medically screened. pm1 13:24 Differential diagnosis: Cellulitis, Hematoma, DVT, Peripheral edema. pm1 14:30 Data reviewed: vital signs. pm1 14:30 ED course: Pending official radiology report, preliminary report from [facility] is negative pm1 for DVT. 15:09 Counseling: I had a detailed discussion with the patient and/or guardian regarding: pm1 radiology results, the need for outpatient follow up, a orthopedic surgeon, to return to the emergency department if symptoms worsen or persist or if there are any questions or concerns that arise at home. 16:14 ED course: Patient requested I contact Dr Morataya. Called Dr Morataya's office and talked pm1 to Ayse. Informed her that U/S is negative for DVT. She requested I remind the patient of her instructions to continue elevating his left leg. Reported to the patient clinical impression is hematoma to left calf. Ayse reported she will update Dr Morataay. 10/24 13:23 Order name: Extremity Venous Uni Ltd ; Complete Time: 15:03 pm1 Administered Medications: 03:40 Drug: morphine 4 mg Route: IM; Site: right deltoid; eh3 14:30 Follow up: Response: Pain is unchanged, physician notified eh3 13:40 Drug: Ondansetron 4 mg Route: PO; eh3 14:30 Follow up: Response: No adverse reaction eh3 14:45 Drug: morphine 4 mg Route: IM; Site: right deltoid; eh3 15:30 Follow up: Response: Pain is decreased eh3 Disposition: 18:06 Co-signature as Attending Physician, Jama Valero MD I agree with the assessment and kdr plan of care. Disposition Summary: 10/24/22 15:23 Discharge Ordered Location: Home pm1 Problem: new pm1 Symptoms: have improved pm1 Condition: Stable pm1 Diagnosis - Pain in left lower leg pm1 Followup: pm1 - With: Emergency Department - When: As needed - Reason: Worsening of condition Followup: pm1 - With: Private Physician - When: 2 - 3 days - Reason: Recheck today's complaints, Continuance of care, Re-evaluation by your physician Forms: - Medication Reconciliation Form pm1 - Thank You Letter pm1 - Antibiotic Education pm1 - Prescription Opioid Use pm1 Signatures: Dispatcher [employer] EDMS Jama Valero MD MD kdr Marinas, Patrick, KARIN ICHTHYOLOGIST pm1 Bassam Dick RN RN 1 Wilder, Bee, RN RN eh3
--- NOTE | 2022-10-24 15:23 | ER ---
Nurse's Notes [facility] – [place], [place] Name: Vipul Holden Age: 67 yrs Sex: Male : 1955 Arrival Date: 10/24/2022 Time: 13:05 Bed 4 Private MD: Diagnosis: Pain in left lower leg Presentation: 10/24 13:08 Chief complaint: Patient states: 10/16/22 had L knee replaced again. Noted bruising and ll1 pain to back of L leg today, so Dr. Jimenez sent him in for eval. Coronavirus screen: Vaccine status: Patient reports receiving the 2nd dose of the covid vaccine. Client denies travel out of the [place] in the last 14 days. At this time, the client does not indicate any symptoms associated with coronavirus-19. Ebola Screen: Patient denies travel to an Ebola-affected area in the 21 days before illness onset. Initial Sepsis Screen: Does the patient meet any 2 criteria? HR > 90 bpm. No. Patient's initial sepsis screen is negative. Does the patient have a suspected source of infection? Yes: Skin breakdown/wound. Risk Assessment: Do you want to hurt yourself or someone else? Patient reports no desire to harm self or others. Onset of symptoms was October 24, 2022. 13:08 Method Of Arrival: Ambulatory ll1 13:08 Acuity: [facility] 3 ll1 Triage Assessment: 13:09 General: Appears uncomfortable, Behavior is calm, cooperative, appropriate for age. ll1 Pain: Complains of pain in left calf Quality of pain is described as aching, throbbing. Derm: Reports pain. Musculoskeletal: Circulation, motion, and sensation intact. Capillary refill < 3 seconds, Swelling present in left calf Tenderness present in left calf Reports pain in left calf bruising L calf. 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 - Social history:: Smoking status: Patient denies any tobacco usage or history of. Screenin:15 [facility] ED Fall Risk Assessment (Adult) History of falling in the last 3 months, eh3 including since admission No falls in past 3 months (0 pts) Confusion or Disorientation No (0 pts) Intoxicated or Sedated No (0 pts) Impaired Gait Yes (1 pt) Mobility Assist Device Used Yes (1 pt) Altered Elimination No (0 pt) Score/Fall Risk Level 0 - 2 = Low Risk. Abuse screen: Denies threats or abuse. Denies injuries from another. Nutritional screening: No deficits noted. Tuberculosis screening: No symptoms or risk factors identified. Assessment: 13:15 General: Appears in no apparent distress. uncomfortable, Behavior is calm, cooperative, eh3 appropriate for age. Pain: Pain radiates to left leg Pain currently is 10 out of 10 on a pain scale. Neuro: Level of Consciousness is awake, alert, obeys commands, Oriented to person, place, time, situation. Cardiovascular: Capillary refill < 3 seconds Patient's skin is warm and dry. Respiratory: Airway is patent Respiratory effort is even, unlabored, Respiratory pattern is regular, symmetrical. GI: No signs and/or symptoms were reported involving the gastrointestinal system. Abdomen is round non-distended. : No signs and/or symptoms were reported regarding the genitourinary system. EENT: No signs and/or symptoms were reported regarding the EENT system. Derm: Bruising that is dark purple, on posterior aspect of left knee and left calf. Musculoskeletal: Circulation, motion, and sensation intact. Swelling present in left mcgraw and anterior aspect of left ankle. 14:00 Reassessment: Patient appears in no apparent distress at this time. Patient and/or eh3 family updated on plan of care and expected duration. Pain level reassessed. Patient is alert, oriented x 3, equal unlabored respirations, skin warm/dry/pink. 15:00 Reassessment: Patient appears in no apparent distress at this time. Patient and/or eh3 family updated on plan of care and expected duration. Pain level reassessed. Patient is alert, oriented x 3, equal unlabored respirations, skin warm/dry/pink. Vital Signs: 13:08 BP 113 / 64; Pulse 100; Resp 18; Temp 98.1(O); Pulse Ox 96% on R/A; Weight 125.19 kg; ll1 Height 5 ft. 5 in. (165.10 cm); Pain 10/10; 14:00 BP 114 / 53; Pulse 73; Resp 18; Pulse Ox 95% on R/A; eh3 15:00 BP 108 / 47; Pulse 77; Resp 18; Pulse Ox 96% on R/A; eh3 13:08 Body Mass Index 45.93 (125.19 kg, 165.10 cm) 1 ED Course: 13:05 Patient arrived in ED. as 13:12 Triage completed. ll1 13:13 Arm band placed on Patient placed in an exam room, on a stretcher. ll1 13:14 Harley Coronel NP is PHCP. pm1 13:14 Jama Valero MD is Attending Physician. pm1 13:15 Patient has correct armband on for positive identification. Bed in low position. Call eh3 light in reach. Side rails up X2. Pulse ox on. NIBP on. Door closed. Noise minimized. Lights dimmed. 13:36 Bee Wilder, RN is Primary Nurse. eh3 13:48 Extremity Venous [employer] US In Process Unspecified. EDMS 15:56 No provider procedures requiring assistance completed. Patient did not have IV access eh3 during this emergency room visit. Administered Medications: 03:40 Drug: morphine 4 mg Route: IM; Site: right deltoid; eh3 14:30 Follow up: Response: Pain is unchanged, physician notified eh3 13:40 Drug: Ondansetron 4 mg Route: PO; eh3 14:30 Follow up: Response: No adverse reaction eh3 14:45 Drug: morphine 4 mg Route: IM; Site: right deltoid; eh3 15:30 Follow up: Response: Pain is decreased eh3 Medication: 15:56 VIS not applicable for this client. eh3 Outcome: 15:23 Discharge ordered by . pm1 15:57 Discharged to home ambulatory. eh3 15:57 Discharged to home with family. 15:57 Condition: stable 15:57 Discharge instructions given to patient, Instructed on discharge instructions, follow up and referral plans. Demonstrated understanding of instructions, follow-up care. 16:10 Patient left the ED. eh3 Signatures: Dispatcher [employer] Vero Velasquez Patrick, KARIN CELL CHANGER pm1 Bassam Dick RN RN 1 Bee Wilder RN RN eh3
[2022-10-24 16:16] VITALS: TEMP 98.1
[2022-10-24 16:18] VITALS: BP 108/47; O2SAT 96
== END 2022-10-24 16:10 | disposition home or self-care (01) ==
LOC: ER 13:04
DX: M79.662 Pain in left lower leg (principal)
CPT/HCPCS: 93971; Q0162

== ENCOUNTER 2023-04-16 20:00 | Inpatient (IN) | payer OTHER ==
--- OUTSIDE RECORDS SUMMARY | 2023-04-16 20:13 | XMS REPORT | Continuity of Care Document ---
:1955 Author Organization [facility] t Address [address] [facility] [place] [address] Care Team Providers Name Role Phone Tyrese Morataya Attending Clinician Unavailable OK MEYER Attending Clinician Unavailable Medhat Attending Clinician Unavailable Jeff Villarreal Attending Clinician Unavailable Ok Meyer MD Attending Clinician [phone] Pob, [facility] Main Attending Clinician Unavailable Only, [facility] Test Attending Clinician Unavailable Doctor Unassigned, [place] Attending Clinician Unavailable Everton Jimenez Attending Clinician Jonathan Payne Attending Clinician Tyrese Morataya Admitting Clinician Unavailable Jeff Villarreal Admitting Clinician Unavailable OK MEYER Admitting Clinician Unavailable Medhat Admitting Clinician Unavailable Ok Meyer MD Admitting Clinician [phone] Everton Jimenez Admitting Clinician Payers Payer Name Policy Type Policy Number Effective Date Expiration Date S christopher MEDICARE PART A [id number] 1997 \\T\\ B 00:00:00 MEDICARE B-[place]: [id number] 1997 [employer] 00:00:00 Problems Condition Condition Condition Status Onset [...] G50.0 G50.0 00:00: Shiv Active 00 03/23/2016 [facility] LEFT SIDE LEFT SIDE Diagnosis Active 2016-03-03 Memoria FACIAL FACIAL 6-11 11:54:00 l PAIN PAIN 00:00: Shiv Active 00 03/03/2016 [place] LEFT LEFT Diagnosis Active 2014-092015-09-28 Mem oria TRIGEMINAL TRIGEMINAL 2-10 04:48:00 l NEURALGIA NEURALGIA 00:00: Justus bond G50.0 G50.0 00 Active 09/01/2015 [facility] TRIGEMINAL TRIGEMINA Diagnosis Active 2015-03-01 Memoria NERVE L NERVE 5- 07:18:00 l Active 00:00: Shiv 02/18/2015 00 [facility] FACIAL FACIAL Diagnosis Active 2015-01-18 M emoria PAIN PAIN 01-18 11:40:00 l Active 00:00: Shiv 01/18/2015 00 [place] Arthroplas Arthroplas Problem Active 2010-0 A zalea [...] Problem 2015-02-27 [place] 02/27/2015 02:02:22 l [facility] Trigeminal Problem Resolve 2016-04-07 Memoria neuralgia Trigeminal d 01:14:13 l (disorder) neuralgia Her ramirez (disorder) Resolved Problem 04/07/2016 [facility] [place] Backache Backache Problem Resolve 2016-04-07 Memoria (finding) (finding) d 01:14:13 l Resolved [place] Problem 04/07/2016 [facility] [place] Hypertensi Hypertens Problem Active 2016-04-07 Memoria ve scot 01:14:13 l disorder, disorder, Herm ronda systemic systemic arterial arterial (disorder) (disorder) Active Problem 04/07/2016 [facility] [place] Obstructiv Obstructi Problem Active 2016-04-07 Memoria e sleep ve sleep 01:14:13 l apnea apnea Shiv syndrome syndrome (disorder) (disorder) Active Problem 04/07/2016 [facility] [place] Pain Pain Problem Active 2016-04-07 Memor ia (finding) (finding) 01:14:13 l Active [place] Problem 04/07/2016 [facility] [place] TRIGEMINAL TRIGEMINA Diagnosis Active 2015-09-28 Memoria NEURALGIA L 04:48:00 l NEURALGIA Shiv Active [facility] TRIGEMINAL Diagnosis Active 2015-01-212015-022015-03-01 Memoria NEURALGIA TRIGEMINAL 4-28 04:42:07 07:18:00 l NEURALGIA 05:00: Shiv Active [address] History of Past Illness Condition Condition Condition Status Onset Resolution Last Treating Co mments Source Name Details Category Date Date Treatment Clinician Date Discharge Problem 2016-03-06 2016-03-06 Memoria Diagnosis: Discharge 03-03 03:29:58 03:29:58 l Chronic Diagnosis: 05:00: Ayleen nn pain Chronic 00 pain 03/03/2016 03/06/2016 [place] Discharge Problem 2016-03-06 2016-03-06 Memoria Diagnosis: Discharge 03-03 03:29:58 03:29:58 l Trigeminal Diagnosis: 05:00: He rmann neuralgia Trigeminal 00 neuralgia 03/03/2016 03/06/2016 [place] Allergies, Adverse Reactions, Alerts Allergy Allergy Status Severity Reaction(s) Onset Inactive Treating Comm ents Source Name Type Date Date Clinician No Known DA Active [facility] 1-17 [facility] 00:00: [address] NO KNOWN Drug Active Univers ALLERGIE Class ity of S [facility] Social History Social Habit Start Date Stop Date Quantity Comments Source Sex Assigned At [facility] Exposure to Not sure [place] of SARS-CoV-2 [facility] (event) Branch Tobacco use and 2020-10-20 2020-10-20 Never used Universit y of exposure 00:00:00 00:00:00 [facility] Alcohol intake 2020-10-20 2020-10-20 Ex-drinker University 00:00:00 00:00:00 (finding) [place] [facility] History [facility] 2020-10-19 2020-10-19 10 University o f Education 00:00:00 00:00:00 [place] [facility] History SDMO 2020-10-19 2020-10-19 3 University o f Financial 00:00:00 00:00:00 [place] [facility] History SDMO Food 2020-10-19 2020-10-19 2 Univers ity of Worry 00:00:00 00:00:00 [facility] Branch History SDMO Food 2020-10-19 2020-10-19 2 Univers ity of Scarcity 00:00:00 00:00:00 [place] [facility] History SDOH 2020-10-19 2020-10-19 2 University o f Transport Med 00:00:00 00:00:00 [place] [facility] History SDOH 2020-10-19 2020-10-19 2 University o f Transport Non-Med 00:00:00 00:00:00 [place] [facility] Social History 2016-03-20 2016-03-20 [facility] niraml 22:13:01 22:13:01 Smoking Status Start Date Stop Date Source Unknown if ever smoked [facility] [place] [facility] Former Smoker [facility] Medications Ordered Filled Start Stop Current Ordering Indication Dosage Frequency Signature Comments Components Source Medication Medication Date Date Medication? Clinician (SIG) Name Name pregabalin Yes 450mg Take 450 Un boris 225 mg 1-29 mg by ity of capsule 22:50: mouth 2 [place] [address] (two) Medical times Branch daily. carBAMazepi Yes 400mg Take 400 U nivers ne 1-29 mg by ity of (TEGRETOL) 22:50: mouth 2 [place] 200 [place] 55 (two) Medical tablet times Branch daily. DULoxetine Yes 60mg Take 60 mg U nivers (CYMBALTA) 1-29 by mouth ity o f 60 mg 22:50: daily. [place] capsule Medical Branch metFORMIN 0 Yes 500mg Take 500 Uni vers 500 mg 1-29 mg by ity of tablet 22:50: mouth 2 [place] [address] (two) Medical times Branch daily with meals. carvediloL Yes 6.25mg Take 6.25 Univers (COREG) 1-29 mg by ity of 6.25 mg 22:50: mouth 2 [place] tablet 55 (two) Medical times Branch daily with meals. atorvastati Yes 40mg Take 40 mg Univers n 40 mg 1-29 by mouth ity of tablet 22:50: at [place] [address] bedtime. Medical Branch flu vaccine 2020- 2021- [...] ity of polyvalent 19:45: 21:36 lar, ONCE, [place] (PNEUMOVAX- 00 :00 1 dose, Medic al 23) [facility] injection 10/21/20 at 0.5 mL 1345, Routine atorvastati Yes 40mg 40 mg, Univ ers n (LIPITOR) 10-21 Oral, QHS, it y of tablet 40 03:00: First dose [place] mg 00 on [facility] 10/20/20 at Branch 2100, Until Discontinu ed, Routine pregabalin Yes 450mg 450 mg, Uni vers (LYRICA) 10-20 Oral, BID, ity o f capsule 450 17:15: First dose [place] mg 00 on [facility] 10/20/20 at Branch 1115, Until Discontinu ed, Routine
combat rifle crewmember approving Restricted medication : ONELIA [place] DULoxetine Yes 60mg 60 mg, Unive rs (CYMBALTA) 10-20 Oral, ity of capsule 60 17:15: DAILY, [place] mg 00 First dose Medical on [facility] 10/20/20 at 1115, Until Discontinu ed, Routine carvediloL Yes 6.25mg 6.25 mg, U nivers (COREG) 10-20 Oral, BID ity of tablet 6.25 17:15: MEALS, [place] mg 00 First dose Medical on [facility] 10/20/20 at 1115, Until Discontinu ed, Routine carBAMazepi 0 Yes 400mg 400 mg, Un boris ne 10-20 Oral, BID, ity of (TEGRETOL) 17:15: First dose [place] tablet 400 00 on [facility] mg 10/20/20 at Branch 1115, Until Discontinu ed, Routine docusate 0 Yes 100mg 100 mg, Unive rs (COLACE) 10-20 Oral, ity of capsule 100 02:00: Q12H, [place] mg 00 First dose Medical on [facility] Branch 10/19/20 at 2000, Until Discontinu ed, [...] ity of (fixed 21:00: 16:15 [place] dose) 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 [place] 00 (Same as: Tylenol) Acetaminoph No Notes: [place] en 325 MG / 04-04 (Same as: l Hydrocodone 15:33: [place] Ayleen nn Bitartrate 00 325/5) Do 5 MG Oral not exceed Tablet 4gm/day of acetaminop hen. Sodium 2015-0 No 1,000 mL, Memori a Chloride 7-13 Rate: 50 l 0.154 15:33: ml/hr, [place] MEQ/ML 00 Infuse Injectable over: 20 Solution hr, Route: IV, Dosing Weight 125 kg, Total Volume: 1,000, Priority: Routine, Start date: 04/04/16 10:33:00 CDT, Duration: 30 day, Stop date: 05/04/16 10:32:00 CDT Acetaminoph No Notes: Do M emoria en 7- not exceed l 15:33: 4 gm/day. [place] 00 (Same as: Tylenol) Acetaminoph No Notes: [place] en 325 MG / 13 (Same as: l Hydrocodone 15:33: [place] Ayleen nn Bitartrate 00 325/5) Do 5 [...] 04-04 not exceed l 15:33: 4 gm/day. [place] 00 (Same as: Tylenol) Acetaminoph No Notes: Blake [place] en 325 MG / 713 (Same as: l Hydrocodone 15:33: [place] Ayleen nn Bitartrate 00 325/5) Do 5 MG Oral not exceed Tablet 4gm/day of acetaminop hen. Sodium 0 No 1,000 mL, Memori a Chloride 7-13 Rate: 50 l 0.154 15:33: ml/hr, [place] MEQ/ML 00 Infuse Injectable over: 20 Solution hr, Route: IV, Dosing Weight 125 kg, Total Volume: 1,000, Priority: Routine, Start date: 04/04/16 10:33:00 CDT, Duration: 30 day, Stop date: 05/04/16 10:32:00 CDT Acetaminoph No Notes: Do M emoria en 04-04 not exceed l 15:33: 4 gm/day. Shvi 00 (Same as: Tylenol) Acetaminoph No Notes: [place] en 325 MG / 04-04 (Same as: l Hydrocodone 15:33: [place] Ayleen nn Bitartrate 00 325/5) Do 5 [...] 04-04 not exceed l 15:33: 4 gm/day. [place] 00 (Same as: Tylenol) Acetaminoph No Notes: Blake [place] en 325 MG / 04-04 (Same as: l Hydrocodone 15:33: [place] Ayleen nn Bitartrate 00 325/5) Do 5 MG Oral not exceed Tablet 4gm/day of acetaminop hen. Bupivacaine No 30 mL, [place] Hydrochlori 04-04 Route: l de 2.5 11:00: [place] MG/ML / 00 Dosing Epinephrine Weight 0.005 MG/ML 125, kg, Injectable ONCALL, Solution Start date: 04/04/16 6:00:00 CDT, Duration: 30 day, Stop date: 05/04/16 5:59:00 CDT Bacitracin No 1 appl, [place] 0.5 UNT/MG 04-04 Route: l / Polymyxin 11:00: TOP, Al [...] 7-13 Route: l de 2.5 11:00: MISC, [place] MG/ML / 00 Dosing Epinephrine Weight 0.005 [...] 50 Memoria 7-13 microgram, l 11:00: Route: [place] 00 IVP, ONCALL, Dosing Weight 125, kg, [...] 50 Memoria 7-13 microgram, l 11:00: Route: [place] 00 IVP, ONCALL, Dosing Weight 125, kg, Priority: Routine, Start date: 04/04/16 6:00:00 CDT, Duration: 1 doses or times Ondansetron No Notes: [place] 7-13 (Same as: l 10:56: Zofran) [place] 00 MEDICATION WASTE Product Size: 4 mg Product Wasted: ___ mg Promethazin No Notes: Do M emoria e 04-04 not give l 10:56: IV push. [place] 00 (Same as: Phenergan) Fentanyl No 25 [...] [place] ne 7-13 Concentrat l 10:56: ion: [place] 00 4mg/ml Famotidine No Notes: Memor ia 7-13 (Same as: l 10:56: Pepcid) Shiv 00 Can be dilute in 5-10cc NS IVP: Slow IV push over at least 2 minutes. Ondansetron No Notes: [place] 7-13 (Same as: l 10:56: Zofran) [place] 00 MEDICATION WASTE Product Size: 4 mg Product Wasted: ___ mg Promethazin No Notes: Do M emoria e -13 not give l 10:56: IV push. [place] 00 (Same as: Phenergan) Fentanyl No 25 Memoria 7-13 microgram, l 10:56: Route: Shiv 00 IVP, Q2H, Dosing Weight 125, kg, PRN Pain Score 6-10, Priority: Routine, Start date: 04/04/16 5:56:00 CDT, Duration: 1 doses or times, Stop date: Limited # of times Sodium 2016- No 1,000 mL, Memori a Chloride 7-13 Rate: 50 l 0.154 10:56: ml/hr, Shiv MEQ/ML 00 Infuse Injectable over: 20 Solution hr, Route: IV, Dosing Weight 125 kg, Total Volume: 1,000, Priority: Routine, Start date: 04/04/16 5:56:00 CDT, Duration: 30 day, Stop date: 05/04/16 5:55:00 CDT Dexamethaso 2015- No Notes: [place] ne 7-13 Concentrat l 10:56: ion: [place] 00 4mg/ml Famotidine No Notes: Memor ia 7-13 (Same as: l 10:56: Pepcid) [place] 00 Can be dilute in 5-10cc NS IVP: Slow IV push over at least 2 minutes. Ondansetron No Notes: [place] 7-13 (Same as: l 10:56: Zofran) Shiv 00 MEDICATION WASTE Product Size: 4 mg Product Wasted: ___ mg Promethazin No Notes: Do M emoria e 7-13 not give l 10:56: IV push. Shiv 00 (Same as: Phenergan) Fentanyl No 25 Memoria 7-13 microgram, l 10:56: Route: Shiv 00 IVP, Q2H, Dosing Weight 125, kg, PRN Pain Score 6-10, Priority: Routine, Start date: 04/04/16 5:56:00 CDT, Duration: 1 doses or times, Stop date: Limited # of times Ondansetron 2015- No Notes: [place] 7-13 (Same as: l 10:56: Zofran) [place] 00 MEDICATION WASTE Product Size: 4 mg Product Wasted: ___ mg Promethazin No Notes: Do M emoria e 7-13 not give l 10:56: IV push. Shiv [...] 7-13 Rate: 50 l 0.154 10:56: ml/hr, [place] MEQ/ML 00 Infuse Injectable over: 20 Solution hr, Route: IV, Dosing Weight 125 kg, Total Volume: 1,000, Priority: Routine, Start date: 04/04/16 5:56:00 CDT, Duration: 30 day, Stop date: 05/04/16 5:55:00 CDT Sodium 2016-0 No 1,000 mL, Memori a Chloride 7-13 Rate: 50 l 0.154 10:56: ml/hr, [place] MEQ/ML 00 Infuse Injectable over: 20 Solution hr, Route: IV, Dosing Weight 125 kg, Total Volume: 1,000, Priority: Routine, Start date: 04/04/16 5:56:00 CDT, Duration: 30 day, Stop date: 05/04/16 5:55:00 CDT Dexamethaso 2015- No Notes: Blake [place] ne 7-13 Concentrat l 10:56: ion: [place] 00 4mg/ml Famotidine No Notes: Memor ia 7-13 (Same as: l 10:56: Pepcid) [place] 00 Can be dilute in 5-10cc NS IVP: Slow IV push over at least 2 minutes. Dexamethaso 2015- No Notes: Blake [place] ne 7-13 Concentrat l 10:56: ion: [place] 00 4mg/ml Famotidine 2015-0 No Notes: Memor ia 7-13 (Same as: l 10:56: Pepcid) Shiv 00 Can be dilute in 5-10cc NS IVP: Slow IV push over at least 2 minutes. Ondansetron 2015-0 No Notes: [place] 7-13 (Same as: l 10:56: Zofran) [place] 00 MEDICATION WASTE Product Size: 4 mg Product Wasted: ___ mg Promethazin 2015- No Notes: Do M emoria e 7-13 not give l 10:56: IV push. [place] 00 (Same as: Phenergan) Fentanyl 2015-0 No 25 Memoria 7-13 microgram, l 10:56: Route: [place] 00 IVP, Q2H, Dosing Weight 125, kg, PRN Pain Score 6-10, Priority: Routine, Start date: 04/04/16 5:56:00 CDT, Duration: 1 doses or times, Stop date: Limited # of times Sodium 2016- No 1,000 mL, Memori a Chloride 13 Rate: 50 l 0.154 10:56: ml/hr, Shiv MEQ/ML 00 Infuse Injectable over: 20 Solution hr, Route: IV, Dosing Weight 125 kg, Total Volume: 1,000, Priority: Routine, Start date: 04/04/16 5:56:00 CDT, Duration: 30 day, Stop date: 05/04/16 5:55:00 CDT Dexamethaso No Notes: Blake [place] ne 7-13 Concentrat l 10:56: ion: [place] 00 4mg/ml Famotidine No Notes: Memor ia 7-13 (Same as: l 10:56: Pepcid) Shiv 00 Can be dilute in 5-10cc NS IVP: Slow IV push over at least 2 minutes. Dilaudid 2015- No 2 mg, Memoria 6-11 Route: IM, l 16:28: ONCE, Dosing Weight 126.682, kg, Start date: 03/03/16 11:28:00 CDT, Stop date: 03/03/16 11:28:00 CDT Dilaudid 2015-0 No 2 mg, Memoria 6-11 Route: IM, l 16:28: ONCE, Dosing Weight 126.682, kg, Start date: 03/03/16 11:28:00 CDT, Stop date: 03/03/16 11:28:00 CDT Dilaudid 2015-0 No 2 mg, Memoria 6-11 Route: IM, l 16:28: ONCE, Dosing Weight 126.682, kg, Start date: 03/03/16 11:28:00 CDT, Stop date: 03/03/16 11:28:00 CDT Dilaudid 2016-0 No 2 mg, Memoria 6-11 Route: IM, l 16:28: ONCE, Shiv 00 Dosing Weight 126.682, kg, Start date: 03/03/16 11:28:00 CDT, Stop date: 03/03/16 11:28:00 CDT Dilaudid 2016-0 No 2 mg, Memoria 6-11 Route: IM, l 16:28: ONCE, [place] 00 Dosing Weight 126.682, kg, Start date: 03/03/16 11:28:00 CDT, Stop date: 03/03/16 11:28:00 CDT Sodium 2016-0 No 1,000 mL, Memori a Chloride 09-28 Rate: 50 l 0.154 16:53: ml/hr, [place] MEQ/ML 00 Infuse Injectable over: 20 Solution hr, Route: IV, Dosing Weight 129.091 kg, Total Volume: 1,000, Priority: Routine, Start date: 09/28/15 10:53:00, Duration: 30 day, Stop date: 10/28/15 10:52:00 Acetaminoph 2016-0 No 2 tab, Blake [place] en 325 MG / 06 Route: PO, l Hydrocodone 16:53: Drug Form: [place] Bitartrate 00 TAB, 5 MG Oral Dosing Tablet Weight 129.091, kg, Q4H, PRN Pain Score 7-10, Start date: 09/28/15 10:53:00, Duration: 30 day, Stop date: 10/28/15 10:52:00 Acetaminoph 2016-0 No 325 mg, Mem oria en 09-28 Route: PO, l 16:53: Drug form: [place] 00 TAB, Q4H, Dosing Weight 129.091, kg, [...] Route: PO, l Hydrocodone 16:53: Drug Form: [place] Bitartrate 00 TAB, 5 MG Oral Dosing Tablet Weight 129.091, kg, Q4H, PRN Pain Score 7-10, Start date: 09/28/15 10:53:00, Duration: 30 day, Stop date: 10/28/15 10:52:00 Acetaminoph 2016-0 No 325 mg, Mem oria en 09-28 Route: PO, l 16:53: Drug form: [place] 00 TAB, Q4H, Dosing Weight 129.091, kg, PRN Pain Score 1-3, Start date: 09/28/15 10:53:00, Duration: 30 day, Stop date: 10/28/15 10:52:00 Sodium 2016-0 No 1,000 mL, Memori a Chloride 1-06 Rate: 50 l 0.154 16:53: ml/hr, [place] MEQ/ML 00 Infuse Injectable over: 20 Solution hr, Route: IV, Dosing Weight 129.091 kg, Total Volume: 1,000, Priority: Routine, Start date: 09/28/15 10:53:00, Duration: 30 day, Stop date: 10/28/15 10:52:00 Acetaminoph 2016-0 No 2 tab, [place] en 325 MG / 09-28 Route: PO, l Hydrocodone 16:53: Drug Form: [place] Bitartrate 00 TAB, 5 MG Oral Dosing [...] 2016-0 No 1,000 mL, Memori a Chloride 106 Rate: 50 l 0.154 16:53: ml/hr, [place] MEQ/ML 00 Infuse Injectable over: 20 Solution hr, Route: IV, Dosing Weight 129.091 kg, Total Volume: 1,000, Priority: Routine, Start date: 09/28/15 10:53:00, Duration: 30 day, Stop date: 10/28/15 10:52:00 Acetaminoph 2016-0 No 2 tab, [place] en 325 MG / 09-28 Route: PO, l Hydrocodone 16:53: Drug Form: [place] Bitartrate 00 TAB, 5 MG Oral Dosing Tablet Weight 129.091, kg, Q4H, PRN Pain Score 7-10, Start date: 09/28/15 10:53:00, Duration: 30 day, Stop date: 10/28/15 10:52:00 Acetaminoph 2015-0 No 325 mg, Mem oria en 06 Route: PO, l 16:53: Drug form: [place] 00 TAB, Q4H, Dosing Weight 129.091, kg, PRN Pain Score 1-3, Start date: 09/28/15 10:53:00, Duration: 30 day, Stop date: 10/28/15 10:52:00 Fentanyl No 50 Memoria 1-06 microgram, l 13:00: Route: [place] 00 IVP, ONCALL, Dosing Weight 129.091, kg, Priority: Routine, Start date: 09/28/15 7:00:00, Duration: 1 doses or times Bacitracin No Notes: Memor ia 0.5 UNT/MG -06 (Same As: l / Polymyxin 13:00: Polysporin [place] B 10 UNT/MG 00 ) Topical Ointment [Polysporin ] Bupivacaine No Notes: [place] Hydrochlori -06 (bupivacai l de 2.5 13:00: ne-epi Shiv [...] Bacitracin No Notes: Memor ia 0.5 UNT/MG -06 (Same As: l / Polymyxin 13:00: Polysporin Shiv B 10 UNT/MG 00 ) Topical Ointment [Polysporin ] Bupivacaine No Notes: [place] Hydrochlori 1-06 (bupivacai l de 2.5 13:00: ne-epi Shiv MG/ML / 00 0.25%-1:20 Epinephrine 0,000 30 0.005 MG/ML ml VL) Not Injectable for use in Solution continuous infusion. (Same As: Marcaine w/Epi) Fentanyl No 50 Memoria 1-06 microgram, l 13:00: Route: [place] 00 IVP, ONCALL, Dosing Weight 129.091, kg, Priority: Routine, Start date: 09/28/15 7:00:00, Duration: 1 doses or times Bacitracin No Notes: Memor ia 0.5 UNT/MG 1-06 (Same As: l / Polymyxin 13:00: Polysporin [place] B 10 UNT/MG 00 ) Topical Ointment [...] (Same As: l / Polymyxin 13:00: Polysporin [place] B 10 UNT/MG 00 ) Topical Ointment [Polysporin ] Bupivacaine No Notes: [place] Hydrochlori 1-06 (bupivacai l de 2.5 13:00: ne-epi [place] MG/ML / 00 0.25%-1:20 Epinephrine 0,000 30 [...] (Same As: l / Polymyxin 13:00: Polysporin [place] B 10 UNT/MG 00 ) Topical Ointment [Polysporin ] Bupivacaine No Notes: [place] Hydrochlori 09-28 (bupivacai l de 2.5 13:00: ne-epi [place] MG/ML / 00 0.25%-1:20 Epinephrine 0,000 30 0.005 MG/ML ml VL) Not Injectable for use in Solution continuous infusion. (Same As: Marcaine w/Epi) Fentanyl No Notes: Memoria 09-28 (Same as: l 12:14: Sublimaze) Shiv 00 Preservati ve free. Famotidine No Notes: Memor ia 09-28 (Same as: l 12:14: Pepcid) Shiv 00 Can be dilute in 5-10cc NS IVP: Slow IV push over at least 2 minutes. Promethazin No Notes: Do Marah waggoner e 09-28 not give l 12:14: IV push. [place] 00 (Same as: Phenergan) Ondansetron No Notes: [place] 09-28 (Same as: l 12:14: Zofran) [place] 00 MEDICATION WASTE Product Size: 4 mg Product Wasted: ___ mg Dexamethaso No Notes: Memoria ne 09-28 MEDICATION l 12:14: WASTE [place] 00 Product Size: 10 mg Product Wasted: [...] Memoria 09-28 (Same as: l 12:14: Sublimaze) [place] 00 Preservati ve free. Famotidine No Notes: Memor ia -06 (Same as: l 12:14: Pepcid) Shiv 00 Can be dilute in 5-10cc NS IVP: Slow IV push over at least 2 minutes. Promethazin No Notes: Do M emoria e 09-28 not give l 12:14: IV push. [place] 00 (Same as: Phenergan) Ondansetron No Notes: [place] 09-28 (Same as: l 12:14: Zofran) [place] 00 MEDICATION WASTE Product Size: 4 mg [...] ia 09-28 (Same as: l 12:14: Pepcid) [place] 00 Can be dilute in 5-10cc NS IVP: Slow IV push over at least 2 minutes. Promethazin No Notes: Do M emoria e 09-28 not give l 12:14: IV push. [place] 00 (Same as: Phenergan) Ondansetron No Notes: [place] 09-28 (Same as: l 12:14: Zofran) [place] 00 MEDICATION WASTE Product Size: 4 mg [...] 09-28 not give l 12:14: IV push. [place] 00 (Same as: Phenergan) Ondansetron No Notes: [...] date: 10/28/15 6:13:00 Fentanyl No Notes: Memoria 1-06 (Same as: l 12:14: Sublimaze) Shiv 00 Preservati ve free. Famotidine No Notes: Memor ia 1-06 (Same as: l 12:14: Pepcid) [place] 00 Can be dilute in 5-10cc NS IVP: Slow IV push over at least 2 minutes. Promethazin No Notes: Do M emoria e 09-28 not give l 12:14: IV push. [place] 00 (Same as: Phenergan) Ondansetron No Notes: [place] -06 (Same as: l 12:14: Zofran) [place] 00 MEDICATION WASTE Product Size: 4 mg [...] with l e 10 MG 05:00: food. [place] Oral Tablet 00 (Same as:Toradol ) heparin No Notes: Memoria 6-05 porcine l 05:00: heparin Shiv Ketorolac No 4 days. [place] Tromethamin 6-05 Give with l e 10 MG 05:00: food. Shiv Oral Tablet 00 (Same as:Toradol ) heparin No Notes: Memoria 6-05 porcine l 05:00: heparin [place] 00 Ketorolac No 4 days. [place] Tromethamin 6-05 Give with l e 10 MG 05:00: food. Shiv Oral Tablet 00 (Same as:Toradol ) heparin No Notes: Memoria 6-05 porcine l 05:00: heparin Shiv 00 Ketorolac No 4 days. [place] Tromethamin 6-05 Give with l e 10 MG 05:00: food. [place] Oral Tablet 00 (Same as:Toradol ) heparin No Notes: Memoria 6-05 porcine l 05:00: heparin [place] 00 Ketorolac Yes 10 mg = 1 Mem [...] tab, PO, l Tablet 01:09: Q8H, PRN [place] [Zofran] 00 as needed for nausea/vom iting, [...] tab, PO, l Tablet 01:09: Q8H, PRN [place] [Zofran] 00 as needed for nausea/vom iting, [...] [Phenergan] # 60 tab, 0 Refill(s) magnesium 2014- Yes 17.45 gm = Me moria citrate 6-05 300 mL, l 8.85% oral 01:09: PO, ONCE, He rmann liquid 00 PRN For severe constipati on, # 300 mL, 0 Refill(s) Ondansetron Yes 4 mg = 1 Me moria 4 MG Oral 6-05 tab, PO, l Tablet 01:09: Q8H, PRN [place] [Zofran] 00 as needed for nausea/vom iting, [...] [Phenergan] # 60 tab, 0 Refill(s) magnesium 2014- Yes 17.45 gm = Me moria citrate 6-05 300 mL, l 8.85% oral 01:09: PO, ONCE, He rmann liquid 00 PRN For severe constipati on, # 300 mL, 0 Refill(s) Ondansetron Yes 4 mg = 1 Me moria 4 MG Oral 6-05 tab, PO, l Tablet 01:09: Q8H, PRN [place] [Zofran] 00 as needed for nausea/vom iting, # 30 tab, 0 Refill(s) Docusate Yes 100 mg = 1 Mem oria Sodium 100 6-05 cap, PO, l MG Oral 01:09: BID, PRN Al n Capsule 00 Constipati [Colace] on, # 100 cap, 0 Refill(s) ketOROLAC No 4 days. [place] 30 mg/mL 6-05 l injectable 01:07: [place] solution 00 ketOROLAC No 4 days. [place] 30 mg/mL 6-05 l injectable 01:07: Shiv solution ketOROLAC No 4 days. [place] 30 mg/mL 6-05 l injectable 01:07: Shiv solution ketOROLAC No 4 days. [place] 30 mg/mL 6-05 l injectable 01:07: Shiv solution ketOROLAC No 4 days. [place] 30 mg/mL 6-05 l injectable 01:07: [place] solution 00 Cozaar No Notes: Memoria 6-04 (Same as: l 14:00: Cozaar) [place] hydrochloro No Notes: [place] thiazide 25 [...] Memoria 6-04 (Same as: l 14:00: Cozaar) hydrochloro No Notes: [place] thiazide 25 6-04 (Same as: l mg oral 14:00: Hydrodiuri Herm ronda tablet 00 l) With food. Hydrochloro No 1 tab, [place] thiazide 25 6-04 Route: PO, l MG / 14:00: Drug Form: [place] Losartan 00 TAB, Potassium Dosing 100 MG Oral Weight Tablet 124.545, kg, Daily, Start date: 02/24/15 9:00:00, Duration: 30 day, Stop date: 03/25/15 9:00:00 Cozaar No Notes: Memoria 6-04 (Same as: l 14:00: Cozaar) hydrochloro No Notes: [place] thiazide 25 6-04 (Same as: l mg oral 14:00: Hydrodiuri Herm ronda tablet 00 l) With food. Hydrochloro No 1 tab, [place] thiazide 25 6-04 Route: PO, l MG / 14:00: Drug Form: [place] Losartan 00 TAB, Potassium Dosing 100 MG Oral Weight Tablet 124.545, kg, Daily, Start date: 02/24/15 9:00:00, Duration: 30 day, Stop date: 03/25/15 9:00:00 Cozaar No Notes: Memoria 6-04 (Same as: l 14:00: Cozaar) hydrochloro No Notes: [place] thiazide 25 [...] Memoria 6-04 (Same As: l 13:00: Flexeril) Flexeril No Notes: Memoria 6-04 (Same As: l 13:00: Flexeril) [place] Flexeril No Notes: Memoria 6-04 (Same As: l 13:00: Flexeril) Shiv Flexeril No Notes: Memoria 6-04 (Same As: l 13:00: Flexeril) Shiv Flexeril No Notes: Memoria 6-04 (Same As: l 13:00: Flexeril) [place] Dilaudid No Notes: Memoria 6-04 Same as: l 11:25: Dilaudid [place] Dilaudid No Notes: Memoria 6-04 Same as: l 11:25: Dilaudid [place] Dilaudid No Notes: Memoria 6-04 Same as: l 11:25: Dilaudid [place] Dilaudid No Notes: Memoria 6-04 Same as: l 11:25: Dilaudid [place] 00 Dilaudid No Notes: Memoria 6-04 Same as: l 11:25: Dilaudid [place] Phenergan No Notes: Do Mem oria 6-04 not give l 07:21: IV push. Shiv 00 (Same as: Phenergan) Phenergan No Notes: Do Mem oria 6-04 not give l 07:21: IV push. Shiv 00 (Same as: Phenergan) Phenergan No Notes: Do Mem oria 6-04 not give l 07:21: IV push. [place] 00 (Same as: Phenergan) Phenergan No Notes: Do Mem oria 6-04 not give l 07:21: IV push. [place] 00 (Same as: Phenergan) Phenergan No Notes: Do Mem oria 6-04 not give l 07:21: IV push. [place] 00 (Same as: Phenergan) Lyrica No Notes: Memoria 6-04 (Same as: l 03:17: Lyrica) [place] Lyrica No Notes: Memoria 6-04 (Same as: l 03:17: Lyrica) Shiv 00 Lyrica No Notes: Memoria 6-04 (Same as: l 03:17: Lyrica) [place] 00 Lyrica No Notes: Memoria 6-04 (Same as: l 03:17: Lyrica) Shiv 00 Lyrica No Notes: Memoria 6-04 (Same as: l 03:17: Lyrica) Shiv 00 Docusate No Notes: Memoria 6-04 (Same as: l 02:00: Colace) Shiv 00 (Do Not Crush) Saline No Notes: Memoria Flush 0.9% 6-04 (Same as: l 02:00: BD [place] 00 Posiflush) sennosides, No Notes: [place] HALF-WAY 6-04 (Same as: l 02:00: Senokot) Shiv Oxycontin No Notes: Do Mem oria 6-04 not crush l 02:00: or chew. [place] 00 (Same as: OxyContin) Docusate No Notes: Memoria 6-04 (Same as: l 02:00: Colace) Shiv (Do Not Crush) Saline No Notes: Memoria Flush 0.9% 6-04 (Same as: l 02:00: BD Shiv 00 Posiflush) sennosides, No Notes: [place] HALF-WAY 6-04 (Same as: l 02:00: Senokot) Shiv 00 Oxycontin No Notes: Do Mem oria 6-04 not crush l 02:00: or chew. Shiv 00 (Same as: OxyContin) Docusate No Notes: Memoria 6-04 (Same as: l 02:00: Colace) [place] 00 (Do Not Crush) Saline No Notes: Memoria Flush 0.9% 6-04 (Same as: l 02:00: BD Shiv 00 Posiflush) sennosides, No Notes: [place] HALF-WAY 6-04 (Same as: l 02:00: Senokot) [place] 00 Oxycontin No Notes: Do Mem oria 6-04 not crush l 02:00: or chew. [place] 00 (Same as: OxyContin) Docusate No Notes: Memoria 6-04 (Same as: l 02:00: Colace) Shiv 00 (Do Not Crush) Saline No Notes: Memoria Flush 0.9% 6-04 (Same as: l 02:00: BD [place] 00 Posiflush) sennosides, No Notes: [place] HALF-WAY 6-04 (Same as: l 02:00: Senokot) Shiv Oxycontin No Notes: Do Mem oria 6-04 not crush l 02:00: or chew. Shiv 00 (Same as: OxyContin) Docusate No Notes: Memoria 6-04 (Same as: l 02:00: Colace) [place] (Do Not Crush) Saline No Notes: Memoria Flush 0.9% 6-04 (Same as: l 02:00: BD [place] 00 Posiflush) sennosides, No Notes: [place] HALF-WAY 6-04 (Same as: l 02:00: Senokot) Shiv 00 Oxycontin No Notes: Do Mem oria 6-04 not crush l 02:00: or chew. Shiv 00 (Same as: OxyContin) Cefazolin No Notes: Memori a 02-23 (Same As: l 23:00: Ancef [place] Kefzol) Cefazolin FOR IV SET ONLY MEDICATION [...] 0.9% 02-23 (Same as: l 23:00: BD [place] 00 Posiflush) Ondansetron No Notes: [place] [...] 10 MG Oral hen. (Same Tablet as: [place] 325/10) Morphine No Notes: Memoria 02-23 (Same l 23:00: as:MORPhin Shiv 00 e Sulfate) Sodium No 1,000 mL, Memori a Chloride 02-23 Rate: 75 l 0.154 23:00: ml/hr, [place] MEQ/ML 00 Infuse Injectable over: 13.3 Solution [...] not exceed l Hydrocodone 23:00: 4gm/day of [place] Bitartrate 00 acetaminop 10 MG Oral hen. (Same Tablet as: [place] 325/10) Morphine No Notes: Memoria 02-23 (Same l 23:00: as:MORPhin Shiv 00 e Sulfate) Sodium No 1,000 mL, Memori a Chloride 02-23 Rate: 75 l 0.154 23:00: ml/hr, [place] MEQ/ML 00 Infuse Injectable over: 13.3 Solution hr, Route: IV, Dosing Weight 124.545 kg, Total Volume: 1,000, Start date: 02/23/15 18:00:00, Duration: 30 day, Stop date: 03/25/15 17:59:00 Cefazolin No Notes: Memori a 02-23 (Same As: l 23:00: Ancef, [place] Kefzol) Cefazolin FOR IV SET ONLY MEDICATION WASTE Product Size: 1000 mg Product Wasted: ___ mg Dextrose No 6.25 gm, Memor ia 50% Syringe 02-23 12.5 mL, l 23:00: Route: [place] 00 IVP, Drug Form: INJ, Dosing Weight [...] [place] 02-23 (Same as: l 23:00: Zofran) [place] MEDICATION WASTE Product Size: 4 mg Product Wasted: _0__ mg Acetaminoph No Notes: Do M emoria en 02-23 not exceed l 23:00: 4 gm/day. Shiv 00 (Same as: Tylenol) Acetaminoph No Notes: Do M emoria en 325 MG / 02-23 not exceed l Hydrocodone 23:00: 4gm/day of Shiv Bitartrate 00 acetaminop 10 MG Oral hen. (Same Tablet as: [place] 325/10) Morphine No Notes: Memoria 02-23 (Same [...] a 02-23 (Same As: l 23:00: Ancef, [place] 00 Kefzol) Cefazolin FOR IV SET ONLY [...] 10 MG Oral hen. (Same Tablet as: [place] 325/10) Morphine No Notes: Memoria 02-23 (Same l 23:00: as:MORPhin [place] 00 e Sulfate) Sodium No 1,000 mL, Memori a Chloride 02-23 Rate: 75 l 0.154 23:00: ml/hr, [place] MEQ/ML 00 Infuse Injectable over: 13.3 Solution hr, Route: IV, Dosing Weight 124.545 kg, Total Volume: 1,000, Start date: 02/23/15 18:00:00, Duration: 30 day, Stop date: 03/25/15 17:59:00 Cefazolin No Notes: Memori a 6- (Same As: l 23:00: Ancef, [place] 00 Kefzol) Cefazolin FOR IV SET ONLY MEDICATION WASTE Product Size: 1000 mg Product Wasted: ___ mg Dextrose No 6.25 gm, Memor ia 50% Syringe 02-23 12.5 mL, l 23:00: Route: [place] 00 IVP, Drug Form: INJ, Dosing Weight [...] [place] 02-23 (Same as: l 23:00: Zofran) [place] 00 MEDICATION WASTE Product Size: 4 mg Product Wasted: _0__ mg Acetaminoph No Notes: Do M emoria en 02-23 not exceed l 23:00: 4 gm/day. Shiv 00 (Same as: Tylenol) Acetaminoph No Notes: Do M emoria en 325 MG / 02-23 not exceed l Hydrocodone 23:00: 4gm/day of Shiv Bitartrate 00 acetaminop 10 MG Oral hen. (Same Tablet as: [place] 325/10) Morphine No Notes: Memoria 02-23 (Same l 23:00: as:MORPhin Shiv 00 e Sulfate) Sodium No 1,000 mL, Memori a Chloride 02-23 Rate: 75 l 0.154 23:00: ml/hr, [place] MEQ/ML 00 Infuse Injectable over: 13.3 Solution hr, Route: IV, Dosing Weight 124.545 kg, Total Volume: 1,000, Start date: 02/23/15 18:00:00, Duration: 30 day, Stop date: 03/25/15 17:59:00 Lyrica No Notes: Memoria 6-03 (Same as: l 22:00: Lyrica) carvedilol No Notes: Memor ia 6-03 Give with l 22:00: food. [place] 00 (Same As: Coreg) Lyrica No Notes: Memoria 6-03 (Same as: l 22:00: Lyrica) carvedilol No Notes: Memor ia 6-03 Give with l 22:00: food. (Same As: Coreg) Lyrica No Notes: Memoria 6-03 (Same as: l 22:00: Lyrica) carvedilol No Notes: Memor ia 6-03 Give with l 22:00: food. Shiv 00 (Same As: Coreg) Lyrica No Notes: Memoria 6-03 (Same as: l 22:00: Lyrica) carvedilol No Notes: Memor ia 6-03 Give with l 22:00: food. (Same As: Coreg) Lyrica No Notes: Memoria 6-03 (Same as: l 22:00: Lyrica) carvedilol No Notes: Memor ia 6-03 Give with l 22:00: food. (Same As: Coreg) Ondansetron No Notes: [place] [...] [place] 6-03 (Same as: l 21:26: Zofran) [place] 00 MEDICATION WASTE Product Size: 4 mg Product Wasted: ___ mg Metoprolol No Notes: Memor ia 6-03 (Same as: l 21:26: Lopressor) Push over 2 minutes Hydromorpho No Notes: [place] ne 6- Same as: l 21:26: Dilaudid Meperidine No [...] ___ mg Metoprolol No Notes: Memor ia 6- (Same as: l 21:26: Lopressor) Push over 2 minutes Hydromorpho No Notes: [place] ne 6-03 Same as: l 21:26: Dilaudid Meperidine No Notes: Memor ia 6-03 (Same as: l 21:26: Demerol) "Use Precaution in Elderly, Seizure disorders, and Renal impairment " Flumazenil No Notes: Memor ia 6-03 (Same as: l 21:26: Romazicon) Shiv 00 Naloxone No Notes: Memoria 6-03 (Same as: [...] 02/24/15 0:00:00 ceFAZolin No Notes: Memori a 6- Same as: l 11:03: Ancef ceFAZolin No Notes: Memori a 6- Same as: l 11:03: Ancef ceFAZolin No Notes: Memori a 6- Same as: l 11:03: Ancef ceFAZolin No Notes: Memori a 6-03 Same as: l 11:03: Ancef [place] 00 ceFAZolin No Notes: Memori a 02-23 Same as: l 11:03: Ancef Shiv 00 tramadol No 50 mg = 1 [place] hydrochlori 6-01 tab, PO, l de 50 MG 14:05: Q6H, PRN Ayleen nn Oral Tablet 00 Pain, # 40 tab, 0 Refill(s) Hydrochloro Yes 1 tab, PO, Memoria thiazide 25 6-01 Daily, # l MG / 14:05: 30 tab, 0 [place] Losartan 00 Refill(s) Potassium 100 MG Oral [...] l MG / 14:05: 30 tab, 0 [place] Losartan 00 Refill(s) Potassium 100 MG Oral [...] l MG / 14:05: 30 tab, 0 [place] Losartan 00 Refill(s) Potassium 100 MG Oral [...] Ayleen nn 00 tab, 0 Refill(s) pregabalin 2015-0 Yes 300 mg = 1 M emoria 300 MG Oral 6-01 cap, PO, l Capsule 14:04: BID, # 90 Ayleen nn [Lyrica] 00 cap, 0 Refill(s) carvedilol 2014-0 Yes 25 mg = 1 Me moria 25 mg oral 6-01 tab, PO, l tablet 14:04: BID, # 180 Ayleen nn 00 tab, 0 Refill(s) pregabalin 2015-0 Yes 300 mg = 1 M emoria [...] Ayleen nn [Lyrica] 00 cap, 0 Refill(s) Valium 2014-0 No 5 mg, Memoria 01-18 [...] 11:05:00 Valium 2015-0 No 5 mg, Memoria 4-28 Route: IM, l 16:05: Drug form: [place] 00 INJ, ONCE, Dosing Weight 120.085, kg, Priority: STAT, Start date: 01/18/15 11:05:00, Stop date: 01/18/15 11:05:00 Dilaudid 2015-0 No 2 mg, Memoria 4-28 Route: IM, l 16:05: ONCE, [place] 00 Dosing Weight 120.085, kg, Start date: 01/18/15 11:05:00, Stop date: 01/18/15 11:05:00 Valium 2015-0 No 5 mg, Memoria 4-28 Route: IM, l 16:05: Drug form: [place] 00 INJ, ONCE, Dosing Weight 120.085, kg, Priority: STAT, Start date: 01/18/15 11:05:00, Stop date: 01/18/15 11:05:00 Dilaudid 2015-0 No 2 mg, Memoria 4-28 Route: IM, l 16:05: ONCE, Shiv 00 Dosing Weight 120.085, kg, Start date: 01/18/15 11:05:00, Stop date: 01/18/15 11:05:00 Valium 2015-0 No 5 mg, Memoria 4-28 Route: IM, l 16:05: Drug form: Shiv 00 INJ, ONCE, Dosing Weight 120.085, kg, Priority: STAT, Start date: 01/18/15 11:05:00, Stop date: 01/18/15 11:05:00 Dilaudid 2015-0 No 2 mg, Memoria 4-28 Route: IM, l 16:05: ONCE, [place] 00 Dosing Weight 120.085, kg, Start date: 01/18/15 11:05:00, Stop date: 01/18/15 11:05:00 Valium 2015-0 No 5 mg, Memoria 4-28 Route: IM, l 16:05: Drug form: Shiv 00 INJ, ONCE, Dosing Weight 120.085, kg, [...] po q day dic [facility] Bactrim DS Bactrim DS 2007-09 No Bactrim DS Jaqueline 800 mg-160 800 mg-160 2-23 800 mg-160 [facility] mg tablet 1 mg tablet 1 00:00: mg tablet dic po BID po BID 00 1 po BID [facility] carvedilol carvedilol No carvedilol [...] capsule capsule capsule dic [facility] e Prescriptio Prescriptio No Prescripti [...] DAY MOUTH TWO e TIMES A DAY doxycycline doxycycline No doxycyclin Jaqueline hyclate 100 hyclate 100 e hyclate [facility] mg capsule mg capsule 100 [address] d ic capsule [facility] duloxetine duloxetine No duloxetine Jaqueline 30 mg [...] WITH MOUTH [place] LOS[place] DAILY WITH [place]ARTAN hydrocodone hydrocodone No hydrocodon Jaqueline 10 10 e 10 [facility] mg-acetamin mg-acetamin mg-acetami dic ophen 325 ophen 325 nophen 325 Sports mg tablet mg tablet mg tablet Medicin e hydrocodone hydrocodone No hydrocodon Jaqueline 7.5 7.5 e 7.5 [facility] mg-acetamin mg-acetamin mg-acetami dic ophen 325 ophen 325 nophen 325 Sports mg tablet mg tablet mg tablet Medicin TAKE 1 TAKE 1 TAKE 1 e TABLET TABLET TABLET EVERY 6 HRS EVERY 6 HRS EVERY 6 PRN FOR PRN FOR HRS PRN PAIN. PAIN. FOR PAIN. levofloxaci levofloxaci No levofloxac Jaqueline n 500 [...] AND SUPPER) AND SUPPER) BREAKFAST AND SUPPER) methocarbam methocarbam No methocarba Jaqueline ol 500 mg ol 500 mg mol 500 mg [facility] tablet tablet tablet dic [facility] polyethylen polyethylen No polyethyle Jaqueline e glycol [...] capsule capsule capsule dic [facility] e Prescriptio Prescriptio No Prescripti [...] Medicin BID BID 1 po BID e tramadol 50 tramadol 50 No tramadol Jaqueline mg tablet mg tablet 50 mg Orth ope tablet dic [facility] e acyclovir acyclovir No [...] tablet tablet tablet dic [facility] carbamazepi carbamazepi No carbamazep Jaqueline ne ER 200 ne ER 200 ine ER 200 [facility] mg mg mg dic tablet,exte tablet,exte tablet,ext Sports nded nded ended Medicin release,12 release,12 release,12 e hr hr hr carvedilol carvedilol No carvedilol Jaqueline 6.25 mg 6.25 mg 6.25 mg Orth[facility] e tablet TAKE tablet TAKE tablet dic 1 TABLET BY 1 TABLET BY TAKE 1 Sports MOUTH TWO MOUTH TWO TABLET BY Medicin TIMES A DAY TIMES A DAY MOUTH TWO e TIMES A DAY acyclovir acyclovir No acyclovir Jaqueline 800 mg 800 mg 800 mg [facility] tablet tablet tablet dic [facility] e doxycycline doxycycline No doxycyclin Jaqueline hyclate 100 hyclate 100 e hyclate [facility] mg capsule mg capsule 100 mg d ic capsule [facility] duloxetine duloxetine No duloxetine Jaqueline 30 mg [...] WITH MOUTH [place] LOSARTAN DAILY WITH [place]ARTAN hydrocodone hydrocodone No hydrocodon Jaqueline 10 10 e 10 [facility] mg-acetamin mg-acetamin mg-acetami dic ophen 325 ophen 325 nophen 325 Sports mg tablet mg tablet mg tablet Medicin e hydrocodone hydrocodone No hydrocodon Jaqueline 5 5 e 5 [facility] mg-acetamin mg-acetamin mg-acetami dic ophen 325 ophen 325 nophen 325 Sports mg tablet mg tablet mg tablet Medicin TAKE 1 TAKE 1 TAKE 1 e TABLET BY TABLET BY TABLET BY MOUTH EVERY MOUTH EVERY MOUTH 6 HOURS 6 HOURS EVERY 6 NEEDED FOR NEEDED FOR HOURS PAIN. PAIN. NEEDED FOR PAIN. hydrocodone hydrocodone No hydrocodon Jaqueline 7.5 7.5 e 7.5 [facility] mg-acetamin mg-acetamin mg-acetami dic ophen 325 ophen 325 nophen 325 Sports mg tablet mg tablet mg tablet Medicin TAKE 1 TAKE 1 TAKE 1 e TABLET TABLET TABLET EVERY 6 HRS EVERY 6 HRS EVERY 6 PRN FOR PRN FOR HRS PRN PAIN. PAIN. FOR PAIN. levofloxaci levofloxaci No levofloxac Jaqueline n 500 [...] DAILY MOUTH DAILY TABLET BY MOUTH DAILY amoxicillin amoxicillin No amoxicilli Jaqueline [phone] n 875 [facility] mg-potassiu mg-potassiu mg-potassi dic m m um Sports clavulanate clavulanate clavulanat Medicin 125 mg 125 mg e 125 mg e tablet tablet tablet metformin metformin No metformin Jaqueline 500 mg 500 mg 500 mg [facility] tablet TAKE tablet TAKE tablet dic 1 TABLET BY 1 TABLET BY TAKE 1 Sports MOUTH TWO MOUTH TWO TABLET BY Medicin TIMES A DAY TIMES A DAY MOUTH TWO e (WITH (WITH TIMES A BREAKFAST BREAKFAST DAY (WITH AND SUPPER) AND SUPPER) BREAKFAST AND SUPPER) methocarbam methocarbam No methocarba Jaqueline ol 500 mg ol 500 mg mol 500 mg [facility] tablet tablet tablet dic [facility] polyethylen polyethylen No polyethyle Jaqueline e glycol [...] capsule capsule capsule dic Sports Medicin e Prescriptio Prescriptio No Prescripti [...] Medicin BID BID 1 po BID e tramadol 50 tramadol 50 No tramadol Jaqueline mg tablet mg tablet 50 mg Orth ope tablet dic Sports Medicin e atorvastati atorvastati No atorvastat Jaqueline n 20 [...] tablet tablet tablet dic Sports Medic[facility] e Immunizations Ordered Filled Immunization Date Status Comments Sour e Immunization Name Name Pneumococcal 2020-10-21 Completed [facility] Polysaccharide, 00:00:00 [facility] ical PPSV23 (PNEUMOVAX) Branch Influenza High Dose 2020-10-21 Completed [facility]ive [facility] 00:00:00 [facility] Vital Signs Vital Name Observation Time Observation Value Comments Source Height 2022-11-26 00:00:00 65 [in_i] [facility] BMI (Body Mass 2022-11-26 00:00:00 45.3 kg/m2 Ja[facility]eline [facility] Index) Sports Medicine Body Weight 2022-11-26 00:00:00 272 [lb_av] [facility] Height 2022-10-29 00:00:00 65 [in_i] [facility] BMI (Body Mass 2022-10-29 00:00:00 45.3 kg/m2 [facility] Index) Sports Medicine Body Weight 2022-10-29 00:00:00 272 [lb_av] [facility] Height 2022-09-10 00:00:00 65 [in_i] Jaqueline O [...] 17:06:00 136 mm[Hg] Univer sity of pressure [facility] Diastolic blood 2020-10-21 17:06:00 69 mm[facility]Hg[facility] Heart rate 2020-10-21 17:06:00 94 /min [facility] Body temperature 2020-10-21 17:06:00 36.44 [facility] Respiratory rate 2020-10-21 17:06:00 20 /min [facility] Oxygen saturation in 2020-10-21 17:06:00 96 /min [facility] Arterial blood by [facility] Pulse oximetry Branch Body weight 2020-10-21 10:01:00 136.487 kg [facility] BMI 2020-10-21 10:01:00 50.07 kg/m2 [facility] Body height 2020-10-19 20:47:00 165.1 cm [facility] Respitory Rate 2016-04-04 14:45:00 Memori al [place] Systolic (mm Hg) 2016-04-04 14:45:00 Blake rial [place] Diastolic (mm Hg) 2016-04-04 14:45:00 Mem orial Shiv Respitory Rate 2016-04-04 14:30:00 Memori al Shiv Systolic (mm Hg) 2016-04-04 14:30:00 Blake rial [place] Diastolic (mm Hg) 2016-04-04 14:30:00 Mem orial [place] Systolic (mm Hg) 2016-04-04 14:15:00 Blake rial Shiv Diastolic (mm Hg) 2016-04-04 14:15:00 Mem orial Shiv Respitory Rate 2016-04-04 14:15:00 Memori al [place] BMI Calculated 2016-04-04 10:41:00 Memori al Shiv Weight 2016-04-04 10:41:00 [facility] [place] Height 2016-04-04 10:41:00 165.1 cm [facility] [place] Temperature Oral (F) 2016-03-03 16:55:00 98.4 F [facility] [place] Systolic (mm Hg) 2016-03-03 16:55:00 Blake rial [place] Diastolic (mm Hg) 2016-03-03 16:55:00 Mem orial Shiv Respitory Rate 2016-03-03 16:55:00 Memori al Shiv Heart Rate 2016-03-03 16:55:00 [facility] Shiv Weight 2016-03-03 16:13:00 [facility] Shiv Temperature Oral (F) 2016-03-03 16:13:00 98.0 F [facility] [place] Respitory Rate 2016-03-03 16:13:00 Memori al [place] Systolic (mm Hg) 2016-03-03 16:13:00 Blake rial [place] Diastolic (mm Hg) 2016-03-03 16:13:00 Mem orial Shiv Heart Rate 2016-03-03 16:13:00 [facility] Shiv Systolic (mm Hg) 2015-09-28 16:30:00 Blake rial Shiv Diastolic (mm Hg) 2015-09-28 16:30:00 Mem orial Shiv Systolic (mm Hg) 2015-09-28 16:15:00 Blake rial [place] Diastolic (mm Hg) 2015-09-28 16:15:00 Mem orial Shiv Systolic (mm Hg) 2015-09-28 16:00:00 Blake rial [place] Diastolic (mm Hg) 2015-09-28 16:00:00 Mem orial Shiv Respitory Rate 2015-09-28 14:30:00 Memori al [place] Respitory Rate 2015-09-28 12:00:00 Memori al [place] Height 2015-09-28 11:54:00 165.1 cm [facility] Shiv Weight 2015-09-28 11:54:00 [facility] [place] BMI Calculated 2015-09-28 11:54:00 Memori al [place] BMI Calculated 2015-09-28 01:54:00 Memori al Shiv Weight 2015-09-28 01:54:00 [facility] Shiv Height 2015-09-28 01:54:00 165.1 cm [facility] [place] Temperature Oral (F) 2015-02-25 12:34:00 98.1 F [facility] Shiv Respitory Rate 2015-02-25 12:34:00 Memori al [place] Systolic (mm Hg) 2015-02-25 12:34:00 Blake rial Shiv Diastolic (mm Hg) 2015-02-25 12:34:00 Mem orial Shiv Heart Rate 2015-02-25 12:34:00 [facility] Shiv Temperature Oral (F) 2015-02-25 08:10:00 98.6 F [facility] [place] Systolic (mm Hg) 2015-02-25 08:10:00 Blake rial [place] Diastolic (mm Hg) 2015-02-25 08:10:00 Mem orial [place] Heart Rate 2015-02-25 08:10:00 [facility] Shiv Heart Rate 2015-02-25 05:10:00 [facility] Shiv Temperature Oral (F) 2015-02-25 05:10:00 98.2 F [facility] [place] Systolic (mm Hg) 2015-02-25 05:10:00 Blake rial [place] Diastolic (mm Hg) 2015-02-25 05:10:00 Mem orial Shiv Respitory Rate 2015-02-25 05:10:00 Memori al [place] Respitory Rate 2015-02-25 00:00:00 Memori al Shiv Weight 2015-02-23 17:07:00 [facility] [place] BMI Calculated 2015-02-23 17:07:00 Memori al [place] Height 2015-02-23 17:07:00 160.02 cm [facility] Shiv Height 2015-02-21 20:22:00 160.02 cm [facility] [place] BMI Calculated 2015-02-21 20:22:00 Memori al Shiv Weight 2015-02-21 20:22:00 [facility] [place] BMI Calculated 2015-01-18 15:50:00 Memori al Shiv Height 2015-01-18 15:50:00 165.1 cm [facility] [place] Weight 2015-01-18 15:50:00 [facility] [place] Systolic (mm Hg) 2015-01-18 15:50:00 Blake rial [place] Diastolic (mm Hg) 2015-01-18 15:50:00 Mem orial Shiv Heart Rate 2015-01-18 15:50:00 [facility] [place] Respitory Rate 2015-01-18 15:50:00 Memori al Shiv Temperature Oral (F) 2015-01-18 15:50:00 97.6 F [facility]iv Procedures Procedure Date / Time Performing Clinician Source Performed XR, knee, 3 view 2022-11-26 00:00:00 [facility] Revision of Left Total 2022-10-16 00:00:00 [facility] Knee Arthroplasty Sports Medic[facility] e [id number] 2022-10-16 00:00:00 [facility] [id number] 2022-10-16 00:00:00 [facility] XR, knee, 3 view 2022-08-31 00:00:00 [facility] NM, bone scan, 3-phase 2022-08-31 00:00:00 [facility] Colonoscopy 2021-12-07 00:00:00 Ja[facility] CBC WITH DIFF 2020-10-20 10:08:00 Ok Meyer [facility] TOTAL KNEE ARTHROPLASTY 2020-10-19 16:17[facility] 2020-10-18 16:48:00 Ok Meyer [facility] COMP. METABOLIC PANEL 2020-10-18 16:39:00 Ok Meyer [facility] ([id number]) [facility] CBC WITH DIFF 2020-10-18 16:39:00 Ok Meyer [facility] PROTHROMBIN TIME / INR 2020-10-18 16:39:00 [facility] 2020-10-18 16:39:00 Ok Meyer [facility] THRMPLAS [facility] HB ABO GROUPING 2020-10-18 16:39:00 Ok Meyer [facility] ASSIGNMENT OF BENEFITS 2020-10-17 17:33:30 Doctor Unassigned, No [facility] DSU PRE-OP 2020-10-05 06:01:00 Doctor Unassigned, No [facility] Craniotomy and 2015-02-23 05:00:00 Dawood ramirez decompression of brain Revise/replace Knee 2010-11-22 00:00:00 [facility] Joint Sports Medicine 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 Knee arthroplasty [facility] Ayleen yates Lumbar and lumbosacral [facility] Shiv fusion by anterior technique Arthroscopic surgical [facility] nirmal procedure on knee x 4 Lumbar discectomy x 8 [facility] nirmal Stereot[facility] radiosurgery Plan of Care Planned Activity Planned Date Details Comments Source Diagnostic Test 2022-08-31 ESR (erythrocyte Jaqueline [facility] Pending 00:00:00 sedimentation rate), Sports Medicine blood [code = ESR (erythrocyte sedimentation rate), blood] Diagnostic Test 2022-08-31 C-reactive protein, [facility] a [facility] Pending 00:00:00 quantitative [code = Sports Medicine C-reactive protein, quantitative] Instructions [facility] Encounters Start End Encounter Admission Attending Care Care Encounter Source Date/Time Date/Time Type Type Clinicians Facility Department ID 2022-10-16 Inpatient EL Rafia, [facility] [id number] [facility] 18:30:00 [facility] 2022-10-09 Inpatient EL Rafia, [facility] [id number] [facility] 09:00[facility]00 [facility] 2021[facility]-22 Outpatient Maribell MEYER [facility] JOSSELYN [id number] Univers 19:21:07 [place] craig [facility] 2023-02-13 2023-02-13 Outpatient FOG_Goytia_ AOSM AOSM 560 1235-20 Jaqueline 00:00:00 00:00:00 Shaylee [id number] [facility] 2023-02-08 2023-02-08 Outpatient FOG_Goytia_ AOSM AOSM 560 1235-20 Jaqueline 00:00:00 00:00:00 Shaylee [id number] [facility] 2023-01-09 2023-01-09 Outpatient FOG_Goytia_ AOSM AOSM 560 1235-20 Jaqueline 00:00:00 00:00:00 Shaylee [id number] [facility] 2023-01-04 2023-01-04 Outpatient FOG_Goytia_ AOSM AOSM 560 1235-20 Jaqueline 00:00:00 00:00:00 Shaylee [id number] [facility] 2022-11-30 2022-11-30 Outpatient FOG_Goytia_ AOSM AOSM 560 1235-20 Jaqueline 00:00:00 00:00:00 Shaylee [id number] [facility] 2022-11-26 2022-11-26 Outpatient FOG_Goytia_ AOSM AOSM 560 1235-20 Jaqueline 00:00:00 00:00:00 Shaylee [id number] [facility] 2022-11-26 2022-11-26 Tyrese N AOSM [place] - Ortho [id number] Jaqueline 00:00:00 00:00:00 Kelsie Morataya MD: 7401 FOG_Ofc dic [facility], [place] [address] , Ph. [phone] 2022-11-21 2022-11-21 Outpatient FOG_Goytia_ AOSM AOSM 560 1235-20 Jaqueline 00:00:00 00:00:00 Shaylee [id number] Orth[facility] pe dic [facility] Medicin e 2022-11-08 2022-11-08 Outpatient FOG_Goytia_ AOSM AOSM 560 1235-20 Jaqueline 00:00:00 00:00:00 Shaylee [id number] Orth[facility] pe dic [facility] Medicin e 2022-10-29 2022-10-29 Tyrese N [place]OSM [place] - Orth[place] [id number] Jaqueline 00:00:00 00:00:00 Kelsie Morataya MD: 7401 FOG_Ofc dic [facility] [place] [address] , Ph. [phone] 2022-10-26 2022-10-26 Outpatient FOG_Goytia_ AOSM AOSM 560 1235-20 Jaquelnie 00:00:00 00:00:00 Shaylee [id number] Orth[facility] pe dic [facility] Medic[facility] e 2022-10-26 2022-10-26 Outpatient FOG_Goytia_ AOSM AOSM 560 1235-20 Jaqueline 00:00:00 00:00:00 Shaylee [id number] [facility] Medic[facility] e 2022-10-16 2022-10-17 Inpatient EL Rafia, HCATO SURG [id number] [facility] 10:32:00 14:54:00 Tyrese [facility] 2022-10-16 2022-10-16 Tyrese N AOSM [place] - Ortho [id number] Jaqueline 00:00:00 00:00:00 Kelsie Morataya MD: 7401 FOG_Surgery dic [facility] [place] [address] , Ph. [phone] 2022-10-11 2022-10-11 Outpatient FOG_Goytia_ AOSM AOSM 560 1235-20 Jaqueline 00:00:00 00:00:00 Shaylee [id number] Orth[facility] e 2022-10-11 2022-10-11 Outpatient FOG_Goytia_ AOSM AOSM 560 1235-20 Jaqueline 00:00:00 00:00:00 Shaylee [id number] Orth[facility] pe dic Sports Medicin e 2022-10-11 2022-10-11 Outpatient FOG_Goytia_ AOSM AOSM 560 1235-20 Jaqueline 00:00:00 00:00:00 Shaylee [id number] [facility] Medic[facility] e 2022-10-09 2022-10-09 Outpatient RAMON MoratayaJANICE LABO [id number] [facility] 16:16:00 16:16:00 Tyrese 74 [facility] 2022-10-09 2022-10-09 Outpatient RAMON AndersonFARZAD 3DAY [id number] [facility] 08:00:00 16:00:00 Tyrese 23 [place] [facility] 2022-09-21 2022-09-21 Outpatient FOG_Goytia_ AOSM AOSM 560 1235-20 Jaqueline 00:00:00 00:00:00 Shaylee [id number] Orth[facility] pe dic Sports Medicin e 2022-09-10 2022-09-10 Outpatient FOG_Goytia_ AOSM AOSM 560 1235-20 Jaqueline 00:00:00 00:00:00 Shaylee [id number] Orth[facility] pe dic Sports Medicin e 2022-09-10 2022-09-10 Tyrese N [place]OSM [place] - [place] [id number] Jaqueline 00:00:00 00:00:00 Kelsie Morataya MD: 7401 FOG_Ofc dic [facility] [place] [address] , Ph. [phone] 2022-09-03 2022-09-03 Outpatient Phil POWER LABO [id number] [facility] 16:03:00 16:03:00 Jeff 87 [facility] 2022-09-03 2022-09-03 Outpatient KEISHA Davis RADI [id number] [facility] 09:20:00 09:20:00 Jeff 17 [place] [facility] 2022-08-31 2022-08-31 Outpatient FOG_Goytia_ AOSM AOSM 560 1235-20 Jaqueline 00:00:00 00:00:00 Shaylee [id number] [facility] 2022-08-31 2022-08-31 Jeff AOSM [place] - Orth[place] [id number] Jaqueline 00:00:00 00:00:00 Kelsie Villarreal MD: 7401 FOG_Ofc dic [facility] [place], [place] [address] , Ph. [phone] 2022-08-29 2022-08-29 Outpatient FOG_Goytia_ AOSM AOSM 560 1235-20 Jaqueline 00:00:00 00:00:00 Shaylee [id number] Orth[facility] pe dic [facility] Medicin e 2022-08-28 2022-08-28 Outpatient FOG_Goytia_ AOSM AOSM 560 1235-20 Jaqueline 00:00:00 00:00:00 Shaylee [id number] Orth[facility] pe dic Sports Medicin e 2020-10-19 2020-10-21 [facility] 1.2.840.114 [id number] Univers 09:05:00 16:50:00 Encounter Ok Parisi 350.1.13.10 [facility] 4.2.7.2.686 [facility] [phone] [place] [id number] [place] 2020-10-18 2020-10-18 Outpatient R [facility] 1030 [id number] Univers 10:30:00 10:30:00 [place] craig [facility] 2020-10-18 2020-10-18 Vice President Of Recruiting Ilda, Ralph Lab Main [facility] 1.2.8 40.114 [id number] Univers 10:10:27 10:25:27 Visit Ok Meyer 350.1. 13.10 [facility] 4.2.7.2.686 [facility] [phone] Me dical nal [address] [facility] 2020-10-17 2020-10-17 Outpatient R [facility] [id number] Univers 13:45:00 13:45:00 [place] craig [facility] 2020-10-17 2020-10-17 Laboratory Only, Adc Test [facility] 1.2.840. 114 [id number] Univers 11:48:41 12:03:41 Only Ok Meyer 350.1. 13.10 [place] 4[place].2.686 [place] [id number] [facility] [address] 2020-10-17 2020-10-17 Vice President Of Recruiting Ralph Gonsales Lab Main [facility] 1.2.8 40.114 [id number] Univers 11:48:19 12:03:19 Visit Ok Meyer 350.1. 13.10 [place]2.686 [place] [facility] [id number] Ct dical [facility] [address] [facility] 2020-10-17 2020-10-17 Orders Doctor ERINN 1.2.840.114 [id number] Univers 00:00:00 00:00:00 Only Unassigned, KRISTIE 350.1.13.10 [facility] 4.2.7.2.686 Russell as [phone] [facility] [address] 2016-08-01 2016-08-01 Outpatient MHIE MHIE [id number] Memoria 11:00:00 11:00:00 08 [facility] 2016-08-01 2016-08-01 Outpatient MHIE MHIE [id number] Memoria 11:00:00 11:00:00 08 [facility] 2016-07-11 2016-07-11 Outpatient MHIE MHIE [id number] Memoria 10:30:00 10:30:00 07 [facility] 2016-07-11 2016-07-11 Outpatient MHIE MHIE [id number] Memoria 10:30:00 10:30:00 07 [facility] 2016-04-04 2016-04-04 Bedded [facility] [id number] Memoria 09:59:00 15:30:00 Outpatient r Shiv 02 [facility] 2016-04-04 2016-04-04 Bedded [facility] [id number] Memoria 09:59:00 15:30:00 Outpatient r Shiv 02 [facility] 2016-04-04 2016-04-04 Outpatient Everton Jimenez [facility] [id number] 04:59:00 10:30:00 2016-03-20 2016-03-20 Outpatient MHIE MHIE [id number] Memoria 16:00:00 16:00:00 05 l [place] 2016-03-20 2016-03-20 Outpatient MHIE MHIE [id number] Memoria 16:00:00 16:00:00 05 l [place] 2016-03-03 2016-03-03 [facility] [id number] Memoria 15:53:00 16:56:00 Emergency r [place] 01 l [facility] [place] 2016-03-03 2016-03-03 [facility] [id number] Memoria 15:53:00 16:56:00 Emergency r Shiv [address] [place] 2016-03-03 2016-03-03 Outpatient Jonathan Payne [facility] [id number] 10:53:00 11:56:00 Avril 2015-12-26 2015-12-26 Outpatient MHIE MHIE [id number] Memoria 10:00:00 10:00:00 03 [facility] 2015-12-26 2015-12-26 Outpatient MHIE MHIE [id number] Memoria 10:00:00 10:00:00 03 [facility] 2015-09-28 2015-09-28 Bedded [facility] [id number] Memoria 10:43:00 17:30:00 Outpatient r Shiv 00 [facility] 2015-09-28 2015-09-28 Bedded [facility] [id number] Memoria 10:43:00 17:30:00 Outpatient r [place] 00 [facility] 2015-09-28 2015-09-28 Outpatient Everton Jimenez [facility] [id number] 04:43:00 11:30:00 00 2015-08-30 2015-08-30 Outpatient MHIE MHIE [id number] Memoria 15:00:00 15:00:00 02 l [place] 2015-08-30 2015-08-30 Outpatient MHIE MHIE [id number] Memoria 15:00:00 15:00:00 02 cindy Chaney 2015-08-16 2015-08-16 Outpatient MHIE MHIE [id number] Memoria 11:00:00 11:00:00 01 cindy Chaney 2015-08-16 2015-08-16 Outpatient MHIE MHIE [id number] Memoria 11:00:00 11:00:00 01 [facility] 2015-06-13 2015-06-13 Outpatient RAFFAELE RAFFAELE [id number] Memoria 10:00:00 10:00:00 00 [facility] 2015-06-13 2015-06-13 Outpatient RAFFAELE RAFFAELE [id number] Memoria 10:00:00 10:00:00 00 [facility] 2015-02-23 2015-02-24 Inpatient [facility] [id number] Memoria 15:39:00 14:45:00 r [place] 01 [facility] 2015-02-23 2015-02-24 Inpatient nullFlavo [facility] [id number] Memoria 15:39:00 14:45:00 r [place] [facility] 2015-02-23 2015-02-24 Outpatient Everton Jimenez 2.16.840. 2.16.840. 1. [id number] 10:39:00 09:45:00 [id number]. 121565.3.61 01 3.615.0.1 5.0.936 51 7725-04-28 2015-01-18 [facility] [id number] Memoria 15:45:00 16:55:00 Emergency r [place] [address] [place] 2015-01-18 2015-01-18 [facility] [id number] Memoria 15:45:00 16:55:00 Emergency r Shiv [address] [place] 2015-01-18 2015-01-18 Outpatient Payne Jonathan 2.16.840. 2.16.840. 1. [id number] 10:45:00 11:55:00 Avril [id number]. [id number] 00 3.615.0.1 5.0.101 01 Results Test Description [...] the james mmended formula for GFRby the [facility] Foundation for Adults.The GFR will not calcul ate if the sex is unknown or if t hepatient's age is <18 years. CREATININE (test code = 1.15 mg/dL 0.55-1.30 N CREAT) CALCIUM (test code = CA) 7.9 mg/dL 8.2-10.1 L HGB [id number] 06:10:00 Test Item Value Reference Range Interpretation Comments HEMOGLOBIN (test code = HGB) 12.0 g/dL 12-16 N HEMATOCRIT (test code = HCT) 33.8 % 37-47 L SPECIMEN COMMENT: POD #1Hemoglobin and Hematocrit panel - [id number] 04:40:00 Test Item Value Reference Range Interpretation Comments hemoglobin (test code = hemoglobin) 12.0 g/dL 12-16 hematocrit (test code = hematocrit) 33.8 % 37-47 L performing lab: (test code = performing lab:) [facility] 2022-10-17 04:40:00 Test Item Value Reference Range Interpretation Comments hemoglobin (test code = hemoglobin) 12.0 g/dL 12-16 hematocrit (test code = hematocrit) 33.8 % 37-47 L performing lab: (test code = performing lab:) [facility] [id number] 12:37:00 Test Item Value Reference Range Interpretation Comments GLUBED (test code = GLUBED) 119 mg/dL 60-125 N [id number] 12:26:00 Test Item Value Reference Range Interpretation Comments glubed (test code = glubed) 119 mg/dL 60-125 performing lab: (test code = performing lab:) [facility] 12:26:00 Test Item Value Reference Range Interpretation Comments glubed (test code = glubed) 119 mg/dL 60-125 performing lab: (test code = performing lab:) [facility] (HA1C)2022-10-09 21:28:00 Test Item Value Reference [...] be considered for these patients.DONE A T: [facility] [address] , [place], [place] [address] GLYCOSYLATED HEMOGLOBIN (HA1C)2022-10-09 21:27:00 [...] be considered for these patients. COMPREHENSIVE METABOLIC [id number] 14:40:00 Test Item Value Reference Range Interpretation [...] PHOSPHATASE TOTAL (test code = ALKP) PROTHROMBIN [id number] 13:50:00 Test Item Value Reference Range Interpretation [...] v calvillo IS PATIENT ON ANTICOAGULANTS ? [facility] Lab been notified if Patient is on Heparin Drip? NOTHROMBOPLASTIN TIME [id number] 13:50:00 Test Item Value Reference Range Interpretation Comments PTT ACTIVATED (test 33.9 secs 26.6-34.6 N Please n ote new code = APTT) normal range. IS PATIENT ON ANTICOAGULANTS ? [facility] Lab been notified if Patient is on Heparin Drip? NOCBC W/AUTO [id number] 13:49:00 Test Item Value Reference Range Interpretation [...] NRBC) CBC W Auto Differential panel - [id number] 12:10:00 Test Item Value Reference Range Interpretation [...] performing lab: (test code = performing lab:) [facility] (PT)2022-10-09 12:10:00 Test Item Value Reference Range Interpretation Comments prothrombin time patient (test code 11.1 secs 9.7-12.5 = prothrombin time patient) international normal ratio (test 1.00 <2.0 code = international normal ratio) performing lab: (test code = performing lab:) [facility]in [facility] [id number] 12:10:00 Test Item Value Reference Range Interpretation Comments PTT activated (test code = PTT 33.9 secs 26.6-34.6 activated) performing lab: (test code = performing lab:) [facility] HospitalComprehensive [facility] 2000 panel - Serum or [id number] 12:10:00 Test Item Value Reference Range Interpretation [...] performing lab: (test code = performing lab:) [facility]glycos[facility] hemoglobin (ha1c)2022-10-09 12:10:00 Test Item Value Reference Range Interpretation Comments Hemoglobin A1c/Hemoglobin.total in 6.2 % 4.8-5.9 H Blood (test code = 4548-4) performing lab: (test code = performing lab:) [facility] HospitalMethicillin resistant Staphylococcus aureus [Presence] in Specimen by Organism specific [id number] 12:10:00 Test Item Value Reference Range Interpretation Comments MRSA surveillance screen (test code see below = MRSA surveillance screen) performing lab: (test code = performing lab:) [facility] PCR surveillance [id number] 12:10:00 Test Item Value Reference Range Interpretation Comments mssa PCR surveillance screen (test see below code = mssa PCR surveillance screen) performing lab: (test code = performing lab:) [facility]CBC W Auto Differential panel - [id number] 12:10:00 Test Item Value Reference Range Interpretation [...] performing lab: (test code = performing lab:) [facility] (PT)2022-10-09 12:10:00 Test Item Value Reference Range Interpretation Comments prothrombin time patient (test code 11.1 secs 9.7-12.5 = prothrombin time patient) international normal ratio (test 1.00 <2.0 code = international normal ratio) performing lab: (test code = performing lab:) [facility]althromboplastin time [id number] 12:10:00 Test Item Value Reference Range Interpretation Comments PTT activated (test code = PTT 33.9 secs 26.6-34.6 activated) performing lab: (test code = performing lab:) [facility]Com[facility] 2000 panel - Serum or [id number] 12:10:00 Test Item Value Reference Range Interpretation [...] performing lab: (test code = performing lab:) [facility]gly[facility] hemoglobin (ha1c)2022-10-09 12:10:00 Test Item Value Reference Range Interpretation Comments Hemoglobin A1c/Hemoglobin.total in 6.2 % 4.8-5.9 H Blood (test code = 4548-4) performing lab: (test code = performing lab:) [facility] HospitalMeth[facility] resistant Staphylococcus aureus [Presence] in Specimen by Organism specific [id number] 12:10:00 Test Item Value Reference Range Interpretation Comments MRSA surveillance screen (test code see below = MRSA surveillance screen) performing lab: (test code = performing lab:) [facility] surveillance [id number] 12:10:00 Test Item Value Reference Range Interpretation Comments mssa PCR surveillance screen (test see below code = mssa PCR surveillance screen) performing lab: (test code = performing lab:) [facility]- XR FLUORO [id number] 13:56:00 [facility] 1955 Sex: M Patient Name: ALIDA HOLDEN Unit No: [id number] EXAMS: CPT CODE: [id number] XR FLUORO NDL 65165 Fluoroscopically guided left knee aspiration FINDINGS: After [...] left knee aspiration. at 1356 Reported and signed by: Aashish Hein M.D. CC: Jeff Villarreal MD Technologist: RT. Lico(R) [facility] NAME: ALIDA HOLDEN [address] [place] [address] PHYS: Jeff Lamb : 1955 AGE: 66 SEX: M [place], [place] [address] LOC: Y.RAD PHONE #: [phone] EXAM DATE: 09/03/2022 STATUS: DEP CLI FAX #: [phone] RAD #: [id number] D/C DT PAGE 1 Signed Report Patient Name: ALIDA HOLDEN Unit No: [id number] EXAMS: CPT CODE: [id number] XR FLUORO NDL 01975 (Continued) Trans cribed D/ (1356) t.SDR.J [facility] NAME: ALIDA HOLDEN [address] [place] [address] PHYS: Jeff Lamb : 1955 AGE: 66 SEX: M [place], [place] [address] LOC: Y.RAD PHONE #: [phone] EXAM DATE: 09/03/2022 STATUS: DEP CLI FAX #: [phone] RAD #: [id number] D/C DT PAGE [id number] 13:07:00 Test Item Value Reference Range Interpretation Comments SYNOVIAL FLD HEMOLYZED LT. YELLOW COLOR (test code = COLSY) SYNOVIAL FLD HAZY CLEAR APPEARANCE (test code = APPSY) SYNOVIAL FLD 1 mL VOLUME (test code = VOLSY) SYNOVIAL FLD WBC 1064.000 /MM3 0-200 H (test code = WBCSY) SYNOVIAL FLD RBC 45971.000 /mm3 0-2 H NOTE: An automated (test [...] Cell count and Differential panel - Synovial [id number] 10:31:00 Test Item Value Reference Range Interpretation Comments synovial fld color (test code hemolyzed lt. yellow = synovial fld color) synovial fld appearance (test hazy clear code = synovial fld appearance) synovial fld volume (test code 1 mL = synovial fld volume) synovial fld WBC (test code = 1064.000 /mm3 0-200 H synovial fld WBC) synovial fld RBC (test code = 23568.000 /mm3 0-2 H synovial fld RBC) synovial fld poly (test code = 10 % 0-25 synovial fld poly) synovial fld lymphocyte (test 83 % 0-78 H code = synovial fld lymphocyte) synovial fld monocyte (test 1 % 0-71 code = synovial fld monocyte) synovial fld lining cells 6 % (test code = synovial fld lining cells) performing lab: (test code = performing lab:) [facility] HospitalMicroscopic observation [Identifier] in Specimen by Gram [id number] 10:31:00 Test Item Value Reference Range Interpretation Comments gram stain (test code = gram stain) see below performing lab: (test code = performing lab:) [facility] HospitalAFB [id number] 10:31:00 Test Item Value Reference Range Interpretation Comments AFB smear (test code = AFB smear) see below performing lab: (test code = performing lab:) [facility] HospitalErythrocyte sedimentation rate by Westergren [id number] 00:00:00 Test Item Value Reference Range Interpretation Comments Erythrocyte sedimentation 2 mm/h See_Comment [ Automated message] rate by Westergren method Th e system which (test code = 4537-7) generat ed this result transmitted ref erence range: < or = 2 0. The reference range was not used to int erpret this result as normal/abnormal . [facility] HospitalC-reactive protein, [id number] 00:00:00 Test Item Value Reference Range Interpretation Comments C reactive protein [Mass/volume] in 1.5 mg/L <8.0 Serum or Plasma (test code = 1988-01) [facility] with [id number] 10:56:00 Test Item Value Reference Range Interpretation [...] RDW-SD (test code = 43.2 fL 38.5-51.6 39255-1) RDW-CV (test code = 13.3 % 12.1-15.4 788-0) PLT (test code = See_Comment L [Automated 777-3) message] The sy stem which generated this result transmitted reference range : 150 - 328 10*3/ ?L. The reference r césar was not used to interpret this result as normal/abnormal . MPV (test code = 10.5 fL 9.8-13 27992-4) NRBC/100 WBC (test See_Comment [Automat ed code = 5164999043) message] The system which generated this result transmitted reference range : 0.0 - 10.0 /100 WBCs. The refer ence range was not u sed to interpret th is result as normal/abnormal . NRBC x10^3 (test code <0.01 See_Comment [Auto mated = 5938011482) message] The s ystem which generated this result transmitted reference range : 10*3/?L. The reference range was not used to interpret this result as normal/abnormal . GRAN MAT (NEUT) % 66.0 % (test code = 770-8) IMM GRAN % (test code 0.30 % = 4949533364) LYMPH % (test code = 20.5 % 736-9) MONO % (test code = 11.4 % 5905-5) EOS % (test code = 1.6 % 713-8) BASO % (test code = 0.2 % 706-2) GRAN MAT x10^3(ANC) 4.19 10*3/uL 1.99-6.95 (test code = 6688214275) IMM GRAN x10^3 (test <0.03 0-0.06 code = 9118111735) LYMPH x10^3 (test code 1.30 10*3/uL 1.09-3.23 = 731-0) MONO x10^3 (test code 0.72 10*3/uL 0.36-1.02 = 742-7) EOS x10^3 (test code = 0.10 10*3/uL 0.06-0.53 711-2) BASO x10^3 (test code <0.03 0.01-0.09 = 704-7) Lab Interpretation Abnormal (test code = 68822-9) [facility]. METABOLIC PANEL (27269)2020-10-18 17:51:00 Test Item Value Reference Range Interpretation Comments NA (test code = 136 mmol/L 135-145 3606656168) K (test code = 4.5 mmol/L 3.5-5 0021678952) CL (test code = 97 mmol/L 98-108 L 8953698345) CO2 TOTAL (test code = 32 mmol/L 23-31 H 6968569400) AGAP (test code = 2-16 4000289103) BUN (test code = 21 mg/dL 7-23 1884614581) GLUCOSE (test code = 115 mg/dL 70-110 H 1940742724) CREATININE (test code = 1.15 mg/dL 0.6-1.25 3221760850) TOTAL BILI (test code = 0.6 mg/dL 0.1-1.6 8387348901) CALCIUM (test code = 9.0 mg/dL 8.6-10.6 0734377164) T PROTEIN (test code = 7.3 g/dL 6.3-8.2 5664676492) ALBUMIN (test code = 4.4 g/dL 3.5-5 6450356650) ALK PHOS (test code = 76 U/L 34-122 8401723262) ALTv (test code = 25 U/L 5-50 1742-6) AST(SGOT) (test code = 24 U/L 13-40 5724768421) eGFR Calculation mL/min/1.73m2 (Non-) (test code = 4886930677) eGFR Calculation mL/min/1.73m2 () (test code = 4783484798) NAOMIE (test code = NAOMIE) Association of [...] tests). Lab Interpretation Abnormal (test code = 09644-7) [facility] Screen - ONCE [id number] 17:41:29 Test Item Value Reference Range Interpretation Comments ABO & RH (test code B Positive Performe d at [facility] = 20) Laboratory Serv [facility] [address] [place] [address] Free: [phone] A No. [id number] IAT (test code = Negative Performed a t [facility] 1185) Laboratory Serv [facility] [place], [place] [address]Toll Free: [phone] A No. [id number] [facility]2021-01-26 17:15:00 Test Item Value Reference Range Interpretation Comments APPEARANCE (test code = Clear Clear 8740340235) COLOR (test code = Yellow Yellow 3913117925) PH (test code = 4.8-8.0 2969856338) SP GRAVITY (test code = 1.003-1.030 8398808369) GLU U QUAL (test code = Normal Normal 6928216207) BLOOD (test code = Negative Negative 5980047394) KETONES (test code = Negative Negative 7199988284) PROTEIN (test code = Negative Negative 2887-8) UROBILIN (test code = Normal Normal 5787297636) BILIRUBIN (test code = Negative Negative 9908939131) NITRITE (test code = Negative Negative 4336450709) LEUK KAVYA (test code = Negative Negative 5661744365) RBC/HPF (test code = <1 See_Comment [Autom ated message] 5258248619) The system [facility] generated this result transmitted ref erence range: 0 - 3 HP F. The reference range was not used to int erpret this result as normal/abnormal . WBC/HPF (test code = See_Comment [Autom ated message] 5385800242) The system [facility] generated this result transmitted ref erence range: 0 - 5 HP F. The reference range was not used to int erpret this result as normal/abnormal . BACTERIA (test code = Negative Negative 3222169117) Lab Interpretation (test Normal code = 68053-0) [facility] CampusACTIV[facility] PARTIAL THRMPLAS [id number] 16:58:00 Test Item Value Reference Range Interpretation Comments APTT Patient (test See_Comment [Automat ed code = 3173-2) message] The system which generated this result transmitted reference range : 23 - 38 Seconds . The reference range was not used to interpr et this result as normal/abnormal . NAOMIE (test code = NAOMIE) The [facility] patient population mean normal value for aPTT is 30 seconds. Lab Interpretation Normal (test code = 28753-2) [facility] / [id number] 16:56:00 Test Item Value Reference Range Interpretation Comments PROTIME PATIENT (test See_Comment [Auto mated message] code = 5964-2) The system wh ich generated this result transmitted ref erence range: 12.0 - 1 4.7 Seconds. The re ference range was not u sed to interpret this result as normal/abnor mal. INR (test code = 6301-6) Nor mal INR <1.1; Warfarin Therap eutic range 2.0 to 3. 0 or 2.5 to 3.5, dep ending upon the indica tions. Lab Interpretation (test Normal code = 16499-3) [facility] WITH [id number] 16:50:00 Test Item Value Reference Range Interpretation Comments WBC (test code = See_Comment [Automated 7390-2) message] The sy stem which generated this result transmitted reference range : 4.20 - 10.70 10*3/?L. The reference range was not used to interpret this result as normal/abnormal . RBC (test code = See_Comment [Automated 249-8) message] The sy stem which generated this [...] RDW-SD (test code = 41.3 fL 38.5-51.6 23108-8) RDW-CV (test code = 12.7 % 12.1-15.4 788-0) PLT (test code = See_Comment [Automated 777-3) message] The sy stem which generated this result transmitted reference range : 150 - 328 10*3/ ?L. The reference r césar was not used to interpret this result as normal/abnormal . MPV (test code = 9.7 fL 9.8-13 L 83686-5) NRBC/100 WBC (test See_Comment [Automat ed code = [id number]) message] The system which generated this result transmitted reference range : 0.0 - 10.0 /100 WBCs. The refer ence range was not u sed to interpret th is result as normal/abnormal . NRBC x10^3 (test code <0.01 See_Comment [Auto mated = [id number]) message] The s ystem which generated this result transmitted reference range : 10*3/?L. The reference range was not used to interpret this result as normal/abnormal . GRAN MAT (NEUT) % 55.1 % (test code = 770-8) IMM GRAN % (test code 0.30 % = [id number]) LYMPH % (test code = 31.9 % 736-9) MONO % (test code = 8.8 % 5905-5) EOS % (test code = 3.1 % 713-8) BASO % (test code = 0.8 % 706-2) GRAN MAT x10^3(ANC) 3.37 10*3/uL 1.99-6.95 (test code = 3421652212) IMM GRAN x10^3 (test <0.03 0-0.06 code = 1169552867) LYMPH x10^3 (test code 1.95 10*3/uL 1.09-3.23 = 731-0) MONO x10^3 (test code 0.54 10*3/uL 0.36-1.02 = 742-7) EOS x10^3 (test code = 0.19 10*3/uL 0.06-0.53 711-2) BASO x10^3 (test code 0.05 10*3/uL 0.01-0.09 = 704-7) Lab Interpretation Abnormal (test code = 62416-4) [facility]2016-07-13 10:35:00 Test Item Value Reference Range Interpretation Comments Creatinine Lvl (test code = Creatinine 1.13 0.50-1.40 Lvl) [facility]2016-07-13 10:35:00 Test Item Value Reference Range Interpretation Comments eGFR (test code = eGFR) 70 [facility]2016-07-13 10:35:00 Test Item Value Reference Range Interpretation Comments BUN (test code = BUN) 04-13 [facility]2016-07-13 10:35:00 Test Item Value Reference Range Interpretation Comments Creatinine Lvl (test code = Creatinine 1.13 0.50-1.40 Lvl) [facility]2016-07-13 10:35:00 Test Item Value Reference Range Interpretation Comments eGFR (test code = eGFR) [address] [place] [address]2016-07-13 10:35:00 Test Item Value Reference Range Interpretation Comments BUN (test code = BUN) 04-13 [facility]2016-07-13 10:35:00 Test Item Value Reference Range Interpretation Comments Creatinine Lvl (test code = Creatinine 1.13 0.50-1.40 Lvl) [facility]2016-07-13 10:35:00 Test Item Value Reference Range Interpretation Comments eGFR (test code = eGFR) 70 [facility]2016-07-13 10:35:00 Test Item Value Reference Range Interpretation Comments BUN (test code = BUN) 04-13 [facility]2016-07-13 10:35:00 Test Item Value Reference Range Interpretation Comments Creatinine Lvl (test code = Creatinine 1.13 0.50-1.40 Lvl) [facility]2016-07-13 10:35:00 Test Item Value Reference Range Interpretation Comments eGFR (test code = eGFR) 70 [facility]2016-07-13 10:35:00 Test Item Value Reference Range Interpretation Comments BUN (test code = BUN) 04-13 [facility]2016-07-13 10:35:00 Test Item Value Reference Range Interpretation Comments Creatinine Lvl (test code = Creatinine 1.13 0.50-1.40 Lvl) [address]07-13 10:35:00 Test Item Value Reference Range Interpretation Comments eGFR (test code = eGFR) 70 [facility]2016-07-13 10:35:00 Test Item Value Reference Range Interpretation Comments BUN (test code = BUN) 23 04-13 [facility]2016-01-06 11:55:00 Test Item Value Reference Range Interpretation Comments Creatinine Lvl (test code = Creatinine 1.15 0.50-1.40 Lvl) [facility]2016-01-06 11:55:00 Test Item Value Reference Range Interpretation Comments BUN (test code = BUN) 16 04-13 [facility]2016-01-06 11:55:00 Test Item Value Reference Range Interpretation Comments eGFR (test code = eGFR) 69 [facility]2016-01-06 11:55:00 Test Item Value Reference Range Interpretation Comments Creatinine Lvl (test code = Creatinine 1.15 0.50-1.40 Lvl) [facility]2016-01-06 11:55:00 Test Item Value Reference Range Interpretation Comments BUN (test code = BUN) 16 04-13 [facility]2016-01-06 11:55:00 Test Item Value Reference Range Interpretation Comments eGFR (test code = eGFR) 69 [facility]2016-01-06 11:55:00 Test Item Value Reference Range Interpretation Comments Creatinine Lvl (test code = Creatinine 1.15 0.50-1.40 Lvl) [facility]2016-01-06 11:55:00 Test Item Value Reference Range Interpretation Comments BUN (test code = BUN) 16 04-13 [facility]2016-01-06 11:55:00 Test Item Value Reference Range Interpretation Comments eGFR (test code = eGFR) [facility]2016-01-06 11:55:00 Test Item Value Reference Range Interpretation Comments Creatinine Lvl (test code = Creatinine 1.15 0.50-1.40 Lvl) [facility]2016-01-06 11:55:00 Test Item Value Reference Range Interpretation Comments BUN (test code = BUN) 16 04-13 [facility]2016-01-06 11:55:00 Test Item Value Reference Range Interpretation Comments eGFR (test code = eGFR) 69 [facility]2016-01-06 11:55:00 Test Item Value Reference Range Interpretation Comments Creatinine Lvl (test code = Creatinine 1.15 0.50-1.40 Lvl) [facility]2016-01-06 11:55:00 Test Item Value Reference Range Interpretation Comments BUN (test code = BUN) 16 - [facility]2016-01-06 11:55:00 Test Item Value Reference Range Interpretation Comments eGFR (test code = eGFR) 69 [facility]2015-06-04 05:15:00 Test Item Value Reference Range Interpretation Comments Magnesium Lvl (test code = Magnesium 2.0 1.8-2.4 Lvl) [facility]2015-06-04 05:15:00 Test Item Value Reference Range Interpretation Comments Phosphorus (test code = Phosphorus) 3.9 2.5-4.5 [facility]2015-06-04 05:15:00 Test Item Value Reference Range Interpretation Comments eGFR (test code = eGFR) 73 [facility]2015-06-04 05:15:00 Test Item Value Reference Range Interpretation Comments Calcium Lvl (test code = Calcium Lvl) 8.5 8.5-10.5 [facility]2015-06-04 05:15:00 Test Item Value Reference Range Interpretation Comments Glucose Lvl (test code = Glucose Lvl) 111 70-99 [facility]2015-06-04 05:15:00 Test Item Value Reference Range Interpretation Comments Creatinine Lvl (test code = Creatinine 1.1 0.5-1.4 Lvl) [facility]2015-06-04 05:15:00 Test Item Value Reference Range Interpretation Comments Sodium Lvl (test code = Sodium Lvl) 142 135-145 [facility]2015-06-04 05:15:00 Test Item Value Reference Range Interpretation Comments BUN (test code = BUN) 17 - [facility]2015-06-04 05:15:00 Test Item Value Reference Range Interpretation Comments Chloride Lvl (test code = Chloride Lvl) 108 95-109 [facility]2015-06-04 05:15:00 Test Item Value Reference Range Interpretation Comments CO2 (test code = CO2) 27 24-32 [facility]2015-06-04 05:15:00 Test Item Value Reference Range Interpretation Comments Potassium Lvl (test code = Potassium 4.1 3.5-5.1 Lvl) [facility]2015-06-04 05:15:00 Test Item Value Reference Range Interpretation Comments AGAP (test code = AGAP) 11.1 10.0-20.0 [facility] HospitalXxgjspyFCMBCGGYBP3762-02-05 05:15:00 Test Item Value Reference Range Interpretation Comments RBC (test code = RBC) 4.46 4.70-6.10 [facility] HospitalFpirfxuNPRJYNPIKC8294-02-10 05:15:00 Test Item Value Reference Range Interpretation Comments WBC (test code = WBC) 8.0 3.7-10.4 [facility] HospitalAmjmsbpZDORBOPIGX7779-18-65 05:15:00 Test Item Value Reference Range Interpretation Comments Platelet (test code = Platelet) 135 133-450 [facility] HospitalGqtczghOGYZXSYXLS2601-75-06 05:15:00 Test Item Value Reference Range Interpretation Comments Hgb (test code = Hgb) 13.3 14.0-18.0 [facility] HospitalEuyqenbEZJPJCXKHE7194-55-19 05:15:00 Test Item Value Reference Range Interpretation Comments MCV (test code = MCV) 87.5 80.0-94.0 [facility] HospitalIgnxxcwXQNZBSFLXK2581-22-45 05:15:00 Test Item Value Reference Range Interpretation Comments MCHC (test code = MCHC) 34.2 32.0-36.0 [facility] HospitalSzhpszeQGHRKUSUTK1792-38-78 05:15:00 Test Item Value Reference Range Interpretation Comments MCH (test code = MCH) 29.9 pg 27.0-31.0 [facility] HospitalKjmmgaaTKCKAHJTON9153-60-84 05:15:00 Test Item Value Reference Range Interpretation Comments RDW (test code = RDW) 13.4 11.5-14.5 [facility] HospitalWnsfugiKVXVFPWHPI4085-25-22 05:15:00 Test Item Value Reference Range Interpretation Comments MPV (test code = MPV) 8.3 7.4-10.4 [facility] HospitalYxocscsXQPBCRNCAG4240-55-21 05:15:00 Test Item Value Reference Range Interpretation Comments Hct (test code = Hct) 39.0 42.0-54.0 [facility] HospitalOhmypycSGCDSJLOUR6336-11-55 05:15:00 Test Item Value Reference Range Interpretation Comments Eosinophils (test code = 0.7 See_Comment [A utomated message] The Eosinophils) system which ge nerated this result tra nsmitted reference range : <=4.0. The reference r césar was not used to int erpret this result as normal/abnormal . [facility] HospitalEqmjoasALASQZYXGY4599-63-35 05:15:00 Test Item Value Reference Range Interpretation Comments Basophils (test code = 0.4 See_Comment [Aut omated message] The Basophils) system which ge nerated this result tra nsmitted reference range : <=1.0. The reference r césar was not used to int erpret this result as normal/abnormal . [facility] HospitalJxxlzcoEDDIPIOEQD3596-83-36 05:15:00 Test Item Value Reference Range Interpretation Comments Segs-Bands # (test code = Segs-Bands #) 5.8 1.5-8.1 [facility] HospitalLbsfoyzVNCUGQHERE1706-95-23 05:15:00 Test Item Value Reference Range Interpretation Comments Lymphocytes # (test code = Lymphocytes 1.5 1.0-5.5 #) [facility] HospitalDazzzrjEHYSSWUYKE7669-52-85 05:15:00 Test Item Value Reference Range Interpretation Comments Monocytes (test code = Monocytes) 7.9 2.0-12.0 [facility] HospitalUtgopukUHXIDBKRWJ4983-62-83 05:15:00 Test Item Value Reference Range Interpretation Comments Monocytes # (test code 0.6 See_Comment [Aut omated message] The = Monocytes #) system which generated this result tra nsmitted reference range : <=0.8. The reference r césar was not used to int erpret this result as normal/abnormal . [facility] HospitalCherngxVJISSUXXUY9375-03-05 05:15:00 Test Item Value Reference Range Interpretation Comments Eosinophils # (test code 0.1 See_Comment [A utomated message] The = Eosinophils #) system whic h generated this result tra nsmitted reference range : <=0.5. The reference r césar was not used to int erpret this result as normal/abnormal . [facility] HospitalZpafausBSDGCEBPND8568-01-25 05:15:00 Test Item Value Reference Range Interpretation Comments Segs (test code = Segs) 72.5 45.0-75.0 [facility] HospitalWajreteYFSODHXKXT0656-28-09 05:15:00 Test Item Value Reference Range Interpretation Comments Lymphocytes (test code = Lymphocytes) 18.5 20.0-40.0 [facility]RO[facility] WKFASMR3891-47-27 05:15:00 Test Item Value Reference Range Interpretation Comments Ca Norm WB (test code = Ca Norm WB) 1.09 1.05-1.25 [facility]RO[facility] RHZHMZG8593-42-32 05:15:00 Test Item Value Reference Range Interpretation Comments Ca Ion WB (test code = Ca Ion WB) 1.12 1.05-1.25 [facility]2015-06-04 05:15:00 Test Item Value Reference Range Interpretation Comments Magnesium Lvl (test code = Magnesium 2.0 1.8-2.4 Lvl) [facility]2015-06-04 05:15:00 Test Item Value Reference Range Interpretation Comments Phosphorus (test code = Phosphorus) 3.9 2.5-4.5 [facility]2015-06-04 05:15:00 Test Item Value Reference Range Interpretation Comments eGFR (test code = eGFR) 73 [facility]2015-06-04 05:15:00 Test Item Value Reference Range Interpretation Comments Calcium Lvl (test code = Calcium Lvl) 8.5 8.5-10.5 [facility]2015-06-04 05:15:00 Test Item Value Reference Range Interpretation Comments Glucose Lvl (test code = Glucose Lvl) 111 70-99 [facility]2015-06-04 05:15:00 Test Item Value Reference Range Interpretation Comments Creatinine Lvl (test code = Creatinine 1.1 0.5-1.4 Lvl) [facility]2015-06-04 05:15:00 Test Item Value Reference Range Interpretation Comments Sodium Lvl (test code = Sodium Lvl) 142 135-145 [facility]2015-06-04 05:15:00 Test Item Value Reference Range Interpretation Comments BUN (test code = BUN) 17 7-22 [facility]2015-06-04 05:15:00 Test Item Value Reference Range Interpretation Comments Chloride Lvl (test code = Chloride Lvl) 108 95-109 [facility]2015-06-04 05:15:00 Test Item Value Reference Range Interpretation Comments CO2 (test code = CO2) 27 24-32 [facility]2015-06-04 05:15:00 Test Item Value Reference Range Interpretation Comments Potassium Lvl (test code = Potassium 4.1 3.5-5.1 Lvl) [facility]2015-06-04 05:15:00 Test Item Value Reference Range Interpretation Comments AGAP (test code = AGAP) 11.1 10.0-20.0 [facility] HospitalZezwddoFYUXLPHMLE3065-24-71 05:15:00 Test Item Value Reference Range Interpretation Comments RBC (test code = RBC) 4.46 4.70-6.10 [facility] HospitalTndyoygVNCNGEQYGM4877-19-45 05:15:00 Test Item Value Reference Range Interpretation Comments WBC (test code = WBC) 8.0 3.7-10.4 [facility] HospitalHdpyoxzJHQAESVQDU5860-52-42 05:15:00 Test Item Value Reference Range Interpretation Comments Platelet (test code = Platelet) 135 133-450 [facility] HospitalLbygrwdQXUITMWDMP4904-99-96 05:15:00 Test Item Value Reference Range Interpretation Comments Hgb (test code = Hgb) 13.3 14.0-18.0 [facility] HospitalDykhpqnNRSGGBNQCH5003-86-68 05:15:00 Test Item Value Reference Range Interpretation Comments MCV (test code = MCV) 87.5 80.0-94.0 [facility] HospitalHlnlpldHLVCVXEGYI4047-10-34 05:15:00 Test Item Value Reference Range Interpretation Comments MCHC (test code = MCHC) 34.2 32.0-36.0 [facility] HospitalMwnjyjjMEVEDJIXES3841-72-12 05:15:00 Test Item Value Reference Range Interpretation Comments MCH (test code = MCH) 29.9 pg 27.0-31.0 [facility] HospitalDqiqzwoPUSRYCDGMU3679-93-65 05:15:00 Test Item Value Reference Range Interpretation Comments RDW (test code = RDW) 13.4 11.5-14.5 [facility] HospitalWsxjrpiSRMQKCERVJ7329-29-72 05:15:00 Test Item Value Reference Range Interpretation Comments MPV (test code = MPV) 8.3 7.4-10.4 [facility] HospitalBekxyldZKNOHRISRF3006-11-34 05:15:00 Test Item Value Reference Range Interpretation Comments Hct (test code = Hct) 39.0 42.0-54.0 [facility] HospitalWttjbjpHSWGRLIOIZ8343-22-10 05:15:00 Test Item Value Reference Range Interpretation Comments Eosinophils (test code = 0.7 See_Comment [A utomated message] The Eosinophils) system which ge nerated this result tra nsmitted reference range : <=4.0. The reference r césar was not used to int erpret this result as normal/abnormal . [facility] HospitalFgpvphdBRGGHFFIRD7332-40-82 05:15:00 Test Item Value Reference Range Interpretation Comments Basophils (test code = 0.4 See_Comment [Aut omated message] The Basophils) system which ge nerated this result tra nsmitted reference range : <=1.0. The reference r césar was not used to int erpret this result as normal/abnormal . [facility] HospitalAulkbztRBLOGJYIYG7130-17-57 05:15:00 Test Item Value Reference Range Interpretation Comments Segs-Bands # (test code = Segs-Bands #) 5.8 1.5-8.1 [facility] HospitalVmfhhmvIVRSWXJCCX3640-72-19 05:15:00 Test Item Value Reference Range Interpretation Comments Lymphocytes # (test code = Lymphocytes 1.5 1.0-5.5 #) [facility] HospitalGuuodskNJCKTZRZOC8945-54-02 05:15:00 Test Item Value Reference Range Interpretation Comments Monocytes (test code = Monocytes) 7.9 2.0-12.0 [facility] HospitalVdhsoljCYGIUMBUPY8891-28-53 05:15:00 Test Item Value Reference Range Interpretation Comments Monocytes # (test code 0.6 See_Comment [Aut omated message] The = Monocytes #) system which generated this result tra nsmitted reference range : <=0.8. The reference r césar was not used to int erpret this result as normal/abnormal . [facility] HospitalFenbtodGLNIFTWTMY2269-75-12 05:15:00 Test Item Value Reference Range Interpretation Comments Eosinophils # (test code 0.1 See_Comment [A utomated message] The = Eosinophils #) system whic h generated this result tra nsmitted reference range : <=0.5. The reference r césar was not used to int erpret this result as normal/abnormal . [facility] HospitalVgizzotXRGPPZOYRF7508-56-82 05:15:00 Test Item Value Reference Range Interpretation Comments Segs (test code = Segs) 72.5 45.0-75.0 [facility] HospitalIgdhvrnREVPXXJQRE4071-34-81 05:15:00 Test Item Value Reference Range Interpretation Comments Lymphocytes (test code = Lymphocytes) 18.5 20.0-40.0 [facility] SXKUCOG8409-30-40 05:15:00 Test Item Value Reference Range Interpretation Comments Ca Norm WB (test code = Ca Norm WB) 1.09 1.05-1.25 [facility]RO[facility] WIZWVWX5390-50-26 05:15:00 Test Item Value Reference Range Interpretation Comments Ca Ion WB (test code = Ca Ion WB) 1.12 1.05-1.25 [facility]2015-06-04 05:15:00 Test Item Value Reference Range Interpretation Comments Magnesium Lvl (test code = Magnesium 2.0 1.8-2.4 Lvl) [facility]2015-06-04 05:15:00 Test Item Value Reference Range Interpretation Comments Phosphorus (test code = Phosphorus) 3.9 2.5-4.5 [facility]2015-06-04 05:15:00 Test Item Value Reference Range Interpretation Comments eGFR (test code = eGFR) 73 [facility]2015-06-04 05:15:00 Test Item Value Reference Range Interpretation Comments Calcium Lvl (test code = Calcium Lvl) 8.5 8.5-10.5 [facility]2015-06-04 05:15:00 Test Item Value Reference Range Interpretation Comments Glucose Lvl (test code = Glucose Lvl) 111 70-99 [facility]2015-06-04 05:15:00 Test Item Value Reference Range Interpretation Comments Creatinine Lvl (test code = Creatinine 1.1 0.5-1.4 Lvl) [facility]2015-06-04 05:15:00 Test Item Value Reference Range Interpretation Comments Sodium Lvl (test code = Sodium Lvl) 142 135-145 [facility]2015-06-04 05:15:00 Test Item Value Reference Range Interpretation Comments BUN (test code = BUN) 17 7-22 [facility]2015-06-04 05:15:00 Test Item Value Reference Range Interpretation Comments Chloride Lvl (test code = Chloride Lvl) 108 95-109 [facility]2015-06-04 05:15:00 Test Item Value Reference Range Interpretation Comments CO2 (test code = CO2) 27 24-32 [facility]2015-06-04 05:15:00 Test Item Value Reference Range Interpretation Comments Potassium Lvl (test code = Potassium 4.1 3.5-5.1 Lvl) [facility]2015-06-04 05:15:00 Test Item Value Reference Range Interpretation Comments AGAP (test code = AGAP) 11.1 10.0-20.0 [facility] HospitalBdwooglMMAZFMLKNG7637-56-03 05:15:00 Test Item Value Reference Range Interpretation Comments RBC (test code = RBC) 4.46 4.70-6.10 [facility] HospitalObanzkuTVTJPFUVMT1451-60-77 05:15:00 Test Item Value Reference Range Interpretation Comments WBC (test code = WBC) 8.0 3.7-10.4 [facility] HospitalZvlyvmyMRXDJBABZW4318-94-93 05:15:00 Test Item Value Reference Range Interpretation Comments Platelet (test code = Platelet) 135 133-450 [facility] HospitalZjlajauUKUYODODPL5641-45-11 05:15:00 Test Item Value Reference Range Interpretation Comments Hgb (test code = Hgb) 13.3 14.0-18.0 [facility] HospitalAhckworUJMZMNMYIK5541-96-87 05:15:00 Test Item Value Reference Range Interpretation Comments MCV (test code = MCV) 87.5 80.0-94.0 [facility] HospitalIilqkzeCVYSQHVCZS2747-00-14 05:15:00 Test Item Value Reference Range Interpretation Comments MCHC (test code = MCHC) 34.2 32.0-36.0 [facility] HospitalMulukhwHOTMEYZCQL8377-77-50 05:15:00 Test Item Value Reference Range Interpretation Comments MCH (test code = MCH) 29.9 pg 27.0-31.0 [facility] HospitalWeqgrpwSUQLRNQCGI9370-40-54 05:15:00 Test Item Value Reference Range Interpretation Comments RDW (test code = RDW) 13.4 11.5-14.5 [facility] HospitalKryqlfaQZKIRKCHGM7426-68-59 05:15:00 Test Item Value Reference Range Interpretation Comments MPV (test code = MPV) 8.3 7.4-10.4 [facility] HospitalRhyzsclNFIRKUJMHN6504-19-08 05:15:00 Test Item Value Reference Range Interpretation Comments Hct (test code = Hct) 39.0 42.0-54.0 [facility] HospitalMxflateFXHEPZCINZ1000-57-80 05:15:00 Test Item Value Reference Range Interpretation Comments Eosinophils (test code = 0.7 See_Comment [A utomated message] The Eosinophils) system which ge nerated this result tra nsmitted reference range : <=4.0. The reference r césar was not used to int erpret this result as normal/abnormal . [facility] HospitalTtgmjjwIQSQRUPEGP8528-97-35 05:15:00 Test Item Value Reference Range Interpretation Comments Basophils (test code = 0.4 See_Comment [Aut omated message] The Basophils) system which ge nerated this result tra nsmitted reference range : <=1.0. The reference r césar was not used to int erpret this result as normal/abnormal . [facility] HospitalXyvjnvsQDZFILQEVO8248-79-34 05:15:00 Test Item Value Reference Range Interpretation Comments Segs-Bands # (test code = Segs-Bands #) 5.8 1.5-8.1 [facility] HospitalEmcmbajFEEOFQTFHV7803-00-82 05:15:00 Test Item Value Reference Range Interpretation Comments Lymphocytes # (test code = Lymphocytes 1.5 1.0-5.5 #) [facility] HospitalQenndbuSONGMBFXLD2069-19-71 05:15:00 Test Item Value Reference Range Interpretation Comments Monocytes (test code = Monocytes) 7.9 2.0-12.0 [facility] HospitalJkmnhspZFZGKEJWTU7797-47-67 05:15:00 Test Item Value Reference Range Interpretation Comments Monocytes # (test code 0.6 See_Comment [Aut omated message] The = Monocytes #) system which generated this result tra nsmitted reference range : <=0.8. The reference r césar was not used to int erpret this result as normal/abnormal . [facility] HospitalNlzpejsTBEKEGIWAJ0801-19-06 05:15:00 Test Item Value Reference Range Interpretation Comments Eosinophils # (test code 0.1 See_Comment [A utomated message] The = Eosinophils #) system whic h generated this result tra nsmitted reference range : <=0.5. The reference r césar was not used to int erpret this result as normal/abnormal . [facility] HospitalNismaafGQMXGGANSP7413-05-81 05:15:00 Test Item Value Reference Range Interpretation Comments Segs (test code = Segs) 72.5 45.0-75.0 [facility] HospitalIqyfjgiLIYOKKVZSJ4741-91-40 05:15:00 Test Item Value Reference Range Interpretation Comments Lymphocytes (test code = Lymphocytes) 18.5 20.0-40.0 [facility] OOTSMOZ9669-61-48 05:15:00 Test Item Value Reference Range Interpretation Comments Ca Norm WB (test code = Ca Norm WB) 1.09 1.05-1.25 [facility]RO[facility] DHNATDI6436-98-12 05:15:00 Test Item Value Reference Range Interpretation Comments Ca Ion WB (test code = Ca Ion WB) 1.12 1.05-1.25 [facility]2015-06-04 05:15:00 Test Item Value Reference Range Interpretation Comments Magnesium Lvl (test code = Magnesium 2.0 1.8-2.4 Lvl) [facility]2015-06-04 05:15:00 Test Item Value Reference Range Interpretation Comments Phosphorus (test code = Phosphorus) 3.9 2.5-4.5 [facility]2015-06-04 05:15:00 Test Item Value Reference Range Interpretation Comments eGFR (test code = eGFR) 73 [facility]2015-06-04 05:15:00 Test Item Value Reference Range Interpretation Comments Calcium Lvl (test code = Calcium Lvl) 8.5 8.5-10.5 [facility]2015-06-04 05:15:00 Test Item Value Reference Range Interpretation Comments Glucose Lvl (test code = Glucose Lvl) 111 70-99 [facility]2015-06-04 05:15:00 Test Item Value Reference Range Interpretation Comments Creatinine Lvl (test code = Creatinine 1.1 0.5-1.4 Lvl) [facility]2015-06-04 05:15:00 Test Item Value Reference Range Interpretation Comments Sodium Lvl (test code = Sodium Lvl) 142 135-145 [facility]2015-06-04 05:15:00 Test Item Value Reference Range Interpretation Comments BUN (test code = BUN) 17 7-22 [facility]2015-06-04 05:15:00 Test Item Value Reference Range Interpretation Comments Chloride Lvl (test code = Chloride Lvl) 108 95-109 [facility]2015-06-04 05:15:00 Test Item Value Reference Range Interpretation Comments CO2 (test code = CO2) 27 24-32 [facility] GNJBY4822-28-14 05:15:00 Test Item Value Reference Range Interpretation Comments Potassium Lvl (test code = Potassium 4.1 3.5-5.1 Lvl) [facility]2015-06-04 05:15:00 Test Item Value Reference Range Interpretation Comments AGAP (test code = AGAP) 11.1 10.0-20.0 [facility] HospitalVfqacmvINNSUKNNSL4730-58-17 05:15:00 Test Item Value Reference Range Interpretation Comments RBC (test code = RBC) 4.46 4.70-6.10 [facility] HospitalOdexntpQQHKOYRIPZ5321-02-64 05:15:00 Test Item Value Reference Range Interpretation Comments WBC (test code = WBC) 8.0 3.7-10.4 [facility] HospitalZzhzjkzCAWCLZBOYN9701-81-18 05:15:00 Test Item Value Reference Range Interpretation Comments Platelet (test code = Platelet) 135 133-450 [facility] HospitalPimwbbmEAWKUOHOQL4428-18-34 05:15:00 Test Item Value Reference Range Interpretation Comments Hgb (test code = Hgb) 13.3 14.0-18.0 [facility] HospitalExnvhidZXKCCPNWPR5053-56-04 05:15:00 Test Item Value Reference Range Interpretation Comments MCV (test code = MCV) 87.5 80.0-94.0 [facility] HospitalVwvaizfRAREGDJJKB5543-36-71 05:15:00 Test Item Value Reference Range Interpretation Comments MCHC (test code = MCHC) 34.2 32.0-36.0 [facility] HospitalHarfcstTEDWXZQZAT4188-26-31 05:15:00 Test Item Value Reference Range Interpretation Comments MCH (test code = MCH) 29.9 pg 27.0-31.0 [facility] HospitalQfhpuxjLEGNBWGEZU4436-94-96 05:15:00 Test Item Value Reference Range Interpretation Comments RDW (test code = RDW) 13.4 11.5-14.5 [facility] HospitalQrifhqvQIIPLGLGUD2985-80-76 05:15:00 Test Item Value Reference Range Interpretation Comments MPV (test code = MPV) 8.3 7.4-10.4 [facility] HospitalKbnjqygMFQHDHRMNB7267-75-48 05:15:00 Test Item Value Reference Range Interpretation Comments Hct (test code = Hct) 39.0 42.0-54.0 [facility] HospitalEtgrkswVQMXRXOQUG2449-89-53 05:15:00 Test Item Value Reference Range Interpretation Comments Eosinophils (test code = 0.7 See_Comment [A utomated message] The Eosinophils) system which ge nerated this result tra nsmitted reference range : <=4.0. The reference r césar was not used to int erpret this result as normal/abnormal . [facility] HospitalKjbassmYOOKRMXPLR7136-58-13 05:15:00 Test Item Value Reference Range Interpretation Comments Basophils (test code = 0.4 See_Comment [Aut omated message] The Basophils) system which ge nerated this result tra nsmitted reference range : <=1.0. The reference r césar was not used to int erpret this result as normal/abnormal . [facility] HospitalTeajnlcEDCKWEHPMF0729-75-30 05:15:00 Test Item Value Reference Range Interpretation Comments Segs-Bands # (test code = Segs-Bands #) 5.8 1.5-8.1 [facility] HospitalToeveqeNKNHVBTGGN6422-67-43 05:15:00 Test Item Value Reference Range Interpretation Comments Lymphocytes # (test code = Lymphocytes 1.5 1.0-5.5 #) [facility] HospitalUxlrobtSEKOBFIATJ5980-39-13 05:15:00 Test Item Value Reference Range Interpretation Comments Monocytes (test code = Monocytes) 7.9 2.0-12.0 [facility] HospitalHldmvieFZIJIAXIUD5994-57-85 05:15:00 Test Item Value Reference Range Interpretation Comments Monocytes # (test code 0.6 See_Comment [Aut omated message] The = Monocytes #) system which generated this result tra nsmitted reference range : <=0.8. The reference r césar was not used to int erpret this result as normal/abnormal . [facility] HospitalUvvkhmeMHTNIOQHSO7262-69-71 05:15:00 Test Item Value Reference Range Interpretation Comments Eosinophils # (test code 0.1 See_Comment [A utomated message] The = Eosinophils #) system whic h generated this result tra nsmitted reference range : <=0.5. The reference r césar was not used to int erpret this result as normal/abnormal . [facility] HospitalGxiyysoRPKAWEYPPX7917-79-54 05:15:00 Test Item Value Reference Range Interpretation Comments Segs (test code = Segs) 72.5 45.0-75.0 [facility] HospitalIlgmnkzLTJWLCZCRS0231-50-76 05:15:00 Test Item Value Reference Range Interpretation Comments Lymphocytes (test code = Lymphocytes) 18.5 20.0-40.0 [facility] ResourcesPARATHYROID BNMBFOM8324-76-29 05:15:00 Test Item Value Reference Range Interpretation Comments Ca Norm WB (test code = Ca Norm WB) 1.09 1.05-1.25 [facility]RO[facility] [id number] 05:15:00 Test Item Value Reference Range Interpretation Comments Ca Ion WB (test code = Ca Ion WB) 1.12 1.05-1.25 [facility]2015-06-04 05:15:00 Test Item Value Reference Range Interpretation Comments Magnesium Lvl (test code = Magnesium 2.0 1.8-2.4 Lvl) [facility]2015-06-04 05:15:00 Test Item Value Reference Range Interpretation Comments Phosphorus (test code = Phosphorus) 3.9 2.5-4.5 [facility]2015-06-04 05:15:00 Test Item Value Reference Range Interpretation Comments eGFR (test code = eGFR) 73 [facility]2015-06-04 05:15:00 Test Item Value Reference Range Interpretation Comments Calcium Lvl (test code = Calcium Lvl) 8.5 8.5-10.5 [facility]2015-06-04 05:15:00 Test Item Value Reference Range Interpretation Comments Glucose Lvl (test code = Glucose Lvl) 111 70-99 [facility]2015-06-04 05:15:00 Test Item Value Reference Range Interpretation Comments Creatinine Lvl (test code = Creatinine 1.1 0.5-1.4 Lvl) [facility]2015-06-04 05:15:00 Test Item Value Reference Range Interpretation Comments Sodium Lvl (test code = Sodium Lvl) 142 135-145 [facility]2015-06-04 05:15:00 Test Item Value Reference Range Interpretation Comments BUN (test code = BUN) 17 7-22 [facility]2015-06-04 05:15:00 Test Item Value Reference Range Interpretation Comments Chloride Lvl (test code = Chloride Lvl) 108 95-109 [facility]2015-06-04 05:15:00 Test Item Value Reference Range Interpretation Comments CO2 (test code = CO2) 27 24-32 [facility] [id number] 05:15:00 Test Item Value Reference Range Interpretation Comments Potassium Lvl (test code = Potassium 4.1 3.5-5.1 Lvl) [facility]2015-06-04 05:15:00 Test Item Value Reference Range Interpretation Comments AGAP (test code = AGAP) 11.1 10.0-20.0 [facility] HospitalJueqzxgERBXOVDJVH0545-32-38 05:15:00 Test Item Value Reference Range Interpretation Comments RBC (test code = RBC) 4.46 4.70-6.10 [facility] HospitalZxpwtsrJYMRUYJVTE7801-21-30 05:15:00 Test Item Value Reference Range Interpretation Comments WBC (test code = WBC) 8.0 3.7-10.4 [facility] HospitalAyvoarqTADIIAQPEM5405-05-77 05:15:00 Test Item Value Reference Range Interpretation Comments Platelet (test code = Platelet) 135 133-450 [facility] HospitalSeuyomoQNEVWZAJHZ9391-57-25 05:15:00 Test Item Value Reference Range Interpretation Comments Hgb (test code = Hgb) 13.3 14.0-18.0 [facility] HospitalDgmginaDQSVCGMSSW3297-97-11 05:15:00 Test Item Value Reference Range Interpretation Comments MCV (test code = MCV) 87.5 80.0-94.0 [facility] HospitalCfkdfmgISSZUEZTZU5667-45-78 05:15:00 Test Item Value Reference Range Interpretation Comments MCHC (test code = MCHC) 34.2 32.0-36.0 [facility] HospitalTxkxtilZGJGBHNYOE7886-23-29 05:15:00 Test Item Value Reference Range Interpretation Comments MCH (test code = MCH) 29.9 pg 27.0-31.0 [facility] HospitalJwhizpoKVNROKGGZG4520-84-06 05:15:00 Test Item Value Reference Range Interpretation Comments RDW (test code = RDW) 13.4 11.5-14.5 [facility] HospitalCiycmdwZFNCJNJOFS1296-61-29 05:15:00 Test Item Value Reference Range Interpretation Comments MPV (test code = MPV) 8.3 7.4-10.4 [facility] HospitalEeugvbyNWDPPRTLMG1710-21-08 05:15:00 Test Item Value Reference Range Interpretation Comments Hct (test code = Hct) 39.0 42.0-54.0 [facility] HospitalBdehomqMFLSXBIIYN9930-90-73 05:15:00 Test Item Value Reference Range Interpretation Comments Eosinophils (test code = 0.7 See_Comment [A utomated message] The Eosinophils) system which ge nerated this result tra nsmitted reference range : <=4.0. The reference r césar was not used to int erpret this result as normal/abnormal . [facility] HospitalVrqnbpwNSJAENCECC0790-81-36 05:15:00 Test Item Value Reference Range Interpretation Comments Basophils (test code = 0.4 See_Comment [Aut omated message] The Basophils) system which ge nerated this result tra nsmitted reference range : <=1.0. The reference r césar was not used to int erpret this result as normal/abnormal . [facility] HospitalGjfwutjIUGEDRCCMJ0096-75-65 05:15:00 Test Item Value Reference Range Interpretation Comments Segs-Bands # (test code = Segs-Bands #) 5.8 1.5-8.1 [facility] HospitalSbelyqxNCSIRLHUPX9542-73-17 05:15:00 Test Item Value Reference Range Interpretation Comments Lymphocytes # (test code = Lymphocytes 1.5 1.0-5.5 #) [facility] HospitalLxpxwqvZWPHKLMPFQ8291-70-63 05:15:00 Test Item Value Reference Range Interpretation Comments Monocytes (test code = Monocytes) 7.9 2.0-12.0 [facility] HospitalCwlsgibTPCJZZFKPI5970-31-63 05:15:00 Test Item Value Reference Range Interpretation Comments Monocytes # (test code 0.6 See_Comment [Aut omated message] The = Monocytes #) system which generated this result tra nsmitted reference range : <=0.8. The reference r césar was not used to int erpret this result as normal/abnormal . [facility] HospitalZhwxfipRAAVCMQQOW7132-69-90 05:15:00 Test Item Value Reference Range Interpretation Comments Eosinophils # (test code 0.1 See_Comment [A utomated message] The = Eosinophils #) system whic h generated this result tra nsmitted reference range : <=0.5. The reference r césar was not used to int erpret this result as normal/abnormal . [facility] HospitalGnrpfytUJDSGLUSOD9395-36-41 05:15:00 Test Item Value Reference Range Interpretation Comments Segs (test code = Segs) 72.5 45.0-75.0 [facility]YliycigABEMDPCXSU9067-07-99 05:15:00 Test Item Value Reference Range Interpretation Comments Lymphocytes (test code = Lymphocytes) 18.5 20.0-40.0 [facility] CenterannPARCENTRAL ISLIP PSYCHIATRIC CENTERROID CLCSYQQ6073-95-94 05:15:00 Test Item Value Reference Range Interpretation Comments Ca Norm WB (test code = Ca Norm WB) 1.09 1.05-1.25 [facility] CampusannQUINCY VALLEY MEDICAL CENTERROID CUHJTQX5949-77-78 05:15:00 Test Item Value Reference Range Interpretation Comments Ca Ion WB (test code = Ca Ion WB) 1.12 1.05-1.25 [facility] CenterGenAudio [facility] RCLVTTA6795-88-64 17:34:00 Test Item Value Reference Range Interpretation Comments Antibody Scrn (test Negative (02/23/15 12:34 code = Antibody Scrn) PM) [facility] EFCBMYT7243-86-85 17:34:00 Test Item Value Reference Range Interpretation Comments ABO/Rh (test code = ABO/Rh) B POS [facility] [email or web address] [facility] YXIDJZP2250-59-72 17:34:00 Test Item Value Reference Range Interpretation Comments Antibody Scrn (test Negative (02/23/15 12:34 code = Antibody Scrn) PM) [facility] CampusMobilityBee.[facility] BANK TFHOFHS3659-60-65 17:34:00 Test Item Value Reference Range Interpretation Comments ABO/Rh (test code = ABO/Rh) B POS [facility] [email or web address] [id number] 17:34:00 Test Item Value Reference Range Interpretation Comments Antibody Scrn (test Negative (02/23/15 12:34 code = Antibody Scrn) PM) [facility] CampusMobilityBee[facility] BANK NNATLOK3849-38-00 17:34:00 Test Item Value Reference Range Interpretation Comments ABO/Rh (test code = ABO/Rh) B POS [facility] [employer] BANK ESARIEJ0537-84-96 17:34:00 Test Item Value Reference Range Interpretation Comments Antibody Scrn (test Negative (02/23/15 12:34 code = Antibody Scrn) PM) [facility] CampusGini & JonyGenAudio [facility] [id number] 17:34:00 Test Item Value Reference Range Interpretation Comments ABO/Rh (test code = ABO/Rh) B POS [facility] [employer] BANK DIVNSGM3918-06-51 17:34:00 Test Item Value Reference Range Interpretation Comments Antibody Scrn (test Negative (02/23/15 12:34 code = Antibody Scrn) PM) [facility] [id number] 17:34:00 Test Item Value Reference Range Interpretation Comments ABO/Rh (test code = ABO/Rh) B POS [facility] HospitalNkvxospXYDJDVASMKSO7043-86-73 16:56:00 Test Item Value Reference Range Interpretation Comments AGAP (test code = AGAP) 9.3 10.0-20.0 [facility] HospitalJmzfybtDAKTNXMXRXTB4407-23-65 16:56:00 Test Item Value Reference Range Interpretation Comments eGFR (test code = eGFR) 73 [facility] HospitalBeqwngzAKBUUKYFSSZJ0145-45-63 16:56:00 Test Item Value Reference Range Interpretation Comments Calcium Lvl (test code = Calcium Lvl) 9.4 8.5-10.5 [facility] HospitalWfvohxjWURMNBWZZMQG7877-01-58 16:56:00 Test Item Value Reference Range Interpretation Comments Chloride Lvl (test code = Chloride Lvl) 104 95-109 [facility] HospitalCzrgnebUMYSZGAQCOCW2612-71-23 16:56:00 Test Item Value Reference Range Interpretation Comments Creatinine Lvl (test code = Creatinine 1.1 0.5-1.4 Lvl) [facility] HospitalIzoizsmCVWESISQGLPL2424-82-09 16:56:00 Test Item Value Reference Range Interpretation Comments Sodium Lvl (test code = Sodium Lvl) 142 135-145 [facility] HospitalXnosaxbVKMYIMDAJIMW2928-18-98 16:56:00 Test Item Value Reference Range Interpretation Comments CO2 (test code = CO2) 33 24-32 [facility] HospitalGjkpbrcVQLIKAMOEKJQ7494-59-06 16:56:00 Test Item Value Reference Range Interpretation Comments Potassium Lvl (test code = Potassium 4.3 3.5-5.1 Lvl) [facility] HospitalWmocxmwGAGDYLKDPDSB1875-58-80 16:56:00 Test Item Value Reference Range Interpretation Comments Glucose Lvl (test code = Glucose Lvl) 112 70-99 [facility] HospitalXwcipzvEREEDPMZHDBX9013-15-06 16:56:00 Test Item Value Reference Range Interpretation Comments BUN (test code = BUN) 15 7-22 [facility] ResourcesNekzvlpHECFSEPKHU0655-37-58 16:56:00 Test Item Value Reference Range Interpretation Comments Eosinophils # (test code 0.1 See_Comment [A utomated message] The = Eosinophils #) system whic h generated this result tra nsmitted reference range : <=0.5. The reference r césar was not used to int erpret this result as normal/abnormal . [facility] HospitalStvgiwqPAIIVTNZEH2047-59-49 16:56:00 Test Item Value Reference Range Interpretation Comments Monocytes # (test code 0.6 See_Comment [Aut omated message] The = Monocytes #) system which generated this result tra nsmitted reference range : <=0.8. The reference r césar was not used to int erpret this result as normal/abnormal . [facility] HospitalPydfedwIBXPHFVVMS1958-31-85 16:56:00 Test Item Value Reference Range Interpretation Comments Lymphocytes # (test code = Lymphocytes 2.0 1.0-5.5 #) [facility] HospitalWyrvwjpCKHYCBKTLX8750-40-94 16:56:00 Test Item Value Reference Range Interpretation Comments Segs-Bands # (test code = Segs-Bands #) 2.3 1.5-8.1 [facility] HospitalRkkwiumIGVNGARNYL7017-22-63 16:56:00 Test Item Value Reference Range Interpretation Comments Segs (test code = Segs) 45.4 45.0-75.0 [facility] HospitalPwvgmlaYCADBCNUAG5749-22-36 16:56:00 Test Item Value Reference Range Interpretation Comments Monocytes (test code = Monocytes) 11.5 2.0-12.0 [facility] HospitalAkjtywtKINBBWVBEX9251-80-66 16:56:00 Test Item Value Reference Range Interpretation Comments Basophils (test code = 0.7 See_Comment [Aut omated message] The Basophils) system which ge nerated this result tra nsmitted reference range : <=1.0. The reference r césar was not used to int erpret this result as normal/abnormal . [facility] HospitalTpnsbzbUMIZIZTXNI1294-64-27 16:56:00 Test Item Value Reference Range Interpretation Comments Eosinophils (test code = 2.6 See_Comment [A utomated message] The Eosinophils) system which ge nerated this result tra nsmitted reference range : <=4.0. The reference r césar was not used to int erpret this result as normal/abnormal . [facility] HospitalTueopyiGASVVOJHUO5215-96-41 16:56:00 Test Item Value Reference Range Interpretation Comments Lymphocytes (test code = Lymphocytes) 39.8 20.0-40.0 [facility] HospitalHjanhhoYSYKJUPECD0976-48-63 16:56:00 Test Item Value Reference Range Interpretation Comments MCHC (test code = MCHC) 33.8 32.0-36.0 [facility] HospitalNlacmruUSOQMBUDBA8567-16-53 16:56:00 Test Item Value Reference Range Interpretation Comments MCH (test code = MCH) 29.8 pg 27.0-31.0 [facility] HospitalVfdqpydSKHPRKRJMD8910-80-61 16:56:00 Test Item Value Reference Range Interpretation Comments RDW (test code = RDW) 13.5 11.5-14.5 [facility] HospitalIaipsnjZALPEKNEKT0524-90-40 16:56:00 Test Item Value Reference Range Interpretation Comments MPV (test code = MPV) 8.5 7.4-10.4 [facility] HospitalBtyfrqzTHUKGWBTPG2034-54-40 16:56:00 Test Item Value Reference Range Interpretation Comments Platelet (test code = Platelet) 154 133-450 [facility] HospitalQjmaypnLCZLCTHHNX0772-47-55 16:56:00 Test Item Value Reference Range Interpretation Comments Hgb (test code = Hgb) 14.9 14.0-18.0 [facility] HospitalQstdtxkKZBHUTFIQE7876-80-86 16:56:00 Test Item Value Reference Range Interpretation Comments RBC (test code = RBC) 5.01 4.70-6.10 [facility] HospitalLxoirkwCIAMZMXPNR6876-51-17 16:56:00 Test Item Value Reference Range Interpretation Comments WBC (test code = WBC) 5.1 3.7-10.4 [facility] HospitalFtdfsjlGNQZYLRTZH7758-86-10 16:56:00 Test Item Value Reference Range Interpretation Comments Hct (test code = Hct) 44.1 42.0-54.0 [facility] HospitalNqdfbanWOVYYJJMIW9948-87-04 16:56:00 Test Item Value Reference Range Interpretation Comments MCV (test code = MCV) 88.1 80.0-94.0 [facility] HospitalRcdydjcDYLYCDDXSL7107-18-67 16:56:00 Test Item Value Reference Range Interpretation Comments PT (test code = PT) 13.2 s 12.0-14.7 [facility] HospitalHaidiifGDYGRXNWNU6952-04-90 16:56:00 Test Item Value Reference Range Interpretation Comments PTT (test code = PTT) 37.1 s 22.9-35.8 [facility] HospitalPvyibriGPPKAKHNFN2391-92-24 16:56:00 Test Item Value Reference Range Interpretation Comments INR (test code = INR) 1.00 0.85-1.17 [facility] HospitalVpzskdnYROFDCRNUMBU7095-31-95 16:56:00 Test Item Value Reference Range Interpretation Comments AGAP (test code = AGAP) 9.3 10.0-20.0 [facility] HospitalBwhdnovOAUAZJTJJJRW5844-07-10 16:56:00 Test Item Value Reference Range Interpretation Comments eGFR (test code = eGFR) 73 [facility] HospitalWjzqtdlNRACQKZGEQLX9553-98-71 16:56:00 Test Item Value Reference Range Interpretation Comments Calcium Lvl (test code = Calcium Lvl) 9.4 8.5-10.5 [facility] HospitalOeavvblPLHUSDTDTLYU0347-90-97 16:56:00 Test Item Value Reference Range Interpretation Comments Chloride Lvl (test code = Chloride Lvl) 104 95-109 [facility] HospitalYilvdneJYBKPHRBKWPO5952-95-93 16:56:00 Test Item Value Reference Range Interpretation Comments Creatinine Lvl (test code = Creatinine 1.1 0.5-1.4 Lvl) [facility] HospitalLgvnqxyIHDPQNTRBAKM4135-84-90 16:56:00 Test Item Value Reference Range Interpretation Comments Sodium Lvl (test code = Sodium Lvl) 142 135-145 [facility] HospitalFluisgoBYATNJSCSHNP8401-22-76 16:56:00 Test Item Value Reference Range Interpretation Comments CO2 (test code = CO2) 33 24-32 [facility] [facility]jjqaycEKXYMLBHPEDK8756-83-65 16:56:00 Test Item Value Reference Range Interpretation Comments Potassium Lvl (test code = Potassium 4.3 3.5-5.1 Lvl) [facility]GcadcraZTFFZTBMRTON4516-25-59 16:56:00 Test Item Value Reference Range Interpretation Comments Glucose Lvl (test code = Glucose Lvl) 112 70-99 [facility] HospitalVcmqvivQSDWGTGTPORK6346-02-79 16:56:00 Test Item Value Reference Range Interpretation Comments BUN (test code = BUN) 15 7-22 [facility] ResourcesLbvglvsSXAVNBUTKQ6922-36-13 16:56:00 Test Item Value Reference Range Interpretation Comments Eosinophils # (test code 0.1 See_Comment [A utomated message] The = Eosinophils #) system whic h generated this result tra nsmitted reference range : <=0.5. The reference r césar was not used to int erpret this result as normal/abnormal . [facility] HospitalZnhizfmCEIWZSUKRX9655-75-80 16:56:00 Test Item Value Reference Range Interpretation Comments Monocytes # (test code 0.6 See_Comment [Aut omated message] The = Monocytes #) system which generated this result tra nsmitted reference range : <=0.8. The reference r césar was not used to int erpret this result as normal/abnormal . [facility] HospitalUzwidlrOQXPOGFZAD1574-30-03 16:56:00 Test Item Value Reference Range Interpretation Comments Lymphocytes # (test code = Lymphocytes 2.0 1.0-5.5 #) [facility] HospitalMuuiqmxFWQEIWDZHV4690-26-71 16:56:00 Test Item Value Reference Range Interpretation Comments Segs-Bands # (test code = Segs-Bands #) 2.3 1.5-8.1 [facility] HospitalNyrmmnmLCDNNEZDIW0769-12-74 16:56:00 Test Item Value Reference Range Interpretation Comments Segs (test code = Segs) 45.4 45.0-75.0 [facility] HospitalHstrigjPFDWZKRAAA4694-59-52 16:56:00 Test Item Value Reference Range Interpretation Comments Monocytes (test code = Monocytes) 11.5 2.0-12.0 [facility] HospitalHcyznreJRMYTWCUZP3734-44-76 16:56:00 Test Item Value Reference Range Interpretation Comments Basophils (test code = 0.7 See_Comment [Aut omated message] The Basophils) system which ge nerated this result tra nsmitted reference range : <=1.0. The reference r césar was not used to int erpret this result as normal/abnormal . [facility] HospitalFyajsdcTZUAUOYSQM9561-08-71 16:56:00 Test Item Value Reference Range Interpretation Comments Eosinophils (test code = 2.6 See_Comment [A utomated message] The Eosinophils) system which ge nerated this result tra nsmitted reference range : <=4.0. The reference r césar was not used to int erpret this result as normal/abnormal . [facility] HospitalGzlnougZJYLBHGEGD8102-58-76 16:56:00 Test Item Value Reference Range Interpretation Comments Lymphocytes (test code = Lymphocytes) 39.8 20.0-40.0 [facility] HospitalJbuamexRDVDRIFCBG8190-20-08 16:56:00 Test Item Value Reference Range Interpretation Comments MCHC (test code = MCHC) 33.8 32.0-36.0 [facility] HospitalMuvyzrxAKDSRBAVQK3516-84-22 16:56:00 Test Item Value Reference Range Interpretation Comments MCH (test code = MCH) 29.8 pg 27.0-31.0 [facility] HospitalRylsiakQEAKJSAIAE2668-58-95 16:56:00 Test Item Value Reference Range Interpretation Comments RDW (test code = RDW) 13.5 11.5-14.5 [facility] HospitalRkfeshxNKPZUCTTPS4071-58-78 16:56:00 Test Item Value Reference Range Interpretation Comments MPV (test code = MPV) 8.5 7.4-10.4 [facility] HospitalXmglufkXLLLFEDNAF0929-42-66 16:56:00 Test Item Value Reference Range Interpretation Comments Platelet (test code = Platelet) 154 133-450 [facility] HospitalGkdmhcsLXHLFYMMQO6347-27-65 16:56:00 Test Item Value Reference Range Interpretation Comments Hgb (test code = Hgb) 14.9 14.0-18.0 [facility] HospitalHuwgdklJRJGMCTCPG7774-31-04 16:56:00 Test Item Value Reference Range Interpretation Comments RBC (test code = RBC) 5.01 4.70-6.10 [facility] HospitalYxtwligEBLTDEVXYR9172-00-29 16:56:00 Test Item Value Reference Range Interpretation Comments WBC (test code = WBC) 5.1 3.7-10.4 [facility] HospitalGhmhflxXWMSFIJBWB7015-19-99 16:56:00 Test Item Value Reference Range Interpretation Comments Hct (test code = Hct) 44.1 42.0-54.0 [facility] HospitalKumfeyaPOZFTNLBJV1035-57-64 16:56:00 Test Item Value Reference Range Interpretation Comments MCV (test code = MCV) 88.1 80.0-94.0 [facility] HospitalXbrfsejCRBREEWLTS3767-52-06 16:56:00 Test Item Value Reference Range Interpretation Comments PT (test code = PT) 13.2 s 12.0-14.7 [facility] HospitalLzvlugbKPXUDZIWZK2079-58-18 16:56:00 Test Item Value Reference Range Interpretation Comments PTT (test code = PTT) 37.1 s 22.9-35.8 [facility] HospitalGfowpfwIKBVUDAHBD0922-08-70 16:56:00 Test Item Value Reference Range Interpretation Comments INR (test code = INR) 1.00 0.85-1.17 [facility]SdbisqlNWJILFJUGNBP1450-50-40 16:56:00 Test Item Value Reference Range Interpretation Comments AGAP (test code = AGAP) 9.3 10.0-20.0 [facility]ZudhfqhVNTNUEVWBFMY7167-70-10 16:56:00 Test Item Value Reference Range Interpretation Comments eGFR (test code = eGFR) 73 [facility] HospitalLaldpcpSIXMXWLAMZAP4895-17-22 16:56:00 Test Item Value Reference Range Interpretation Comments Calcium Lvl (test code = Calcium Lvl) 9.4 8.5-10.5 [facility] HospitalLspdrypMYUDPMBROGKN5369-34-96 16:56:00 Test Item Value Reference Range Interpretation Comments Chloride Lvl (test code = Chloride Lvl) 104 95-109 [facility] HospitalTahspubFCQHLJIAGCJO7396-10-35 16:56:00 Test Item Value Reference Range Interpretation Comments Creatinine Lvl (test code = Creatinine 1.1 0.5-1.4 Lvl) [facility] HospitalInarvecZCFZEZUVJUDZ4935-28-60 16:56:00 Test Item Value Reference Range Interpretation Comments Sodium Lvl (test code = Sodium Lvl) 142 135-145 [facility] HospitalOvokbsfMQHWYTIRKJKJ8522-94-97 16:56:00 Test Item Value Reference Range Interpretation Comments CO2 (test code = CO2) 33 24-32 [facility] HospitalIcbodsuFCONYTPBURHN4412-08-94 16:56:00 Test Item Value Reference Range Interpretation Comments Potassium Lvl (test code = Potassium 4.3 3.5-5.1 Lvl) [facility] HospitalDrtaezzTWTMXECICVKA3081-81-04 16:56:00 Test Item Value Reference Range Interpretation Comments Glucose Lvl (test code = Glucose Lvl) 112 70-99 [facility] HospitalPdjwpugKZFMJYRABPOO8563-57-35 16:56:00 Test Item Value Reference Range Interpretation Comments BUN (test code = BUN) 15 7-22 [facility] HospitalAryipmkNLKURPOKGU5174-10-88 16:56:00 Test Item Value Reference Range Interpretation Comments Eosinophils # (test code 0.1 See_Comment [A utomated message] The = Eosinophils #) system whic h generated this result tra nsmitted reference range : <=0.5. The reference r césar was not used to int erpret this result as normal/abnormal . [facility] HospitalNbhawgbTNRSUISWNL6631-58-03 16:56:00 Test Item Value Reference Range Interpretation Comments Monocytes # (test code 0.6 See_Comment [Aut omated message] The = Monocytes #) system which generated this result tra nsmitted reference range : <=0.8. The reference r césar was not used to int erpret this result as normal/abnormal . [facility] HospitalQlxprorGEXNFMNFUW4988-39-90 16:56:00 Test Item Value Reference Range Interpretation Comments Lymphocytes # (test code = Lymphocytes 2.0 1.0-5.5 #) [facility] HospitalAeqveenVOLOSAYKQL8575-96-97 16:56:00 Test Item Value Reference Range Interpretation Comments Segs-Bands # (test code = Segs-Bands #) 2.3 1.5-8.1 [facility] HospitalAqwxiyoEDBDPUJMMT5051-89-46 16:56:00 Test Item Value Reference Range Interpretation Comments Segs (test code = Segs) 45.4 45.0-75.0 [facility] HospitalGypqasgPUVQRHOUBB8226-32-82 16:56:00 Test Item Value Reference Range Interpretation Comments Monocytes (test code = Monocytes) 11.5 2.0-12.0 [facility] HospitalFbonhdqUESBQWJRLE7417-55-42 16:56:00 Test Item Value Reference Range Interpretation Comments Basophils (test code = 0.7 See_Comment [Aut omated message] The Basophils) system which ge nerated this result tra nsmitted reference range : <=1.0. The reference r césar was not used to int erpret this result as normal/abnormal . [facility] HospitalRwcpwdbSKKIXFTCLG5544-86-53 16:56:00 Test Item Value Reference Range Interpretation Comments Eosinophils (test code = 2.6 See_Comment [A utomated message] The Eosinophils) system which ge nerated this result tra nsmitted reference range : <=4.0. The reference r césar was not used to int erpret this result as normal/abnormal . [facility] HospitalIztssqbQDQUQAIGQG9656-71-70 16:56:00 Test Item Value Reference Range Interpretation Comments Lymphocytes (test code = Lymphocytes) 39.8 20.0-40.0 [facility] HospitalGsssipnULSSNSMMBJ8284-36-98 16:56:00 Test Item Value Reference Range Interpretation Comments MCHC (test code = MCHC) 33.8 32.0-36.0 [facility] HospitalCtqcmdkZFGXZPTIGJ9402-20-66 16:56:00 Test Item Value Reference Range Interpretation Comments MCH (test code = MCH) 29.8 pg 27.0-31.0 [facility] HospitalUjfxairMQVZSBTOBO1667-31-00 16:56:00 Test Item Value Reference Range Interpretation Comments RDW (test code = RDW) 13.5 11.5-14.5 [facility] HospitalTuxnhebPVSYPKXYZK3178-15-43 16:56:00 Test Item Value Reference Range Interpretation Comments MPV (test code = MPV) 8.5 7.4-10.4 [facility] HospitalLhljezkPVDBHAQVHM7448-09-69 16:56:00 Test Item Value Reference Range Interpretation Comments Platelet (test code = Platelet) 154 133-450 [facility] HospitalVplellbTQDGPTHBUP8171-96-75 16:56:00 Test Item Value Reference Range Interpretation Comments Hgb (test code = Hgb) 14.9 14.0-18.0 [facility] HospitalKrvjxsoQGTOSJFFEC6895-29-62 16:56:00 Test Item Value Reference Range Interpretation Comments RBC (test code = RBC) 5.01 4.70-6.10 [facility] HospitalNkauanrSAYXDOCYEB5015-81-11 16:56:00 Test Item Value Reference Range Interpretation Comments WBC (test code = WBC) 5.1 3.7-10.4 [facility] HospitalZczuzzgZELRYSGMMD1028-86-37 16:56:00 Test Item Value Reference Range Interpretation Comments Hct (test code = Hct) 44.1 42.0-54.0 [facility] HospitalKskduaoDYHKQTDSUL2074-93-08 16:56:00 Test Item Value Reference Range Interpretation Comments MCV (test code = MCV) 88.1 80.0-94.0 [facility] HospitalMkynohbKSOYXODUPE6652-02-01 16:56:00 Test Item Value Reference Range Interpretation Comments PT (test code = PT) 13.2 s 12.0-14.7 [facility] HospitalWqrmmwjMLAVKIEUEA8503-20-61 16:56:00 Test Item Value Reference Range Interpretation Comments PTT (test code = PTT) 37.1 s 22.9-35.8 [facility] HospitalOekvcefPPZHYEMIUG4073-60-26 16:56:00 Test Item Value Reference Range Interpretation Comments INR (test code = INR) 1.00 0.85-1.17 [facility] HospitalNzuvmkjUTDYVIFNBCPK0246-53-63 16:56:00 Test Item Value Reference Range Interpretation Comments AGAP (test code = AGAP) 9.3 10.0-20.0 [facility] HospitalKygzljeCNYKLBZNMHET1885-15-97 16:56:00 Test Item Value Reference Range Interpretation Comments eGFR (test code = eGFR) 73 [facility] HospitalAdekgqmJLFUIRSBEYRS3543-23-10 16:56:00 Test Item Value Reference Range Interpretation Comments Calcium Lvl (test code = Calcium Lvl) 9.4 8.5-10.5 [facility] HospitalKpuecskYWUFTNLGUKPI1021-10-88 16:56:00 Test Item Value Reference Range Interpretation Comments Chloride Lvl (test code = Chloride Lvl) 104 95-109 [facility] HospitalQlwceehNLGPRFRJVQDE5669-05-68 16:56:00 Test Item Value Reference Range Interpretation Comments Creatinine Lvl (test code = Creatinine 1.1 0.5-1.4 Lvl) [facility] HospitalWvkaalwPIYCBXUTBMJI2855-09-72 16:56:00 Test Item Value Reference Range Interpretation Comments Sodium Lvl (test code = Sodium Lvl) 142 135-145 [facility] HospitalKpplduhCRTZHIZRIOAJ1293-67-89 16:56:00 Test Item Value Reference Range Interpretation Comments CO2 (test code = CO2) 33 24-32 [facility] HospitalXkhfyguDUUPSDYHHRJG8375-16-47 16:56:00 Test Item Value Reference Range Interpretation Comments Potassium Lvl (test code = Potassium 4.3 3.5-5.1 Lvl) [facility] HospitalBowbzmgIRCRUFCVGIZZ1766-83-67 16:56:00 Test Item Value Reference Range Interpretation Comments Glucose Lvl (test code = Glucose Lvl) 112 70-99 [facility] HospitalCnbejawZOLZXWGWJNHW6682-01-82 16:56:00 Test Item Value Reference Range Interpretation Comments BUN (test code = BUN) 15 7-22 [facility] HospitalDqtjzdnSCRKOOSSSN9530-59-49 16:56:00 Test Item Value Reference Range Interpretation Comments Eosinophils # (test code 0.1 See_Comment [A utomated message] The = Eosinophils #) system whic h generated this result tra nsmitted reference range : <=0.5. The reference r césar was not used to int erpret this result as normal/abnormal . [facility] HospitalSyizohhVWXIYPYOIY2732-08-78 16:56:00 Test Item Value Reference Range Interpretation Comments Monocytes # (test code 0.6 See_Comment [Aut omated message] The = Monocytes #) system which generated this result tra nsmitted reference range : <=0.8. The reference r césar was not used to int erpret this result as normal/abnormal . [facility] HospitalCzlhcgnLCDPVISBBQ4479-33-45 16:56:00 Test Item Value Reference Range Interpretation Comments Lymphocytes # (test code = Lymphocytes 2.0 1.0-5.5 #) [facility] HospitalYskrbhcLKMVSZFIXL7762-11-43 16:56:00 Test Item Value Reference Range Interpretation Comments Segs-Bands # (test code = Segs-Bands #) 2.3 1.5-8.1 [facility] HospitalRgerrlaXODJYFRETI3528-09-75 16:56:00 Test Item Value Reference Range Interpretation Comments Segs (test code = Segs) 45.4 45.0-75.0 [facility] HospitalHdfvgmpWLKDVJJRTC2319-94-44 16:56:00 Test Item Value Reference Range Interpretation Comments Monocytes (test code = Monocytes) 11.5 2.0-12.0 [facility] HospitalHwenzmxJCWABISFUE9457-96-21 16:56:00 Test Item Value Reference Range Interpretation Comments Basophils (test code = 0.7 See_Comment [Aut omated message] The Basophils) system which ge nerated this result tra nsmitted reference range : <=1.0. The reference r césar was not used to int erpret this result as normal/abnormal . [facility] HospitalZdlsucnBSBRQAOPVG3690-17-68 16:56:00 Test Item Value Reference Range Interpretation Comments Eosinophils (test code = 2.6 See_Comment [A utomated message] The Eosinophils) system which ge nerated this result tra nsmitted reference range : <=4.0. The reference r césar was not used to int erpret this result as normal/abnormal . [facility] HospitalYxhoxqiVMKEOQUBJC5076-69-35 16:56:00 Test Item Value Reference Range Interpretation Comments Lymphocytes (test code = Lymphocytes) 39.8 20.0-40.0 [facility] HospitalNdiuyabSJZSRBENFY7421-54-50 16:56:00 Test Item Value Reference Range Interpretation Comments MCHC (test code = MCHC) 33.8 32.0-36.0 [facility] HospitalXomfybeBMPLFXPPVI7201-80-08 16:56:00 Test Item Value Reference Range Interpretation Comments MCH (test code = MCH) 29.8 pg 27.0-31.0 [facility] HospitalIewgjabOWHELUKOWA6493-11-17 16:56:00 Test Item Value Reference Range Interpretation Comments RDW (test code = RDW) 13.5 11.5-14.5 [facility] HospitalLologjiCPBNWQEZHW0315-11-56 16:56:00 Test Item Value Reference Range Interpretation Comments MPV (test code = MPV) 8.5 7.4-10.4 [facility] HospitalJmzwnbdBEDHCLBSUC3359-76-18 16:56:00 Test Item Value Reference Range Interpretation Comments Platelet (test code = Platelet) 154 133-450 [facility] HospitalPhznhwfYWAETGHGYP3398-38-77 16:56:00 Test Item Value Reference Range Interpretation Comments Hgb (test code = Hgb) 14.9 14.0-18.0 [facility] HospitalMnfzmoyEZDUALKJRI8149-21-40 16:56:00 Test Item Value Reference Range Interpretation Comments RBC (test code = RBC) 5.01 4.70-6.10 [facility] HospitalLaeuvqtNZZEVWXJEZ2051-05-74 16:56:00 Test Item Value Reference Range Interpretation Comments WBC (test code = WBC) 5.1 3.7-10.4 [facility] HospitalUsivqwiBIBRLAPJDE0282-06-96 16:56:00 Test Item Value Reference Range Interpretation Comments Hct (test code = Hct) 44.1 42.0-54.0 [facility] HospitalBkkwyhrPZYXKHIVSK9007-41-39 16:56:00 Test Item Value Reference Range Interpretation Comments MCV (test code = MCV) 88.1 80.0-94.0 [facility] HospitalCzynswzGFDGXISPFE2673-53-78 16:56:00 Test Item Value Reference Range Interpretation Comments PT (test code = PT) 13.2 s 12.0-14.7 [facility] HospitalFapizduIJONJBAFTW8192-49-19 16:56:00 Test Item Value Reference Range Interpretation Comments PTT (test code = PTT) 37.1 s 22.9-35.8 [facility] HospitalJowyliwFAKDYBJKKM6803-09-99 16:56:00 Test Item Value Reference Range Interpretation Comments INR (test code = INR) 1.00 0.85-1.17 [facility]PwsgwczHWVOAOZYPJHG8516-22-36 16:56:00 Test Item Value Reference Range Interpretation Comments AGAP (test code = AGAP) 9.3 10.0-20.0 [facility] HospitalGaoydhnBXFFQHSVGGYL7793-88-35 16:56:00 Test Item Value Reference Range Interpretation Comments eGFR (test code = eGFR) 73 [facility] HospitalMuanibzQVQJJGARYUMX7962-46-31 16:56:00 Test Item Value Reference Range Interpretation Comments Calcium Lvl (test code = Calcium Lvl) 9.4 8.5-10.5 [facility] HospitalRruntnzVJDYMTIGVQDT1774-66-91 16:56:00 Test Item Value Reference Range Interpretation Comments Chloride Lvl (test code = Chloride Lvl) 104 95-109 [facility] HospitalSumkwapQRNVMEOORXZZ3419-74-34 16:56:00 Test Item Value Reference Range Interpretation Comments Creatinine Lvl (test code = Creatinine 1.1 0.5-1.4 Lvl) [facility] HospitalYbsdmsgWKETAZMUACRY0463-43-18 16:56:00 Test Item Value Reference Range Interpretation Comments Sodium Lvl (test code = Sodium Lvl) 142 135-145 [facility] HospitalPfqoaoeTPTCLFQJHNYH6161-61-95 16:56:00 Test Item Value Reference Range Interpretation Comments CO2 (test code = CO2) 33 24-32 [facility] HospitalPjuwjqiCPPBNUSYJCFZ3224-36-79 16:56:00 Test Item Value Reference Range Interpretation Comments Potassium Lvl (test code = Potassium 4.3 3.5-5.1 Lvl) [facility] HospitalQzohoniDWHXKYNYEQKM7231-14-33 16:56:00 Test Item Value Reference Range Interpretation Comments Glucose Lvl (test code = Glucose Lvl) 112 70-99 [facility] HospitalLlpgytgMWBLBQAJOCYM3352-89-96 16:56:00 Test Item Value Reference Range Interpretation Comments BUN (test code = BUN) 15 7-22 [facility] HospitalAbifdxxEEDRRUBWWY7889-58-27 16:56:00 Test Item Value Reference Range Interpretation Comments Eosinophils # (test code 0.1 See_Comment [A utomated message] The = Eosinophils #) system whic h generated this result tra nsmitted reference range : <=0.5. The reference r césar was not used to int erpret this result as normal/abnormal . [facility] HospitalLczfjebVPKIVPHAGF9480-58-59 16:56:00 Test Item Value Reference Range Interpretation Comments Monocytes # (test code 0.6 See_Comment [Aut omated message] The = Monocytes #) system which generated this result tra nsmitted reference range : <=0.8. The reference r césar was not used to int erpret this result as normal/abnormal . [facility] HospitalHrlegtiSDZBNUKSUC1977-54-83 16:56:00 Test Item Value Reference Range Interpretation Comments Lymphocytes # (test code = Lymphocytes 2.0 1.0-5.5 #) [facility] HospitalVtpkckiAFFPNUGMSO6515-48-30 16:56:00 Test Item Value Reference Range Interpretation Comments Segs-Bands # (test code = Segs-Bands #) 2.3 1.5-8.1 [facility] HospitalWqrygimYDCXRLVVUS3977-73-99 16:56:00 Test Item Value Reference Range Interpretation Comments Segs (test code = Segs) 45.4 45.0-75.0 [facility] HospitalQamdplqIZABYTYOOJ0086-92-46 16:56:00 Test Item Value Reference Range Interpretation Comments Monocytes (test code = Monocytes) 11.5 2.0-12.0 [facility] HospitalRieteyaYOBMSAZIYQ3228-52-21 16:56:00 Test Item Value Reference Range Interpretation Comments Basophils (test code = 0.7 See_Comment [Aut omated message] The Basophils) system which ge nerated this result tra nsmitted reference range : <=1.0. The reference r césar was not used to int erpret this result as normal/abnormal . [facility] HospitalYsrwoyyHXCFAQRVMN1767-32-66 16:56:00 Test Item Value Reference Range Interpretation Comments Eosinophils (test code = 2.6 See_Comment [A utomated message] The Eosinophils) system which ge nerated this result tra nsmitted reference range : <=4.0. The reference r césar was not used to int erpret this result as normal/abnormal . [facility] HospitalInkalclUGJVECRUPZ7338-06-22 16:56:00 Test Item Value Reference Range Interpretation Comments Lymphocytes (test code = Lymphocytes) 39.8 20.0-40.0 [facility] HospitalOawsbciMBOIRPCMBN4110-46-19 16:56:00 Test Item Value Reference Range Interpretation Comments MCHC (test code = MCHC) 33.8 32.0-36.0 [facility] HospitalNoswcehJRDHWAJZLI1494-65-72 16:56:00 Test Item Value Reference Range Interpretation Comments MCH (test code = MCH) 29.8 pg 27.0-31.0 [facility] HospitalBhiodiiAWGWSYQTNC2943-85-51 16:56:00 Test Item Value Reference Range Interpretation Comments RDW (test code = RDW) 13.5 11.5-14.5 [facility] HospitalBvcnpdnDXKSYQNQIN7753-49-02 16:56:00 Test Item Value Reference Range Interpretation Comments MPV (test code = MPV) 8.5 7.4-10.4 [facility] HospitalVjndowmTVZHSRMQUH9856-53-45 16:56:00 Test Item Value Reference Range Interpretation Comments Platelet (test code = Platelet) 154 133-450 [facility] HospitalNugfawmPEJKRFYNFX0653-29-12 16:56:00 Test Item Value Reference Range Interpretation Comments Hgb (test code = Hgb) 14.9 14.0-18.0 [facility] HospitalHudrcnfNKJQHAMVXE7594-72-32 16:56:00 Test Item Value Reference Range Interpretation Comments RBC (test code = RBC) 5.01 4.70-6.10 [facility] HospitalTkynmagSVBMBEHCWR3152-09-94 16:56:00 Test Item Value Reference Range Interpretation Comments WBC (test code = WBC) 5.1 3.7-10.4 [facility] HospitalLmzlqnvORAAQXWSDM2429-07-54 16:56:00 Test Item Value Reference Range Interpretation Comments Hct (test code = Hct) 44.1 42.0-54.0 [facility] HospitalYvsxhxvINTMHICTLB7546-34-61 16:56:00 Test Item Value Reference Range Interpretation Comments MCV (test code = MCV) 88.1 80.0-94.0 [facility] HospitalBlgnrepGZGTBGMPFV5262-71-73 16:56:00 Test Item Value Reference Range Interpretation Comments PT (test code = PT) 13.2 s 12.0-14.7 [facility] [facility] [id number] 16:56:00 Test Item Value Reference Range Interpretation Comments PTT (test code = PTT) 37.1 s 22.9-35.8 [facility] H[id number] 16:56:00 Test Item Value Reference Range Interpretation Comments INR (test code = INR) 1.00 0.85-1.17 [facility] Notes Date/Time Note Provider Source 2022-10-17 [facility] 09:12:00-00:00 [facility] ([facility]) Clinical Note REPORT#:[id number] REPORT STATUS: Signed DATE:10/17/22 TIME: 911 PATIENT: ALIDA HOLDEN UNIT #: [id number] ROOM/BED: [address] : 55 AGE: 67 SEX: M ATTEND: Stephane Morataya MD ADM AUTHOR: Valerio Parsons MD * ALL edits or amendments must be made on the el [employer]/computer document * Clinical Note Note: [facility] Valerio anderson M.D. (cell text [phone]) Assessment/Plan 1.) Anemia of acute blood loss- .Hgb 12.0, asymp tomatic. 2.) S/p Revision Left TKA-.acute multi-modal rodo n control and followup. Anticoagulation as per Dr. Morataya. 3.) Hypertension- .follow BP and hold Rxs if SBP <120. 4.) Diabetes-2 OsteoArthriti s Hyperlipidemia BMI 45.9 [Z68.42]- .continue on Rx. Body habitus may slow rehab - weight loss camron mayen reviewed. * OK for DISCHARGE per Internal Medicine. Prior Events/Overnight: Uneventful. Chief Complaint: No significant complaints. Objective Vital Signs: Date Time Temp Pulse Resp B/P B/P Pulse O2 O2 F low FiO2 Mean Ox Delivery Rate 10/17 0911 56 16 133/62 85.8 10/17 0815 97 Nasal 2 28 cannula 10/17 0726 97.0 57 16 123/63 82.7 97 Nasal cannula 10/17 0434 97.3 59 16 134/42 72.5 100 Nasal 3 cannula 10/17 0205 92 Nasal 3 32 cannula 10/16 2305 96.4 58 16 156/68 97.0 99 Nasal 3 cannula 10/16 2150 58 179/74 109.0 10/16 2030 99 Nasal 3 32 cannula 10/16 2010 96.3 57 16 179/83 115.0 100 Nasal 3 cannula 10/16 1999 Nasal 3 cannula 10/16 1907 95.5 55 16 178/85 116.2 99 Nasal 3 cannula 10/16 1849 96.8 56 14 163/76 105.0 95 Room air 10/16 1830 97.0 54 15 136/69 95 Nasal 2 cannula 10/16 1815 72 21 156/64 96 Nasal 2 cannula 10/16 1800 59 23 160/74 97 Nasal 2 cannula 10/16 1745 97.0 81 14 169/77 99 Simple 8 mask 10/16 1344 58 19 123/57 100 Simple 6 mask 10/16 1140 97.7 61 16 149/69 99 Room air Gen: Alert, oriented, in mild discomfort Neck: No Masses, No Thyromegaly- CV: Regular Rate Rhythm / Edema- no significant Resp: Clear To Ascultation / Normal Respiratory Effort ABD: NonTender / NonDistended MS/Skin: No sign of compartment syndrome / +ankl e DF/PF Other: Labs/X-ray: Laboratory Tests: 10/17 10/16 0440 1226 Chemistry Sodium (136 - 145 mmol/L) 135 L Potassium (3.5 - 5.1 mmol/L) 5.0 Chloride (98 - 107 mmol/L) 97.0 L Carbon Dioxide (21 - 32 mmol/L) 34.8 H BUN (7 - 18 mg/dL) 16 Creatinine (0.55 - 1.30 mg/dL) 1.15 Glomerular Filtr Rate (>60) 69.8 Glucose (70 - 110 mg/dL) 139 H POC Glucose (60 - 125 mg/dL) 119 Calcium (8.2 - 10.1 mg/dL) 7.9 L Hematology Hgb (12 - 16 g/dL) 12.0 Hct (37 - 47 %) 33.8 L Valerio Livingston M.D. at 1514 RPT #:[id number] END OF REPORT 2022-10-17 [facility] 07:18:00-00:00 [facility] ([facility]) Discharge Summary REPORT#:[id number] REPORT STATUS: Signed DATE:10/17/22 TIME: 717 PATIENT: ALIDA HOLDEN UNIT #: [id number] ROOM/BED: [address] : 55 AGE: 67 SEX: M ATTEND: Stephane Morataya MD ADM AUTHOR: Tyrese Morataya MD * ALL edits or amendments must be made on the [employer]/computer document * General Information Discharge date: 10/17/22 Discharge diagnosis: same Hospital course: Discharge Diagnosis: Failed Arthroplasty Procedure: Revision Arthroplasty Hospital Course and Findings The patient underwent the pr ocedure without incident. Findings were significant for problematic arthroplasty. The patient was he modynamically and medically monitored during the postoperative period. Antic oagulation was instituted for postoperative DVT prophylaxis. The patient was p rogressively able to tolerate PO pain medications and the appropriate diet. Physical therapy was instituted, with a progressive ability to ambulate and perfo rm exercises. The patient was eventually deemed stable and safe for discharge. At discharge, the patient was comfortabl e, with a controlled pain level. There were no chest or abdominal symptoms present. Dis charge physical examination demonstrated stable vital signs and no acute dis tress. The patient had an intact wound with no signifi cant drainage, and no calf tenderness and a negative Manasa s sign bilaterally. There were no neurolog ic or vascular deficits or changes from the preoperative state. Disposition: Discharged to home Discharge Condition: Stable Instructions: Instruction sheet given to patient Activity: Ambulate with assistance, with weight- bearing as instructed in the hospital. Weight bearing limitations wer e reviewed with the patient during the hospitalization. The patient was supplied with a brace to help support postoperative knee instability until dynamic sta bilizers strengthen during recovery. The patient was supplied with a walker to help impaired ambulation during surgical recovery. Diet: As per preoperatively Prescriptions 1. Pain Medications: As per discharge prescription, with progressive weaning as pain decreases 2. Anticoagulation: As per discharge prescription, or PreOp anticoa gulant, as discussed with patient 3. Physical Therapy: Will undergo PT as needed for gait training wit h the appropriate instructed weight-bearing precautions, mobilization, range- of-motion, and strengthening. Plan for timing of institution of PT reviewed wi th the patient. Follow-up Appointment: Patient instructe d to arrange appointment for an office visit in 2 weeks Med Rec Med Rec Discharge meds: Continue taking these medications: PREGABALIN (LYRICA) 300 MG CAP 300 MILLIGRAM ORAL TWICE DAILY. metFORMIN (GLUCOPHAGE) 500 MG TAB 500 MILLIGRAM ORAL TWICE DAILY. Instructions: TAKE WITH MEALS ATORVASTATIN (LIPITOR) 20 MG TAB 20 MILLIGRAM ORAL DAILY. CARVEDILOL (COREG) 6.25 MG TAB 6.25 MILLIGRAM ORAL TWICE DAILY WITH MEALS. carBAMazepine (TEGretol) 200 MG TAB 200 MILLIGRAM ORAL EVERY 12 HOURS. LOSARTAN/HCTZ (HYZAAR 100/25 MG) 100 MG-25 MG TA B 1 TABLET ORAL DAILY. Start taking the following new medications: ASPIRIN EC (ECOTRIN) 81 MG TAB.EC 81 MILLIGRAM ORAL TWICE DAILY WITH MEALS. Qty = 60 No Refills DOXYCYCLINE HYCLATE (VIBRAMYCIN) 100 MG CAP 100 MILLIGRAM ORAL TWICE DAILY. Days = 7 Qty = 14 No Refills HYDROcodone/APAP (HYDROcodone/APAP 10/325) 10 MG -325 MG TAB 1 TABLET ORAL EVERY SIX HOURS NEEDED as need ed for prn break through pain Qty = 28 No Refills Instructions: one tab every 6 hours only for breakthrough rodo n POLYETHYLENE GLYCOL 3350 (MIRALAX) 17 GRAM POWDE R 17 GRAM ORAL BEDTIME. Days = 30 Qty = 30 No Refills Instructions: please take daily for constipation prevention methocarbamoL (ROBAXIN) 500 MG TAB 500 MILLIGRAM ORAL THREE TIMES DAILY NEEDED. as needed for muscle spasm Qty = 28 No Refills traMADol (ULTRAM) 50 MG TAB 50 MILLIGRAM ORAL EVERY 4 HOURS NEEDED. as n eeded for pain Days = 7 Qty = 28 No Refills Discharge Instructions PCP )( Discharge to: Home/Self Care Discharge Instructions Additional Discharge Routines: Attending Follow- Up )( Diet: Resume Home Diet/Feeds )( Activity: Resume Normal Activity Follow-up Appointments Attending Physician: Attending Physician: Tyrese Morataya MD Electronically Signed by Tyrese Morataya MD on at 0747 RPT #:[id number] END OF REPORT 2022-10-17 [facility] 07:15:00-00:00 [facility] ([facility]) Clinical Note REPORT#:[id number] REPORT STATUS: Signed DATE:10/17/22 TIME: 0715 PATIENT: ALIDA HOLDEN UNIT #: [id number] ROOM/BED: [address] : 55 AGE: 67 SEX: M ATTEND: Stephane Morataya MD ADM AUTHOR: Tyrese Morataya MD * ALL edits or amendments must be made on the el [employer]/computer document * Clinical Note Note: POD# 1 revision Joint Arthroplasty Patient well, reports pain is mild-moderate AF VSS Exam: dressing dry/intact Moves toes DF/PF Sensory unchanged A/P: Mobilize with physical Therapy DVT prophylaxis ongoing Following labs Remove coverlet, do not recover, patient may sh ower Discharge planning home today if PT clears Laboratory Tests 10/17/22 0440: [Embedded Image Not Available] Vital Signs Date Temp Pulse Resp B/P B/P Mean Pulse Ox FiO2 10/16-10/17 95.5-97.7 54-81 14-23 123-179/42-85 72.5-116.2 92-100 32 Intake Output 10/17 0700 10/16 2300 10/16 1500 Intake Total 336.00 595.00 Output Total 800 Balance -464.00 595.00 Intake, IV 336.00 375.00 Intake, Oral 220 Number 0 0 Incontinent Voids Output, Urine 800 Patient 276 lb Weight Weight Standing scale Measurement Method Electronically Signed by Tyrese Morataya MD on at 0716 RPT #:[id number] END OF REPORT 2022-10-16 [facility] 18:05:00-00:00 [facility] ([facility]) Clinical Note REPORT#:[id number] REPORT STATUS: Signed DATE:10/16/22 TIME: 1804 PATIENT: ALIDA HOLDEN UNIT #: [id number] ROOM/BED: [address] : 55 AGE: 67 SEX: M ATTEND: Stephane Morataya MD ADM AUTHOR: Valerio Parsons MD * ALL edits or amendments must be made on the el [employer]/computer document * Clinical Note Note: [facility] Valerio anderson MD (cell text [phone]) Internal Medicine Consult at request of : Dr. Deb Luevano. Chief Complaint: .knee pain HPI: 67yo M is now s/p Revision Left Total Knee Arthroplasty (TKA) by Dr. Morataya. Mr. Holden relates years of progressiv e left knee pain (recently severe), worse with activity . WOrkup has suggested mechanical loosening. He has failed conservative management. Comorbidities: see below. PmHx: .OsteoArthritis, hypertension, hyperlipide rey, diabetes2 ALLERGY: Allergies: No Known Allergies (Coded, 10/09/22) Home Medications: Home Medications: PREGABALIN (LYRICA) 300 MG PO BID metFORMIN (GLUCOPHAGE) 500 MG PO BID ATORVASTATIN (LIPITOR) 20 MG PO DAILY CARVEDILOL (COREG) 6.25 MG PO BID MEALS carBAMazepine (TEGretol) 200 MG PO Q12H LOSARTAN/HCTZ (HYZAAR 100/25 MG) 1 TAB PO DAILY ASPIRIN EC (ECOTRIN) 81 MG PO BID MEALS DOXYCYCLINE HYCLATE (VIBRAMYCIN) 100 MG PO BID HYDROcodone/APAP (HYDROcodon e/APAP 10/325) 1 TAB PO Q6HPRN PRN prn break through pain POLYETHYLENE GLYCOL 3350 (MIRALAX) 17 GM PO BEDT GURWINDER methocarbamoL (ROBAXIN) 500 MG PO TID PRN PRN mu scle spasm traMADol (ULTRAM) 50 MG PO Q4H PRN PRN pain SgHx: .knee replacement, lumbar fusion SHx: Tob: none FHx: .No significant hx of DVT/PE . Alcohol: none Drugs: none Lives: with sister . . Vitals: Vital Signs: Date Time Temp Pulse Resp B/P B/P Pulse O2 O2 F low FiO2 Mean Ox Delivery Rate 10/16 2010 96.3 57 16 179/83 115.0 100 Nasal 3 cannula 10/16 1907 95.5 55 16 178/85 116.2 99 Nasal 3 cannula 10/16 1849 96.8 56 14 163/76 105.0 95 Room air 10/16 1830 97.0 54 15 136/69 95 Nasal 2 cannula 10/16 1815 72 21 156/64 96 Nasal 2 cannula 10/16 1800 59 23 160/74 97 Nasal 2 cannula 10/16 1745 97.0 81 14 169/77 99 Simple 8 mask 10/16 1344 58 19 123/57 100 Simple 6 mask 10/16 1140 97.7 61 16 149/69 99 Room air Gen: Groggy, in mild discomfort. Seen in PACU EYE: Nl lids conjunctiva. ENT: Nl ears Nose, nl lips,. Neck: Supple, nl thyroid, No masses. CV: Regular Rate Rhythm, no heave or significant murmur. Edema- none RESP: Clear to Auscultation, normal Respiratory effort. ABD: Soft, NonDistended,. LYM: No significant cervical lymphadenopathy. MS: No sign of compartment syndrome, Knee is wra pped, NEURO: Nonfocal, grossly normal sensation of LE, +Ankle DF/PF . . Preop Labs(10/09/22): CBC:. Hgb 15.3, Plt 187, CHEM: Na 139, K 4.1, Cr 1.12 (eGFR 72%), . hgbAic 6.2% Ekg: NSR, iRBBB . (medium to high risk of complications or morbidi ty) (major surgery) (IV sedative, meds) . Assessment Plan 1.) Anemia of Acute Blood Loss- .will recheck to channing. 2.) S/p Revision Left TKA-.acute multi-modal rodo n control and followup. Anticoagulation as per Dr. Morataya. 3.) Hypertension- .follow BP and hold Rxs if SBP <120. 4.) Diabetes-2 OsteoArthriti s Hyperlipidemia BMI 45.9 [Z68.42]- .continue on Rx. Body habitus may slow rehab - weight loss camron mayen to be reviewed. . Valerio Livingston M.D. Thanks! . . . . . G8417 BMI documented as above normal parameters and a f/u plan is documented G9903 - Patient screened for tobacco use AND courtney ntified as a tobacco non-user 1123F - ACP disscussion - default code status wh ile at [facility]. at 2149 RPT #:[id number] END OF REPORT 2022-10-16 [facility] 16:40:00-00:00 [facility] ([facility]) Operative Note - Full REPORT#:[id number] REPORT STATUS: Signed DATE:10/16/22 TIME: 1640 PATIENT: ALIDA HOLDEN UNIT #: [id number] ROOM/BED: [place] [address] : 55 AGE: 67 SEX: M ATTEND: Stephane Morataya MD ADM AUTHOR: Tyrese Morataya MD * ALL edits or amendments must be made on the el [employer]/computer document * Operative Report Start date: 10/16/22 Start time: 0000 Pre-procedure diagnosis: L KNEE MECH LOOSENING, OBESITY BMI 45.9 Post-procedure diagnosis: SAME Procedures performed: L COMPLEX REV TKA TIBIAL COMPONENT, REV SCAR 25C M Technique/Procedure: Revision Total Knee Replacement (Arthroplasty) OPERATIVE PROCEDURE IN DETAIL The patient was identified in the [facility] area, and all questions and concerns were answered. The patient verbally conf irmed the site and side of the surgery and a marking of the site was done. The patient was brought to [facility] operating room and placed supine on the operating table. A sandbag was then positioned for maximal knee flexion of the operative knee and then taped in position. A pneumatic jose david rniquet was placed around the operative upper thigh. The leg was then prepped and draped in usual sterile fashion. A surgical timeout was performed to identify correct patient, surgical site and surgery. The preoperative antibiotic intravenous drip was completed (or was held if intraoperative cultures were obtained). The leg was then elevated and exsanguinated with the use of an elastic bandage , and the tourniquet was then inflated. The old incision and thickened scar wa s recreated performing a full excisional debridement of the entire length lucio uring 25 cms using a sharp surgical knife for dissection, full thickness al l the way to the fascia. Meticulous hemostasis was obtained with electroc autery. A medial parapatellar arthrotomy was performed a nd the knee joint was visualized. 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 A full synovectomy was made to re-create the medial and lat eral gutters. The knee was then flexed and the components were inspected. We then directed our attent ion to the tibia where we used A small saw blade to get between the metal interface and the bone. Th e tibial component was then removed with MODERATE difficulty due to tight soft tissue envelope and femoral component being in place. e bony surfaces were inspected and an assessment of bone loss was performed. We used reverse curette s to curettage then inside of the canals and remove any intramedullary debris or old cement. The cement was well interdigitated into the surrounding bone. [facility] bony surfaces were then lavaged. Retractors were placed around the proxim al tibia and we started preparation of the tibia first. We started with canal reamers i ncreasing sequentially from a size [address] until we had good cortical contact. We then started preparation for tibial sleeves with the [employer] tibial broaching system. We used the smallest broach increase d sequentially all the way until we noted good axial and rotational stability. A thin saw blade was i n uses to cut over the top of the sleeve/guide-stem constr uct, using it as a intramedullary cutting guide. We cleaned and debrided all bony and soft tissue de bris. We then used the transparent sizing guides for the tibia. We isaak jose the broach and guide stem and places the appropriate t rial Depuy MBT tray with a trial sleeve and a trial stem. A trial polyethylene was inserted and t he knee was taken through a full range of motion. Adjustments were made according to ou r findings. The patella is inspected and the soft tissues around it were cleaned to look for signs of loosening. We noted significant cyndi o vergrowth of the button. Once all the bone was cleared the button was noted NO T to be loose. .Tracking was excellent. All trial components were removed, the t ibial canal was plugged with a lap and the tourniquet was taken down to verify there were no major bleeders. No major bleeders were encountered. W e cauterized small bleeders. Once we were satisfied, we inflated the tourniquet back up. The soft tis sues and bony surfaces were thoroughly lavaged with pulsatile lavage with ba citracin. The rotation of the tibial sleeve was set. The t ibial component was install first using cement at the proximal interface and a pressfit stem and sleeve distally. The final poly was inserted in place. A compressive bandage was applied to the leg while the cement cured. The knee was taken to a full range of motion, were happy with the results. Further babatunde ridement of any loose and/or extruded cement was performed Closure was then performed. The retinaculum and quadriceps mechanism were repaired with #2 Quill and #1 Vicryl. A complex multilayer closure was performed. The subcutaneous layer was closed meticulously with deep layer of #1 Vicryl, superficial layer of 2-0 Vicryl, and the skin with Dermabond mesh. A sterile compressive dressing was applied. Patient was placed in the immobilizer. Patient was awoken from anesthesia entra nce her to the recovery room in stable condition Complexity Case was off added complexity due to patient s m orbid obesity with a BMI of 45.9. We needed additional t gurwinder for positioning, exposure, handling of the soft tissues, management of limb, positioning of retractors and additional time for complex multilayer closure. This case took 2 rashid es longer than a typical procedure INDICATIONS FOR STEAM ENGINEER The presence of a skilled [place] rgical hospital aides and assistants teacher was medically necessary to aid for the entire procedure. Their responsibilities inc lude patient positioning, retraction of soft tissues for wide exposure so that the surgeon can use both hands to perform the surgery, as well as stabili zing the limb for surgical instrumentation throughout the case. Ret raction for exposure/visualization, as well as stabilization of the extremity is vital to the procedure and not possible without an hospital aides and assistants teacher. In addition alexisin vivi an hospital aides and assistants teacher shortens operative times which decrea ses expenses and improves outcomes. I am not part of any residency or fellowship training programs and therefore require the help of the hospital aides and assistants teacher listed above for this surgery. IMPLANTS Depuy 3 MBT 15mm thick Tib tray , 12.5mm RP poly Primary Surgeon: [employer] Manager(s): DR MOLINA Anesthesia: regional anesthesia, spinal anesthet ic Operative findings: POSSIBLE TIBIA LOOSENING, NO PATELLA LOOSENING Complications: none Estimated blood loss in ml's: 100 Specimens removed/altered: none Implant(s): depuy Electronically Signed by Tyrese Morataya MD on at 1653 RPT #:[id number] END OF REPORT 2022-10-09 [id number] [facility] 13:19:00-00:00 [address] [place] [address] PATIENT NAME: ALIDA HOLDEN ADMIT DATE: ACCOUNT NO: [id number] ROOM NO: AGE: 66 REPORT TYPE: ELECTROCARDIOGRAM SEX: M ADMITTING PHYSICIAN:Tyrese Morataya MD ATTENDING PHYSICIAN:Tyrese Morataya MD Order: [id number] Test Reason : PRE OP CLEARANCE HTN Test Date/Time Stamp: SatOct 09 2022 13:19:05 Blood Pressure : / mmHG Vent. Rate : 052 BPM Atrial Rate : 052 BPM P-R Int : 194 ms QRS Dur : 104 ms QT Int : 420 ms P-R-T Axes : 039 032 056 degree s QTc Int : 390 ms Sinus bradycardia Incomplete right bundle branch block Borderline ECG No previous ECGs available Confirmed by AYUSH HURTADO MD ([id number]) on 10/11/2022 10:05:44 AM Referred By: Tyrese Morataya Confirmed by:AYUSH HURTADO MD PATIENT NAME: ALIDA HOLDEN 534 2016-04-04 EXAM: MRI BRAIN WITH CONTRAS T, trigeminal neuralgia Gamma knife protocol [facility] 06:50:00-00:00 DATE: 04/04/2016 Center INDICATION: 60 years old [...] postoperative changes of prior neurova scular decompression. 2015-09-28 EXAM: MRI BRAIN WITH CONTRAST. [facility] 07:03:00-00:00 Center DATE: 09/28/2015 INDICATION: Left trigeminal neuralgia, [...] of the brain . Cerebellar tonsils are elenita cended through the foramen magnum, incompletely imaged. No abnormality identified in Meckel's caves or the cavernous sinuses. No abnormal enhancement is identified. Bilateral mastoid effusions. IMPRESSION: Stealth protocol for treatment planning. Findings suggestive of possible intracranial hyp otension.
[2023-04-16 20:53] LABS: Absolute Lymphocytes (CBC) 0.9 K/uL (0.7-4.9); Hematocrit 45.2 % (39.6-49.0); Lymphocytes % 9.1 % (15.3-44.8); MCV 86.9 fL (80-100); MPV 8.1 fL (7.6-11.3)
[2023-04-16] MEDS ORDERED: PIPERACIL/TAZO 3.375 GM VIAL IV ONE (20:53)
[2023-04-16] MEDS ORDERED: NA CHLORIDE 0.9% 100 ML ONE ×2 (20:53→23:24)
[2023-04-16] MEDS ORDERED: NA CHLORIDE 0.9% 4,000 ML ONE (20:53)
--- NOTE | 2023-04-16 21:00 | RAD REPORT ---
EXAM DESCRIPTION: Paresh Single View04/16/2023 8:50 pm CLINICAL HISTORY: Fever COMPARISON: September 2022 and 2014 FINDINGS: Mild bilateral interstitial lung opacities appear chronic Heart is probably upper limits normal size. Mild prominence of the right hilum is stable likely benign IMPRESSION: No acute abnormalities displayed
--- NOTE | 2023-04-16 21:01 | RAD REPORT ---
EXAM DESCRIPTION: USExtremity Venous [facility] Ltd04/16/2023 8:51 pm CLINICAL HISTORY: left leg swelling COMPARISON: October 2022 FINDINGS: Left common femoral, superficial femoral, greater saphenous, popliteal and posterior tibi al veins are compressible and demonstrate augmentation. Doppler demonstrates good flow. Grayscale, color and spectral analysis performed on all vessels IMPRESSION: No evidence of deep venous thrombosis involving the left lower extremity.
[2023-04-16 21:05] LABS: Protime INR 1.32
[2023-04-16] MEDS ORDERED: ACETAMINOPHEN 500 MG TAB ONE (21:10)
[2023-04-16] MEDS ORDERED: IBUPROFEN 400 MG TAB ONE (21:10)
[2023-04-16 21:19] LABS: Albumin 3.9 g/dL (3.4-5.0); Bilirubin Total 0.6 mg/dL (0.2-1.0); Potassium 3.7 mEq/L (3.5-5.1); Protein, Total 7.8 g/dL (6.4-8.2)
[2023-04-16 21:26] LABS: Specific Gravity 1.016 (1.005-1.030); Urine Bacteria None Seen /HPF (<20); Urine Bilirubin NEGATIVE (Negative); Urine Blood Negative (Negative); Urine Clarity Clear (Clear); Urine Color Light-Yellow (Yellow); Urine Glucose NEGATIVE (Negative); Urine Protein TRACE (Negative); Urine RBC <5 /HPF (None Seen); Urine Urobilinogen Normal (Normal)
[2023-04-16] MEDS ORDERED: MORPHINE 4 MG/ML SYR ONE (22:31)
[2023-04-16] MEDS ORDERED: ONDANSETRON 4 MG/2 ML VIAL ONE (22:31)
[2023-04-16] MEDS ORDERED: ALBUTEROL 2.5 MG/3 ML NEB SOL NEB PRN (22:31)
[2023-04-16] MEDS ORDERED: ZOLPIDEM TARTRATE 5 MG TABLET PO PRN (22:31)
[2023-04-16] MEDS ORDERED: ONDANSETRON 4 MG/2 ML VIAL IV PRN (22:31)
[2023-04-16] MEDS ORDERED: ACETAMINOPHEN 325 MG TABLET PO PRN (22:31)
[2023-04-16] MEDS ORDERED: HYDROCODONE/APAP 10/325 TAB PO PRN (22:37)
--- NOTE | 2023-04-16 22:43 | ER ---
Nurse's Notes [facility] Name: Vipul Holden Age: 67 yrs Sex: Male : 1955 Arrival Date: 04/16/2023 Time: 20:00 Bed 19 Private MD: Adelfo Jimenez Diagnosis: Cellulitis of left lower limb;Acute left lower extremity cellulitis, acute fever, hypoactive delirium, Presentation: 04/16 20:21 Chief complaint: Patient states: fever and altered mental status that started as6 yesterday. family reports that they were able to control the fever yesterday with Tylenol but pt has become increasingly confused today. Coronavirus screen: At this time, the client does not indicate any symptoms associated with coronavirus-19. Ebola Screen: No symptoms or risks identified at this time. Initial Sepsis Screen: Does the patient meet any 2 criteria? RR > 20 per min. Temp <36.0*C (96.8*F)) or > 38.3*C (100.9*F). Altered Mental Status. HR > 90 bpm. Yes Does the patient have a suspected source of infection? Yes: Skin breakdown/wound If YES to both, name of provider notified: Brendan Preston MD. Risk Assessment: Do you want to hurt yourself or someone else? Patient reports no desire to harm self or others. Onset of symptoms was April 15, 2023. 20:21 Acuity: SOHA 2 as6 20:21 Method Of Arrival: Wheelchair as6 Triage Assessment: 20:31 General: Appears ill, Behavior is restless, uncooperative. Neuro: Level of as6 Consciousness is awake, alert, confused. Historical: - Allergies: 04/17 00:03 Vancomycin (Hives); cm10 - Home Meds: 04/16 20:29 carvedilol 6.25 mg oral tablet 1 tab 2 times per day [Active]; metformin 500 mg Oral as6 tab 1 tab 2 times per day [Active]; losartan-hydrochlorothiazide 100-25 mg Oral tab 1 tab once daily [Active]; atorvastatin 20 mg oral tablet 1 tab daily [Active]; carbamazepine 200 mg Oral Capsule, ER Multiphase 12 hr 1 cap 2 times per day [Active]; - PMHx: 20:21 diabetes mellitus; Hypertension; trigeminal neuralgia; Hypercholesterolemia; as6 - PSHx: 20:21 traumatic amputation left upper extremity; back; knee; as6 - Immunization history:: Adult Immunizations up to date. - Social history:: Smoking status: Patient denies any tobacco usage or history of. - Family history:: not pertinent. Screenin:32 [facility] ED Fall Risk Assessment (Adult) Confusion or Disorientation Yes (5 pts) as6 Score/Fall Risk Level 3 or more points = High Risk. Abuse screen: Denies threats or abuse. Denies injuries from another. Nutritional screening: No deficits noted. Tuberculosis screening: No symptoms or risk factors identified. Assessment: 21:17 Pain: Complains of pain in left leg. Neuro: Level of Consciousness is awake, confused, cm10 Oriented to person. Cardiovascular: No deficits noted. Rhythm is sinus tachycardia. Cardiovascular: Respiratory: Airway is patent Respiratory effort is labored, shallow, Respiratory pattern is tachypnea. Musculoskeletal: Swelling present in left leg. Musculoskeletal: Amputation of left arm. Pt has redness noted to left lower leg. 22:15 Reassessment: Patient and/or family updated on plan of care and expected duration. Pain cm10 level reassessed. Patient is alert, oriented x 3, equal unlabored respirations, skin warm/dry/pink. Pt no longer confused at this time. Pt complaining of leg pain and headache. Patient states feeling better. Patient states symptoms have improved. Neuro: Level of Consciousness is awake, alert, obeys commands, Oriented to person, place, time, situation. Vital Signs: 20:19 Weight 129.27 kg; cm10 20:21 BP 145 / 77; Pulse 140; Resp 26 S; Temp 103.6(TE); Pulse Ox 87% on R/A; Weight 129.27 as6 kg (R); Height 5 ft. 3 in. (R); Pain 0/10; 21:00 BP 141 / 64; Pulse 125; Resp 26; Pulse Ox 93% on 3 lpm NC; cm10 21:15 BP 125 / 58; Pulse 128; Resp 26; Pulse Ox 95% on 3 lpm NC; cm10 21:30 BP 100 / 64; Pulse 122; Resp 26; Pulse Ox 95% on 3 lpm NC; cm10 21:45 BP 111 / 51; Pulse 115; Resp 24; Pulse Ox 95% on 3 lpm NC; cm10 22:00 BP 100 / 49; Pulse 109; Resp 22; Pulse Ox 96% on 3 lpm NC; cm10 22:15 BP 110 / 44; Pulse 106; Resp 22; Pulse Ox 97% on 3 lpm NC; cm10 22:18 Temp 102.9(O); cm10 23:00 BP 93 / 54; Pulse 95; Resp 22; Pulse Ox 96% on 3 lpm NC; cm10 23:08 BP 93 / 54; Pulse 100; Resp 18; Pulse Ox 96% on 3 lpm NC; cm10 23:15 BP 109 / 46; Pulse 95; Resp 22; Pulse Ox 97% on 3 lpm NC; cm10 23:30 BP 127 / 53; Pulse 95; Resp 17; Pulse Ox 96% on 3 lpm NC; cm10 23:45 BP 103 / 59; Pulse 94; Resp 17; Pulse Ox 97% on 3 lpm NC; cm10 20:21 Body Mass Index 50.48 (129.27 kg, 160.02 cm) as6 20:21 Pain Scale: Adult as6 ED Course: 20:01 Patient arrived in ED. mr 20:02 Adelfo Jimenez MD is Private Physician. mr 20:02 Brendan Preston MD is Attending Physician. sp4 20:19 Shelbi Arzola, GAETANO is Primary Nurse. cm10 20:19 Chest Single View XRAY Sent. cm10 20:20 Arm band placed on. as6 20:27 Initial lab(s) drawn, by me, sent to lab. First set of blood cultures drawn by me. cm10 Inserted saline lock: 18 gauge in right forearm, using aseptic technique. Blood collected. 20:28 Triage completed. as6 20:32 Placed in gown. Bed in low position. Call light in reach. Side rails up X2. Adult w/ as6 patient. 20:35 Second set of blood cultures drawn. cm10 20:39 Inserted saline lock: 20 gauge in right antecubital area, using aseptic technique. cm10 Blood collected. 20:40 Blood Culture Adult (2) Sent. cm10 20:40 CBC with Diff Sent. cm10 20:40 CMP Sent. cm10 20:40 Lactate w/ 2H reflex if indic. Sent. cm10 20:40 Protime (+inr) Sent. cm10 20:40 Ptt, Activated Sent. cm10 20:40 Urinalysis w/ reflexes Sent. cm10 20:52 Chest Single View XRAY In Process Unspecified. EDMS 20:53 Extremity Venous Uni Ltd US In Process Unspecified. EDMS 22:41 Adelfo Jimenez MD is Hospitalizing Provider. sp4 22:53 Influenza Screen (a \T\ B) Sent. cm10 22:53 SARS RAPID Sent. cm10 22:54 No provider procedures requiring assistance completed. Patient admitted, IV remains in [address] 22:54 Provided Education on: N/A. [facility] Administered Medications: 20:56 Drug: NS 0.9% IV (30 ml/kg) 30 ml/kg Route: IV; Rate: bolus; Site: right forearm; 10 04/17 00:02 Follow up: IV Status: Infusion continued upon admission [facility] 04/16 20:56 Drug: Piperacillin-Tazobactam IVPB 3.375 grams Route: IVPB; Infused Over: 60 mins; cm10 Site: right forearm; 21:30 Follow up: Response: No adverse reaction; IV Status: Completed infusion; IV Intake: cm10 100ml 21:06 Drug: Acetaminophen PO 1000 mg Route: PO; cm10 23:02 Follow up: Response: Temperature is decreased cm10 21:06 Drug: Ibuprofen PO 800 mg Route: PO; cm10 23:02 Follow up: Response: No adverse reaction; Temperature is decreased cm10 22:33 Drug: morphine IVP or IV 4 mg Route: IVP; Infused Over: 4 mins; Site: right forearm; cm10 23:03 Follow up: Response: No adverse reaction cm10 22:33 Drug: Ondansetron IVP 4 mg Route: IVP; Site: right forearm; cm10 23:03 Follow up: Response: No adverse reaction cm10 22:46 Drug: vancoMYCIN IVPB 2 grams Route: IVPB; Rate: calculated rate; Site: right cm10 antecubital; 23:11 Follow up: Response: Adverse reaction, Physician notified; IV Status: Order to 10 discontinue infusion 23:24 Drug: Meropenem IV 1 grams Route: IV; Rate: calculated rate; Site: right antecubital; cm10 23:57 Follow up: Response: No adverse reaction; IV Status: Completed infusion; IV Intake: cm10 100ml 23:24 Drug: diphenhydrAMINE IVP 25 mg Route: IVP; Site: right antecubital; cm10 23:57 Follow up: Response: No adverse reaction cm10 23:33 Drug: Albumin IVPB 25 grams Volume: 100 ml; Route: IVPB; Site: right antecubital; cm10 23:57 Follow up: Response: No adverse reaction; IV Status: Completed infusion cm10 Medication: 22:54 VIS not applicable for this client. cm10 Intake: 21:30 IV: 100ml; Total: 100ml. cm10 23:57 IV: 100ml; Total: 200ml. cm10 Outcome: 22:42 Decision to Hospitalize by Provider. sp4 23:05 Admitted to Med/surg accompanied by tech, room 201, Report called to GAETANO Villagran 23:05 Condition: good 04/17 00:10 Patient left the ED. pf1 Signatures: Dispatcher [employer] [facility] AryanBeena RegJeramie RN RN as6 Nel Bond RN RN pf1 Brendan Preston MD MD sp4 Shelbi Arzola RN RN cm10 Corrections: (The following items were deleted from the chart) 00:03 04/16 20:21 Allergies: No Known Allergies; as6 cm10
--- NOTE | 2023-04-16 22:43 | EDPHYS ---
Physician Documentation [facility] Name: Vipul Holden Age: 67 yrs Sex: Male : 1955 Arrival Date: 04/16/2023 Time: 20:00 Bed 19 Private MD: Adelfo Jimenez ED Physician Brendan Preston HPI: 04/16 20:02 This 67 yrs old Male presents to ER via Unassigned with complaints of Fever, sp4 Disoriented. 20:27 Is a 70-year-old male with history of diabetes, hypertension presents with a cute onset sp4 of confusion and left lower extremity redness starting yesterday evening. 20:56 Family states patient is now confused not making any sense and is acting delirious. 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 Left lower extremity redness started sometime yesterday and has worsened today causing subjective fever at home. On presentation patient is febrile and tachycardic. . Historical: - Allergies: 04/17 00:03 Vancomycin (Hives); cm10 - Home Meds: 04/16 20:29 carvedilol 6.25 mg oral tablet 1 tab 2 times per day [Active]; metformin 500 mg Oral as6 tab 1 tab 2 times per day [Active]; losartan-hydrochlorothiazide 100-25 mg Oral tab 1 tab once daily [Active]; atorvastatin 20 mg oral tablet 1 tab daily [Active]; carbamazepine 200 mg Oral Capsule, ER Multiphase 12 hr 1 cap 2 times per day [Active]; - PMHx: 20:21 diabetes mellitus; Hypertension; trigeminal neuralgia; Hypercholesterolemia; as6 - PSHx: 20:21 traumatic amputation left upper extremity; back; knee; as6 - Immunization history:: Adult Immunizations up to date. - Social history:: Smoking status: Patient denies any tobacco usage or history of. - Family history:: not pertinent. ROS: 20:56 Constitutional: Positive for fever, acute delirium, confusion, generalized weakness, sp4 left lower extremity redness and pain. Eyes: Negative for injury, pain, redness, and discharge, MS/Extremity: Negative for injury and deformity, positive left lower extremity redness pain and swelling Skin: Negative for injury, positive left lower extremity redness pain and swelling positive skin discoloration and heat Neuro: Negative for headache, local weakness, numbness, tingling, and seizure positive for acute confusion and generalized weakness 20:56 All other systems are negative. Exam: 20:56 Constitutional: This is a well developed, well nourished patient who is awake, alert, sp4 positive morbidly obese ill-appearing male, acutely confused, tachycardic and febrile on presentation, nonhypotensive. Overall patient is confused and has difficult time cooperating for exam. Signs of hypoactive delirium Head/Face: Normocephalic, atraumatic. Eyes: Pupils equal round and reactive to light, extra-ocular motions intact. Lids and lashes normal. Conjunctiva and sclera are not injected. Cornea within normal limits. Periorbital areas with no swelling, redness, or edema. ENT: Nares patent. No nasal discharge, no septal abnormalities noted. Tympanic membranes are normal and external auditory canals are clear. Oropharynx with no redness, swelling, or masses, exudates, or evidence of obstruction, uvula midline. Mucous membranes moist. Neck: Trachea midline, no thyromegaly or masses palpated, and no cervical lymphadenopathy. Supple, full range of motion without nuchal rigidity, or vertebral point tenderness. Chest/axilla: Normal chest wall appearance and motion. Nontender with no deformity. No lesions are appreciated. Cardiovascular: Rapid tachycardia at 140 with a normal S1 and S2. No gallops, murmurs, or rubs. Normal PMI, no JVD. No pulse deficits. Respiratory: Lungs have equal breath sounds bilaterally, clear to auscultation and percussion. No rales, rhonchi or wheezes noted. No increased work of breathing, no retractions or nasal flaring. Abdomen/GI: Soft, non-tender, with normal bowel sounds. No distension or tympany. No guarding or rebound. No evidence of tenderness throughout. Back: No spinal tenderness. No costovertebral tenderness. Male : Normal genitalia with no discharge or lesions. Skin: Warm, dry with normal turgor. Positive left lower extremity discoloration redness, swelling, heat consistent with acute left lower extremity cellulitis starting at the left ankle tracking just below the left knee MS/ Extremity: Pulses equal, no cyanosis. Neurovascular intact. Full, normal range of motion. Positive left lower extremity cellulitis and mild edema, see exam above Neuro: Awake and alert, positive for acute confusion, alert and oriented to self, not alert oriented to there is a location, cranial nerves II-XII grossly intact. Motor strength 5/5 in all extremities. Sensory grossly intact. Overall no localized motor deficits Psych: Awake, alert, with orientation to person, patient is acutely delirious confused, exam is limited secondary to hypoactive delirium 22:42 ECG was reviewed by the Attending Physician. 22:05 EKG reveals sinus tachycardia at the sp4 rate of 113, significant respiratory muscle tremor artifact, otherwise EKG is normal, no ectopy, no ST elevation or depression Vital Signs: 20:19 Weight 129.27 kg; cm10 20:21 BP 145 / 77; Pulse 140; Resp 26 S; Temp 103.6(TE); Pulse Ox 87% on R/A; Weight 129.27 as6 kg (R); Height 5 ft. 3 in. (R); Pain 0/10; 21:00 BP 141 / 64; Pulse 125; Resp 26; Pulse Ox 93% on 3 lpm NC; cm10 21:15 BP 125 / 58; Pulse 128; Resp 26; Pulse Ox 95% on 3 lpm NC; cm10 21:30 BP 100 / 64; Pulse 122; Resp 26; Pulse Ox 95% on 3 lpm NC; cm10 21:45 BP 111 / 51; Pulse 115; Resp 24; Pulse Ox 95% on 3 lpm NC; cm10 22:00 BP 100 / 49; Pulse 109; Resp 22; Pulse Ox 96% on 3 lpm NC; cm10 22:15 BP 110 / 44; Pulse 106; Resp 22; Pulse Ox 97% on 3 lpm NC; cm10 22:18 Temp 102.9(O); cm10 23:00 BP 93 / 54; Pulse 95; Resp 22; Pulse Ox 96% on 3 lpm NC; cm10 23:08 BP 93 / 54; Pulse 100; Resp 18; Pulse Ox 96% on 3 lpm NC; cm10 23:15 BP 109 / 46; Pulse 95; Resp 22; Pulse Ox 97% on 3 lpm NC; cm10 23:30 BP 127 / 53; Pulse 95; Resp 17; Pulse Ox 96% on 3 lpm NC; cm10 23:45 BP 103 / 59; Pulse 94; Resp 17; Pulse Ox 97% on 3 lpm NC; cm10 20:21 Body Mass Index 50.48 (129.27 kg, 160.02 cm) as6 20:21 Pain Scale: Adult as6 MDM: 20:11 Patient medically screened. 22:42 Differential diagnosis: viral Infection, bacterial infection, URI, pneumonia sp4 gastroenteritis. Data reviewed: vital signs, nurses notes, lab test result(s), cardiac enzymes, CBC, electrolytes, hepatic panel, urinalysis, EKG. Consideration of Admission/Observation Patient was admitted/placed on observation. Escalation of care including admission/observation considered. Management of patient was discussed with the following: Discussed with primary care Dr. Jimenez. ED course: Patient's mental status has drastically improved after fever was brought under control. Patient now is feeling better, remains tachycardic we will pursue admission for left lower extremity cellulitis for management IV Zosyn and vancomycin.. Patient will be seen in the morning by his housekeeper home . 04/16 20:09 Order name: Blood Culture Adult (2) [facility] 04/16 20:09 Order name: CBC with Diff; Complete Time: 22:13 [facility] 04/16 20:09 Order name: CMP; Complete Time: 22:13 [facility] 04/16 20:09 Order name: Lactate w/ 2H reflex if indic.; Complete Time: 22:13 [facility] 04/16 20:09 Order name: Protime (+inr); Complete Time: 22:13 [facility] 04/16 20:09 Order name: Ptt, Activated; Complete Time: 22:13 [facility] 04/16 20:09 Order name: Urinalysis w/ reflexes; Complete Time: 22:13 [facility] 04/16 20:41 Order name: Glucose, Ancillary Testing; Complete Time: 20:48 EDMS 04/16 22:33 Order name: SARS RAPID [facility] 04/16 22:33 Order name: Influenza Screen (a \T\ B) [facility] 04/16 20:09 Order name: Chest Single View XRAY; Complete Time: 22:13 [facility] 04/16 20:11 Order name: Extremity Venous Uni Ltd US; Complete Time: 22:13 [facility] 04/16 20:09 Order name: EKG; Complete Time: 20:10 [facility] 04/16 20:09 Order name: Accucheck; Complete Time: 20:38 [facility] 04/16 20:09 Order name: Cardiac monitoring; Complete Time: 22:08 sp4 04/16 20:09 Order name: EKG - Nurse/Tech; Complete Time: 22: 4 04/16 20:09 Order name: IV Saline Lock - Large Bore; Complete Time: 20:38 sp4 04/16 20:09 Order name: Labs collected and sent; Complete Time: : 4 04/16 20:09 Order name: O2 Per Protocol; Complete Time: : 4 04/16 20:09 Order name: O2 Sat Monitoring; Complete Time: 20: sp4 04/16 20:09 Order name: Vital Signs; Complete Time: 20:29 sp4 EC:42 Rate is 113 beats/min. Rhythm is regular, Sinus tachycardia. QRS [place] is Normal. [place] sp4 interval is normal. QRS interval is normal. QT interval is normal. T waves are Normal. No ST changes noted. Clinical impression: No evidence of ischemia. Interpreted by me. Administered Medications: 20:56 Drug: NS 0.9% IV (30 ml/kg) 30 ml/kg Route: IV; Rate: bolus; Site: right forearm; cm10 04/17 00:02 Follow up: IV Status: Infusion continued upon admission [facility] 04/16 20:56 Drug: Piperacillin-Tazobactam IVPB 3.375 grams Route: IVPB; Infused Over: 60 mins; cm10 Site: right forearm; 21:30 Follow up: Response: No adverse reaction; IV Status: Completed infusion; IV Intake: cm10 100ml 21:06 Drug: Acetaminophen PO 1000 mg Route: PO; cm10 23:02 Follow up: Response: Temperature is decreased cm10 21:06 Drug: Ibuprofen PO 800 mg Route: PO; cm10 23:02 Follow up: Response: No adverse reaction; Temperature is decreased cm10 22:33 Drug: morphine IVP or IV 4 mg Route: IVP; Infused Over: 4 mins; Site: right forearm; cm10 23:03 Follow up: Response: No adverse reaction cm10 22:33 Drug: Ondansetron IVP 4 mg Route: IVP; Site: right forearm; cm10 23:03 Follow up: Response: No adverse reaction cm10 22:46 Drug: vancoMYCIN IVPB 2 grams Route: IVPB; Rate: calculated rate; Site: right cm10 antecubital; 23:11 Follow up: Response: Adverse reaction, Physician notified; IV Status: Order to cm10 discontinue infusion 23:24 Drug: Meropenem IV 1 grams Route: IV; Rate: calculated rate; Site: right antecubital; cm10 23:57 Follow up: Response: No adverse reaction; IV Status: Completed infusion; IV Intake: cm10 100ml 23:24 Drug: diphenhydrAMINE IVP 25 mg Route: IVP; Site: right antecubital; cm10 23:57 Follow up: Response: No adverse reaction cm10 23:33 Drug: Albumin IVPB 25 grams Volume: 100 ml; Route: IVPB; Site: right antecubital; cm10 23:57 Follow up: Response: No adverse reaction; IV Status: Completed infusion cm10 Disposition Summary: 04/16/23 22:42 Hospitalization Ordered Hospitalization Status: Inpatient Admission sp4 Provider: Adelfo Jimenez sp4 [facility] sp4 Condition: Fair sp4 Problem: new sp4 Symptoms: have improved sp4 Bed/Room Type: Standard sp4 Room Assignment: 201(04/16/23 22:46) eb1 Diagnosis - Cellulitis of left lower limb sp4 - Acute left lower extremity cellulitis, acute fever, hypoactive delirium, sp4 Forms: - Medication Reconciliation Form sp4 - SBAR form sp4 Signatures: Dispatcher [employer] EDMS Ese Corrales RN RN eb1 Jeramie Finney RN RN as6 Brendan Preston MD MD sp4 Shelbi Arzola RN RN cm10 Corrections: (The following items were deleted from the chart) 22:46 22:42 sp4 eb1 04/17 00:03 04/16 20:21 Allergies: No Known Allergies; as6 cm10
[2023-04-16] MEDS ORDERED: NA CHLORIDE 0.9% 500 ML ONE (22:46)
[2023-04-16] MEDS ORDERED: VANCOMYCIN 1 GM/VIAL ONE (22:46)
[2023-04-16] MEDS ORDERED: NA CHLORIDE 0.9% 1,000 ML IV SCH (23:00)
[2023-04-16 23:17] LABS: SARS-CoV-2 Antigen Rapid Res Negative (Negative)
[2023-04-16] MEDS ORDERED: Meropenem 1000 MG/VIAL IV ONE (23:24)
[2023-04-16] MEDS ORDERED: DIPHENHYDRAMINE 50 MG/ML VIAL ONE (23:24)
[2023-04-16] MEDS ORDERED: ALBUMIN HUMAN 25% 100 ML IV ONE (23:35)
[2023-04-17] MEDS ORDERED: HYDROCODONE/APAP 10/325 TAB ONE (01:28)
[2023-04-17] MEDS ORDERED: IBUPROFEN 600 MG TAB PO SCH (03:00)
[2023-04-17] MEDS ORDERED: ONDANSETRON 4 MG/2 ML VIAL IV PRN (04:49)
[2023-04-17] MEDS ORDERED: IBUPROFEN 600 MG TAB PO PRN (04:51)
[2023-04-17] MEDS ORDERED: D50W 25 GM/50 ML SYRINGE IV PRN (04:53)
[2023-04-17] MEDS ORDERED: GLUCAGON 1 MG/VIAL IM PRN (04:53)
[2023-04-17] MEDS ORDERED: D10W 125 ML IV PRN (04:57)
[2023-04-17] MEDS: PIPER TAZO 3.375 GM in NA CHLORIDE 0.9% 100 ML IV SCH ×3 (05:22→20:58)
[2023-04-17] MEDS: NA CHLORIDE 0.9% 1,000 ML IV SCH ×2 (05:24→14:53)
[2023-04-17] MEDS ORDERED: VANCOMYCIN 1 GM in NA CHLORIDE 0.9% 250 ML IVPB SCH (06:00)
[2023-04-17] MEDS: INSULIN -REGULAR HUMAN 50 UNIT/0.5 ML ML SQ SCH ×4 (07:30→21:00)
[2023-04-17] MEDS ORDERED: INSULIN -REGULAR HUMAN 50 UNIT/0.5 ML ML SQ SCH (07:30)
[2023-04-17] MEDS: ALBUTEROL 2.5 MG/3 ML NEB SOL NEB SCH ×3 (08:00→20:00)
[2023-04-17] MEDS: PREGABALIN 150 MG CAP PO SCH ×2 (08:46→21:01)
[2023-04-17] MEDS: carBAMazepine 200 MG TAB PO SCH ×2 (08:46→21:01)
[2023-04-17] MEDS: carvediloL 6.25 MG TAB PO SCH ×2 (08:46→21:03)
[2023-04-17] MEDS: ENOXAPARIN 40 MG/0.4 ML SQ SCH (08:47)
[2023-04-17] MEDS ORDERED: ENOXAPARIN 40 MG/0.4 ML SQ SCH (09:00)
[2023-04-17] MEDS: HYDROCODONE/APAP 10/325 TAB PO PRN ×3 (09:03→23:13)
[2023-04-17] MEDS ORDERED: NA CHLORIDE 0.9% 500 ML IV ONE (09:10)
[2023-04-17] MEDS ORDERED: PIPERACIL/TAZO 3.375 GM VIAL IV ONE (12:45)
--- NOTE | 2023-04-17 19:16 | EKG ---
Test Date: 2023-04-16 Test Time: 22:04:25 Button Maker: HILLARY MEASUREMENT RESULTS: Intervals: Rate: 113 GA: 142 QRSD: 96 QT: 322 QTc: 441 [place]: P: 33 GA: 142 QRS: 38 T: 43 INTERPRETIVE STATEMENTS: Sinus tachycardia Inferior infarct, age undetermined Abnormal ECG Compared to ECG 05/12/2022 20:32:40 Myocardial infarct finding now present Incomplete right bundle-branch block no longer present Electronically Signed On 04-17-23 19:15:54 CDT by Christofer Knowles
[2023-04-17] MEDS: ATORVASTATIN 20 MG TAB PO SCH (21:02)
[2023-04-17] MEDS ORDERED: VANCOMYCIN 2 GM in NA CHLORIDE 0.9% 500 ML IVPB SCH (22:00)
[2023-04-17] MEDS: VANCOMYCIN 1.25 GM in NA CHLORIDE 0.9% 250 ML IVPB SCH (22:59)
[2023-04-17] MEDS: ZOLPIDEM TARTRATE 5 MG TABLET PO PRN (23:14)
[2023-04-18] MEDS: NA CHLORIDE 0.9% 1,000 ML IV SCH ×3 (01:00→21:04)
[2023-04-18] MEDS: ALBUTEROL 2.5 MG/3 ML NEB SOL NEB SCH ×4 (02:00→20:00)
[2023-04-18] MEDS: HYDROCODONE/APAP 10/325 TAB PO PRN ×4 (03:50→21:10)
[2023-04-18 03:58] LABS: Absolute Lymphocytes (CBC) 1.4 K/uL (0.7-4.9); Hematocrit 35.3 % (39.6-49.0); Lymphocytes % 11.6 % (15.3-44.8); MCV 88.2 fL (80-100)
[2023-04-18 04:05] LABS: Potassium 3.5 mEq/L (3.5-5.1)
[2023-04-18] MEDS: PIPER TAZO 3.375 GM in NA CHLORIDE 0.9% 100 ML IV SCH ×3 (04:33→21:02)
--- NOTE | 2023-04-18 05:51 | HP ---
Date of Admission: 04/17/2023 Chief Complaint: Left leg pain, fever, chills. History Of Present Illness: This is a 67-year-old very pleasant male patient who started to have fever, chills, left leg redness and pain yesterday and the patient contacted me through answering service, and when I called him back yesterday lipcoat sprayer around 6 o'clock or so, he did not answer and the patient tells me that he was feeling better by that time, his fever was down, so he went to sleep, and then later on in daytime, his temperature started going back up again, so his sister brought him to emergency room, and after he was evaluated in the ER, he was admitted to the hospital. The patient was noted to have some confusion in the emergency room and says that at home he did not have any confusion. After he was evaluated in the ER, he was admitted to the hospital with cellulitis of left leg. IV antibiotics which are vancomycin and Zosyn were started. When patient was getting IV vancomycin in the emergency room, he says that around the injection site he had some rash, but did not have any rash over any other body area except around the injection site and did not have any shortness of breath or any kind of throat closing type of feeling or any other reaction. After a while that rash problem disappeared. Allergies: NO KNOWN ALLERGIES. Medications: Atorvastatin 20 mg daily in the evening, Tegretol 200 mg 2 times aday, Lyrica 300 mg 2 times a day, vitamin B12 500 mcg daily, metformin 500 mg 2 times a day, carvedilol 6.25 mg 2 times a day, losartan/HCTZ 100/25 one tablet daily. Review of Systems: Constitutional: As mentioned above. Dermatology: As mentioned above. STAVE BOLT EQUALIZER: As mentioned above. All other systems reviewed and negative. Past Medical History: Significant for trigeminal neuralgia, type 2 diabetes mellitus, hypertension, mixed hyperlipidemia, gastroesophageal reflux disease, diverticulosis, erectile dysfunction, and chronic kidney disease stage 3A, lymphedema of both legs. Past Surgical History: Back surgery, knee surgery, amputation of left forearm done years ago. Family History: Father , details unknown. Mother , had coronary arterydisease, diabetes, hypertension, kidney disease. Brother had MT. Social History: Prior history of smoking, not at present time. Use of alcohol negative. Physical Examination: Vital Signs: Temperature this morning 97.5, pulse 82, respiratory rate 18, blood pressure 120/60, oxygen saturation 93%. Height 5 feet 3 inches, weight 285 pounds. General: Awake, alert, oriented, not in distress. HEENT: Head atraumatic, normocephalic. Conjunctivae nonerythematous. Sclerae white. Mouth, no thrush or edema noted. Ears/Nose, no mass, lesion, discharge noted. Neck: Supple. No JVD, lymph nodes, bruit, thyromegaly noted. Lungs: Bilateral good equal air entry. Clear to auscultation. No rhonchi. No rales. Heart: Normal heart sounds, no murmur or gallop. Abdomen: Soft, bowel sounds normal. No guarding, rigidity, tenderness, mass, hepatosplenomegaly, distention, or bruit noted. Extremities: Left lower extremity has trace leg edema and presence of red, warm skin between knee and ankle. No open wound. Skin: No rash, ulcer, cellulitis. Lymphatics: No lymph node enlargement in neck, supraclavicular, infraclavicular region. Neuro: No focal neurological deficit. Chest: Unremarkable. External Genitalia: Deferred. Rectal: Deferred. Laboratory Data: Yesterday, white count 9.5, hemoglobin 15.5, platelets 161. Sodium 133, potassium 3.7, chloride 101, bicarb 26, BUN 17, creatinine 1.47, glucose 177. Lactic acid 1.6. Liver function tests unremarkable. Urinalysis negative. COVID-19 test negative. Chest x-ray, no acute cardiopulmonary changes and venous Doppler of left leg was negative for DVT. Impression: 1. Cellulitis, left leg. 2. Rule out sepsis. 3. Hypertension. 4. Hyperlipidemia. 5. Trigeminal neuralgia. 6. Type 2 diabetes mellitus. We will go ahead and admit the patient to hospital for further evaluation and management of this problem. The patient is appropriate for inpatient and is expected to spend 2 midnights in hospital. For cellulitis, we will continue vancomycin and Zosyn. We will slow down the IV infusion rate of vancomycin as very likely patient had side effect from vancomycin, which is very likely going to be resolved by giving slower infusion and I did communicate with pharmacist regarding details and will continue Zosyn. Follow up on culture results and I will see him tomorrow for followup. For hypertension, we will continue his antihypertensive medication, carvedilol. Hold if systolic blood pressure less than 120. After I saw him today, his blood pressure was low with systolic blood pressure between 80-90 and IV fluid bolus was ordered. We will continue pain medication per order. DVT prophylaxis will be given using Lovenox per order. Diabetes will be managed with sliding scale insulin per order. The patient is at diagnosis of acute kidney injury. The patient has received IV fluid. We will continue maintenance IV fluid also and repeat blood work tomorrow. For trigeminal neuralgia, the patient is on Tegretol and pregabalin and we will continue this per order. I will see him tomorrow for followup. DOMENICA/MODL Voice ID: [id number] MTDD
[2023-04-18] MEDS: INSULIN -REGULAR HUMAN 50 UNIT/0.5 ML ML SQ SCH ×4 (07:30→21:00)
[2023-04-18] MEDS: PREGABALIN 150 MG CAP PO SCH ×2 (08:56→21:03)
[2023-04-18] MEDS: carvediloL 6.25 MG TAB PO SCH ×2 (08:57→21:03)
[2023-04-18] MEDS: carBAMazepine 200 MG TAB PO SCH ×2 (08:57→21:03)
[2023-04-18] MEDS: ENOXAPARIN 40 MG/0.4 ML SQ SCH (08:58)
[2023-04-18] MEDS: ATORVASTATIN 20 MG TAB PO SCH (21:04)
[2023-04-18] MEDS: ZOLPIDEM TARTRATE 5 MG TABLET PO PRN (23:03)
[2023-04-18] MEDS: VANCOMYCIN 1.25 GM in NA CHLORIDE 0.9% 250 ML IVPB SCH (23:06)
[2023-04-19] MEDS: ALBUTEROL 2.5 MG/3 ML NEB SOL NEB SCH ×4 (02:00→20:00)
[2023-04-19] MEDS: PIPER TAZO 3.375 GM in NA CHLORIDE 0.9% 100 ML IV SCH ×3 (04:23→21:04)
[2023-04-19] MEDS: HYDROCODONE/APAP 10/325 TAB PO PRN ×4 (04:25→21:03)
[2023-04-19] MEDS: NA CHLORIDE 0.9% 1,000 ML IV SCH (06:43)
[2023-04-19] MEDS: INSULIN -REGULAR HUMAN 50 UNIT/0.5 ML ML SQ SCH ×4 (07:30→21:00)
[2023-04-19] MEDS: PREGABALIN 150 MG CAP PO SCH ×2 (08:41→21:02)
[2023-04-19] MEDS: carBAMazepine 200 MG TAB PO SCH ×2 (08:41→21:02)
[2023-04-19] MEDS: carvediloL 6.25 MG TAB PO SCH ×2 (08:41→21:00)
[2023-04-19] MEDS: ENOXAPARIN 40 MG/0.4 ML SQ SCH (08:42)
[2023-04-19] MEDS ORDERED: FUROSEMIDE 20 MG/ 2ML VIAL IV ONE (10:51)
[2023-04-19] MEDS ORDERED: VANCOMYCIN 2 GM in NA CHLORIDE 0.9% 500 ML IVPB SCH (18:00)
[2023-04-19] MEDS: ATORVASTATIN 20 MG TAB PO SCH (21:03)
[2023-04-19] MEDS: ZOLPIDEM TARTRATE 5 MG TABLET PO PRN (22:21)
--- NOTE | 2023-04-20 01:12 | PN ---
Date of Progress Note: 04/19/2023 Subjective: The patient was seen this morning for followup. No new complaints or problems reported by him this morning. He was lying in bed, not in any distress. Objective: Vital Signs: Last temperature this morning was 98.3, pulse 76, respiratory rate 18, bloo d pressure 142/65, oxygen saturation 92%. HEENT: Unremarkable. Lungs: Bilateral good equal air entry, not in any distress, but wheezing was present, scattered in h is lung ye. Heart: Sounds normal. Abdomen: Soft. Bowel sounds normal. No guarding, rigidity, tenderness, distention. Extremities: Leg edema remains unchanged, but redness from left lower extremity has improved slightl y. Laboratory Data: Blood culture remains negative. Impression: 1.Cellulitis, left leg. 2.Acute kidney injury. 3.Hypertension. 4.Type 2 diabetes mellitus. Plan: IV fluid was discontinued. Lasix 1-time order was given today, 20 mg. We will go ahead and c ontinue albuterol nebulizer treatment per order. Continue current antibiotics. We will repeat blood work tomorrow morning and I will see him tomorrow for followup. DOMENICA/MODL Voice ID: [id number] Report ID: [id number]
--- NOTE | 2023-04-20 01:20 | PN ---
Date of Progress Note: 04/18/2023 Subjective: The patient was seen this morning for followup. No new complaints or problems reported by him. Objective: General: Lying in bed, not in distress. Vital Signs: This morning, temperature 98.6, pulse 69, respiratory rate 22, blood pressure 115/59, oxygen saturation is 97% on room air. The patient's maximum temperature last night was 102.4 degrees Fahrenheit. HEENT: Unremarkable. Lungs: Clear to auscultation. Heart: Heart sounds normal. Abdomen: Soft. Bowel sounds normal. No guarding, rigidity, tenderness, or distention. Extremities: Left leg edema with redness and warmness of the left leg between knee and foot, unchanged from yesterday. Laboratory Data: White count 12.1, hemoglobin 11.8 platelets 125. Sodium 137, potassium 3.5, chloride 107, bicarb 26, BUN 15, creatinine 1.32, glucose 139. Blood culture remains negative. Impression: 1. Cellulitis, left leg. 2. Anemia, unspecified. 3. Hypertension. 4. Type 2 diabetes mellitus. Plan: We will go ahead and continue current antibiotics. Continue current IV fluids. We will go ahead and continue current DVT prophylaxis. Blood culture remains negative. Continue home medications per order. I will see him tomorrow for followup. DOMENICA/MODL Voice ID: [id number] Report ID: [id number] MTDD
[2023-04-20] MEDS: ALBUTEROL 2.5 MG/3 ML NEB SOL NEB SCH ×4 (02:00→20:00)
[2023-04-20] MEDS: PIPER TAZO 3.375 GM in NA CHLORIDE 0.9% 100 ML IV SCH ×3 (04:33→21:54)
[2023-04-20] MEDS: HYDROCODONE/APAP 10/325 TAB PO PRN ×2 (04:40→17:56)
[2023-04-20 07:14] LABS: Absolute Lymphocytes (CBC) 0.9 K/uL (0.7-4.9); Hematocrit 32.6 % (39.6-49.0); Lymphocytes % 12.1 % (15.3-44.8); MCV 86.9 fL (80-100); RBC Red Blood Cell Count 3.75 M/uL (4.33-5.43)
[2023-04-20] MEDS: INSULIN -REGULAR HUMAN 50 UNIT/0.5 ML ML SQ SCH ×4 (07:30→21:00)
[2023-04-20 07:32] LABS: Potassium 3.3 mEq/L (3.5-5.1)
[2023-04-20] MEDS: ENOXAPARIN 40 MG/0.4 ML SQ SCH (08:20)
[2023-04-20] MEDS: carvediloL 6.25 MG TAB PO SCH ×2 (08:21→21:40)
[2023-04-20] MEDS: PREGABALIN 150 MG CAP PO SCH ×2 (08:21→21:40)
[2023-04-20] MEDS: carBAMazepine 200 MG TAB PO SCH ×2 (08:21→21:41)
[2023-04-20] MEDS: VANCOMYCIN 1.25 GM in NA CHLORIDE 0.9% 250 ML IVPB SCH ×2 (08:51→21:39)
[2023-04-20] MEDS ORDERED: POTASSIUM CL SA 10 MEQ TAB PO ONE (09:00)
--- NOTE | 2023-04-20 11:42 | PN ---
Date of Progress Note: 04/20/2023 Subjective: Patient was seen this morning for followup. He was lying in bed, not in any distress. Denies any new complaints. Still has some wheezing as he reports, but better than before. Yesterday, he diuresed very well after 1 dose of Lasix. His leg pain and swelling has improved. Objective: Vital Signs: Reviewed. Patient remains afebrile this morning. HEENT: Unremarkable. Lungs: Clear to auscultation. No wheezing. No rales. Cardiac: Heart sounds normal. Abdomen: Soft. Bowel sounds normal. No guarding, rigidity, tenderness, distention. Extremities: Leg edema present, but better than yesterday and redness from lower leg is better. Laboratory Data: White count 7.5, hemoglobin 11.2, platelets 158. Sodium 137, potassium 3.3, chloride 103, bicarb 28, BUN 10, creatinine 1.05, glucose 134. Magnesium 2. Impression: 1. Cellulitis, left leg. 2. Hypokalemia. 3. Leg edema. 4. Hypertension. 5. Type 2 diabetes mellitus. Plan: We will go ahead and continue current antibiotics. We will give 1 more dose of Lasix 20 mg IV today. Replace potassium per order and I will see him tomorrow for followup. Possible discharge to go home tomorrow. Details were discussed with patient. DOMENICA/MODL Voice ID: [id number] Report ID: [id number] MTDD
[2023-04-20] MEDS: ATORVASTATIN 20 MG TAB PO SCH (21:41)
[2023-04-21] MEDS: ALBUTEROL 2.5 MG/3 ML NEB SOL NEB SCH ×4 (02:00→20:00)
[2023-04-21 04:02] VITALS: BMI 50.8
[2023-04-21] MEDS: HYDROCODONE/APAP 10/325 TAB PO PRN ×2 (04:02→20:01)
[2023-04-21] MEDS: PIPER TAZO 3.375 GM in NA CHLORIDE 0.9% 100 ML IV SCH ×3 (04:49→20:03)
[2023-04-21] MEDS: INSULIN -REGULAR HUMAN 50 UNIT/0.5 ML ML SQ SCH ×4 (07:30→20:03)
[2023-04-21] MEDS: carBAMazepine 200 MG TAB PO SCH ×2 (08:33→20:02)
[2023-04-21] MEDS: PREGABALIN 150 MG CAP PO SCH ×2 (08:33→20:02)
[2023-04-21] MEDS: ENOXAPARIN 40 MG/0.4 ML SQ SCH (08:33)
[2023-04-21] MEDS: carvediloL 6.25 MG TAB PO SCH ×2 (08:33→20:02)
[2023-04-21] MEDS: VANCOMYCIN 1.25 GM in NA CHLORIDE 0.9% 250 ML IVPB SCH ×2 (09:17→20:01)
[2023-04-21] MEDS ORDERED: FUROSEMIDE 20 MG/ 2ML VIAL IV ONE (09:30)
[2023-04-21] MEDS ORDERED: POTASSIUM CL SA 10 MEQ TAB PO ONE (10:00)
--- NOTE | 2023-04-21 10:21 | PN ---
Date of Progress Note: 04/21/2023 Subjective: Patient was seen this morning for followup. No new complaints or problems reported by h im except complaining of more leg swelling and leg pain with that. Patient also reports that almost entire day yesterday he was sitting in the chair with his leg in dependent position and that definite ly made this left leg swelling worse compared to yesterday, and along with the swelling, he has no mo re pain. I have advised him to keep his leg elevated all the time to help with the swelling, which i s unfortunately is expected right now with the cellulitis of the left leg, especially it will get wor se if he does not keep his leg elevated, so all those details were discussed with him today. Denies any shortness of breath. Has had occasional wheezing as he describes. Objective: Vital Signs: Reviewed. Patient remains afebrile. HEENT: Unremarkable. Lungs: Clear to auscultation. No wheezing. No rales. Not in respiratory distress. Cardiac: Heart sounds normal. Abdomen: Soft. Bowel sounds normal. No guarding, rigidity, tenderness, or distention. Extremities: Left leg edema grade 2 to grade 3 today, lot worse today than yesterday with pink, warm skin involving left leg between knee and foot. Overall, left leg appearance is worse today than yes terday. Impression: 1.Cellulitis, left leg. 2.Hypokalemia. 3.Leg edema. 4.Hypertension. 5.Type 2 diabetes mellitus. Plan: We will go ahead and continue current antibiotic. Patient was advised to keep his leg elevate d. We will give 1 dose of Lasix 20 mg IV and potassium chloride 40 mEq p.o. x1 dose today. Continue other current antihypertensive medication and other current medical management. I will see him tomorrow fo r followup. DOMENICA/MODL Voice ID: [id number] Report ID: [id number]
[2023-04-21] MEDS: ACETAMINOPHEN 325 MG TABLET PO PRN (13:14)
[2023-04-21] MEDS: ATORVASTATIN 20 MG TAB PO SCH (20:02)
[2023-04-22] MEDS: ZOLPIDEM TARTRATE 5 MG TABLET PO PRN (00:37)
[2023-04-22] MEDS: ALBUTEROL 2.5 MG/3 ML NEB SOL NEB SCH ×2 (02:00→08:00)
[2023-04-22] MEDS: PIPER TAZO 3.375 GM in NA CHLORIDE 0.9% 100 ML IV SCH (05:36)
[2023-04-22] MEDS: ACETAMINOPHEN 325 MG TABLET PO PRN (05:44)
[2023-04-22] MEDS ORDERED: FUROSEMIDE 20 MG/ 2ML VIAL IV ONE (07:26)
[2023-04-22] MEDS ORDERED: POTASSIUM CL SA 10 MEQ TAB PO ONE (07:26)
[2023-04-22] MEDS: INSULIN -REGULAR HUMAN 50 UNIT/0.5 ML ML SQ SCH (07:30)
[2023-04-22 08:21] VITALS: O2SAT 97
[2023-04-22] MEDS: PREGABALIN 150 MG CAP PO SCH (08:26)
[2023-04-22] MEDS: carvediloL 6.25 MG TAB PO SCH (08:26)
[2023-04-22] MEDS: carBAMazepine 200 MG TAB PO SCH (08:26)
[2023-04-22] MEDS: ENOXAPARIN 40 MG/0.4 ML SQ SCH (08:27)
[2023-04-22] MEDS: VANCOMYCIN 1.25 GM in NA CHLORIDE 0.9% 250 ML IVPB SCH (08:27)
[2023-04-22 09:14] VITALS: BP 126/71; TEMP 97.1
--- NOTE | 2023-04-23 07:14 | DS ---
Date of Discharge: 04/22/2023 Disposition: Discharged to go home. Physical Examination: HEENT: Unremarkable. Lungs: Clear to auscultation. Heart: Sounds normal. Abdomen: Soft. Bowel sounds normal. No guarding, rigidity, tenderness, or distention. Extremities: Significant improvement in the left leg edema today from yesterday and redness from lef t leg has resolved. What he has is, brown discoloration of the lower half of the left leg between kn ee and ankle and it is not warm to touch anymore now. Laboratory Data: Upon admission white count 9.5, hemoglobin 15.5, platelets 165. Last CBC from 03/24 shows white count 7.5, hemoglobin 11.2, platelets 158. Highest WBC count during this admissio n was 12.1 on 04/18/2023. Initial chemistry sodium 133, potassium 3.7, chloride 101, bicarb 26, BUN 17, creatinine 1.47, glucose 177. Liver function tests unremarkable. Last chemistry from 04/20, sod ium 137, potassium 3.3, chloride 103, bicarb 28, BUN 10, creatinine 1.05, glucose 134. Discharge Medications/instructions: 1.Continue all prior home medication. 2.Take Augmentin 875 mg 1 tablet by mouth 2 times a day for 1 week. 3.Follow up at my office next week. Hospital Course: A 67-year-old pleasant male patient who came into emergency room with complaints of left leg pain, fever, and chills. Please see dictated H and P for more information. The patient ca me into the emergency room. When he first came into ER, he was noted to be somewhat confused, but hi s condition quickly improved. When I saw him, he was back to his normal self. The patient was admit nereida to the hospital with left leg cellulitis. His blood cultures remained negative. There was no ev idence of any sepsis. He was started on empiric antibiotics. Initially, he had acute kidney injury, which has resolved with IV fluid hydration as well as appropriate antibiotic therapy. His celluliti s has improved now. He did have left leg swelling and required IV diuretic therapy. Potassium was l ow, which was corrected. Today, he was discharged to go home in stable condition. I have sent 10 da ys of antibiotic prescription for him for Augmentin and I have instructed him that he should take it for 7 days and keep the 3 days supply on hand for him to use it in the future if he starts to have an y fever and leg pain or redness of the leg. The patient has had multiple prior episodes of celluliti s of leg, so he is very well aware of the symptoms and he was instructed to start taking his antibiot ic at the first sign of any infection in his legs and he should also call office to schedule appointm ent to see me either same day or next day, so I can evaluate him and make necessary recommendation on treatment plan at that time. Final Diagnoses: 1.Cellulitis, left leg. 2.Acute kidney injury. 3.Volume depletion. 4.Toxic encephalopathy. 5.Hypokalemia. 6.Hypertension. 7.Hyperlipidemia. 8.Type 2 diabetes mellitus. 9.Trigeminal neuralgia. DOMENICA/MODL Voice ID: [id number] Report ID: [id number]
== END 2023-04-22 09:53 | disposition home or self-care (01) | DRG 602 ==
LOC: ER 20:00 → ERHOLD 22:29 → 2ND 04-17 00:03
PROVIDERS: ADMIT Internal Medicine; ATTEND Internal Medicine
DX: L03.116 Cellulitis of left lower limb (principal); G92.9 Unspecified toxic encephalopathy; N17.9 Acute kidney failure, unspecified; E78.2 Mixed hyperlipidemia; E87.6 Hypokalemia; E86.9 Volume depletion, unspecified; G50.0 Trigeminal neuralgia; K21.9 Gastro-esophageal reflux disease without esophagitis; I12.9 Hypertensive chronic kidney disease with stage 1 through stage 4 chronic kidney disease, or unspecified chronic kidney disease; N18.31 Chronic kidney disease, stage 3a; E11.22 Type 2 diabetes mellitus with diabetic chronic kidney disease; D63.1 Anemia in chronic kidney disease; R60.9 Edema, unspecified; Z88.1 Allergy status to other antibiotic agents; Z79.84 Long term (current) use of oral hypoglycemic drugs; Z79.02 Long term (current) use of antithrombotics/antiplatelets; Z87.891 Personal history of nicotine dependence; Z79.899 Other long term (current) drug therapy; Z89.212 Acquired absence of left upper limb below elbow; Z20.822 Contact with and (suspected) exposure to COVID-19
CPT/HCPCS: 36415; 71045; 80048; 80053; 80202; 81001; 82947; 83605; 83735; 85025; 85610; 85730; 87040; 87804; 87811; 93005; 93971; 99285; J1200; J1650; J1815; J1940; J2185; J2405; J2543; J7030; J7040; J7050; J7613; P9047

== ENCOUNTER 2024-02-20 16:39 | Inpatient (IN) | payer OTHER ==
[2024-02-20] MEDS ORDERED: NA CHLORIDE 0.9% 3,000 ML ONE (17:09)
[2024-02-20] MEDS ORDERED: ACETAMINOPHEN 500 MG TAB ONE (17:09)
[2024-02-20] MEDS ORDERED: NA CHLORIDE 0.9% 100 ML ONE (17:09)
[2024-02-20] MEDS ORDERED: PIPERACIL/TAZO 3.375 GM VIAL IV ONE (17:09)
[2024-02-20] MEDS ORDERED: ONDANSETRON 4 MG/2 ML VIAL ONE (17:17)
[2024-02-20 17:38] LABS: Absolute Lymphocytes (CBC) 0.5 K/uL (0.7-4.9); Absolute Monocytes 0.2 K/uL (0.1-1.3); Absolute Neutrophil 7.4 K/uL (1.8-8.0); Basophils % 0.2 % (0-1.3); Eosinophils % 0.3 % (0-4.4); Hematocrit 44.6 % (39.6-49.0); Hemoglobin 14.9 g/dL (13.6-17.9); Lymphocytes % 6.1 % (15.3-44.8); MCH 28.5 pg (27.0-35.0); MCHC 33.3 g/dL (32.0-36.0); MCV 85.5 fL (80-100); MPV 8.4 fL (7.6-11.3); Monocytes % 2.6 % (3.3-12.3); Neutrophils % 90.8 % (41.7-73.7); Platelets 175 thou/uL (152-406); RBC Red Blood Cell Count 5.22 M/uL (4.33-5.43); Red Cell Distribution Width 14.5 % (12.1-15.2)
--- NOTE | 2024-02-20 17:38 | EDPHYS ---
Physician Documentation [facility] Name: Vipul Holden Age: 68 yrs Sex: Male : 1955 Arrival Date: 02/20/2024 Time: 16:39 Bed 4 Private MD: ED Physician Magalis Lama HPI: 02/19 17:33 This 68 yrs old Male presents to ER via Ambulatory with complaints of Fever, sp3 Leg Swelling. 17:33 68-year-old male with history of diabetes, hypertension, hyperlipidemia, prior sp3 cellulitis now presents from Dr. Jimenez's office for chief complaint fever, right leg rash/cellulitis and likely early sepsis. Patient states his symptoms are open getting worse over the last 2 to 3 days. He went to see his PCP today who referred him to the ED. Patient denies any other symptoms including headache, facial pain, chest pain, shortness of breath, abdominal pain, vomiting, diarrhea, dysuria, urinary frequency, cough, congestion, known sick contacts, travel history, prolonged immobilization, or any other signs or symptoms on ROS at this time.. Historical: - Allergies: 16:48 Vancomycin (Hives); db - PMHx: 16:48 diabetes mellitus; diabetes mellitus; Hypertension; Hypercholesterolemia; trigeminal db neuralgia; - PSHx: 16:48 back; knee; traumatic amputation left upper extremity; db - Immunization history:: Adult Immunizations. - Infectious Disease History:: Denies. - Social history:: Smoking status: Patient denies any tobacco usage or history of. ROS: 17:34 Eyes: Negative for injury, pain, redness, and discharge, ENT: Negative for injury, sp3 pain, and discharge, Neck: Negative for injury, pain, and swelling, Respiratory: Negative for shortness of breath, cough, wheezing, and pleuritic chest pain, Abdomen/GI: Negative for abdominal pain, nausea, vomiting, diarrhea, and constipation, Back: Negative for injury and pain, Neuro: Negative for headache, weakness, numbness, tingling, and seizure, Psych: Negative for depression, anxiety, suicide ideation, homicidal ideation, and hallucinations, Allergy/Immunology: Negative for hives, rash, and allergies, Endocrine: Negative for neck swelling, polydipsia, polyuria, polyphagia, and marked weight changes, Hematologic/Lymphatic: Negative for swollen nodes, abnormal bleeding, and unusual bruising, 17:34 All other systems are negative, Exam: 17:34 Constitutional: This is a well developed, well nourished patient who is awake, alert, sp3 and in no acute distress. Head/Face: Normocephalic, atraumatic. Eyes: Pupils equal round and reactive to light, extra-ocular motions intact. Lids and lashes normal. Conjunctiva and sclera are non-icteric and not injected. Cornea within normal limits. Periorbital areas with no swelling, redness, or edema. Neck: Trachea midline, no thyromegaly or masses palpated, and no cervical lymphadenopathy. Supple, full range of motion without nuchal rigidity, or vertebral point tenderness. No Meningismus. Chest/axilla: Normal chest wall appearance and motion. Nontender with no deformity. No lesions are appreciated. Respiratory: Lungs have equal breath sounds bilaterally, clear to auscultation and percussion. No rales, rhonchi or wheezes noted. No increased work of breathing, no retractions or nasal flaring. Abdomen/GI: Soft, non-tender, with normal bowel sounds. No distension or tympany. No guarding or rebound. No evidence of tenderness throughout. Back: No spinal tenderness. No costovertebral tenderness. Full range of motion. Neuro: Awake and alert, GCS 15, oriented to person, place, time, and situation. Cranial nerves II-XII grossly intact. Motor strength 5/5 in all extremities. Sensory grossly intact. Cerebellar exam normal. Normal gait. Psych: Awake, alert, with orientation to person, place and time. Behavior, mood, and affect are within normal limits. 17:34 Cardiovascular: Rate: tachycardic, 17:34 Musculoskeletal/extremity: Right anterior leg just distal to the knee with area of erythema and cellulitis. Mild calf tenderness there as well. Mild distal swelling 1+ nonpitting. Vascular exam is normal. No proximal pain or groin pain noted.. 17:43 ECG was reviewed by the Attending Physician. EKG demonstrates sinus tachycardia at 120 sp3 bpm with normal intervals, incomplete right bundle branch block and nonspecific diffuse ST's ST changes without evidence of acute ischemia. Vital Signs: 16:46 Pulse 123; Resp 28; Temp 103; Pulse Ox 96% ; Weight 102.06 kg; Height 5 ft. 5 in. ; db 17:41 BP 151 / 56; Pulse 127; Resp 34; Temp 101.9; Pulse Ox 94% on R/A; ko1 17:49 Temp 100.3(O); ld1 18:54 Pulse 120; Resp 26; Temp 99.1; Pulse Ox 93% on R/A; ld1 19:45 BP 105 / 46; Pulse 97; Resp 22; Pulse Ox 95% on R/A; tm6 20:00 BP 105 / 57; Pulse 96; Resp 18; Pulse Ox 96% on R/A; km8 16:46 Body Mass Index 37.44 (102.06 kg, 165.1 cm) db MDM: 16:46 Patient medically screened. sp3 17:35 Data reviewed: vital signs, nurses notes, old medical records, lab test result(s), EKG, sp3 radiologic studies. ED course: 60-year-old male with PMH above now with right leg swelling and pain. Differential diagnosis includes cellulitis, sepsis, DVT, among others. I am not highly suspicious for shock, vascular arterial thrombosis, or any other critical process. Workup will include ultrasound of the right lower extremity, laboratory values including lactate, IV hydration, antipyretics, and antibiotics with admission under PCP.. 02/19 17:04 Order name: Blood Culture Adult (2) [facility] 02/19 17:04 Order name: CBC with Diff; Complete Time: 18:06 3 02/19 17:04 Order name: CMP; Complete Time: 18:06 [facility] 02/19 17:04 Order name: Lactate w/ 2H reflex if indic.; Complete Time: 18:06 [facility] 02/19 17:41 Order name: CBC Smear Scan; Complete Time: 18:06 [facility] 02/19 20:56 Order name: Lactate Sepsis 2 HR Follow-up [facility] 02/19 17:04 Order name: US Extremity Venous Unilateral Ltd; Complete Time: 18:20 [facility] 02/19 17:04 Order name: Cardiac monitoring; Complete Time: 17:21 3 02/19 17:04 Order name: EKG - Nurse/Tech; Complete Time: 17:22 3 02/19 17:04 Order name: IV Saline Lock - Large Bore; Complete Time: 17:21 [facility] 02/19 17:04 Order name: Labs collected and sent; Complete Time: 17:22 3 02/19 17:04 Order name: O2 Sat Monitoring; Complete Time: 17:06 sp3 02/19 17:04 Order name: Vital Signs; Complete Time: 17: sp3 Administered Medications: 17:15 Drug: NS 0.9% IV (30 ml/kg) 30 ml/kg IV at bolus once; Sepsis Protocol Route: IV; Rate: ld1 bolus; Site: right antecubital; 17:23 Drug: Acetaminophen PO 1000 mg PO once Route: PO; ko1 17:25 Drug: Piperacillin-Tazobactam IVPB 3.375 grams IVPB once over 60 mins; (mix in NS 100 ld1 mL) Route: IVPB; Infused Over: 60 mins; Site: right antecubital; 17:25 Drug: Ondansetron IVP 4 mg IVP once; over 2 minutes Route: IVP; Site: right antecubital;ld1 19:23 Drug: Ketorolac IVP 15 mg IVP once Route: IVP; Site: right antecubital; tm6 Disposition Summary: 02/20/24 17:37 Hospitalization Ordered Notes: Hospitalization Status: Inpatient Admission sp3 Provider: Adelfo Jimenez sp3 Location: Telemetry/[facility] (Inpatient) sp3 Condition: Stable sp3 Problem: an acute exacerbation sp3 Symptoms: have worsened sp3 Bed/Room Type: Standard sp3 Room Assignment: 412(02/20/24 20:02) sp Diagnosis - Cellulitis, sepsis sp3 Forms: - Medication Reconciliation Form sp3 - SBAR form sp3 - Leadership Thank You Letter sp3 Signatures: Dispatcher [employer] EDMS Carin Capone Lauren RN RN ld1 Magalis Lama MD MD sp3 Eleanor Douglass RN RN ko1 Ivelisse Thomason RN RN db Disha Agudelo RN RN tm6 Corrections: (The following items were deleted from the chart) 17:04 17:04 BLOOD CULTURE*+BA.LAB.BRZ ordered. EDMS EDMS 17:04 17:04 CBC+H.LAB.BRZ ordered. EDMS EDMS 17:04 17:04 COMPREHENSIVE METABOLIC PANEL+C.LAB.BRZ ordered. EDMS EDMS 17:04 17:04 LACTATE+C.LAB.BRZ ordered. EDMS EDMS 20:02 17:37 sp3 sp
--- NOTE | 2024-02-20 17:38 | ER ---
Nurse's Notes [facility] Name: Vipul Holden Age: 68 yrs Sex: Male : 1955 Arrival Date: 02/20/2024 Time: 16:39 Bed 4 Private MD: Diagnosis: Cellulitis, sepsis Presentation: 02/19 16:46 Chief complaint: Patient states: FEVER, RIGHT LEG SWELLING STARTED TODAY. SENT BY PCP db TODAY. Coronavirus screen: Client denies travel out of the [place] in the last 14 days. At this time, the client does not indicate any symptoms associated with coronavirus-19. Ebola Screen: Patient negative for fever greater than or equal to 101.5 degrees Fahrenheit, and additional compatible Ebola Virus Disease symptoms Patient denies exposure to infectious person. Patient denies travel to an Ebola-affected area in the 21 days before illness onset. No symptoms or risks identified at this time. Initial Sepsis Screen: Does the patient meet any 2 criteria? Temp <36.0*C (96.8*F)) or > 38.3*C (100.9*F). HR > 90 bpm. Yes Does the patient have a suspected source of infection? No. Patient's initial sepsis screen is negative. If YES to both, name of provider notified: Magalis Lama MD. Risk Assessment: Do you want to hurt yourself or someone else? Patient reports no desire to harm self or others. Onset of symptoms was February 20, 2024. 16:46 Method Of Arrival: Ambulatory db 16:46 Acuity: [facility] 2 db 16:49 Note CODE SEPSIS CALLED. db Triage Assessment: 21:17 General: Appears in no apparent distress. Behavior is calm, cooperative. tm6 Historical: - Allergies: 16:48 Vancomycin (Hives); db - PMHx: 16:48 diabetes mellitus; diabetes mellitus; Hypertension; Hypercholesterolemia; trigeminal db neuralgia; - PSHx: 16:48 back; knee; traumatic amputation left upper extremity; db - Immunization history:: Adult Immunizations. - Infectious Disease History:: Denies. - Social history:: Smoking status: Patient denies any tobacco usage or history of. Screenin:41 [facility] ED Fall Risk Assessment (Adult) History of falling in the last 3 months, ko1 including since admission No falls in past 3 months (0 pts) Confusion or Disorientation No (0 pts) Intoxicated or Sedated No (0 pts) Impaired Gait Yes (1 pt) Mobility Assist Device Used Yes (1 pt) Altered Elimination No (0 pt) Score/Fall Risk Level 0 - 2 = Low Risk Oriented to surroundings, Maintained a safe environment, Educated pt \T\ family on fall prevention, incl call for assistance when getting out of bed, Assessed \T\ reinforced patient's understanding of fall precautions, Provided non-skid footwear, Hourly rounding (assess needs \T\ fall precautionary measures) done, Used ambulatory aids as needed (educated on \T\ assisted with), Used gait belt as appropriate. Abuse screen: Denies threats or abuse. Denies injuries from another. Nutritional screening: No deficits noted. Tuberculosis screening: No symptoms or risk factors identified. Assessment: 17:10 Reassessment: Pt vomiting at this time. Notified ERP. See MAR for orders. ld1 17:41 Pain: Pain: Complains of pain in right leg. ko1 17:43 Derm: Skin is red, Skin temperature is warm Rash noted that is on lateral aspect of ko1 right calf and medial aspect of right calf. Musculoskeletal: Swelling present in right leg. 18:55 Reassessment: Patient appears in no apparent distress at this time. No changes from ld1 previously documented assessment. 19:45 Reassessment: Patient appears in no apparent distress at this time. Patient and/or tm6 family updated on plan of care and expected duration. Pain level reassessed. Patient is alert, oriented x 3, equal unlabored respirations, skin warm/dry/pink. 20:37 Reassessment: Patient appears in no apparent distress at this time. No changes from km8 previously documented assessment. Patient and/or family updated on plan of care and expected duration. Pain level reassessed. Patient is alert, oriented x 3, equal unlabored respirations, skin warm/dry/pink. Vital Signs: 16:46 Pulse 123; Resp 28; Temp 103; Pulse Ox 96% ; Weight 102.06 kg; Height 5 ft. 5 in. ; db 17:41 BP 151 / 56; Pulse 127; Resp 34; Temp 101.9; Pulse Ox 94% on R/A; ko1 17:49 Temp 100.3(O); ld1 18:54 Pulse 120; Resp 26; Temp 99.1; Pulse Ox 93% on R/A; ld1 19:45 BP 105 / 46; Pulse 97; Resp 22; Pulse Ox 95% on R/A; tm6 20:00 BP 105 / 57; Pulse 96; Resp 18; Pulse Ox 96% on R/A; km8 16:46 Body Mass Index 37.44 (102.06 kg, 165.1 cm) db ED Course: 16:40 Patient arrived in ED. im 16:46 Magalis Lama MD is Attending Physician. sp3 16:48 Triage completed. db 16:49 Arm band placed on. db 17:15 Initial lab(s) drawn, by me, sent to lab. First set of blood cultures drawn by me, ko1 Second set of blood cultures drawn by me, EKG done, by ED staff, reviewed by Magalis Lama MD. Inserted saline lock: 20 gauge in right antecubital area, using aseptic technique. Blood collected. 17:21 Blood Culture Adult (2) Sent. bp 17:21 CBC with Diff Sent. bp 17:22 Eleanor Douglass, RN is Primary Nurse. ko1 17:32 Patient has correct armband on for positive identification. Allergy band placed. Bed in ko1 low position. Call light in reach. Side rails up X2. Provided Education on: labs, fluids. Client placed on continuous cardiac and pulse oximetry monitoring. NIBP monitoring applied. air sampling and monitoring on. Door closed. Noise minimized. Lights dimmed. Warm blanket given. Pillow given. 17:32 No provider procedures requiring assistance completed. ko1 17:37 Adelfo Jimenez MD is Hospitalizing Provider. sp3 18:15 US Extremity Venous Unilateral Ltd In Process Unspecified. EDMS 21:17 Patient admitted, IV remains in place. tm6 Administered Medications: 17:15 Drug: NS 0.9% IV (30 ml/kg) 30 ml/kg IV at bolus once; Sepsis Protocol Route: IV; Rate: ld1 bolus; Site: right antecubital; 17:23 Drug: Acetaminophen PO 1000 mg PO once Route: PO; ko1 17:25 Drug: Piperacillin-Tazobactam IVPB 3.375 grams IVPB once over 60 mins; (mix in NS 100 ld1 mL) Route: IVPB; Infused Over: 60 mins; Site: right antecubital; 17:25 Drug: Ondansetron IVP 4 mg IVP once; over 2 minutes Route: IVP; Site: right antecubital;ld1 19:23 Drug: Ketorolac IVP 15 mg IVP once Route: IVP; Site: right antecubital; tm6 Medication: 17:41 VIS not applicable for this client. ko1 Outcome: 17:37 Decision to Hospitalize by Provider. sp3 21:17 Admitted to Med/surg accompanied by nurse, family with patient, via wheelchair, with tm6 chart, 21:17 Condition: stable 21:17 Instructed on the need for admit, 21:18 Patient left the ED. tm6 Signatures: Dispatcher [employer] EDMS Daniel Faye, RN RN Candie Tilley RN RN ld1 Magalis Lama MD MD sp3 Eleanor Douglass RN RN ko1 Ivelisse Thomason RN RN db Sherlyn Kee Katie RN RN 8 Disha Agudelo RN RN tm6 Corrections: (The following items were deleted from the chart) 16:49 16:46 Initial Sepsis Screen: Does the patient meet any 2 criteria? HR > 90 bpm. Does db the patient have a suspected source of infection? No. Patient's initial sepsis screen is negative. 17:44 17:41 Pain: ko1 ko1
[2024-02-20 17:58] LABS: Albumin 4.1 g/dL (3.4-5.0); Albumin/Globulin Ratio 1.1 (1.1-1.8); Bilirubin Total 0.7 mg/dL (0.2-1.0); Globulin 3.7 g/dL (2.3-3.5); Protein, Total 7.8 g/dL (6.4-8.2)
[2024-02-20 18:04] LABS: Blood Morphology Comment NOT SEEN (NOT SEEN); Platelet Estimate ADEQ; White Blood Cell Scan OK (OK)
--- NOTE | 2024-02-20 18:18 | RAD REPORT ---
EXAM DESCRIPTION: US - Extremity Venous Uni Ltd - 02/20/2024 6:13 pm CLINICAL HISTORY: SWELLING Leg swelling and edema. COMPARISON: <Comparisons> FINDINGS: Right lower extremity venous system was interrogated with Doppler technique. Normal flow, compressibility and augmentation was noted. There is no DVT present. IMPRESSION: No evidence of right lower extremity deep venous thrombosis.
[2024-02-20] MEDS ORDERED: WATER FOR INJ,STERILE 10 ML ONE (18:37)
[2024-02-20] MEDS ORDERED: KETOROLAC 30 MG/ML INJ ONE (19:20)
[2024-02-20] MEDS ORDERED: ONDANSETRON 4 MG/2 ML VIAL IV PRN (21:32)
[2024-02-20] MEDS: ACETAMINOPHEN 325 MG TABLET PO PRN (21:49)
[2024-02-20] MEDS: NA CHLORIDE 0.9% 1,000 ML IV SCH (22:19)
[2024-02-20 22:25] VITALS: BMI 41.5
[2024-02-21] MEDS: PIPER TAZO 3.375 GM in NA CHLORIDE 0.9% 100 ML IV SCH (00:44)
--- NOTE | 2024-02-21 05:07 | HP ---
Date of Admission: 02/20/2024 Chief Complaint: Fever, chills, and leg pain. History Of Present Illness: This is a 68-year-old very pleasant male patient who moved to [place] area a few months ago, and today he came back to [facility] to attend his grandson's birthday green party. After the green party was over, all of a sudden he started to have some pain in his right leg along with fever and chills. So, patient decided to come see me at office and at office, his temperature was recorded as 103.8, and he was noted to have some altered mental status. The patient had hard time coming up with family members name. When I asked him if he drove himself to the office, he informed me that his niece drove him, and then later on when I asked what his niece name was, so I can call her back from the waiting room to the exam room so I can discuss some details, he told me at that time that it was his sister and not niece and he had hard time coming up with his sister's name, but finally when he did inform me about name, we could not find his sister or niece, or any other family member either in the waiting room or outside the office in the parking lot area. Then, I asked the patient to go ahead and look in his phone for family members contact name and number and the patient could not unlock his phone, as he did not remember password. Finally, he was able to log into his phone contact list and asked me to call his daughter, and I tried calling her. She did not answer. Later on, he asked me to call his son and we could not find out his contact information in his telephone. We did not have any other family members contact numbers in our office chart and we tried to contact his ex-, we were not able to contact her either. So, at that time, we decided to go ahead and have 2 of my office staff members bring him to our emergency room for further evaluation and management and after he was evaluated in the ER, he was admitted to hospital with cellulitis of right leg and sepsis, and altered mental status secondary to sepsis. Allergies: NO KNOWN ALLERGIES. Medications: According to office list, he is on atorvastatin 20 mg daily, carbamazepine 200 mg 2 times a day, carvedilol 6.25 mg 2 times a day, losartan/HCTZ 100/25 one tablet daily, metformin 500 mg 2 times a day, pregabalin 300 mg daily, vitamin B12 500 mcg daily. Review of Systems: Constitutional: As mentioned above. Dermatology: As mentioned above. 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 All other systems reviewed and negative. Past Medical History: Significant for trigeminal neuralgia, type 2 diabetes mellitus, hypertension, hyperlipidemia which is mixed, gastroesophageal reflux disease, diverticulosis, benign prostatic hypertrophy, erectile dysfunction, lymphedema of legs, chronic diastolic heart failure, cervical spinal stenosis, benign prostatic hypertrophy. Past Surgical History: Back surgery; right knee surgery in 2019; left knee surgery in September 12, 2024, and prior to that in 2009. The patient had right knee surgery also, October 19, 2020. Past surgical history also significant for amputation of the left forearm many years ago. Family History: Father , details unknown. Mother , had coronary artery disease, diabetes mellitus, hypertension, and kidney disease. Brother had ID. Social History: Prior history of smoking, not at present time. Use of alcohol, negative. Physical Examination: Vital Signs: At office, blood pressure was 127/66, pulse 116, temperature 103.8, weight 254 pounds, height 65 inches, respiratory rate 20. General: Patient awake, alert, not completely oriented. Appears ill and weaker than normal, unsteady on his feet, and with obvious altered mental status. HEENT: Head atraumatic, normocephalic. Conjunctivae nonerythematous. Sclerae white. Mouth, no thrush or edema noted. Ears/Nose, no mass, lesion, discharge noted. Neck: Supple. No JVD, lymph nodes, bruit, thyromegaly noted. Lungs: Bilateral good equal air entry. Clear to auscultation. No rhonchi. No rales. Heart: Normal heart sounds, no murmur or gallop. Abdomen: Soft, bowel sounds normal. No guarding, rigidity, tenderness, mass, hepatosplenomegaly, distention, or bruit noted. Extremities: Right lower extremity, lower half of the right leg has pink, warm, tender skin. No open wound, and has slight leg edema involving lower legs. Skin: No rash, ulcer, cellulitis. Lymphatics: No lymph node enlargement in neck, supraclavicular, infraclavicular region. Neuro: No focal neurological deficit but patient has altered mental status as described above. Chest: Unremarkable. External Genitalia: Deferred. Rectal: Deferred. Laboratory Data: White count 8.2, hemoglobin 14.9, platelets 175. Sodium 135, potassium 4, chloride 101, bicarb 29, BUN 19, creatinine 1.48, glucose 116. Lactic acid 2.5. Liver function tests normal. Venous Doppler of right leg was negative for DVT. Impression: 1. Sepsis. 2. Toxic encephalopathy. 3. Cellulitis, right leg. 4. Acute kidney injury. 5. Volume depletion. 6. Hypertension. 7. Mixed hyperlipidemia. 8. Type 2 diabetes mellitus. 9. Trigeminal neuralgia. 10. Chronic diastolic heart failure. Plan: We will go ahead and admit the patient to hospital for further evaluation and management of this problem. The patient is appropriate for inpatient and is expected to spend 2 midnights in the hospital. After I saw the patient at office, he was assisted in a wheelchair and we had our two of the office staff member who actually transported him in a car to the emergency room and after he was evaluated and managed in the emergency room, will be now admitting him to hospital. We will order IV antibiotics, Zosyn was started which we will continue that at this time. Follow up on culture results. For hypertension, we will not give any antihypertensive medication at this point and we will restart his antihypertensive medication at appropriate time. For hyperlipidemia, we will continue his statin therapy per order. For trigeminal neuralgia, he takes carbamazepine and pregabalin, and we will continue those medications per order. Diabetes will be managed with sliding scale insulin at this time and we will not start metformin yet. DVT prophylaxis will be given using Lovenox. We will repeat blood work tomorrow. Total time spent today was 90 minutes, including performing evaluation and management at office and evaluation and management for this hospital admission, trying to contact multiple family members, providing assistance to patient at office, review of prior hospital records, and review of prior office records. DOMENICA/MODL Voice ID: [id number] SANDIE
[2024-02-21 06:13] LABS: Absolute Lymphocytes (CBC) 0.4 K/uL (0.7-4.9); Absolute Monocytes 0.4 K/uL (0.1-1.3); Absolute Neutrophil 12.1 K/uL (1.8-8.0); Basophils % 0.2 % (0-1.3); Hematocrit 35.8 % (39.6-49.0); Hemoglobin 12.3 g/dL (13.6-17.9); Lymphocytes % 3.1 % (15.3-44.8); MCH 29.1 pg (27.0-35.0); MCHC 34.3 g/dL (32.0-36.0); MCV 84.9 fL (80-100); MPV 8.4 fL (7.6-11.3); Monocytes % 3.1 % (3.3-12.3); Neutrophils % 93.6 % (41.7-73.7); Platelets 142 thou/uL (152-406); RBC Red Blood Cell Count 4.21 M/uL (4.33-5.43); Red Cell Distribution Width 15.2 % (12.1-15.2)
[2024-02-21 06:45] LABS: Phosphorus 1.9 mg/dL (2.5-4.9)
[2024-02-21 06:46] LABS: Magnesium 1.2 mg/dL (1.6-2.4)
[2024-02-21] MEDS: POTASS/SODIUM PHOSPHATE 1 PKT POWD.PACK PO SCH (08:00)
[2024-02-21] MEDS ORDERED: MORPHINE 2 MG/ML SYR IV PRN (08:51)
[2024-02-21] MEDS: ENOXAPARIN 40 MG/0.4 ML SQ SCH (10:04)
[2024-02-21] MEDS: MAGNESIUM SULFATE 1 gm IVPB 1 GM/100 ML BAG IV ONE (10:05)
[2024-02-21] MEDS: PNEUMOCOCCAL VACCINE 0.5 ML IMVAC ONE (10:06)
[2024-02-21] MEDS: PREGABALIN 150 MG CAP PO SCH (10:07)
[2024-02-21] MEDS: carvediloL 6.25 MG TAB PO SCH (10:08)
[2024-02-21] MEDS: carBAMazepine 200 MG TAB PO SCH (10:08)
[2024-02-21] MEDS: MORPHINE 4 MG/ML SYR IV PRN (11:29)
[2024-02-21] MEDS: INSULIN REGULAR (HUMAN) 100 UNIT/ML SQ SCH (11:30)
--- NOTE | 2024-02-21 11:37 | PN ---
Date of Progress Note: 02/21/2024 Subjective: The patient was seen this morning for followup. He was sitting at bedside complaining o f a headache on the right side from his trigeminal neuralgia problem. No nausea, vomiting. His ment al status is back to normal. He is answering questions appropriately and informed me that he really did not know exactly what happened yesterday, but he did admit that he came to office by himself and there was no family member with him yesterday. Objective: Vital Signs: Reviewed. Overall, patient now is afebrile, hemodynamically stable. HEENT: Unremarkable. Lungs: Clear to auscultation. Heart: Sounds normal. Abdomen: Soft. Bowel sounds normal. No guarding, rigidity, tenderness, distention. Extremities: Trace leg edema. Redness and warmness of the lower half of the right leg is slightly less today comp ared to yesterday. Laboratory Data: White count 12.9, hemoglobin 12.3, platelets 140. Sodium 136, potassium 4, chlorid e 107, bicarb 27, BUN 23, creatinine 1.73. Lactic acid 2.2. Magnesium 1.2, phosphorus 1.9. Impression: 1.Sepsis. 2.Cellulitis, right leg. 3.Acute kidney injury. 4.Hypertension. 5.Trigeminal neuralgia. 6.Type 2 diabetes mellitus. Plan: We will go ahead and manage diabetes with sliding scale insulin per order. Continue current a ntibiotic, which is Zosyn. Continue IV fluid hydration. We will repeat blood work tomorrow morning. Follow up on blood culture results. Continue antihypertensive medication as per order, which is ca rvedilol 6.25 mg 2 times a day. We will continue his carbamazepine and pregabalin that he takes at h ome for trigeminal neuralgia and I ordered morphine on a p.r.n. basis. Continue Lovenox for DVT prophylaxis. I will see him tomorrow for followup. DOMENICA/MODL Voice ID: [id number] Report ID: [id number]
--- NOTE | 2024-02-21 16:50 | EKG ---
Test Date: 2024-02-20 Test Time: 17:21:32 Wellness Director: Duane ALDRICH MEASUREMENT RESULTS: Intervals: Rate: 120 MI: 150 QRSD: 92 QT: 324 QTc: 457 [place]: P: 24 MI: 150 QRS: 55 T: 58 INTERPRETIVE STATEMENTS: Sinus tachycardia Incomplete right bundle branch block Possible Inferior infarct, age undetermined Abnormal ECG Compared to ECG 04/16/2023 22:04:25 Incomplete right bundle-branch block now present Myocardial infarct finding still present Electronically Signed On 02-21-24 16:47:44 CDT by Christofer Knowles
[2024-02-21] MEDS: ATORVASTATIN 20 MG TAB PO SCH (20:33)
[2024-02-22 06:28] LABS: Absolute Basophils 0.1 K/uL (0-0.5); Absolute Lymphocytes (CBC) 0.8 K/uL (0.7-4.9); Absolute Monocytes 0.5 K/uL (0.1-1.3); Absolute Neutrophil 8.8 K/uL (1.8-8.0); Basophils % 0.5 % (0-1.3); Eosinophils % 0.2 % (0-4.4); Hematocrit 33.8 % (39.6-49.0); Hemoglobin 11.7 g/dL (13.6-17.9); Lymphocytes % 8.4 % (15.3-44.8); MCH 29.4 pg (27.0-35.0); MCHC 34.5 g/dL (32.0-36.0); MCV 85.2 fL (80-100); MPV 8.4 fL (7.6-11.3); Monocytes % 4.5 % (3.3-12.3); Neutrophils % 86.4 % (41.7-73.7); Platelets 124 thou/uL (152-406); RBC Red Blood Cell Count 3.96 M/uL (4.33-5.43); Red Cell Distribution Width 15.2 % (12.1-15.2)
[2024-02-22 06:42] LABS: Anion Gap 5.7 mEq/L (5.0-15.0); Magnesium 1.7 mg/dL (1.6-2.4); Potassium 3.7 mEq/L (3.5-5.1)
[2024-02-22] MEDS: VANCOMYCIN 1.75 GM in NA CHLORIDE 0.9% 500 ML IVPB SCH (10:30)
[2024-02-22] MEDS: NA CHLORIDE 0.9% 1,000 ML IV SCH (12:31)
[2024-02-22] MEDS: PREGABALIN 150 MG CAP PO SCH (20:10)
[2024-02-22 20:22] VITALS: O2SAT 98
[2024-02-23 04:12] LABS: Absolute Eosinophils 0.2 K/uL (0-0.5); Absolute Lymphocytes (CBC) 0.9 K/uL (0.7-4.9); Absolute Monocytes 0.6 K/uL (0.1-1.3); Absolute Neutrophil 6.4 K/uL (1.8-8.0); Basophils % 0.6 % (0-1.3); Eosinophils % 1.9 % (0-4.4); Hematocrit 32.8 % (39.6-49.0); Hemoglobin 11.4 g/dL (13.6-17.9); MCH 29.7 pg (27.0-35.0); MCHC 34.9 g/dL (32.0-36.0); MCV 85.1 fL (80-100); MPV 8.6 fL (7.6-11.3); Monocytes % 7.1 % (3.3-12.3); Neutrophils % 79.4 % (41.7-73.7); Platelets 125 thou/uL (152-406); RBC Red Blood Cell Count 3.85 M/uL (4.33-5.43); Red Cell Distribution Width 15.3 % (12.1-15.2)
[2024-02-23 04:31] LABS: Albumin 2.5 g/dL (3.4-5.0); Albumin/Globulin Ratio 0.7 (1.1-1.8); Anion Gap 5.6 mEq/L (5.0-15.0); Bilirubin Total 0.5 mg/dL (0.2-1.0); Globulin 3.4 g/dL (2.3-3.5); Phosphorus 2.6 mg/dL (2.5-4.9); Potassium 3.6 mEq/L (3.5-5.1); Protein, Total 5.9 g/dL (6.4-8.2)
[2024-02-23] MEDS: PREGABALIN 50 MG CAP PO SCH (08:23)
[2024-02-23] MEDS: POTASSIUM CL SA 10 MEQ TAB PO ONE (08:23)
[2024-02-23] MEDS ORDERED: VANCOMYCIN 1 GM in NA CHLORIDE 0.9% 250 ML IVPB SCH (09:00)
[2024-02-23] MEDS: CLOTRIMAZOLE 10 MG TROCHE PO SCH (12:27)
--- NOTE | 2024-02-23 12:28 | PN ---
Date of Progress Note: 02/23/2024 Subjective: The patient was seen this morning for followup. No new complaints or problems reported by the patient. He was lying in bed with his leg elevated as suggested yesterday with couple of pill ows and his right leg pain and swelling has improved significantly since yesterday. The patient has remained afebrile. Denies any shortness of breath. Objective: Vital Signs: Reviewed. HEENT: Unremarkable. Lungs: Clear to auscultation. Heart: Sounds normal. Abdomen: Soft. Bowel sounds normal. No guarding, rigidity, tenderness, distention. Extremities: Edema of right leg is better today compared to yesterday and redness has improved at le ast by 40% compared to yesterday. His right leg is not sensitive to touch and tenderness that we not ed yesterday has improved today upon gentle touch to the right leg. Laboratory Data: White count 8.10, hemoglobin 11.4, and platelets 125. Sodium 138, potassium 3.6, c hloride 108, bicarb 28, BUN 8, creatinine 1.17, glucose 118. Liver function tests unremarkable. Blo od culture all the 4 bottles growing Streptococcus. Impression: 1.Sepsis, organism Streptococcus. 2.Cellulitis, right leg. 3.Acute kidney injury, improved. 4.Volume depletion, improved. 5.Hypertension. 6.Trigeminal neuralgia. Plan: We will go ahead and continue current medication. Continue current antibiotic which is Zosyn and vancomycin. We will discontinue IV fluid and the patient was encouraged to continue to keep his right lower extremity elevated with couple of pillows as he has done and plan is to possibly discharge him to go home tomorrow. Details and plan of treatment discussed with the patient. DOMENICA/MODL Voice ID: [id number] Report ID: [id number]
--- NOTE | 2024-02-23 12:49 | PN ---
Date of Progress Note: 02/22/2024 Subjective: The patient was seen this morning for followup. His headache is better and he is compla ining of lot of pain in his right leg. Physical Examination: Vital Signs: Reviewed. Last vital signs this morning, temperature was 99.2, pulse 80, respiratory r ate 17, blood pressure was 140/64. HEENT: Unremarkable. Lungs: Clear to auscultation. No wheezing. No rales. Heart: Sounds normal. Abdomen: Soft. Bowel sounds normal. No guarding, rigidity, tenderness, distention. Extremities: The patient has increased edema of the right leg with increased redness of the right le g compared to yesterday. It is very sensitive and tender to touch. There is no evidence of any flui d collection like abscess or any drainable fluid collection. Laboratory Data: White count 10.10, hemoglobin 11.7, platelets 124. Sodium 135, potassium 3.7, chlo ride 107, bicarb 26, BUN 15, creatinine 1.39, glucose 116, magnesium 1.7. Impression: 1.Sepsis. 2.Acute kidney injury. 3.Volume depletion. 4.Cellulitis, right leg. 5.Hypertension. 6.Anemia, unspecified. Plan: Go ahead and continue current antibiotic, which is Zosyn and add vancomycin. We will follow u p on blood culture results. Hopefully, it should be ready. Meanwhile, continue IV fluid but reduce rate to 50 cc/hour. The patient takes Tegretol 200 mg twice a day, which we are giving here in the h ospital, but at home he takes pregabalin 200 mg in the morning and 300 mg in the evening, so we will go ahead and make those changes to continue to give it as he takes it at home. We will repeat blood work tomorrow and we will see him tomorrow for followup. DOMENICA/MODL Voice ID: [id number] Report ID: [id number]
[2024-02-24 07:08] LABS: Anion Gap 6.2 mEq/L (5.0-15.0); Potassium 4.2 mEq/L (3.5-5.1)
[2024-02-24 08:47] VITALS: BP 143/66; TEMP 96.6
--- NOTE | 2024-02-26 03:47 | DS ---
Date of Discharge: 02/24/2024 Disposition: Discharged to go home. Physical Examination: HEENT: Unremarkable. Lungs: Clear to auscultation. Heart: Sounds normal. Abdomen: Soft. Bowel sounds normal. No guarding, rigidity, tenderness, distention. Extremities: Right lower extremity has trace leg edema with redness involving lower 1/4th of right leg. Discharge Medications And Instructions: 1. Continue all prior home medications. 2. Take Augmentin 875 mg 2 times a day for 2 weeks. 3. Follow up at my office next week. Laboratory Data: Last CBC: White count 8.1, hemoglobin 11.4, platelets 125. Sodium 138, potassium 3.6, chloride 108, bicarb 28, BUN 8, creatinine 1.17, glucose 118. Blood culture; all the 4 bottles on the blood culture grew Streptococcus. Hospital Course: Mr. Holden is a pleasant male patient, came into office with right leg pain and redness of right leg. Please see dictated H and P for more information. After the patient was evaluated at office, he was sent to emergency room and he was admitted to hospital with sepsis and altered mental status as a result of sepsis. The patient was admitted to the hospital. IV fluid and IV antibiotics were started. Initially, he was started on IV Zosyn and once we received preliminary blood culture results, we added vancomycin. Final result on the blood culture came back yesterday growing Streptococcus and it is sensitive to Levaquin, penicillin, and vancomycin. The patient has remained afebrile. His renal function has returned back to normal and hemodynamically stable. Overall, his condition has improved and today we will discharge him to go back home in stable condition with above-mentioned medications and instructions. Final Diagnoses: 1. Sepsis, organism Streptococcus. 2. Acute kidney injury. 3. Volume depletion. 4. Toxic encephalopathy. 5. Hypertension. 6. Trigeminal neuralgia. 7. Hyperlipidemia. Total time spent 40 minutes including review of this hospital admission record, performing today's evaluation and management and sending prescription to his pharmacy. DOMENICA/MODL Voice ID: [id number] Report ID: [id number] SANDIE
== END 2024-02-24 11:22 | disposition home or self-care (01) | DRG 871 ==
LOC: ER 16:39 → OBSVTOIN 19:54 → ERHOLD 19:54 → 4TH 20:34
PROVIDERS: ADMIT Internal Medicine; ATTEND Internal Medicine
DX: A40.9 Streptococcal sepsis, unspecified (principal); G92.9 Unspecified toxic encephalopathy; N17.9 Acute kidney failure, unspecified; E87.21 Acute metabolic acidosis; L03.115 Cellulitis of right lower limb; I50.32 Chronic diastolic (congestive) heart failure; R65.20 Severe sepsis without septic shock; I11.0 Hypertensive heart disease with heart failure; E11.9 Type 2 diabetes mellitus without complications; E86.9 Volume depletion, unspecified; E78.2 Mixed hyperlipidemia; G50.0 Trigeminal neuralgia; N40.0 Benign prostatic hyperplasia without lower urinary tract symptoms; K21.9 Gastro-esophageal reflux disease without esophagitis; Z23 Encounter for immunization; Z88.1 Allergy status to other antibiotic agents; Z79.84 Long term (current) use of oral hypoglycemic drugs; Z79.02 Long term (current) use of antithrombotics/antiplatelets; Z79.899 Other long term (current) drug therapy; Z89.212 Acquired absence of left upper limb below elbow
CPT/HCPCS: 36415; 80048; 80053; 80202; 82947; 83605; 83735; 84100; 85025; 87040; 87077; 87186; 87205; 90471; 90732; 93005; 93971; 96374; 96375; 99285; J1650; J2405; J2543; J3475; J7030; J7040